=== PATIENT | female | born 1955 | race Caucasian/White ===

== ENCOUNTER 2020-01-13 21:15 | Inpatient (IN) | payer BC, SELFPAY ==
--- NOTE | ~2020-01-13 | XR_ITS ---
XR foot RT min 3V DATE: 01/14/2020 15:54 INDICATION: Concern for osteomyelitis TECHNIQUE: 4 views COMPARISON: None FINDINGS: Osteopenia. There is rocker-bottom foot deformity. There is osteoarthritis of the tibiotalar joint. Old healed fracture deformity of the distal fibular shaft. Plantar calcaneal enthesopathy. Degenerative changes of the tarsal and tarsometatarsal joints and first metatarsophalangeal No periosteal reaction or bone destruction to suggest osteomyelitis. IMPRESSION: Osteopenia Polyarticular osteoarthritis Plantar calcaneal enthesopathy Reviewed, dictated and finalized at location A.
--- NOTE | ~2020-01-13 | XR_ITS ---
XR foot LT min 3V DATE: 01/14/2020 15:53 INDICATION: Concern for osteomyelitis TECHNIQUE: 4 views COMPARISON: None FINDINGS: Diffuse prominent osteopenia. There is rocker-bottom foot. Plantar calcaneal enthesopathy. There is hallux valgus and bunion deformity. There is osteoarthritis at the first metatarsophalangeal joint. There are degenerative changes of the tarsal and tarsometatarsal joints. There is osteophyte is at the tibiotalar joint. No fracture or dislocation, periosteal reaction or bone destruction is evident. There is no radiograp hic evidence of osteomyelitis. IMPRESSION: Osteopenia Rocker-bottom foot Polyarticular osteoarthritis Plantar calcaneal enthesopathy No periosteal reaction or bone destruction suggestive of osteomyelitis is detected Reviewed, dictated and finalized at location A. IMPRESSION: Osteopenia Rocker-bottom foot Polyarticular osteoarthritis Plantar calcaneal enthesopathy No periosteal reaction or bone destruction suggestive of osteomyelitis is detec sophia
--- NOTE | ~2020-01-13 | MR_ITS ---
EXAMINATION: MR foot RT wo/w con DATE: 01/17/2020 14:55 INDICATION: Right foot osteomyelitis. TECHNIQUE: Magnetic resonance imaging (MRI) of the right foot was performed without and with 15 mL Mu ltiHance intravenous contrast. Sequences included sagittal STIR FSE and T1-weighted FSE and short-axi s and long-axis T1-weighted FSE and T2-weighted FS FSE. Postcontrast sequences included short-axis an d long-axis T1-weighted FS FSE. COMPARISON: Right foot MRI 02/19/2019, radiographs 01/14/2020 FINDINGS: There is a rocker-bottom foot. There is mild hallux valgus. There is bone marrow edema invo lving fourth proximal phalanx, fifth metatarsal, and fifth proximal, middle, and distal phalanges. No fracture. There is severe osteoarthritis of first metatarsophalangeal joint and some of the midfoot joints. There is moderate to severe fatty atrophy of the musculature. There is widespread increased T 2-weighted signal intensity in the musculature, consistent with subacute denervation and/or myositis. There is nonenhancement of the fat plantar to the second-fifth proximal phalanges, consistent with n ecrosis. There is widespread subcutaneous edema. There is mild bursitis between the first and second metatarsals. IMPRESSION: 1. Bone marrow edema involving the fourth proximal phalanx, fifth metatarsal, and fifth proximal, mid dle, and distal phalanges, consistent with osteomyelitis. 2. Nonenhancement of the fat plantar to the 2nd-5th proximal phalanges, consistent with necrosis. 3. Rocker-bottom foot deformity with polyarticular osteoarthritis. Reviewed, dictated and finalized at location A. IMPRESSION: 1. Bone marrow edema involving the fourth proximal phalanx, fifth metatarsal, a nd fifth proximal, middle, and distal phalanges, consistent with osteomyelitis. 2. Nonenhancement of the fat plantar to the 2nd-5th proximal phalanges, consist ent with necrosis. 3. Rocker-bottom foot deformity with polyarticular osteoarthritis.
--- NOTE | ~2020-01-13 | US_ITS ---
EXAMINATION: US renal BI DATE: 01/14/2020 16:09 INDICATION: Acute kidney injury. TECHNIQUE: Multiple ultrasound grayscale images of the kidneys were obtained. COMPARISON: None. FINDINGS: The right kidney measures 9.3 x 4.1 x 4.6 cm. The left kidney measures 9.4 x 4.7 x 5.5 cm. The kidney s demonstrate normal parenchymal echogenicity. There is no hydronephrosis. The bladder is normal. IMPRESSION: 1. Normal kidneys. No hydronephrosis. Reviewed, dictated and finalized at location A.
--- NOTE | ~2020-01-13 | XR_ITS ---
XR chest 1V portable 01/14/2020 00:49 Indication: Shortness of breath Procedure: AP portable chest Comparison: 09/05/2016 Findings: Borderline heart size. Elevated right diaphragm. No focal air space disease, pulmonary alice a, pleural effusion or suspected pneumothorax. Impression: 1: No acute cardiopulmonary disease. Reviewed, dictated and finalized at location B. Impression: 1: No acute cardiopulmonary disease.
[2020-01-13 21:21] VITALS: BP 119/108; PULSE 78; RESP 20; TEMP 37; O2SAT 100
[2020-01-13 21:59] LABS: Basophils Percent Auto 0.2 % (0.2-1.2); Eosinophils Absolute Auto 0.4 K/mm3 (0-0.3); Eosinophils Percent Auto 3.8 % (0-4.4); Hematocrit 21.8 % (37.0-47.0); Immature Granulocyte Absolute 0.06 K/mm3 (0.00-0.031); Immature Granulocyte Percent A 0.5 % (0-0.5); Lymphocytes Absolute Auto 1.62 K/mm3 (0.9-3.2); Lymphocytes Percent Auto 14.2 % (18.3-44.2); Mean Corpuscular HGB Conc 30.7 g/dl (32-36); Mean Corpuscular Hemoglobin 26.9 pg (26-34); Mean Corpuscular Volume 87.6 fl (80-100); Mean Platelet Volume 10.3 fl (7.4-10.4); Monocytes Absolute Auto 0.7 K/mm3 (0.1-0.6); Neutrophils Absolute Auto 8.6 K/mm3 (1.3-6.7); Neutrophils Percent Auto 75.3 % (45.5-73.1); Platelet Count Result 227 k/mm3 (150-375); Red Blood Count 2.49 M/mm3 (4.2-5.4); Red Cell Distribution Width 15.8 % (11.5-14.5); White Blood Count 11.4 K/mm3 (4.5-10.0)
[2020-01-13 22:01] LABS: Hemoglobin 6.7 g/dL (12.0-15.0)
[2020-01-13 22:09] LABS: INR 1.2
[2020-01-13 22:10] LABS: Blood Urea Nitrogen 55 mg/dL (7-17); Carbon Dioxide 27 mmol/L (22-30); Chloride 101 mmol/L (98-107); Estimated CRCL calculation 20 ml/min; Estimated Glomerular Filt Rate 20; Glucose 194 mg/dL (65-105); Partial Thromboplastin Time 29.7 SECONDS (22.3-36.8); Potassium 4.3 mmol/L (3.4-5.0); Sodium 137 mmol/L (137-145)
--- NOTE | 2020-01-13 22:44 | ED.WEAKNESS ---
HPI - Weakness General Chief complaint: Weakness Stated complaint: abn labs Time Seen by Provider: 01/13/20 21:21 History of Present Illness HPI Narrative: Patient is a 64-year-old female who presents the ER with fatigue worsening over the last week. Outpatient labs show that her hemoglobin is below 7 she was sent to the ER for further evaluation and possible transfusion. Patient denies any loose bloody bowel movements. She does have dark-colored stools. She is unsure if she takes iron. She has had no dizziness or syncope. Denies history of previous blood transfusion. Related Data Home Medications Medication Instructions Recorded Confirmed acetaminophen 650 mg PO Q4-5H PRN 01/19/20 01/19/20 aspirin 81 mg PO DAILY 01/19/20 01/19/20 atorvastatin 20 mg PO HS 01/19/20 01/19/20 baclofen 10 mg PO Q8-10H PRN 01/19/20 01/19/20 benzonatate 100 mg PO TID PRN 01/19/20 01/19/20 brimonidine 1 drp OPHTHALMIC (EYE) Q8H 01/19/20 01/19/20 calcium carbonate-vitamin D3 1 tablet PO BID 01/19/20 01/19/20 [Oysco 500/D] carvedilol 25 mg PO BID 01/19/20 01/19/20 cholecalciferol (vitamin D3) 50 mcg PO MONTHLY 01/19/20 01/19/20 [Vitamin D3] dorzolamide 1 drp OPHTHALMIC (EYE) TID 01/19/20 01/19/20 furosemide 40 mg PO DAILY 01/19/20 01/19/20 gabapentin 600 mg PO HS 01/19/20 01/19/20 guaifenesin [Siltussin SA] 200 mg PO Q4H PRN 01/19/20 01/19/20 hydrocodone-acetaminophen 1 tablet PO TID 01/19/20 01/19/20 ibuprofen 400 mg PO Q6H PRN 01/19/20 01/19/20 insulin glargine [Lantus U-100 40 unit SUBCUT QAM 01/19/20 01/19/20 Insulin] insulin lispro 1 sliding scale dose SUBCUT 01/19/20 01/19/20 USEASDIRECTD insulin lispro 5 unit SUBCUT TID 01/19/20 01/19/20 lisinopril 10 mg PO DAILY 01/19/20 01/19/20 loratadine [Claritin] 10 mg PO DAILY 01/19/20 01/19/20 metformin 500 mg PO BID 01/19/20 01/19/20 polysaccharide iron complex 150 mg PO BID 01/19/20 01/19/20 [Ferrex 150] sennosides [senna] 8.6 mg PO Q6-8H PRN 01/19/20 01/19/20 ticagrelor [Brilinta] 90 mg PO Q12H 01/19/20 01/19/20 timolol 1 drp LEFTEYE TID 01/19/20 01/19/20 Allergies Allergy/AdvReac Type Severity Reaction Status Date / Time egg Allergy Unknown Unknown Verified 05/30/19 14:20 latex Allergy Unknown Unknown Verified 05/30/19 14:20 milk Allergy Unknown Unknown Verified 05/31/19 00:05 Penicillins Allergy Unknown Skin Verified 05/30/19 14:20 Reaction shellfish derived Allergy Unknown Unknown Verified 05/30/19 22:52 Sulfa (Sulfonamide Allergy Unknown Unknown Verified 05/30/19 14:20 Antibiotics) sulfamethizole Allergy Unknown Nausea Verified 05/30/19 14:20 sulfanilamide Allergy Unknown Unknown Verified 05/30/19 14:20 Review of Systems Review of Systems: All systems reviewed & are unremarkable except as noted in HPI and below Constitutional: Constitutional: Reports fatigue and Reports weakness Gastrointestinal: Gastrointestinal: Denies nausea and Denies vomiting Comments: No blood in stool. Neurologic: Denies syncope, Denies focal weakness and Denies numbness [facility] Past Medical History Medical History (Updated 01/21/20 @ 01:57 by Manuel Maya MD) Acute renal failure Anemia Arm fracture, left Asthma Back pain Bronchitis CAD (coronary artery disease) Charcot's joint of foot Aadlbyk-Rzhxa-Inuem disease CHF (congestive heart failure) Diabetes Diabetic retinopathy HLD (hyperlipidemia) HTN (hypertension) Osteomyelitis of fifth toe of right foot Symptomatic anemia Type 2 diabetes mellitus with hyperglycemia Ulcer of left heel Surgical History Surgical History (Updated 01/18/20 @ 18:15 by Mike Pisano CRNA) History of coronary artery stent placement x2 History of open reduction and internal fixation (ORIF) procedure plates/screws in lt arm Hx of cardiac catheterization Hx of tonsillectomy Family History Family History Sibling Cerebrovascular accident Father Family history of diabetes mellitus in
[2020-01-13 23:05] VITALS: BP 132/99; PULSE 84; RESP 18; O2SAT 99
[2020-01-13 23:07] LABS: Iron 22 ug/dL (37-170)
[2020-01-13 23:16] LABS: Percent Iron Saturation 10 % (20-50)
--- NOTE | 2020-01-13 23:26 | PC.NURSE ---
Assumed care of pt at this time. Report from JACQUES Trevino
[2020-01-14] VITALS (15 sets, daily range): BP systolic 119–145; BP diastolic 61–88; PULSE 72–85; RESP 15–21; TEMP 36.7–37.7; O2SAT 96–100; BMI 31.9
[2020-01-14 00:14] LABS: Folic Acid 10.3 ng/mL (2.76->20)
--- NOTE | 2020-01-14 00:22 | PM.IMHP ---
H&P: HPI History of Present Illness Chief complaint: Abnormal Labs Narrative: This is a 64 year old Diabetic female who is known to our Hospitalist service from previous admissions and presented to the hospital secondary to low H/H that was discovered at the [facility]. The patient complains of increased generalized weakness, fatigue, and exertional shortness of breath over the past few days. She is currently at the [facility] as she states she cannot take care of herself. The patient admits that she has poorly controlled Diabetes and her blood sugars are always high. She was found to have a Hgb <7 and referred to the hospital for evaluation. She was also found to be in acute renal failure tonight in the ER. She denies any bright red rectal bleeding. No history of black stools, abdominal pain, or vomiting. She has not had any fevers, cough, dysuria, hematuria, or vaginal bleeding. The patient denies any previous GI bleeds or history of renal failure. She denies taking any blood thinners. She denies any exposure to contrast lately. She also admits that she hasn't been drinking fluids recently. No other complaints. Review of Systems Review of Systems: All systems reviewed & are unremarkable except as noted in HPI and below PMFSH Past Medical History Medical History Anemia Arm fracture, left Asthma Back pain Bronchitis CAD (coronary artery disease) Kpdgfsc-Lqfsk-Erxma disease CHF (congestive heart failure) Diabetes Diabetic retinopathy HLD (hyperlipidemia) HTN (hypertension) Type 2 diabetes mellitus with hyperglycemia Surgical History Surgical History History of coronary artery stent placement x2 History of open reduction and internal fixation (ORIF) procedure plates/screws in lt arm Hx of cardiac catheterization Family History Family History Sibling Cerebrovascular accident Father Family history of diabetes mellitus in first degree relative Diabetes mellitus Family history of hypothyroidism Mother Family history of diabetes mellitus in first degree relative Family history of heart disease in male family member before age 55 Diabetes mellitus Other Family history of cardiovascular disease Hypertension Social History Social History Social History: MDM: Mother, Shirley Rush Smoking status: Never smoker Second hand tobacco smoke exposure: No Alcohol intake: never Substance use: never Living arrangements: [facility] Occupation/Education: other Additional occupation/education comments: Disability Gender identity (if verbalized by the patient): Female Spiritual care concerns: No Agree to blood products: Yes Meds Home Medications and Allergies Home Medications Medication Instructions Recorded Confirmed Type Brilinta 90 mg PO Q12H 05/30/19 01/14/20 History aspirin [Adult Low Dose Aspirin] 81 mg PO DAILY 05/30/19 01/14/20 History atorvastatin 20 mg PO HS 05/30/19 01/14/20 History dorzolamide 1 drp OPHTHALMIC (EYE) BID 05/30/19 01/14/20 History ibuprofen 400 mg PO Q6H PRN 05/30/19 05/30/19 History insulin aspart U-100 [Novolog See Rx Instructions .ROUTE .COMPLEX 05/30/19 05/31/19 History Flexpen U-100 Insulin] lisinopril 10 mg PO DAILY 05/30/19 01/14/20 History metformin 250 mg PO BID 05/30/19 01/14/20 History sennosides [Senna Lax] 8.6 mg PO DAILY 05/30/19 01/14/20 History timolol maleate [Timoptic] 1 drp OPHTHALMIC (EYE) BID 05/30/19 01/14/20 History carvedilol [Coreg] 25 mg PO Q12HR 30 Days #60 tablet 06/03/19 01/14/20 Rx brimonidine 1 drp LEFTEYE BID 01/13/20 01/14/20 History ferrous sulfate 150 mg PO BID 01/13/20 History furosemide [Lasix] 40 mg PO DAILY 01/13/20 01/14/20 History gabapentin 300 mg PO DAILY 01/13/20 01/14/20 History insulin glargine [Lantus So
--- NOTE | 2020-01-14 00:39 | PC.NURSE ---
Pt initial Temp was 99.9 prior to transfusion. Upon Vitals recheck pt's 100.1 Per ERP Francesco hold blood transfusion
--- NOTE | 2020-01-14 04:08 | PC.NURSE ---
pt arrived to floor via stretcher. unit of blood brought with pt from ER. pt able to answer questions but does c/o pain.
[2020-01-14] MEDS: TUBING, BLOOD PLUM PUMP TUBING 1 EACH XX (04:45)
[2020-01-14 07:56] LABS: Glucose Point of Care 147 (65-105)
[2020-01-14] MEDS: SODIUM CHLORIDE 0.9% IV 1,000 ML 100 ML IV CONT ×2 (08:03→17:37)
[2020-01-14] MEDS: GABAPENTIN 300 MG CAPSULE PO (08:06)
[2020-01-14] MEDS: FUROSEMIDE 40 MG TABLET PO (08:06)
[2020-01-14] MEDS: BRIMONIDINE TARTRATE 0.2% OP SOLN 5 ML BTL 1 DROP EACH EYE ×2 (08:07→17:35)
[2020-01-14] MEDS: INSULIN GLARGINE (*BKC) 100 UNITS/ML 30 UNITS SUB-Q (08:09)
[2020-01-14 09:34] LABS: Basophils Percent Auto 0.3 % (0.2-1.2); Eosinophils Absolute Auto 0.4 K/mm3 (0-0.3); Eosinophils Percent Auto 3.7 % (0-4.4); Hematocrit 25.9 % (37.0-47.0); Hemoglobin 8.2 g/dL (12.0-15.0); Immature Granulocyte Absolute 0.05 K/mm3 (0.00-0.031); Immature Granulocyte Percent A 0.5 % (0-0.5); Lymphocytes Absolute Auto 1.86 K/mm3 (0.9-3.2); Lymphocytes Percent Auto 17.8 % (18.3-44.2); Mean Corpuscular HGB Conc 31.7 g/dl (32-36); Mean Corpuscular Hemoglobin 26.9 pg (26-34); Mean Corpuscular Volume 84.9 fl (80-100); Mean Platelet Volume 9.8 fl (7.4-10.4); Monocytes Absolute Auto 0.8 K/mm3 (0.1-0.6); Monocytes Percent Auto 7.2 % (2.6-8.5); Neutrophils Absolute Auto 7.4 K/mm3 (1.3-6.7); Neutrophils Percent Auto 70.5 % (45.5-73.1); Platelet Count Result 205 k/mm3 (150-375); Red Blood Count 3.05 M/mm3 (4.2-5.4); Red Cell Distribution Width 17.1 % (11.5-14.5); White Blood Count 10.4 K/mm3 (4.5-10.0)
[2020-01-14 09:49] LABS: Hemoglobin A1C 6.5 % (<5.7)
[2020-01-14 09:51] LABS: Blood Urea Nitrogen 42 mg/dL (7-17); Calcium 8.7 mg/dL (8.4-10.2); Carbon Dioxide 28 mmol/L (22-30); Chloride 105 mmol/L (98-107); Estimated CRCL calculation 29 ml/min; Estimated Glomerular Filt Rate 30; Glucose 147 mg/dL (65-105); Potassium 4.2 mmol/L (3.4-5.0); Sodium 139 mmol/L (137-145)
[2020-01-14 12:13] LABS: Glucose Point of Care 215 (65-105)
[2020-01-14] MEDS: INSULIN ASPART (*BKC) 100 UNITS/ML SUB-Q ×2 (12:15→17:44)
--- NOTE | 2020-01-14 15:35 | PM.IMPN ---
Progress Note: A&P Assessment and Plan (1) Symptomatic anemia: Code(s): D64.9 - Anemia, unspecified Status: Acute Assessment and Plan: Hb was 6.7 and Hct 21.8 at presentation. She received 1 unit pRBC. Repeat Hb is 8.2 and Hct 25.9 today. Normocytic. She denies melena and hematochezia. She appears to have anemia of chronic disease at baseline. Iron studies are consistent with anemia of chronic disease. Vitamin B12 and folate levels are sufficient. Obtain an occult blood stool test. Continue to monitor H&H. Transfuse PRN to maintain Hb >7. (2) Type 2 diabetes mellitus with hyperglycemia: Qualifiers: Diabetes mellitus penitentiary insulin use: with terminal clerk use Qualified Code(s): E11.65 - Type 2 diabetes mellitus with hyperglycemia; Z79.4 - exterminator (current) use of insulin Code(s): E11.65 - Type 2 diabetes mellitus with hyperglycemia Status: Chronic Assessment and Plan: Hemoglobin A1c was 6.5% 01/14/20. Blood sugars were reviewed and reasonably controlled with one value of 215 before lunch. Continue lantus at reduced dose of 30 units. Will add home mealtime insulin. Continue ACHS glucose monitoring, sliding-scale insulin, and hypoglycemia protocol. Continue to monitor. (3) Acute renal failure: Qualifiers: Acute renal failure type: unspecified Qualified Code(s): N17.9 - Acute kidney failure, unspecified Code(s): N17.9 - Acute kidney failure, unspecified Status: Acute Assessment and Plan: Cr was 2.5 and BUN 55 at presentation. Her acute renal failure is likely pre-renal due to low blood volume with hypoperfusion and dehydration. Cr has responded very well to gentle IV fluid rehydration. Continue gentle IV fluids. Avoid nephrotoxins and renally dose medications. Will order renal US. Hold linsinopril and metformin. Continue to monitor. (4) Diabetic foot ulcer: Qualifiers: Diabetes mellitus type: type 2 Diabetic foot ulcer location: heel Laterality: unspecified laterality Non-pressure ulcer stage: unspecified non-pressure ulcer stage Qualified Code(s): E11.621 - Type 2 diabetes mellitus with foot ulcer; L97.409 - Non-pressure chronic ulcer of unspecified heel and midfoot with unspecified severity Code(s): E11.621 - Type 2 diabetes mellitus with foot ulcer; L97.509 - Non-pressure chronic ulcer of other part of unspecified foot with unspecified severity Status: Chronic Assessment and Plan: Bilateral. Left heel and right lateral foot. The right lateral foot appears infected with surrounding cellulitis and fluctuance. Will order plain films. Obtain blood cultures. Begin IV zoysn after blood cultures are obtained. Wound care is on board and recommendations are appreciated. Begin dakins. Continue analgesics as needed. Await further surgical recommendations. I have ASA and brilinta on hold awaiting surgical recommendations. (5) Charcot's joint of foot: Qualifiers: Laterality: unspecified laterality Qualified Code(s): M14.679 - Charcot's joint, unspecified ankle and foot Code(s): M14.679 - Charcot's joint, unspecified ankle and foot Status: Chronic Assessment and Plan: As above. I have consulted general surgery for recommendations regarding her foot wounds. (6) HTN (hypertension): Qualifiers: Hypertension type: unspecified Qualified Code(s): I10 - Essential (primary) hypertension Code(s): I10 - Essential (primary) hypertension Status: Chronic Assessment and Plan: Blood pressures were reviewed and are reasonably controlled. Continue carvedilol. Hold lisinopril due to AC. Continue to monitor. (7) HLD (hyperlipidemia): Qualifiers: Hyperlipidemia type: unspecified Qualified Code(s): E78.5 - Hyperlipidemia, unspecified Code(s): E78.5 - Hyperlipidemia, unspecified Status: Chronic Assessment and Plan: Chronic. Con
--- NOTE | 2020-01-14 16:54 | PM.CNGS ---
Assessment and Plan Assessment and plan (1) Diabetic foot ulcer: Qualifiers: Diabetic foot ulcer location: heel Diabetes mellitus type: type 2 Laterality: unspecified laterality Non-pressure ulcer stage: unspecified non-pressure ulcer stage Qualified Code(s): E11.621 - Type 2 diabetes mellitus with foot ulcer; L97.409 - Non-pressure chronic ulcer of unspecified heel and midfoot with unspecified severity Code(s): E11.621 - Type 2 diabetes mellitus with foot ulcer; L97.509 - Non-pressure chronic ulcer of other part of unspecified foot with unspecified severity Status: Chronic Assessment and Plan: The patient has bilateral chronic diabetic foot ulcers. The ulcer on her right foot does appear to be actively infected and is concerning for osteomyelitis with tunneling noted from the 5th to the 2nd metatarsal, although the x-ray does not mention evidence of osteomyelitis on the report. Would recommend to continue IV antibiotics and local wound care for now. The ulcer on the left foot appears more stable with no active purulent drainage. X-ray of the left foot has no evidence of osteomyelitis. Will continue with Dakin's dressing changes to bilateral foot ulcers for now. Wound care nurses have already been consulted and evaluated the patient. Both feet should be elevated off the bed to reduce pressure and will order heel boots to be applied. I discussed the patient's case with Dr. Reyes who will be evaluating the patient as well separately. Thank you for allowing us to see the patient in consultation and we will continue to follow along with you. 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 Management per primary service. (4) Symptomatic anemia: Code(s): D64.9 - Anemia, unspecified Status: Acute Assessment and Plan: Hgb 6.7 on admission. Transfused 2 units and now back up to 8.2. No evidence of active bleeding noted. Continue to trend labs. 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 Continue to monitor glucose levels and will need good control for wound healing. (6) CAD (coronary artery disease): Code(s): I25.10 - Atherosclerotic heart disease of [place] coronary artery without angina pectoris Status: Chronic (7) HTN (hypertension): Qualifiers: Hypertension type: unspecified Qualified Code(s): I10 - Essential (primary) hypertension Code(s): I10 - Essential (primary) hypertension Status: Chronic (8) HLD (hyperlipidemia): Qualifiers: Hyperlipidemia type: unspecified Qualified Code(s): E78.5 - Hyperlipidemia, unspecified Code(s): E78.5 - Hyperlipidemia, unspecified Status: Chronic Additional Plan Discussed the patient's case and formulated plan of care with Dr. Reyes. History of Present Illness Consult details Consult date: 01/14/20 Reason for consult: wound care (Bilateral chronic diabetic foot ulcers) Requesting physician: Kirsten Marie PA-C Narrative: This is a 64-year-old female with a history insulin-dependent diabetes mellitus and Fsibcmo-Vfdyh-Vinot disease who presented to the emergency department yesterday for evaluation of anemia found on outpatient labs.
[2020-01-14] MEDS: SOD HYPOCHLORITE 1/4 STRENGTH 473 ML 1 APPLIC TOPICAL ×2 (17:32→22:05)
[2020-01-14] MEDS: TIMOLOL MALEATE 0.25% OP SOLN 5 ML BOTTLE 1 DROP LEFT EYE (17:35)
[2020-01-14] MEDS: BACLOFEN 10 MG TABLET 5 MG PO (17:36)
[2020-01-14] MEDS: DORZOLAMIDE HCL 2% OPHTH DROPS 1 DROP LEFT EYE (17:37)
[2020-01-14 18:00] LABS: Glucose Point of Care 182 (65-105)
[2020-01-14] MEDS: ASPIRIN 81 MG ENTERIC TABLET PO (18:15)
[2020-01-14] MEDS: ATORVASTATIN 20 MG TABLET PO (21:59)
[2020-01-14] MEDS: GABAPENTIN 300 MG CAPSULE 600 MG PO (21:59)
[2020-01-14] MEDS: carvediloL 25 MG TABLET PO (22:04)
[2020-01-14] MEDS: HEPARIN SODIUM 5,000 UNITS/ML VIAL 5000 UNITS SUB-Q (22:05)
[2020-01-14 22:19] LABS: Glucose Point of Care 116 (65-105)
[2020-01-15] MEDS: SODIUM CHLORIDE 0.9% IV 1,000 ML 100 ML IV CONT ×2 (06:15→18:38)
[2020-01-15] MEDS: HEPARIN SODIUM 5,000 UNITS/ML VIAL 5000 UNITS SUB-Q ×3 (06:17→21:07)
[2020-01-15 06:32] VITALS: BP 148/90; PULSE 72; RESP 18; TEMP 37; O2SAT 100
[2020-01-15 06:35] LABS: Basophils Percent Auto 0.3 % (0.2-1.2); Eosinophils Absolute Auto 0.4 K/mm3 (0-0.3); Hemoglobin 8.6 g/dL (12.0-15.0); Immature Granulocyte Absolute 0.03 K/mm3 (0.00-0.031); Immature Granulocyte Percent A 0.3 % (0-0.5); Lymphocytes Absolute Auto 2.06 K/mm3 (0.9-3.2); Lymphocytes Percent Auto 22.4 % (18.3-44.2); Mean Corpuscular HGB Conc 30.7 g/dl (32-36); Mean Corpuscular Volume 84.6 fl (80-100); Mean Platelet Volume 10.3 fl (7.4-10.4); Monocytes Absolute Auto 0.7 K/mm3 (0.1-0.6); Monocytes Percent Auto 7.7 % (2.6-8.5); Neutrophils Percent Auto 65.3 % (45.5-73.1); Platelet Count Result 222 k/mm3 (150-375); Red Blood Count 3.31 M/mm3 (4.2-5.4); White Blood Count 9.2 K/mm3 (4.5-10.0)
[2020-01-15 07:08] LABS: Blood Urea Nitrogen 31 mg/dL (7-17); Calcium 8.4 mg/dL (8.4-10.2); Carbon Dioxide 27 mmol/L (22-30); Chloride 105 mmol/L (98-107); Estimated CRCL calculation 38 ml/min; Estimated Glomerular Filt Rate 42; Glucose 132 mg/dL (65-105); Magnesium 2.2 mg/dL (1.6-2.3); Sodium 139 mmol/L (137-145)
[2020-01-15 08:30] LABS: Glucose Point of Care 152 (65-105)
--- NOTE | 2020-01-15 09:01 | PM.PNGS ---
Progress Note: A&P Assessment and Plan (1) Diabetic infection of right foot: Code(s): E11.628 - Type 2 diabetes mellitus with other skin complications; L08.9 - Local infection of the skin and subcutaneous tissue, unspecified Status: Acute Assessment and Plan: right foot does not look good. It has a foul odor and cellulitis with gangrenous gear changer the 5th metatarsal. I doubt that it is salvageable. I discuss this with the patient. She very much wants to try everything to avoid amputation. Continue antibiotics and Dakin's solution wound care with protective awful boots for now. (2) Ulcer of left heel: Code(s): L97.429 - Non-pressure chronic ulcer of left heel and midfoot with unspecified severity Status: Acute Assessment and Plan: Looks pretty clean and should be able to heal. Continue Dakin solution and waffle boots for now. (3) Charcot's joint of foot: Qualifiers: Laterality: unspecified laterality Qualified Code(s): M14.679 - Charcot's joint, unspecified ankle and foot Code(s): M14.679 - Charcot's joint, unspecified ankle and foot Status: Chronic (4) Type 2 diabetes mellitus with hyperglycemia: Qualifiers: Diabetes mellitus emt intermediate insulin use: with emt intermediate use Qualified Code(s): E11.65 - Type 2 diabetes mellitus with hyperglycemia; Z79.4 - skilled nursing (current) use of insulin Code(s): E11.65 - Type 2 diabetes mellitus with hyperglycemia Status: Chronic (5) Acute renal failure: Qualifiers: Acute renal failure type: unspecified Qualified Code(s): N17.9 - Acute kidney failure, unspecified Code(s): N17.9 - Acute kidney failure, unspecified Status: Acute (6) Symptomatic anemia: Code(s): D64.9 - Anemia, unspecified Status: Acute (7) Rqqtudo-Ibrhx-Mxsyj 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 Status: Acute Subjective Subjective Date/Time Seen: 01/15/20 09:01 Patient reports: no new complaints Review of Systems Review of Systems: All systems reviewed & are unremarkable except as noted in HPI and below Constitutional: Constitutional: Denies headache(s) Cardiovascular: Cardiovascular: Denies chest pain and Denies dyspnea Respiratory: Respiratory: Denies cough and Denies dyspnea Gastrointestinal: Gastrointestinal: Reports as per HPI Neurologic: Denies confusion and Denies headache(s) Exam Const: General: comfortable and no acute distress; No confusion Orientation/consciousness: patient oriented x3 and No confusion Neuro: General: patient oriented x3, no focal motor deficits and No confusion Extrem: General: no calf tenderness and no edema Right lower extremity: foot ( Cellulitis with the dry gangrene over 5th metatarsal. ) Details: other ( Toes 2 through 4 involved in the infection.) Left lower extremity: foot ( Fairly clean left heel ulcer.) Psych: Affect: normal affect Insight: Good insight present (Psych) Judgement: Good judgement present (Psych) Objective Data Vital Signs Vital Signs: Vital Signs - 24 hr 01/14/20 18:50 01/14/20 22:00 01/14/20 22:04 Temperature 36.8 C 37.1 C Pulse Rate 72 75 75 Respiratory Rate 16 18 Blood Pressure 142/68 H 138/79 Pulse Oximetry 97 98 01/15/20 06:32 Temperature 37.0 C Pulse Rate 72 Respiratory Rate 18 Blood Pressure 148/90 H Pulse Oximetry 100 Intake/Output Intake/Output: Intake & Output 01/12/20 01/13/20 01/14/20 01/15/20 23:59 23:59 23:59 23:59 Intake Total 3120 1310 Output Total 2200 200 Balance 920 1110 Meds/Results Medications: Active Medications Generic Name Dose Route Start Last Admin Trade Name Freq PRN Reason Stop Dose Admin Acetaminophen 650 mg 01/13/20 23:55 Tylenol Tablet PO Q4H PRN Mild Pain (1-3) or Fever Hydrocodone Bitart/Acetaminophen 1 tab 01/13/20 23:55 01/15/20 06:17 Matlock 5-325 Mg PO 1 tab Q4H P
[2020-01-15] MEDS: ASPIRIN 81 MG ENTERIC TABLET PO (09:31)
[2020-01-15] MEDS: BRIMONIDINE TARTRATE 0.2% OP SOLN 5 ML BTL 1 DROP EACH EYE ×2 (09:31→18:33)
[2020-01-15 09:32] VITALS: PULSE 68
[2020-01-15] MEDS: carvediloL 25 MG TABLET PO ×2 (09:32→21:08)
[2020-01-15] MEDS: GABAPENTIN 300 MG CAPSULE PO (09:33)
[2020-01-15] MEDS: DORZOLAMIDE HCL 2% OPHTH DROPS 1 DROP LEFT EYE ×2 (09:33→18:34)
[2020-01-15] MEDS: SOD HYPOCHLORITE 1/4 STRENGTH 473 ML 1 APPLIC TOPICAL ×2 (09:34→21:08)
[2020-01-15] MEDS: TIMOLOL MALEATE 0.25% OP SOLN 5 ML BOTTLE 1 DROP LEFT EYE ×2 (09:34→18:34)
[2020-01-15] MEDS: INSULIN GLARGINE (*BKC) 100 UNITS/ML 30 UNITS SUB-Q (09:53)
[2020-01-15] MEDS: INSULIN ASPART (*BKC) 100 UNITS/ML SUB-Q ×3 (09:53→18:45)
[2020-01-15 12:58] LABS: Glucose Point of Care 159 (65-105)
--- NOTE | 2020-01-15 13:25 | PM.IMPN ---
Progress Note: A&P Assessment and Plan (1) Diabetic foot ulcer: Qualifiers: Diabetes mellitus type: type 2 Diabetic foot ulcer location: heel Laterality: unspecified laterality Non-pressure ulcer stage: unspecified non-pressure ulcer stage Qualified Code(s): E11.621 - Type 2 diabetes mellitus with foot ulcer; L97.409 - Non-pressure chronic ulcer of unspecified heel and midfoot with unspecified severity Code(s): E11.621 - Type 2 diabetes mellitus with foot ulcer; L97.509 - Non-pressure chronic ulcer of other part of unspecified foot with unspecified severity Status: Deleted Assessment and Plan: Bilateral. Left heel and right lateral foot. The right lateral foot appears infected with surrounding cellulitis, fluctuance, and dry gangrene. Blood cultures were obtained due to concern for osteomyelitis. Plain films do not mention osteomyelitis but there is clinical concern. Continue IV zosyn. General surgery is on board and recommendations are appreciated. Plan for conservative treatment although there is concern that the right limb is non-salvageable. Await further surgical recommendations. Appreciate wound care recommendations, continue dakins. Continue analgesics as needed. (2) Symptomatic anemia: Code(s): D64.9 - Anemia, unspecified Status: Acute Assessment and Plan: Hb was 6.7 and Hct 21.8 at presentation. She received 2 unit pRBC. Repeat Hb is 8.6 and Hct 28.0 today. Normocytic. This is likely due to anemia of chronic disease. She denies melena and hematochezia. She appears to have anemia of chronic disease at baseline. Iron studies are consistent with anemia of chronic disease. Vitamin B12 and folate levels are sufficient. Occult blood stool test is pending. Continue to monitor H&H. Transfuse PRN to maintain Hb >7. (3) Acute renal failure: Qualifiers: Acute renal failure type: unspecified Qualified Code(s): N17.9 - Acute kidney failure, unspecified Code(s): N17.9 - Acute kidney failure, unspecified Status: Acute Assessment and Plan: Cr was 2.5 and BUN 55 at presentation. Her acute renal failure is likely pre-renal due to low blood volume with hypoperfusion and dehydration. Cr has responded very well to gentle IV fluid rehydration. Cr is 1.3 and BUN 31 today. Renal ultrasound revealed no abnormalities. Continue gentle IV fluids. Avoid nephrotoxins and renally dose medications. Hold linsinopril and metformin. Continue to monitor. 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 Blood sugars were reviewed and reasonably controlled. Continue lantus at reduced dose of 30 units. Continue mealtime insulin. Continue ACHS glucose monitoring, sliding-scale insulin, and hypoglycemia protocol. Continue to monitor. (5) Charcot's joint of foot: Qualifiers: Laterality: unspecified laterality Qualified Code(s): M14.679 - Charcot's joint, unspecified ankle and foot Code(s): M14.679 - Charcot's joint, unspecified ankle and foot Status: Chronic (6) HTN (hypertension): Qualifiers: Hypertension type: unspecified Qualified Code(s): I10 - Essential (primary) hypertension Code(s): I10 - Essential (primary) hypertension Status: Chronic Assessment and Plan: Blood pressures were reviewed and are mildly elevated with some readings 140 systolic. Lisinopril is held due to AC. Continue carvedilol. Continue to monitor. (7) HLD (hyperlipidemia): Qualifiers: Hyperlipidemia type: unspecified Qualified Code(s): E78.5 - Hyperlipidemia, unspecified
[2020-01-15 14:00] VITALS: BP 118/51; PULSE 70; RESP 20; TEMP 36.5; O2SAT 100
[2020-01-15 14:21] LABS: SARS-CoV-2 RNA PCR Negative
[2020-01-15 16:52] LABS: Glucose Point of Care 171 (65-105)
[2020-01-15] MEDS: ATORVASTATIN 20 MG TABLET PO (21:07)
[2020-01-15] MEDS: GABAPENTIN 300 MG CAPSULE 600 MG PO (21:07)
[2020-01-15 21:08] VITALS: PULSE 78
[2020-01-15 21:26] VITALS: TEMP 38.4
[2020-01-15] MEDS: ACETAMINOPHEN 325 MG TABLET 650 MG PO (21:26)
[2020-01-15 22:00] VITALS: BP 162/79; PULSE 80; RESP 20; TEMP 38.4; O2SAT 100
[2020-01-15 22:45] LABS: Glucose Point of Care 135 (65-105)
[2020-01-16 00:24] VITALS: TEMP 37.5
[2020-01-16] MEDS: SODIUM CHLORIDE 0.9% IV 1,000 ML 100 ML IV CONT ×2 (05:29→16:55)
[2020-01-16] MEDS: HEPARIN SODIUM 5,000 UNITS/ML VIAL 5000 UNITS SUB-Q ×3 (05:30→21:31)
[2020-01-16] MEDS: ACETAMINOPHEN 325 MG TABLET 650 MG PO (05:32)
[2020-01-16 06:00] VITALS: BP 144/70; PULSE 66; RESP 20; TEMP 37.4; O2SAT 99
[2020-01-16 06:28] LABS: Hematocrit 25.8 % (37.0-47.0); Mean Corpuscular Hemoglobin 26.2 pg (26-34); Mean Corpuscular Volume 84.6 fl (80-100); Mean Platelet Volume 10.1 fl (7.4-10.4); Platelet Count Result 233 k/mm3 (150-375); Red Blood Count 3.05 M/mm3 (4.2-5.4); Red Cell Distribution Width 16.3 % (11.5-14.5); White Blood Count 9.3 K/mm3 (4.5-10.0)
[2020-01-16 06:51] LABS: Blood Urea Nitrogen 19 mg/dL (7-17); Calcium 8.5 mg/dL (8.4-10.2); Carbon Dioxide 24 mmol/L (22-30); Chloride 107 mmol/L (98-107); Estimated CRCL calculation 44 ml/min; Estimated Glomerular Filt Rate 50; Glucose 128 mg/dL (65-105); Potassium 3.8 mmol/L (3.4-5.0); Sodium 139 mmol/L (137-145)
[2020-01-16 08:43] VITALS: PULSE 68
[2020-01-16] MEDS: BRIMONIDINE TARTRATE 0.2% OP SOLN 5 ML BTL 1 DROP EACH EYE ×2 (08:43→16:57)
[2020-01-16] MEDS: ASPIRIN 81 MG ENTERIC TABLET PO (08:43)
[2020-01-16] MEDS: SENNOSIDES 8.6 MG TABLET PO (08:43)
[2020-01-16] MEDS: TIMOLOL MALEATE 0.25% OP SOLN 5 ML BOTTLE 1 DROP LEFT EYE ×2 (08:43→16:57)
[2020-01-16] MEDS: carvediloL 25 MG TABLET PO ×2 (08:43→21:31)
[2020-01-16] MEDS: GABAPENTIN 300 MG CAPSULE PO (08:44)
[2020-01-16] MEDS: DORZOLAMIDE HCL 2% OPHTH DROPS 1 DROP LEFT EYE ×2 (08:44→16:57)
[2020-01-16] MEDS: INSULIN GLARGINE (*BKC) 100 UNITS/ML 30 UNITS SUB-Q (08:45)
[2020-01-16] MEDS: INSULIN ASPART (*BKC) 100 UNITS/ML SUB-Q ×4 (08:45→17:07)
[2020-01-16] MEDS: SOD HYPOCHLORITE 1/4 STRENGTH 473 ML 1 APPLIC TOPICAL ×2 (08:48→21:38)
[2020-01-16 08:58] LABS: Glucose Point of Care 113 (65-105)
--- NOTE | 2020-01-16 12:54 | PM.IMPN ---
Progress Note: A&P Assessment and Plan (1) Diabetic foot ulcer: Qualifiers: Diabetic foot ulcer location: heel Diabetes mellitus type: type 2 Laterality: unspecified laterality Non-pressure ulcer stage: unspecified non-pressure ulcer stage Qualified Code(s): E11.621 - Type 2 diabetes mellitus with foot ulcer; L97.409 - Non-pressure chronic ulcer of unspecified heel and midfoot with unspecified severity Code(s): E11.621 - Type 2 diabetes mellitus with foot ulcer; L97.509 - Non-pressure chronic ulcer of other part of unspecified foot with unspecified severity Status: Deleted Assessment and Plan: Bilateral. Left heel and right lateral foot. Left heel ulcer is full-thickness, stable without s/s of acute infection. The right lateral foot appeared infected with surrounding cellulitis, fluctuance, and dry gangrene, erythema has improved with IV antibiotics. Blood cultures were obtained due to concern for osteomyelitis and reveal NGTD. Plain films do not mention osteomyelitis but there is clinical concern. Continue IV zosyn. General surgery is on board and recommendations are appreciated. Appreciate wound care recommendations. Plan for conservative treatment including local wound care/dakins and offloading. Continue analgesics PRN. There is concern that the right limb is non-salvageable and I discussed this with the patient today. Await further surgical recommendations. (2) Symptomatic anemia: Code(s): D64.9 - Anemia, unspecified Status: Acute Assessment and Plan: Hb was 6.7 and Hct 21.8 at presentation. She received 2 unit pRBC. H&H are relatively stable with Hb of 8.0 and Hct 25.8 today. Normocytic. This is likely due to anemia of chronic disease. She denies melena and hematochezia. She appears to have anemia of chronic disease at baseline. Iron studies are consistent with anemia of chronic disease. Vitamin B12 and folate levels are sufficient. Occult blood stool test is pending. Continue to monitor H&H. Transfuse PRN to maintain Hb >7. (3) Acute renal failure: Qualifiers: Acute renal failure type: unspecified Qualified Code(s): N17.9 - Acute kidney failure, unspecified Code(s): N17.9 - Acute kidney failure, unspecified Status: Acute Assessment and Plan: Cr was 2.5 and BUN 55 at presentation. Her acute renal failure is likely pre-renal due to low blood volume with hypoperfusion and dehydration. Cr has responded very well to gentle IV fluid rehydration. Cr is 1.1 and BUN 19 today. Renal ultrasound revealed no abnormalities. Discontinue IV fluids as renal function is at baseline. Avoid nephrotoxins and renally dose medications. Hold metformin. Resume lisinopril. Continue to monitor. 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 Blood sugars were reviewed and reasonably controlled. Continue lantus at reduced dose of 30 units. Continue mealtime insulin. Continue ACHS glucose monitoring, sliding-scale insulin, and hypoglycemia protocol. Continue to monitor. (5) Charcot's joint of foot: Qualifiers: Laterality: unspecified laterality Qualified Code(s): M14.679 - Charcot's joint, unspecified ankle and foot Code(s): M14.679 - Charcot's joint, unspecified ankle and foot Status: Chronic (6) HTN (hypertension): Qualifiers: Hypertension type: unspecified Qualified Code(s): I10 - Essential (primary) hypertension Code(s): I10 - Essential (primary) hypertension Status: Chronic Assessment and Plan: Blood pressures were reviewed and are elevated. Resume lisinopri
[2020-01-16 12:59] LABS: Glucose Point of Care 190 (65-105)
[2020-01-16 14:00] VITALS: BP 152/74; PULSE 71; RESP 20; TEMP 36.7; O2SAT 100
[2020-01-16 17:15] LABS: Glucose Point of Care 224 (65-105)
[2020-01-16] MEDS: GABAPENTIN 300 MG CAPSULE 600 MG PO (21:30)
[2020-01-16 21:31] VITALS: PULSE 70
[2020-01-16] MEDS: ATORVASTATIN 20 MG TABLET PO (21:31)
[2020-01-16 22:00] VITALS: BP 155/76; PULSE 79; RESP 20; TEMP 37.4; O2SAT 99
[2020-01-16 22:09] LABS: Glucose Point of Care 207 (65-105)
[2020-01-17] MEDS: SODIUM CHLORIDE 0.9% IV 1,000 ML 100 ML IV CONT (00:33)
[2020-01-17] MEDS: HEPARIN SODIUM 5,000 UNITS/ML VIAL 5000 UNITS SUB-Q ×3 (05:21→21:39)
[2020-01-17 06:00] VITALS: BP 152/75; PULSE 69; RESP 20; TEMP 36.7; O2SAT 100
[2020-01-17 06:23] LABS: Hematocrit 26.6 % (37.0-47.0); Hemoglobin 8.2 g/dL (12.0-15.0); Mean Corpuscular HGB Conc 30.8 g/dl (32-36); Mean Corpuscular Hemoglobin 26.1 pg (26-34); Mean Corpuscular Volume 84.7 fl (80-100); Platelet Count Result 254 k/mm3 (150-375); Red Blood Count 3.14 M/mm3 (4.2-5.4); White Blood Count 9.1 K/mm3 (4.5-10.0)
[2020-01-17 06:39] LABS: Blood Urea Nitrogen 17 mg/dL (7-17); Calcium 8.4 mg/dL (8.4-10.2); Carbon Dioxide 22 mmol/L (22-30); Chloride 108 mmol/L (98-107); Estimated CRCL calculation 44 ml/min; Estimated Glomerular Filt Rate 50; Glucose 178 mg/dL (65-105); Potassium 3.8 mmol/L (3.4-5.0); Sodium 136 mmol/L (137-145)
[2020-01-17] MEDS: ASPIRIN 81 MG ENTERIC TABLET PO (08:25)
[2020-01-17 08:26] VITALS: PULSE 70
[2020-01-17] MEDS: carvediloL 25 MG TABLET PO ×2 (08:26→21:39)
[2020-01-17] MEDS: lisinopriL 10 MG TABLET PO (08:26)
[2020-01-17] MEDS: BRIMONIDINE TARTRATE 0.2% OP SOLN 5 ML BTL 1 DROP EACH EYE ×2 (08:26→18:01)
[2020-01-17] MEDS: TIMOLOL MALEATE 0.25% OP SOLN 5 ML BOTTLE 1 DROP LEFT EYE ×2 (08:26→18:01)
[2020-01-17] MEDS: GABAPENTIN 300 MG CAPSULE PO (08:26)
[2020-01-17] MEDS: SENNOSIDES 8.6 MG TABLET PO (08:26)
[2020-01-17] MEDS: DORZOLAMIDE HCL 2% OPHTH DROPS 1 DROP LEFT EYE ×2 (08:26→18:01)
[2020-01-17] MEDS: INSULIN ASPART (*BKC) 100 UNITS/ML SUB-Q ×3 (08:27→17:56)
[2020-01-17] MEDS: SOD HYPOCHLORITE 1/4 STRENGTH 473 ML 1 APPLIC TOPICAL ×2 (08:27→21:39)
[2020-01-17] MEDS: INSULIN GLARGINE (*BKC) 100 UNITS/ML 40 UNITS SUB-Q (08:27)
[2020-01-17 08:57] LABS: Glucose Point of Care 152 (65-105)
--- NOTE | 2020-01-17 11:11 | PM.PNGS ---
Progress Note: A&P Assessment and Plan (1) Diabetic infection of right foot: Code(s): E11.628 - Type 2 diabetes mellitus with other skin complications; L08.9 - Local infection of the skin and subcutaneous tissue, unspecified Status: Acute Assessment and Plan: Will at least need debridement of right foot. I do not really see how the lower extremity is salvageable. Patient adamantly does not want amputation. Will consult regarding potential for limb salvage (2) Ulcer of left heel: Code(s): L97.429 - Non-pressure chronic ulcer of left heel and midfoot with unspecified severity Status: Acute Assessment and Plan: Clean and does need a little debridement. Continue Dakin's dressing changes. (3) Charcot's joint of foot: Qualifiers: Laterality: unspecified laterality Qualified Code(s): M14.679 - Charcot's joint, unspecified ankle and foot Code(s): M14.679 - Charcot's joint, unspecified ankle and foot Status: Chronic (4) Type 2 diabetes mellitus with hyperglycemia: Qualifiers: Diabetes mellitus jail insulin use: with jail use Qualified Code(s): E11.65 - Type 2 diabetes mellitus with hyperglycemia; Z79.4 - long term acute care registered nurse (current) use of insulin Code(s): E11.65 - Type 2 diabetes mellitus with hyperglycemia Status: Chronic (5) Anemia: Code(s): D64.9 - Anemia, unspecified Status: Acute Subjective Subjective Date/Time Seen: 01/17/20 11:11 Patient reports: still having pain (Having pain both feet right more then left) and other (Taking Napoleon for pain) Review of Systems Review of Systems: All systems reviewed & are unremarkable except as noted in HPI and below Constitutional: Constitutional: Denies headache(s) Neurologic: Denies confusion and Denies headache(s) Exam Const: General: comfortable and no acute distress; No confusion Orientation/consciousness: patient oriented x3 and No confusion Neuro: General: patient oriented x3, no focal motor deficits and No confusion Extrem: General: no calf tenderness and no edema Right lower extremity: foot (5th metatarsal gangrene with deep ulcer) Details: warmth, edema and other (3rd metatarsal plantar swelling); no crepitus Left lower extremity: foot (Left heel ulcer still overall clean but with exudate) Objective Data Vital Signs Vital Signs: Vital Signs - 24 hr 01/16/20 14:00 01/16/20 21:31 01/16/20 22:00 Temperature 36.7 C 37.4 C Pulse Rate 71 70 79 Respiratory Rate 20 20 Blood Pressure 152/74 H 155/76 H Pulse Oximetry 100 99 01/17/20 06:00 01/17/20 08:26 Temperature 36.7 C Pulse Rate 69 70 Respiratory Rate 20 Blood Pressure 152/75 H Pulse Oximetry 100 Intake/Output Intake/Output: Intake & Output 01/14/20 01/15/20 01/16/20 01/17/20 23:59 23:59 23:59 23:59 Intake Total 3120 3440 3450 1600 Output Total 2200 5002 993 9039 Balance 920 2240 2950 -450 Meds/Results Medications: Active Medications Generic Name Dose Route Start Last Admin Trade Name Freq PRN Reason Stop Dose Admin Acetaminophen 650 mg 01/13/20 23:55 01/16/20 05:32 Tylenol Tablet PO 650 mg Q4H PRN Administration Mild Pain (1-3) or Fever Hydrocodone Bitart/Acetaminophen 1 tab 01/13/20 23:55 01/17/20 08:58 Napoleon 5-325 Mg PO 1 tab Q4H PRN Administration Pain Rated 4-6 Aspirin 81 mg 01/14/20 16:50 01/17/20 08:25 Aspirin Ec PO 81 mg QAM TIA Administration Atorvastatin Calcium 20 mg 01/14/20 21:00 01/16/20 21:31 Lipitor PO 20 mg HS TIA Administration Baclofen 5 mg 01/14/20 17:00 01/17/20 08:26 Lioresal Po PO Not Given TID TIA Brimonidine Tartrate 1 drop 01/14/20 09:00 01/17/20 08:26 Alphagan 0.2% Op Soln EACH EYE 1 drop BID TIA Administration Carvedilol 25 mg 01/14/20 21:00 01/17/20 08:26 Coreg PO 25 mg Q12HR TIA Administration Dextrose 12.5 gm 01/14/20 00:39 Dextrose 5
--- NOTE | 2020-01-17 11:41 | PM.IMPN ---
Progress Note: A&P Assessment and Plan (1) Diabetic foot ulcer: Qualifiers: Diabetic foot ulcer location: heel Diabetes mellitus type: type 2 Laterality: unspecified laterality Non-pressure ulcer stage: unspecified non-pressure ulcer stage Qualified Code(s): E11.621 - Type 2 diabetes mellitus with foot ulcer; L97.409 - Non-pressure chronic ulcer of unspecified heel and midfoot with unspecified severity Code(s): E11.621 - Type 2 diabetes mellitus with foot ulcer; L97.509 - Non-pressure chronic ulcer of other part of unspecified foot with unspecified severity Status: Deleted Assessment and Plan: Bilateral. Left heel and right lateral foot. Left heel ulcer is full-thickness, stable without s/s of acute infection. The right lateral foot appeared infected with surrounding cellulitis, fluctuance, and dry gangrene. Blood cultures were obtained due to concern for osteomyelitis and reveal NGTD. Plain films do not mention osteomyelitis but there is clinical concern due to probable bone. She had a fever documented (101.2F) 01/14. She has been afebrile since. Plan to order MRI of the right foot. Continue IV zosyn. General surgery is on board and recommendations are appreciated. Appreciate wound care recommendations. She is currently receiving conservative treatment with local wound care/dakins and offloading. Continue analgesics PRN. There is concern that the right limb is non-salvageable and I reiterated this with the patient again today. She is very reluctant to consider amputation. General surgery has consulted orthopedic surgery for further recommendations. Await MRI results. (2) Symptomatic anemia: Code(s): D64.9 - Anemia, unspecified Status: Acute Assessment and Plan: Hb was 6.7 and Hct 21.8 at presentation. She received 2 unit pRBC. H&H remain stable with Hb of 8.2 and Hct 26.6 20. Normocytic. This is likely due to anemia of chronic disease. She denies melena and hematochezia. She appears to have anemia of chronic disease at baseline. Iron studies are consistent with anemia of chronic disease. Vitamin B12 and folate levels are sufficient. Occult blood stool test is pending. Continue to monitor H&H. Transfuse PRN to maintain Hb >7. (3) Acute renal failure: Qualifiers: Acute renal failure type: unspecified Qualified Code(s): N17.9 - Acute kidney failure, unspecified Code(s): N17.9 - Acute kidney failure, unspecified Status: Acute Assessment and Plan: Cr was 2.5 and BUN 55 at presentation. Her acute renal failure is likely pre-renal due to low blood volume with hypoperfusion and dehydration. Cr has responded very well to gentle IV fluid rehydration. Cr is 1.1 and BUN 17 today. Renal ultrasound revealed no abnormalities. IV fluids were discontinued as she is tolerating PO intake well. Avoid nephrotoxins and renally dose medications. Hold metformin. Continue to monitor. 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 Blood sugars were reviewed and reasonably controlled. Resume home lantus at 40 units due to elevated readings >200. Continue mealtime insulin. Continue ACHS glucose monitoring, sliding-scale insulin, and hypoglycemia protocol. Continue to monitor. (5) Charcot's joint of foot: Qualifiers: Laterality: unspecified laterality Qualified Code(s): M14.679 - Charcot's joint, unspecified ankle and foot Code(s): M14.679 - Charcot's joint, unspecified ankle and foot Status: Chronic (6) HTN (hypertension): Qualifiers: Hypertension type: unspecified Qualified Code(s):
[2020-01-17 12:46] LABS: Glucose Point of Care 184 (65-105)
--- NOTE | 2020-01-17 13:32 | PM.CNOR ---
Assessment and Plan Assessment and plan (1) Diabetic infection of right foot: Code(s): E11.628 - Type 2 diabetes mellitus with other skin complications; L08.9 - Local infection of the skin and subcutaneous tissue, unspecified Status: Acute Assessment and Plan: 64-year-old female with a history of bilateral feet diabetic ulcers. Ulcer on the plantar aspect of the right foot with gangrenous changes and extension from the plantar 5th ray to the plantar 2nd ray. Probing to bone and probing to the dorsal aspect of the foot. Copious amounts of purulence drainage expressed from the wound, wound culture obtained. Radiographs of the right foot reveal a rocker bottom foot deformity, degenerative changes and no evidence of osteomyelitis. MRI of the right foot is currently pending. Discussed condition, nature, etiology and course of natural history. Conservative and operative treatment options reviewed as well as the risks and benefits of each. The patient showed very little improvement with IV antibiotics in Dakin soaked gauze dressings daily. Discussed probable poor outcome with conservative treatment only. Pending MRI results, recommended patient undergo operative debridement of the right DFU at this time. patient understands poor likelihood of 1 definitive surgical intervention but would like to avoid amputation at this time. Patient may require a transmetatarsal amputation in the future, she verbalized understanding. Recommended initiating treatment under the direction of General surgery with a debridement of the right forefoot diabetic foot ulcer down to good viable tissue. If patient requires a fifth ray amputation or transmetatarsal amputation in the future, the orthopedic service would be happy to be involved. Thank you for allowing us to assist in the care of this patient. (2) Ulcer of left heel: Qualifiers: Non-pressure ulcer stage: with fat layer exposed Qualified Code(s): L97.422 - Non-pressure chronic ulcer of left heel and midfoot with fat layer exposed Code(s): L97.429 - Non-pressure chronic ulcer of left heel and midfoot with unspecified severity Status: Acute Assessment and Plan: Continue daily dressing changes with Dakin soaked gauze and Cover dry. Continue waffle boot for pressure offloading while in bed. History of Present Illness HPI Consult date: 01/17/20 Requesting physician: Mynor Reyes MD Consult reason: other (B/L DFU ) Chief complaint: Abnormal Labs Narrative: 64 year old female with a history of bilateral diabetic foot ulcers. The patient was initially admitted after discovery of anemia on outpatient labs from her half-way. She was experiencing fatigue and generalized weakness over the past several days and was found have a hemoglobin of less than 7 resulting in her transfer to the emergency room from her half-way. While inpatient, she was found have bilateral foot ulcers; which, per the patient have been present for several months. The patient is a poor historian in regards to the length of presence and treatment of her bilateral foot ulcers. She does endorse treatment with gauze and some sort of ointment for the past ?4months. She was evaluated by the wound care nurses on Friday of last week and a general surgery consult was obtained. She has been treated with Dakins soaked gauze to bilateral feet since that time. An orthopedic evaluation was requested by Dr. Reyes with General surgery. The patient reports that she has been in the half-way since May due to weakness. She does have Charcot of bilateral feet and is a diabetic with a controlled hemoglobin A1c. She has notable severe changes to bilateral feet which have been present for quite some time per patient. Review of Systems Constitutional: Constitutional: Denies chills, Reports fatigue, Denies night sweats and Reports weakness Eyes: Eyes: Reports no additional eye complaints ENT: Reports sys
[2020-01-17 14:00] VITALS: BP 125/73; PULSE 81; RESP 16; TEMP 36.7; O2SAT 97
[2020-01-17 18:12] LABS: Glucose Point of Care 107 (65-105)
[2020-01-17 20:38] LABS: CRP 16.2 mg/dL (<1.0)
[2020-01-17] MEDS: GABAPENTIN 300 MG CAPSULE 600 MG PO (21:38)
[2020-01-17 21:39] VITALS: PULSE 81
[2020-01-17] MEDS: ATORVASTATIN 20 MG TABLET PO (21:39)
[2020-01-17 21:51] LABS: Glucose Point of Care 123 (65-105)
[2020-01-17 21:58] VITALS: BP 165/69; PULSE 71; RESP 18; TEMP 37; O2SAT 100
[2020-01-18 03:18] LABS: IFOB Positive Control Positive; Immunochemical Fecal Occult Bl Negative (N)
[2020-01-18 05:52] LABS: Hematocrit 26.2 % (37.0-47.0); Mean Corpuscular HGB Conc 30.5 g/dl (32-36); Mean Corpuscular Hemoglobin 26.2 pg (26-34); Mean Corpuscular Volume 85.9 fl (80-100); Mean Platelet Volume 9.9 fl (7.4-10.4); Platelet Count Result 258 k/mm3 (150-375); Red Blood Count 3.05 M/mm3 (4.2-5.4); Red Cell Distribution Width 15.9 % (11.5-14.5); White Blood Count 8.4 K/mm3 (4.5-10.0)
[2020-01-18] MEDS: HEPARIN SODIUM 5,000 UNITS/ML VIAL 5000 UNITS SUB-Q ×3 (05:57→22:00)
[2020-01-18 06:00] VITALS: BP 164/75; PULSE 73; RESP 18; TEMP 36.7; O2SAT 100
[2020-01-18 06:15] LABS: Blood Urea Nitrogen 10 mg/dL (7-17); Calcium 8.8 mg/dL (8.4-10.2); Carbon Dioxide 23 mmol/L (22-30); Chloride 110 mmol/L (98-107); Estimated CRCL calculation 53 ml/min; Estimated Glomerular Filt Rate > 60; Glucose 74 mg/dL (65-105); Potassium 3.7 mmol/L (3.4-5.0); Sodium 139 mmol/L (137-145)
[2020-01-18] MEDS: SOD HYPOCHLORITE 1/4 STRENGTH 473 ML 1 APPLIC TOPICAL ×2 (07:16→21:00)
[2020-01-18 08:50] VITALS: PULSE 76
[2020-01-18] MEDS: SENNOSIDES 8.6 MG TABLET PO (08:50)
[2020-01-18] MEDS: TIMOLOL MALEATE 0.25% OP SOLN 5 ML BOTTLE 1 DROP LEFT EYE ×2 (08:50→17:12)
[2020-01-18] MEDS: DORZOLAMIDE HCL 2% OPHTH DROPS 1 DROP LEFT EYE ×2 (08:50→17:12)
[2020-01-18] MEDS: ASPIRIN 81 MG ENTERIC TABLET PO (08:50)
[2020-01-18] MEDS: BRIMONIDINE TARTRATE 0.2% OP SOLN 5 ML BTL 1 DROP EACH EYE ×2 (08:50→17:12)
[2020-01-18] MEDS: GABAPENTIN 300 MG CAPSULE PO (08:50)
[2020-01-18] MEDS: lisinopriL 10 MG TABLET PO (08:50)
[2020-01-18] MEDS: carvediloL 25 MG TABLET PO ×2 (08:50→20:29)
[2020-01-18 08:52] LABS: Glucose Point of Care 71 (65-105)
--- NOTE | 2020-01-18 09:29 | PM.PNGS ---
Progress Note: A&P Assessment and Plan (1) Osteomyelitis of fifth toe of right foot: Code(s): M86.9 - Osteomyelitis, unspecified Status: Acute Assessment and Plan: MRI shows what the clinical exam suggests in. There is obvious osteomyelitis of the right 5th metatarsal and toe. The osteomyelitis may extend to the 4th toe as well. While there is no osteomyelitis of the 2nd and 3rd toe on MRI, I suspect the 2nd toe may also be involved. The patient was not wanting any type of amputation but after discussing with her the chronic pain and lack of improvement in her right foot she has agreed to go ahead to the operating room for 5th metatarsal debridement and possible amputation as well as 2nd metatarsal debridement and possible amputation. I discussed this with her. She is adamant that she does not want any amputations that do not absolutely need to be done. I explained there may be a need for further surgery but she is not improving with the current regimen and will not improve until at least some surgical removal of this chronic infection has been performed. I did consult Dr. Guadarrama yesterday but he is out of the office this week. Will go ahead with surgery tomorrow as discussed above. (2) Diabetic infection of right foot: Code(s): E11.628 - Type 2 diabetes mellitus with other skin complications; L08.9 - Local infection of the skin and subcutaneous tissue, unspecified Status: Acute Assessment and Plan: See above. 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 It has some necrotic tissue but does not have infection. (4) Charcot's joint of foot: Qualifiers: Laterality: unspecified laterality Qualified Code(s): M14.679 - Charcot's joint, unspecified ankle and foot Code(s): M14.679 - Charcot's joint, unspecified ankle and foot Status: Chronic Assessment and Plan: Patient still wants to ambulate. I explained that this is unlikely but we will try to preserve her right foot if at all possible. (5) Acute renal failure: Qualifiers: Acute renal failure type: unspecified Qualified Code(s): N17.9 - Acute kidney failure, unspecified Code(s): N17.9 - Acute kidney failure, unspecified Status: Acute Assessment and Plan: Much improved, creatinine is 0.9 today. 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 Subjective Subjective Date/Time Seen: 01/18/20 09:29 Patient reports: no new complaints ( No significant changes) and still having pain Interval history: still having pain mostly in the right foot but some in the left heel as well. Taking [place] for this. Still is not interested in an amputation of any kind. Review of Systems Review of Systems: All systems reviewed & are unremarkable except as noted in HPI and below Constitutional: Constitutional: Denies headache(s) Cardiovascular: Cardiovascular: Denies chest pain and Denies dyspnea Respiratory: Respiratory: Denies cough and Denies dyspnea Neurologic: Denies confusion and Denies headache(s) Exam Const: General: comfortable and no acute distress; No confusion Orientation/consciousness: patient oriented x3 and No confusion Extrem: General: no calf tenderne
[2020-01-18] MEDS: INSULIN GLARGINE (*BKC) 100 UNITS/ML 20 UNITS SUB-Q (09:52)
[2020-01-18 11:49] LABS: Glucose Point of Care 159 (65-105)
[2020-01-18] MEDS: INSULIN ASPART (*BKC) 100 UNITS/ML SUB-Q ×2 (13:22→17:56)
--- NOTE | 2020-01-18 13:39 | CONS_ITS ---
DATE OF CONSULTATION: 01/18/2020 REASON FOR CONSULTATION: Osteomyelitis, right foot. HISTORY OF PRESENT ILLNESS: The patient is a 64-year-old female, who is a fair historian. She reports chronic Charcot deformities in both feet and as a result, she is unable to walk well without assistance. She reports in the last 4 months, she has been bedridden at [facility], as a result receiving therapy. She developed ulcer over the left heel approximately 4 months ago and over the right lateral foot about 3 months ago, the left 1 is healing and the right 1 has become worse with erythema and edema, although compared to a month ago, the patient reports the appearance is about the same. However, she is unable to examine the lateral or plantar foot herself because of diabetic retinopathy and immobility. She was sent to the emergency room on January 12 with anemia, weakness, dyspnea on exertion. Here, she was indeed anemic, but also had renal insufficiency. She also had hyperglycemia and noted to have foot ulcers. Here, she has been given piperacillin tazobactam starting on January 13, consultation then requested. The patient has been followed by Surgery as well. No fever, chills, or sweats at [facility]. No trauma. ALLERGIES: THE PATIENT REPORTS PENICILLIN CAUSED ANAPHYLAXIS, ALTHOUGH HER CHART INDICATES SKIN REACTION ONLY. ALSO, SULFA, OTHERS NOT PERTINENT. HABITS: No tobacco. No alcohol. PRESENT MEDICATIONS: List reviewed. No immunosuppressants. PAST MEDICAL HISTORY: 1. ORIF. 2. Coronary stents. 3. Type 2 diabetes mellitus. 4. Hypertension. 5. Hyperlipidemia. 6. Heart failure. 7. CMT. 8. CAD. 9. Bronchitis with asthma. 10. Left arm fracture. FAMILY HISTORY: Not pertinent to her present illness. SOCIAL HISTORY: She hopes to return to her home in [place]. She is single and does not work outside the home. REVIEW OF SYSTEMS: Hyperglycemia, otherwise endocrine, musculoskeletal, skin, constitutional, respiratory, GI negative. PHYSICAL EXAMINATION: GENERAL: This is a female, who appears older than her actual age. No respiratory distress. VITAL SIGNS: She is 37.7 shortly after arrival and following day up to 38.4, since afebrile, 73, 18, 164/75. SKIN: No generalized rashes. Warm and dry. EENT: The conjunctivae are normal. Pupils equal, round. The oral mucosa is well hydrated. NECK: No meningismus. LUNGS: Clear to auscultation. CARDIAC: Regular rate and rhythm. Popliteal pulses are 2+. No murmurs. ABDOMEN: Obese, nontender. No mass. No organomegaly. EXTREMITIES: She has a posterior and plantar left heel ulcer with some slough. No surrounding erythema, sinus tract. On the right, she has gangrene over the area of the lateral 5th metatarsal head, also surrounding erythema and edema involving much of the foot with warmth and mild tenderness. LABORATORY DATA: Blood cultures no growth so far. Wound culture in process, not obtained until the . White count 8.4, hemoglobin 8.0, platelets are 258. Initial white count 11.4, earlier differential was normal. Electrolytes normal except for chloride of 110, glucose 159, A1c 6.5%. CRP is 16.2. Guaiac is negative. RADIOLOGY: MRI of the right foot shows evidence for osteomyelitis, 4th proximal of toe, 5th metatarsal and 5th toe. Other findings noted. ASSESSMENT: 1. Acute osteomyelitis of the right foot and 4th and 5th toes, perhaps other toes as well. Previously treated as an outpatient with oral clindamycin. Superficial swab is in process. 2. Diabetes mellitus, under good control overall. 3. Multiple antibiotic allergies, tolerating the piperacillin despite her history provided to me. RECOMMENDATIONS: 1. Change piperacillin to ceftriaxone.
--- NOTE | 2020-01-18 13:45 | PM.IMPN ---
Progress Note: A&P Assessment and Plan (1) Osteomyelitis of fifth toe of right foot: Code(s): M86.9 - Osteomyelitis, unspecified Status: Acute Assessment and Plan: Left foot MRI revealed bone marrow edema involving the fourth proximal phalanx, fifth metatarsal, and fifth proximal, middle, and distal phalanges, consistent with osteomyelitis as well as nonenhancement of the fat plantar to the 2nd-5th proximal phalanges, consistent with necrosis. Blood cultures reveal NGTD. General surgery is on board and I consulted infectious disease as well. Infectious disease recommends changing piperacillin to ceftriaxone with follow-up on wound culture. Preliminary wound culture results reveal many gram positive cocci and many siomara positive bacilli. Prolonged IV antibiotics are anticipated and I will ensure that care coordination is aware. General surgery recommends debridement with possible amputation with the tentative plan for surgery tomorrow. Appreciate input from general surgery and infectious disease. Await wound cultures and additional antibiotic recommendations. She is on heparin gtt which will need to be held per general surgery recommendations. Brilinta is on hold awaiting surgical intervention. (2) Diabetic foot infection: Code(s): E11.628 - Type 2 diabetes mellitus with other skin complications; L08.9 - Local infection of the skin and subcutaneous tissue, unspecified Status: Acute Assessment and Plan: Bilateral. Left heel and right lateral foot. Left heel ulcer is full-thickness, stable without s/s of acute infection. She has osteomyelitis affecting the right foot with the details and plan as above. General surgery is on board and recommendations are appreciated. Appreciate wound care recommendations. She is currently receiving conservative treatment with local wound care/dakins and offloading. Continue analgesics PRN. (3) CAD (coronary artery disease): Code(s): I25.10 - Atherosclerotic heart disease of [place] coronary artery without angina pectoris Status: Chronic Assessment and Plan: Chronic with no acute issues. She underwent PCI 09/10/16. Continue ASA and atorvastatin. Brilinta is on hold in anticipation of surgical intervention and will need to be resumed post-op when okay from a general surgery standpoint to resume. (4) Symptomatic anemia: Code(s): D64.9 - Anemia, unspecified Status: Acute Assessment and Plan: Hb was 6.7 and Hct 21.8 at presentation. She received 2 unit pRBC. H&H remain stable with Hb of 8.0 and Hct 26.2 01/16. Normocytic. This is likely due to anemia of chronic disease. She denies melena and hematochezia. Stool occult blood testing was negative. She appears to have anemia of chronic disease at baseline. Iron studies are consistent with anemia of chronic disease. Vitamin B12 and folate levels are sufficient. Continue to monitor H&H. Transfuse PRN to maintain Hb >7. (5) Acute renal failure: Qualifiers: Acute renal failure type: unspecified Qualified Code(s): N17.9 - Acute kidney failure, unspecified Code(s): N17.9 - Acute kidney failure, unspecified Status: Resolved Assessment and Plan: Cr was 2.5 and BUN 55 at presentation. Her acute renal failure is likely pre-renal due to low blood volume with hypoperfusion and dehydration. Cr has responded very well to gentle IV fluid rehydration and IV fluids were discontinued 01/16 as she was tolerating PO intake well. Cr is 1.1 and BUN 17 today. Renal ultrasound revealed no abnormalities. Hold metformin. Continue to monitor. 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
[2020-01-18 14:53] VITALS: BP 164/73; PULSE 75; RESP 18; TEMP 36.7; O2SAT 100
[2020-01-18 17:18] LABS: Glucose Point of Care 156 (65-105)
[2020-01-18] MEDS: FUROSEMIDE 20 MG TABLET PO (17:18)
--- NOTE | 2020-01-18 18:11 | WPDANESEPP ---
Anes - Eval Pre Procedure Procedure: Operation Date: 01/19/20 10:00 Proposed Procedures p Debridement Right Metatarsals, Debridement Left Heel - Mynor Reyes MD s Possible Transmetatarsal Amputation Second and Fifth Toes Right Foot - Mynor Reyes MD Date/Time: 01/18/20 18:11 Pre Op Diagnosis: Anemia, Renal failure Patient Data Age: 64 Gender: F Height: 5 ft 1 in Weight: 76.66 kg Last Vital Signs Temp 98.0 F 01/18/20 14:53 Pulse 75 01/18/20 14:53 Resp 18 01/18/20 14:53 BP 164/73 H 01/18/20 14:53 Pulse Ox 100 01/18/20 14:53 Allergies Allergy/AdvReac Type Severity Reaction Status Date / Time egg Allergy Unknown Unknown Verified 05/30/19 14:20 latex Allergy Unknown Unknown Verified 05/30/19 14:20 milk Allergy Unknown Unknown Verified 05/31/19 00:05 Penicillins Allergy Unknown Skin Verified 05/30/19 14:20 Reaction shellfish derived Allergy Unknown Unknown Verified 05/30/19 22:52 Sulfa (Sulfonamide Allergy Unknown Unknown Verified 05/30/19 14:20 Antibiotics) sulfamethizole Allergy Unknown Nausea Verified 05/30/19 14:20 sulfanilamide Allergy Unknown Unknown Verified 05/30/19 14:20 Home Medications Medication Instructions Recorded Confirmed Type Brilinta 90 mg PO Q12H 05/30/19 01/14/20 History aspirin [Adult Low Dose Aspirin] 81 mg PO DAILY 05/30/19 01/14/20 History atorvastatin 20 mg PO HS 05/30/19 01/14/20 History dorzolamide 1 drp OPHTHALMIC (EYE) BID 05/30/19 01/14/20 History ibuprofen 400 mg PO Q6H PRN 05/30/19 05/30/19 History insulin aspart U-100 [Novolog See Rx Instructions .ROUTE .COMPLEX 05/30/19 05/31/19 History Flexpen U-100 Insulin] lisinopril 10 mg PO DAILY 05/30/19 01/14/20 History metformin 250 mg PO BID 05/30/19 01/14/20 History sennosides [Senna Lax] 8.6 mg PO DAILY 05/30/19 01/14/20 History timolol maleate [Timoptic] 1 drp OPHTHALMIC (EYE) BID 05/30/19 01/14/20 History carvedilol [Coreg] 25 mg PO Q12HR 30 Days #60 tablet 06/03/19 01/14/20 Rx brimonidine 1 drp LEFTEYE BID 01/13/20 01/14/20 History ferrous sulfate 150 mg PO BID 01/13/20 History furosemide [Lasix] 40 mg PO DAILY 01/13/20 01/14/20 History gabapentin 300 mg PO DAILY 01/13/20 01/14/20 History insulin glargine [Lantus Solostar 40 unit SUBCUT DAILY 01/13/20 01/14/20 History U-100 Insulin] metformin 01/13/20 History baclofen 10 mg PO TID 01/14/20 01/14/20 History benzonatate 100 mg PO TID PRN 01/14/20 01/14/20 History calcium carbonate-vitamin D3 1 tablet PO BID 01/14/20 01/14/20 History [Oysco 500/D] gabapentin 600 mg PO HS 01/14/20 01/14/20 History hydrocodone-acetaminophen [[place]] 1 tablet PO Q8H PRN 01/14/20 01/14/20 History insulin lispro 5 unit SUBCUT TIDWMEAL 01/14/20 01/14/20 History insulin lispro 100 unit SUBCUT AC 01/14/20 01/14/20 History polysaccharide iron complex 150 mg PO BID 01/14/20 01/14/20 History [Ferrex 150] Laboratory Tests 01/17/20 01/17/20 01/17/20 18:00 19:18 21:46 WBC RBC Hgb Hct MCV MCH MCHC RDW Plt Count MPV Sodium Potassium Chloride Carbon Dioxide BUN Creatinine Estim Creat Clear Calc Estimated GFR Glucose POC Capillary Glucose 107 mg/dl mg/dl 123 mg/dl H mg/dl (65-105) (65-105) Calcium Magnesium C-Reactive Protein 16.2 mg/dL H mg/dL (<1.0) Stl Occult Blood (IFOB) Blood Type Antibody Screen 01/18/20 01/18/20 01/18/20 00:43 05:36 05:36 WBC 8.4 K/mm3 K/mm3 (4.5-10.0) RBC 3.05 M/mm3 L M/mm3 (4.2-5.4) Hgb 8.0 g/dL L g/dL (12.0-15.0) Hct 26.2 % L % (37.0-47.0) MCV 85.9 fl fl (80-100) MCH 26.2 pg pg (26-34) MCHC 30.5 g/dl L g/dl (32-36) RDW 15.9 %
[2020-01-18] MEDS: GABAPENTIN 300 MG CAPSULE 600 MG PO (20:28)
[2020-01-18 20:29] VITALS: PULSE 72
[2020-01-18] MEDS: ATORVASTATIN 20 MG TABLET PO (20:29)
[2020-01-18 20:37] LABS: Glucose Point of Care 173 (65-105)
[2020-01-18 22:00] VITALS: BP 159/72; PULSE 80; RESP 18; TEMP 36.4; O2SAT 100
[2020-01-19] VITALS (10 sets, daily range): BP systolic 109–176; BP diastolic 66–84; PULSE 65–77; RESP 14–20; TEMP 36.3–37.2; O2SAT 96–100
--- NOTE | 2020-01-19 | ECG_ITS ---
Measurements Intervals [place] Rate: 73 P: 48 VA: 164 QRS: -47 QRSD: 146 T: 59 QT: 432 QTc: 479 Interpretive Statements SINUS RHYTHM POSSIBLE LEFT ATRIAL ENLARGEMENT LEFT AXIS DEVIATION LEFT BUNDLE BRANCH BLOCK ABNORMAL ECG Electronically Signed On 01-19-2020 12:38:35 CDT by Virgil Guzmán D.O.
[2020-01-19] MEDS: HEPARIN SODIUM 5,000 UNITS/ML VIAL 5000 UNITS SUB-Q ×3 (05:41→21:29)
[2020-01-19 06:06] LABS: Basophils Percent Auto 0.6 % (0.2-1.2); Eosinophils Absolute Auto 0.4 K/mm3 (0-0.3); Eosinophils Percent Auto 5.4 % (0-4.4); Hematocrit 28.7 % (37.0-47.0); Hemoglobin 8.4 g/dL (12.0-15.0); Immature Granulocyte Absolute 0.03 K/mm3 (0.00-0.031); Immature Granulocyte Percent A 0.4 % (0-0.5); Lymphocytes Absolute Auto 1.83 K/mm3 (0.9-3.2); Lymphocytes Percent Auto 25.9 % (18.3-44.2); Mean Corpuscular HGB Conc 29.3 g/dl (32-36); Mean Corpuscular Hemoglobin 26.6 pg (26-34); Mean Corpuscular Volume 90.8 fl (80-100); Mean Platelet Volume 10.2 fl (7.4-10.4); Monocytes Absolute Auto 0.6 K/mm3 (0.1-0.6); Monocytes Percent Auto 8.6 % (2.6-8.5); Neutrophils Absolute Auto 4.2 K/mm3 (1.3-6.7); Neutrophils Percent Auto 59.1 % (45.5-73.1); Platelet Count Result 254 k/mm3 (150-375); Red Blood Count 3.16 M/mm3 (4.2-5.4); White Blood Count 7.1 K/mm3 (4.5-10.0)
[2020-01-19 06:24] LABS: Alanine Aminotransferase 25 U/L (4-35); Alkaline Phosphatase 222 U/L (38-126); Aspartate Amino Transferase 27 U/L (14-36); Bilirubin,Total 0.3 mg/dL (0.2-1.3); Blood Urea Nitrogen 12 mg/dL (7-17); Calcium 8.6 mg/dL (8.4-10.2); Carbon Dioxide 22 mmol/L (22-30); Chloride 108 mmol/L (98-107); Estimated CRCL calculation 53 ml/min; Estimated Glomerular Filt Rate > 60; Glucose 148 mg/dL (65-105); Magnesium 1.9 mg/dL (1.6-2.3); Potassium 3.8 mmol/L (3.4-5.0); Sodium 136 mmol/L (137-145)
[2020-01-19] MEDS: BRIMONIDINE TARTRATE 0.2% OP SOLN 5 ML BTL 1 DROP EACH EYE ×2 (08:53→17:27)
[2020-01-19] MEDS: TIMOLOL MALEATE 0.25% OP SOLN 5 ML BOTTLE 1 DROP LEFT EYE ×2 (08:53→17:27)
[2020-01-19] MEDS: DORZOLAMIDE HCL 2% OPHTH DROPS 1 DROP LEFT EYE ×2 (08:54→17:27)
[2020-01-19 10:05] LABS: Glucose Point of Care 152 (65-105)
[2020-01-19] MEDS: LACTATED RINGERS 1,000 ML 30 ML IV CONT ×2 (11:50→14:13)
--- NOTE | 2020-01-19 11:53 | WPDINFPN2 ---
Progress Note: A&P Assessment and Plan (1) Osteomyelitis of fifth toe of right foot: Code(s): M86.9 - Osteomyelitis, unspecified Status: Acute Assessment and Plan: 1. Acute OM of R 5th toe and MT, possibly 4th also. Micro in process, no updates so far today. 2. DM 3. Multiple allergies, she told me anaphylaxis to PCN, but she tolerated PipTazo. She is also tolerating Ctx REC Ctx #2 (antibiotic # 7), continue, modify prn after culture available. Possibly to OR today. Length of IV therapy depending on her clinical course and operative findings. Subjective Date/time seen: 01/19/20 11:53 Interval history: anxious Exam Narrative: Exam Narrative: afebrile Eyes: General: appearance normal, both eyes and all related structures Resp: Effort & Inspection: normal respiratory effort Auscultation: clear to auscultation bilaterally Cardio: Rate: regular rate Rhythm: regular rhythm Heart sounds: no gallops and no murmurs GI: Inspection: non-distended GI Palp: Yes Soft to palpation and No Tenderness to palpation present (GI) Skin: General skin exam: normal color and no rashes or lesions noted Extrem: Right lower extremity: edema Objective Data Vital Signs Vital Signs: Vital Signs - 24 hr 01/18/20 14:53 01/18/20 20:29 01/18/20 22:00 Temperature 36.7 C 36.4 C Pulse Rate 75 72 80 Respiratory Rate 18 18 Blood Pressure 164/73 H 159/72 H Pulse Oximetry 100 100 01/19/20 06:00 Temperature 36.3 C L Pulse Rate 65 Respiratory Rate 18 Blood Pressure 157/74 H Pulse Oximetry 99 Intake/Output Intake/Output: Intake & Output 01/16/20 01/17/20 01/18/20 01/19/20 23:59 23:59 23:59 23:59 Intake Total 3450 2410 1610 100 Output Total 500 3150 1425 800 Balance 2950 -740 185 -700 Meds/Results Medications: Active Medications Generic Name Dose Route Start Last Admin Trade Name Freq PRN Reason Stop Dose Admin Acetaminophen 650 mg 01/13/20 23:55 01/16/20 05:32 Tylenol Tablet PO 650 mg Q4H PRN Administration Mild Pain (1-3) or Fever Hydrocodone Bitart/Acetaminophen 1 tab 01/13/20 23:55 07/22/20 00:07 [place] 5-325 Mg PO 1 tab Q4H PRN Administration Pain Rated 4-6 Aspirin 81 mg 01/14/20 16:50 01/18/20 08:50 Aspirin Ec PO 81 mg QAM TIA Administration Atorvastatin Calcium 20 mg 01/14/20 21:00 01/18/20 20:29 Lipitor PO 20 mg HS TIA Administration Baclofen 5 mg 01/14/20 17:00 01/18/20 17:12 Lioresal Po PO Not Given TID TIA Brimonidine Tartrate 1 drop 01/14/20 09:00 01/19/20 08:53 Alphagan 0.2% Op Soln EACH EYE 1 drop BID TIA Administration Carvedilol 25 mg 01/14/20 21:00 01/18/20 20:29 Coreg PO 25 mg Q12HR TIA Administration Dextrose 12.5 gm 01/14/20 00:39 Dextrose 50% Syringe IV PUSH PRN PRN Hypoglycemia Protocol Dorzolamide HCl 1 drop 01/14/20 17:00 01/19/20 08:54 Trusopt LEFT EYE 1 drop BID TIA Administration Furosemide 40 mg 01/14/20 09:00 01/14/20 08:06 Lasix Tablet PO 40 mg DAILY TIA Administration Gabapentin 300 mg 01/14/20 09:00 01/18/20 08:50 Neurontin PO 300 mg DAILY TIA Administration Gabapentin 600 mg 01/14/20 21:00 01/18/20 20:28 Neurontin PO 600 mg HS TIA Administration Glucose 15 gm 01/14/20 00:39 Glutose 15 PO PRN PRN Hypoglycemia Protocol Heparin Sodium (Porcine) 5,000 units 01/14/20 22:00 01/19/20 05:41 Heparin Sodium SUB-Q 5,000 units Q8HR TIA Administration Dextrose 1,000 mls @ 100 mls/hr 01/14/20 00:39 Dextrose 5% 1,000 Ml IVPB PRN PRN Hypoglycemia Protocol Ceftriaxone Sodium 2 gm in 100 mls @ 200 mls/hr 01/18/20 13:00 01/18/20 13:40 Rocephin 2 Gm/D5w 100 Ml IVPB Infused Q24H TIA Infusion Lactated Ringer's 1,000 mls @ 30 mls/hr 01/18/20 13:40 Lr - Lactated Ringers Iv IV CONT .Q24H [facility] Insulin Aspart 5 units 01/14/20 17:00 01/19/20 08:0
--- NOTE | 2020-01-19 12:15 | PC.NURSE ---
Pt to OR per bed.
--- NOTE | 2020-01-19 12:40 | WPDANESEPPF ---
Anes - Initial Pre Proc Eval Procedure: Operation Date: 01/19/20 12:00 Proposed Procedures p Debridement Right Metatarsals, Debridement Left Heel - Mynor Reyes MD s Possible Transmetatarsal Amputation Second and Fifth Toes Right Foot - Mynor Reyes MD Date/Time: 01/19/20 12:40 Surgeon: Shayla Weir PA-C Pre Op Diagnosis: Anemia, Renal failure Patient Data Age: 64 Gender: F Height: 1.55 m Weight: 88.4 kg Last Vital Signs Temp 36.3 C L 01/19/20 06:00 Pulse 65 01/19/20 06:00 Resp 18 01/19/20 06:00 BP 157/74 H 01/19/20 06:00 Pulse Ox 99 01/19/20 06:00 Allergies Allergy/AdvReac Type Severity Reaction Status Date / Time egg Allergy Unknown Unknown Verified 05/30/19 14:20 latex Allergy Unknown Unknown Verified 05/30/19 14:20 milk Allergy Unknown Unknown Verified 05/31/19 00:05 Penicillins Allergy Unknown Skin Verified 05/30/19 14:20 Reaction shellfish derived Allergy Unknown Unknown Verified 05/30/19 22:52 Sulfa (Sulfonamide Allergy Unknown Unknown Verified 05/30/19 14:20 Antibiotics) sulfamethizole Allergy Unknown Nausea Verified 05/30/19 14:20 sulfanilamide Allergy Unknown Unknown Verified 05/30/19 14:20 Home Medications Medication Instructions Recorded Confirmed Type Brilinta 90 mg PO Q12H 05/30/19 01/14/20 History aspirin [Adult Low Dose Aspirin] 81 mg PO DAILY 05/30/19 01/14/20 History atorvastatin 20 mg PO HS 05/30/19 01/14/20 History dorzolamide 1 drp OPHTHALMIC (EYE) BID 05/30/19 01/14/20 History ibuprofen 400 mg PO Q6H PRN 05/30/19 05/30/19 History insulin aspart U-100 [Novolog See Rx Instructions .ROUTE .COMPLEX 05/30/19 05/31/19 History Flexpen U-100 Insulin] lisinopril 10 mg PO DAILY 05/30/19 01/14/20 History metformin 250 mg PO BID 05/30/19 01/14/20 History sennosides [Senna Lax] 8.6 mg PO DAILY 05/30/19 01/14/20 History timolol maleate [Timoptic] 1 drp OPHTHALMIC (EYE) BID 05/30/19 01/14/20 History carvedilol [Coreg] 25 mg PO Q12HR 30 Days #60 tablet 06/03/19 01/14/20 Rx brimonidine 1 drp LEFTEYE BID 01/13/20 01/14/20 History ferrous sulfate 150 mg PO BID 01/13/20 History furosemide [Lasix] 40 mg PO DAILY 01/13/20 01/14/20 History gabapentin 300 mg PO DAILY 01/13/20 01/14/20 History insulin glargine [Lantus Solostar 40 unit SUBCUT DAILY 01/13/20 01/14/20 History U-100 Insulin] metformin 01/13/20 History baclofen 10 mg PO TID 01/14/20 01/14/20 History benzonatate 100 mg PO TID PRN 01/14/20 01/14/20 History calcium carbonate-vitamin D3 1 tablet PO BID 01/14/20 01/14/20 History [Oysco 500/D] gabapentin 600 mg PO HS 01/14/20 01/14/20 History hydrocodone-acetaminophen [Willard] 1 tablet PO Q8H PRN 01/14/20 01/14/20 History insulin lispro 5 unit SUBCUT TIDWMEAL 01/14/20 01/14/20 History insulin lispro 100 unit SUBCUT AC 01/14/20 01/14/20 History polysaccharide iron complex 150 mg PO BID 01/14/20 01/14/20 History [Ferrex 150] Laboratory Tests 01/18/20 01/18/20 01/19/20 17:14 20:24 05:53 WBC 7.1 K/mm3 K/mm3 (4.5-10.0) RBC 3.16 M/mm3 L M/mm3 (4.2-5.4) Hgb 8.4 g/dL L g/dL (12.0-15.0) Hct 28.7 % L % (37.0-47.0) MCV 90.8 fl D fl (80-100) MCH 26.6 pg pg (26-34) MCHC 29.3 g/dl L g/dl (32-36) RDW 16.0 % H % (11.5-14.5) Plt Count 254 k/mm3 k/mm3 (150-375) MPV 10.2 fl fl (7.4-10.4) Immature Gran % (Auto) 0.4 % % (0-0.5) Neut % (Auto) 59.1 % % (45.5-73.1) Lymph % (Auto) 25.9 % % (18.3-44.2) [place] % (Auto) 8.6 % H % (2.6-8.5) Eos % (Auto) 5.4 % H % (0-4.4) Baso % (Auto) 0.6 % % (0.2-1.2) Lymph # (Auto) 1.83 K/mm3 K/mm3 (0.9-3.2) [place] # (Auto) 0.6 K/mm3 K/mm3 (0.1-0.6) Eos # (Auto) 0.4 K/mm3 H K/mm3 (0-0.3) Baso # (Auto) 0.0 K/mm3 K/mm3 (0.0-0.1) Abs Immat Gran (auto) 0.03 K/mm3 K/mm3 (0.00-0.031) Absolute Neut
[2020-01-19 14:59] LABS: Glucose Point of Care 141 (65-105)
--- NOTE | 2020-01-19 15:41 | PM.PROC ---
Procedure Note - Detailed Date of procedure: 01/19/20 Pre-op diagnosis: osteomyelitis right 5th metatarsal, L heel ulcer osteomyelitis right 5th toe and metatarsal with diabetic foot infection right foot; left heel ulcer Post-op diagnosis: same Procedure performed: open right transmetatarsal 5th toe amputation, excisional debridement skin, subcutaneous, and muscle 6 sq cm plantar space right foot, excisional debridement skin, subcutaneous, muscle, and bone 4 cm2 left heel ulcer. Description of procedure: the patient was taken to surgery and induced into general anesthesia. Both feet were prepped and draped. We started with the left heel which was the machinery cleaner of the 2 wounds. The large heel ulcer was exposed. Some necrotic skin and subcutaneous as well as tendon and muscle were debrided in the center of the ulcer. This was about a 2 by 2 centimeter sq area. The calcaneal bone was present in the deeper parts of the wound and this was trimmed away. Bone cutters were used. Pressure was held and hemostasis was achieved. We then turned our attention to the right foot. This had obvious infection with a foul odor gangrenous skin of the 5th metatarsal and drainage of the 5th metatarsal wound as well as drainage of an open abscess under the 2nd metatarsal. I started by doing an open amputation of the right 5th toe. I cut out all the necrotic skin on the plantar aspect of the 5th metatarsal and then connected this with the healthier skin on the anterior aspect of the 5th toe. I then divided the metatarsal bone just at the edge of the wound. The specimen was sent as right 5th toe. Cautery was used for hemostasis. I then used the periosteal elevator and freed up a bit more of the metatarsal shaft. I divided this with a bone cutter. I then trimmed away some of the rougher edge of the metatarsal with a rongeur. Cautery was again used for hemostasis. I turned my attention to the abscess over the 2nd metatarsal. This was opened and purulent fluid was noted. I excised the skin subcutaneous and muscle in this area. There was some liquefaction necrosis at the base of this wound that went all the way to the tendinous structures of the 2nd toe. I debrided and excised necrotic tissue down to healthy tissue. This looked pretty good but seem to communicate with the 5th metatarsal infection. I used a clamp and was easily able to identify a tract between the 2. There seemed to be necrotic tissue in the tract so I went ahead and excised the overlying skin and expose the wound tract. Actually the skin and superficial subcutaneous were necrotic and I had to excise skin back to the base of the 2nd 3rd and 4th toes. I continued to excise necrotic tissue in this plantar abscess. Eventually we were down to healthy tissue. There was excellent blood supply throughout. I again used the cautery to achieve hemostasis. The right foot was packed with 1 in iodoform Nu Gauze followed by bulky fluffs. This was wrapped with Kerlix roll and then 4 in Gray wrap. The left heel was dressed with Adaptic followed by fluffs and Kerlix roll. 4 in Gray wrap was then placed as well. The patient was awakened and taken to recovery in good condition. Sponge and needle counts were correct x2. Anesthesia: GREGG Surgeon: Mynor Reyes MD Furniture Repairer: Annie WHITFIELD Estimated blood loss (mL): 50 Drains: No Packing: Yes ( 1 in iodoform Nu Gauze to the right foot) Pathology: yes ( right 5th toe and metatarsal) Complications: None Condition: stable Disposition: PACU Findings: osteomyelitis with gangrene and diabetic foot infection particularly the right foot. The osteomyelitis included the 5 right 5th metatarsal and phalanges. The infection extended to the 2nd metatarsal. There was liquefaction necrosis associated with the infection. This required excisional debridement of the distal plantar surface overlying the 2nd 3rd and 4th toes. No other toes were amputated other than the 5th toe and
[2020-01-19 15:46] LABS: Glucose Point of Care 144 (65-105)
[2020-01-19] MEDS: ASPIRIN 81 MG ENTERIC TABLET PO (15:55)
--- NOTE | 2020-01-19 15:55 | PM.IMPN ---
Progress Note: A&P Assessment and Plan (1) Osteomyelitis of fifth toe of right foot: Code(s): M86.9 - Osteomyelitis, unspecified Status: Acute Assessment and Plan: -----Right foot MRI showed osteomyelitis and pt is POD #0 of debridement of both feet with no immediate complications. Pt usually transfers to the bathroom by wheelchair. Will continue PT/OT. Wound cultures growing heavy growth of entercoccus. Will adjust abx and contact Dr. Harris. Pt states she had a hx of Anaphylaxis to PCN but tolerated zosyn. Brilinta currently on hold but aspirin continued as well as heparin ggt. (2) Diabetic foot infection: Code(s): E11.628 - Type 2 diabetes mellitus with other skin complications; L08.9 - Local infection of the skin and subcutaneous tissue, unspecified Status: Acute Assessment and Plan: ----See above. Bilateral. Left heel and right lateral foot. Left heel ulcer is full-thickness, stable without s/s of acute infection. She has osteomyelitis affecting the right foot with the details and plan as above (3) CAD (coronary artery disease): Code(s): I25.10 - Atherosclerotic heart disease of [place] coronary artery without angina pectoris Status: Chronic Assessment and Plan: ----Chronic with no acute issues. She underwent PCI 09/10/16. Continue ASA and atorvastatin. Brilinta is on hold in anticipation of d/t sx. No perioperative CP. (4) Symptomatic anemia: Code(s): D64.9 - Anemia, unspecified Status: Acute Assessment and Plan: ------Hb was 6.7 and Hct 21.8 on admission but has been stable now 8.4. She received 2 unit pRBC since admission. Normocytic. This is likely due to anemia of chronic disease. She denies melena and hematochezia. Stool occult blood testing was negative. Iron studies are consistent with anemia of chronic disease. Vitamin B12 and folate levels are sufficient. Continue to monitor H&H. Transfuse PRN to maintain Hb >7. (5) Acute renal failure: Qualifiers: Acute renal failure type: unspecified Qualified Code(s): N17.9 - Acute kidney failure, unspecified Code(s): N17.9 - Acute kidney failure, unspecified Status: Resolved Assessment and Plan: -----Cr was 2.5 and BUN 55 at presentation but WNL today. Her acute renal failure was likely pre-renal due to low blood volume with hypoperfusion and dehydration. Cr has responded very well to gentle IV fluid rehydration and IV fluids were discontinued 01/16 as she was tolerating PO intake well. Renal ultrasound revealed no abnormalities. Hold metformin. Continue to monitor. (6) Type 2 diabetes mellitus with hyperglycemia: Qualifiers: Diabetes mellitus penit[facility]iary insulin use: with director long term care use Qualified Code(s): E11.65 - Type 2 diabetes mellitus with hyperglycemia; Z79.4 - parts counterman (current) use of insulin Code(s): E11.65 - Type 2 diabetes mellitus with hyperglycemia Status: Chronic Assessment and Plan: ----Hemoglobin A1c was 6.5% 01/14/20. we are unsure of her insulin dosing at this time since it is not clear under home meds. We are going to get this verified and then I will adjust her insulin. Continue ACHS glucose monitoring, sliding-scale insulin, and hypoglycemia protocol. (7) Charcot's joint of foot: Qualifiers: Laterality: unspecified laterality Qualified Code(s): M14.679 - Charcot's joint, unspecified ankle and foot Code(s): M14.679 - Charcot's joint, unspecified ankle and foot Status: Chronic Assessment and Plan: -----Continue pain medications. Chronic (8) HTN (hypertension): Qualifiers: Hypertension type: unspecified Qualified Code(s): I10 - Essential (primary) hypertension Code(s): I10 - Essential (primary) hypertension Status: Chronic Assessment and Plan: -----Last bp 161/80. Continue lasix, carvedilol and lisinopril. Pt is in pain post op
[2020-01-19] MEDS: BACLOFEN 10 MG TABLET 5 MG PO (15:56)
[2020-01-19] MEDS: carvediloL 25 MG TABLET PO ×2 (15:57→21:29)
[2020-01-19] MEDS: FUROSEMIDE 40 MG TABLET PO (15:57)
[2020-01-19] MEDS: SENNOSIDES 8.6 MG TABLET PO (15:58)
[2020-01-19] MEDS: lisinopriL 10 MG TABLET PO (15:58)
[2020-01-19] MEDS: GABAPENTIN 300 MG CAPSULE PO (15:58)
[2020-01-19 17:27] LABS: Glucose Point of Care 151 (65-105)
[2020-01-19] MEDS: GABAPENTIN 300 MG CAPSULE 600 MG PO (21:28)
[2020-01-19] MEDS: ATORVASTATIN 20 MG TABLET PO (21:29)
[2020-01-19 21:55] LABS: Glucose Point of Care 176 (65-105)
[2020-01-20] VITALS (12 sets, daily range): BP systolic 122–176; BP diastolic 59–73; PULSE 64–80; RESP 16–20; TEMP 36.1–37.8; O2SAT 97–100
[2020-01-20] MEDS: polyethylene glycoL 3350 17 GM POWD.PACK PO (01:54)
[2020-01-20] MEDS: HEPARIN SODIUM 5,000 UNITS/ML VIAL 5000 UNITS SUB-Q ×3 (05:29→21:20)
[2020-01-20 06:32] LABS: Hematocrit 25.4 % (37.0-47.0); Hemoglobin 7.7 g/dL (12.0-15.0); Mean Corpuscular HGB Conc 30.3 g/dl (32-36); Mean Corpuscular Hemoglobin 25.8 pg (26-34); Mean Corpuscular Volume 85.2 fl (80-100); Platelet Count Result 252 k/mm3 (150-375); Red Blood Count 2.98 M/mm3 (4.2-5.4); Red Cell Distribution Width 15.9 % (11.5-14.5); White Blood Count 7.1 K/mm3 (4.5-10.0)
[2020-01-20 06:59] LABS: Anion Gap 9.7 mmol/L (7-16); Blood Urea Nitrogen 10 mg/dL (7-17); Calcium 8.3 mg/dL (8.4-10.2); Carbon Dioxide 26 mmol/L (22-30); Chloride 104 mmol/L (98-107); Estimated CRCL calculation 57 ml/min; Estimated Glomerular Filt Rate > 60; Glucose 136 mg/dL (65-105); Potassium 3.7 mmol/L (3.4-5.0); Sodium 136 mmol/L (137-145)
[2020-01-20 09:12] LABS: Glucose Point of Care 138 (65-105)
--- NOTE | 2020-01-20 09:37 | WPDANESPN ---
Anes - Prog Note Post-Op Date/Time: 01/20/20 09:37 Cardiovascular status: normal Respiratory status: normal Airway patency: baseline Mental status: baseline Post-Op hydration status: normal Vital Signs: Last Vital Signs Temp 36.9 C 01/20/20 06:00 Pulse 76 01/20/20 06:00 Resp 18 01/20/20 06:00 BP 155/70 H 01/20/20 06:00 Pulse Ox 100 01/20/20 06:00 I/O: Intake & Output 01/19/20 01/20/20 01/20/20 23:59 07:59 15:59 Intake Total 200 50 Output Total 400 675 Balance -200 -625 Laboratory Tests 01/20/20 06:08 01/20/20 06:08 01/19/20 01/19/20 01/19/20 08:51 14:57 15:39 WBC RBC Hgb Hct MCV MCH MCHC RDW Plt Count MPV Sodium Potassium Chloride Carbon Dioxide Anion Gap BUN Creatinine Estim Creat Clear Calc Estimated GFR Glucose POC Capillary Glucose 152 H 141 H 144 H Calcium 01/19/20 01/19/20 01/20/20 17:25 21:39 06:08 WBC 7.1 RBC 2.98 L Hgb 7.7 L Hct 25.4 L MCV 85.2 D MCH 25.8 L MCHC 30.3 L RDW 15.9 H Plt Count 252 MPV 10.0 Sodium Potassium Chloride Carbon Dioxide Anion Gap BUN Creatinine Estim Creat Clear Calc Estimated GFR Glucose POC Capillary Glucose 151 H 176 H Calcium 01/20/20 01/20/20 06:08 09:07 WBC RBC Hgb Hct MCV MCH MCHC RDW Plt Count MPV Sodium 136 L Potassium 3.7 Chloride 104 Carbon Dioxide 26 Anion Gap 9.7 BUN 10 Creatinine 0.90 Estim Creat Clear Calc 57 Estimated GFR > 60 Glucose 136 H POC Capillary Glucose 138 H Calcium 8.3 L Microbiology 01/14/20 17:22 Blood Blood Culture - Final 01/14/20 17:00 Blood Blood Culture - Final 01/17/20 16:19 Foot Right Wound Culture - Final Enterococcus species Post-procedural complaints: none Patient Feedback: Patient satisfied with anesthetic care.
[2020-01-20] MEDS: ACETAMINOPHEN 500 MG TABLET PO (10:32)
[2020-01-20] MEDS: GABAPENTIN 300 MG CAPSULE PO (10:33)
[2020-01-20] MEDS: lisinopriL 10 MG TABLET PO (10:33)
[2020-01-20] MEDS: BACLOFEN 10 MG TABLET 5 MG PO (10:33)
[2020-01-20] MEDS: carvediloL 25 MG TABLET PO ×2 (10:33→20:25)
[2020-01-20] MEDS: ASPIRIN 81 MG ENTERIC TABLET PO (10:33)
[2020-01-20] MEDS: BRIMONIDINE TARTRATE 0.2% OP SOLN 5 ML BTL 1 DROP EACH EYE ×2 (10:34→17:23)
[2020-01-20] MEDS: DORZOLAMIDE HCL 2% OPHTH DROPS 1 DROP LEFT EYE ×2 (10:34→17:23)
[2020-01-20] MEDS: SENNOSIDES 8.6 MG TABLET PO (10:35)
[2020-01-20] MEDS: TIMOLOL MALEATE 0.25% OP SOLN 5 ML BOTTLE 1 DROP LEFT EYE ×2 (10:35→17:23)
[2020-01-20] MEDS: INSULIN GLARGINE (*BKC) 100 UNITS/ML 10 UNITS SUB-Q (10:44)
[2020-01-20] MEDS: SILVERGEL (ELTA) 45 ML 1 APPLIC TOPICAL (10:48)
--- NOTE | 2020-01-20 11:31 | PM.IMPN ---
Progress Note: A&P Assessment and Plan (1) Osteomyelitis of fifth toe of right foot: Code(s): M86.9 - Osteomyelitis, unspecified Status: Acute Assessment and Plan: -----Right foot MRI showed osteomyelitis and pt is POD #1 of debridement of left heal with amputation of right 5th toe. Pt usually transfers to the bathroom by wheelchair. Will continue PT/OT. Right foot Wound cultures growing heavy growth of entercoccus and I spoke with Dr. Harris who does not recommend changing abx as this part of the wound has been amputated. Brilinta currently on hold but aspirin continued as well as heparin 5000u daily (2) Diabetic foot infection: Code(s): E11.628 - Type 2 diabetes mellitus with other skin complications; L08.9 - Local infection of the skin and subcutaneous tissue, unspecified Status: Acute Assessment and Plan: ----See above. Bilateral. Left heel and right lateral foot. Left heel ulcer is full-thickness, stable after sx and healing well. She has osteomyelitis affecting the right foot with the details and plan as above (3) CAD (coronary artery disease): Code(s): I25.10 - Atherosclerotic heart disease of [place] coronary artery without angina pectoris Status: Chronic Assessment and Plan: ----Chronic with no acute issues. She underwent PCI 09/10/16. Continue ASA and atorvastatin. Brilinta is on hold in anticipation of d/t sx. No perioperative CP. (4) Symptomatic anemia: Code(s): D64.9 - Anemia, unspecified Status: Acute Assessment and Plan: ------Hb was 6.7 and Hct 21.8 on admission but has been stable now 7.7. Will check an HH at noon. She received 2 unit pRBC 01/13. Normocytic. This is likely due to anemia of chronic disease. She denies melena and hematochezia. Stool occult blood testing was negative. Iron studies are consistent with anemia of chronic disease. Vitamin B12 and folate levels are sufficient. Continue to monitor H&H. Transfuse PRN to maintain Hb >7. (5) Acute renal failure: Qualifiers: Acute renal failure type: unspecified Qualified Code(s): N17.9 - Acute kidney failure, unspecified Code(s): N17.9 - Acute kidney failure, unspecified Status: Resolved Assessment and Plan: -----Cr was 2.5 and BUN 55 at presentation but WNL today. Her acute renal failure was likely pre-renal due to low blood volume with hypoperfusion and dehydration. Cr has responded very well to gentle IV fluid rehydration and IV fluids were discontinued 01/16 as she was tolerating PO intake well. Renal ultrasound revealed no abnormalities. Hold metformin. Continue to monitor. (6) Type 2 diabetes mellitus with hyperglycemia: Qualifiers: Diabetes mellitus [facility] insulin use: with termite inspector use Qualified Code(s): E11.65 - Type 2 diabetes mellitus with hyperglycemia; Z79.4 - MCFP (current) use of insulin Code(s): E11.65 - Type 2 diabetes mellitus with hyperglycemia Status: Chronic Assessment and Plan: ----Last glucose 138. Hemoglobin A1c was 6.5% 01/14/20. Insulin dosing confirmed by the nurse. I am not going to change her insulin at this time since she has been well controlled and I don't want her to go too low. If she starts creeping up, will increase it at that time. (7) Charcot's joint of foot: Qualifiers: Laterality: unspecified laterality Qualified Code(s): M14.679 - Charcot's joint, unspecified ankle and foot Code(s): M14.679 - Charcot's joint, unspecified ankle and foot Status: Chronic Assessment and Plan: -----Continue pain medications. Chronic (8) HTN (hypertension): Qualifiers: Hypertension type: unspecified Qualified Code(s): I10 - Essential (primary) hypertension Code(s): I10 - Essential (primary) hypertension Status: Chronic Assessment and Plan: -----Last bp 155/70. Continue lasix, carvedilol and lisinopr
[2020-01-20 12:15] LABS: Hematocrit 22.7 % (37.0-47.0)
[2020-01-20] MEDS: SOD HYPOCHLORITE 1/4 STRENGTH 473 ML 1 APPLIC TOPICAL (12:31)
--- NOTE | 2020-01-20 12:40 | PC.NURSE ---
called and left as message with Shayla Weir of a Critical Hgb of 7.0. Will call back.
--- NOTE | 2020-01-20 13:21 | PM.PNGS ---
Progress Note: A&P Assessment and Plan (1) Osteomyelitis of fifth toe of right foot: Code(s): M86.9 - Osteomyelitis, unspecified Status: Acute Assessment and Plan: much improved status post open transmetatarsal amputation of 5th toe and debridement of necrotic tissue. Plantar abscess of the distal foot also opened and debrided. Looks much better as well. Will start silver gel dressing changes tomorrow. Dressed with Dakin's solution today. Continue antibiotics. (2) Diabetic infection of right foot: Code(s): E11.628 - Type 2 diabetes mellitus with other skin complications; L08.9 - Local infection of the skin and subcutaneous tissue, unspecified Status: Acute Assessment and Plan: Continue present antibiotics. (3) Ulcer of left heel: Qualifiers: Non-pressure ulcer stage: with fat layer exposed Qualified Code(s): L97.422 - Non-pressure chronic ulcer of left heel and midfoot with fat layer exposed Code(s): L97.429 - Non-pressure chronic ulcer of left heel and midfoot with unspecified severity Status: Acute Assessment and Plan: Looks very good. No further tissue to debride at this time. Will start silver gel dressings. (4) Charcot's joint of foot: Qualifiers: Laterality: unspecified laterality Qualified Code(s): M14.679 - Charcot's joint, unspecified ankle and foot Code(s): M14.679 - Charcot's joint, unspecified ankle and foot Status: Chronic (5) Type 2 diabetes mellitus with hyperglycemia: Qualifiers: Diabetes mellitus ferry terminal supervisor insulin use: with ferry terminal supervisor use Qualified Code(s): E11.65 - Type 2 diabetes mellitus with hyperglycemia; Z79.4 - USP (current) use of insulin Code(s): E11.65 - Type 2 diabetes mellitus with hyperglycemia Status: Chronic Subjective Subjective Date/Time Seen: 01/20/20 13:21 Post Op day: 1 Patient reports: no new complaints and still having pain Exam Extrem: Right lower extremity: foot ( Amputation and abscess wounds are clean with no purulence. ) Details: other ( small amount necrotic debris in plantar wound base of toes. much better. No foul odor. no gangrene. Toes are viable.) Left lower extremity: foot ( Heel ulcer looks much better, healthy granulation tissue throughout.) Objective Data Vital Signs Vital Signs: Vital Signs - 24 hr 01/19/20 14:13 01/19/20 14:25 01/19/20 14:40 Temperature 37.1 C Pulse Rate 69 69 69 Respiratory Rate 14 18 18 Blood Pressure 109/67 144/77 H 166/81 H Pulse Oximetry 99 100 100 01/19/20 14:55 01/19/20 15:49 01/19/20 15:57 Temperature 36.3 C L Pulse Rate 70 77 77 Respiratory Rate 16 16 Blood Pressure 160/84 H 161/80 H Pulse Oximetry 98 98 01/19/20 21:29 01/19/20 22:00 01/20/20 06:00 Temperature 37.2 C 36.9 C Pulse Rate 77 74 76 Respiratory Rate 18 18 Blood Pressure 158/66 H 155/70 H Pulse Oximetry 100 100 01/20/20 10:33 Temperature Pulse Rate 80 Respiratory Rate Blood Pressure Pulse Oximetry Intake/Output Intake/Output: Intake & Output 01/17/20 01/18/20 01/19/20 01/20/20 23:59 23:59 23:59 23:59 Intake Total 2410 1610 400 50 Output Total 3150 1425 1600 675 Balance -740 185 1200 -625 Meds/Results Medications: Active Medications Generic Name Dose Route Start Last Admin Trade Name Lisandra PRN Reason Stop Dose Admin Acetaminophen 500 mg 01/19/20 15:04 01/20/20 10:32 Tylenol Tablet PO 500 mg Q6H PRN Administration Mild Pain (1-3) or Fever Hydrocodone Bitart/Acetaminophen 1 tab 01/19/20 15:04 01/19/20 15:54 [place] 5-325 Mg PO 1 tab Q4H PRN Administration Pain Rated 4-6 Hydrocodone Bitart/Acetaminophen 1 tab 01/19/20 15:04 01/20/20 05:25 [place] 10-325 Mg PO 1 tab Q6H PRN Administration Pain Rated 7-10 Aspirin 81 mg 01/14/20 16:50 01/20/20 10:33 Aspirin Ec PO 81 mg QAM TIA Administration Atorvastatin Calcium 20 mg
[2020-01-20] MEDS: FUROSEMIDE 40 MG TABLET PO (13:23)
[2020-01-20 13:38] LABS: Glucose Point of Care 223 (65-105)
--- NOTE | 2020-01-20 14:01 | WPDINFPN2 ---
Progress Note: A&P Assessment and Plan (1) Osteomyelitis of fifth toe of right foot: Code(s): M86.9 - Osteomyelitis, unspecified Status: Acute Assessment and Plan: 1. Acute OM of R 5th toe and MT. POD #1. Contiguous abscess seen and drained more medially, and explains the abn MRI at 4th toe - acute osteomyelitis of the 4th toe is unlikely. 2. DM 3. Multiple allergies, she told me anaphylaxis to PCN, but she tolerated PipTazo. She is also tolerating Ctx 4. Left Heel ulcer, not infected REC Ctx #3 (antibiotic # 8), stop and place on cefdinir through 02/14 (4 weeks postop). Ok discharge anytime. Subjective Date/time seen: 01/20/20 14:01 Interval history: feeling better, good appetite, better spirits. Operative findings reviewed in full Exam Narrative: Exam Narrative: afebrile Const: General: no acute distress Eyes: General: appearance normal, both eyes and all related structures Resp: Effort & Inspection: normal respiratory effort Auscultation: clear to auscultation bilaterally Cardio: Rate: regular rate Rhythm: regular rhythm Heart sounds: no murmurs GI: GI Palp: Yes Soft to palpation and No Tenderness to palpation present (GI) Skin: General skin exam: normal color Extrem: Other: both feet dressed Objective Data Vital Signs Vital Signs: Vital Signs - 24 hr 01/19/20 14:13 01/19/20 14:25 01/19/20 14:40 Temperature 37.1 C Pulse Rate 69 69 69 Respiratory Rate 14 18 18 Blood Pressure 109/67 144/77 H 166/81 H Pulse Oximetry 99 100 100 01/19/20 14:55 01/19/20 15:49 01/19/20 15:57 Temperature 36.3 C L Pulse Rate 70 77 77 Respiratory Rate 16 16 Blood Pressure 160/84 H 161/80 H Pulse Oximetry 98 98 01/19/20 21:29 01/19/20 22:00 01/20/20 06:00 Temperature 37.2 C 36.9 C Pulse Rate 77 74 76 Respiratory Rate 18 18 Blood Pressure 158/66 H 155/70 H Pulse Oximetry 100 100 01/20/20 10:33 Temperature Pulse Rate 80 Respiratory Rate Blood Pressure Pulse Oximetry Intake/Output Intake/Output: Intake & Output 07/01/18/20 01/19/20 01/20/20 23:59 23:59 23:59 23:59 Intake Total 2410 1610 400 290 Output Total 3230 0732 2074 675 Balance -740 160 -3653 -588 Meds/Results Medications: Active Medications Generic Name Dose Route Start Last Admin Trade Name Freq PRN Reason Stop Dose Admin Acetaminophen 500 mg 01/19/20 15:04 01/20/20 10:32 Tylenol Tablet PO 500 mg Q6H PRN Administration Mild Pain (1-3) or Fever Hydrocodone Bitart/Acetaminophen 1 tab 01/19/20 15:04 01/19/20 15:54 [place] 5-325 Mg PO 1 tab Q4H PRN Administration Pain Rated 4-6 Hydrocodone Bitart/Acetaminophen 1 tab 01/19/20 15:04 01/20/20 05:25 [place] 10-325 Mg PO 1 tab Q6H PRN Administration Pain Rated 7-10 Aspirin 81 mg 01/14/20 16:50 01/20/20 10:33 Aspirin Ec PO 81 mg QAM TIA Administration Atorvastatin Calcium 20 mg 01/14/20 21:00 01/19/20 21:29 Lipitor PO 20 mg HS TIA Administration Baclofen 5 mg 01/14/20 17:00 01/20/20 10:33 Lioresal Po PO 5 mg TID TIA Administration Brimonidine Tartrate 1 drop 01/14/20 09:00 01/20/20 10:34 [place] 0.2% Op Soln EACH EYE 1 drop BID TIA Administration Carvedilol 25 mg 01/14/20 21:00 01/20/20 10:33 Coreg PO 25 mg Q12HR TIA Administration Cefdinir 300 mg 01/20/20 21:00 Omnicef PO 02/15/20 23:59 Q12HR TIA Dextrose 12.5 gm 01/19/20 16:22 Dextrose 50% Syringe IV PUSH PRN PRN Hypoglycemia Protocol Diphenhydramine HCl 25 mg 01/19/20 15:04 Benadryl Inj IV PUSH Q6H PRN Itching Dorzolamide HCl 1 drop 01/14/20 17:00 01/20/20 10:34 Trusopt LEFT EYE 1 drop BID TIA Administration Furosemide 40 mg 01/14/20 09:00 01/20/20 13:23 Lasix Tablet PO 40 mg DAILY TIA Administration Gabapentin 300 mg 01/14/20 09:00 01/20/20 10:33 Neurontin PO 300 mg DAILY TIA Administration Gabapent
[2020-01-20] MEDS: INSULIN ASPART (*BKC) 100 UNITS/ML SUB-Q ×2 (14:32→18:10)
--- NOTE | 2020-01-20 14:39 | PCOTNOTE ---
Hold this date per RN due to low hemoglobin. Will complete OT re-assess when medically appropriate.
--- NOTE | 2020-01-20 14:41 | PCPTNOTE ---
PT spoke with RN who requested that PT wait until tomorrow due to pt's low Hgb.
[2020-01-20] MEDS: SODIUM CHLORIDE 0.9% IV 250 ML 30 ML IV CONT (17:20)
[2020-01-20 17:47] LABS: Glucose Point of Care 208 (65-105)
[2020-01-20] MEDS: ATORVASTATIN 20 MG TABLET PO (20:25)
[2020-01-20] MEDS: CEFDINIR 300 MG CAPSULE PO (20:26)
[2020-01-20] MEDS: GABAPENTIN 300 MG CAPSULE 600 MG PO (20:26)
[2020-01-20 21:27] LABS: Glucose Point of Care 259 (65-105)
[2020-01-20 23:45] LABS: Hematocrit 27.5 % (37.0-47.0); Hemoglobin 8.8 g/dL (12.0-15.0)
[2020-01-21 06:00] VITALS: BP 154/72; PULSE 69; RESP 18; TEMP 36.4; O2SAT 100
[2020-01-21 06:30] LABS: Hemoglobin 8.5 g/dL (12.0-15.0); Mean Corpuscular HGB Conc 31.5 g/dl (32-36); Mean Corpuscular Hemoglobin 26.8 pg (26-34); Mean Corpuscular Volume 85.2 fl (80-100); Mean Platelet Volume 9.8 fl (7.4-10.4); Platelet Count Result 229 k/mm3 (150-375); Red Blood Count 3.17 M/mm3 (4.2-5.4); Red Cell Distribution Width 15.7 % (11.5-14.5); White Blood Count 6.1 K/mm3 (4.5-10.0)
[2020-01-21] MEDS: HEPARIN SODIUM 5,000 UNITS/ML VIAL 5000 UNITS SUB-Q ×3 (06:36→21:58)
[2020-01-21 06:48] LABS: Alanine Aminotransferase 30 U/L (4-35); Albumin Level 2.8 g/dL (3.5-5.1); Alkaline Phosphatase 241 U/L (38-126); Anion Gap 9.9 mmol/L (7-16); Aspartate Amino Transferase 36 U/L (14-36); Bilirubin,Total 0.2 mg/dL (0.2-1.3); Blood Urea Nitrogen 15 mg/dL (7-17); Calcium 8.1 mg/dL (8.4-10.2); Carbon Dioxide 27 mmol/L (22-30); Chloride 104 mmol/L (98-107); Estimated CRCL calculation 52 ml/min; Estimated Glomerular Filt Rate 56; Glucose 197 mg/dL (65-105); Potassium 3.9 mmol/L (3.4-5.0); Sodium 137 mmol/L (137-145)
[2020-01-21 08:17] LABS: Glucose Point of Care 208 (65-105)
[2020-01-21] MEDS: BACLOFEN 10 MG TABLET 5 MG PO ×3 (08:44→17:53)
[2020-01-21] MEDS: GABAPENTIN 300 MG CAPSULE PO (08:44)
[2020-01-21 08:45] VITALS: PULSE 80
[2020-01-21] MEDS: TIMOLOL MALEATE 0.25% OP SOLN 5 ML BOTTLE 1 DROP LEFT EYE ×2 (08:45→17:52)
[2020-01-21] MEDS: ASPIRIN 81 MG ENTERIC TABLET PO (08:45)
[2020-01-21] MEDS: FUROSEMIDE 40 MG TABLET PO (08:45)
[2020-01-21] MEDS: DORZOLAMIDE HCL 2% OPHTH DROPS 1 DROP LEFT EYE ×2 (08:45→17:52)
[2020-01-21] MEDS: carvediloL 25 MG TABLET PO ×2 (08:45→21:58)
[2020-01-21] MEDS: CEFDINIR 300 MG CAPSULE PO ×2 (08:45→21:57)
[2020-01-21] MEDS: lisinopriL 10 MG TABLET PO (08:45)
[2020-01-21] MEDS: BRIMONIDINE TARTRATE 0.2% OP SOLN 5 ML BTL 1 DROP EACH EYE ×2 (08:45→17:52)
[2020-01-21] MEDS: INSULIN ASPART (*BKC) 100 UNITS/ML SUB-Q ×2 (10:26→17:53)
[2020-01-21] MEDS: INSULIN GLARGINE (*BKC) 100 UNITS/ML 10 UNITS SUB-Q (10:27)
[2020-01-21] MEDS: SILVERGEL (ELTA) 45 ML 1 APPLIC TOPICAL (10:30)
[2020-01-21 12:53] LABS: Glucose Point of Care 250 (65-105)
[2020-01-21 14:00] VITALS: BP 174/64; PULSE 68; RESP 16; TEMP 36.5; O2SAT 99
--- NOTE | 2020-01-21 14:25 | PM.IMPN ---
Progress Note: A&P Assessment and Plan (1) Osteomyelitis of fifth toe of right foot: Code(s): M86.9 - Osteomyelitis, unspecified Status: Acute Assessment and Plan: -----Right foot MRI showed osteomyelitis and pt is POD #2 of debridement of left heal with amputation of right 5th toe. Pt usually transfers to the bathroom by wheelchair. Will continue PT/OT. Right foot Wound cultures growing heavy growth of entercoccus and I spoke with Dr. Harris who does not recommend changing abx as this part of the wound has been amputated. Brilinta currently on hold but aspirin continued as well as heparin 5000u daily (2) Diabetic foot infection: Code(s): E11.628 - Type 2 diabetes mellitus with other skin complications; L08.9 - Local infection of the skin and subcutaneous tissue, unspecified Status: Deleted Assessment and Plan: ----See above. Bilateral. Left heel and right lateral foot. Left heel ulcer is full-thickness, stable after sx and healing well. She has osteomyelitis affecting the right foot with the details and plan as above (3) CAD (coronary artery disease): Code(s): I25.10 - Atherosclerotic heart disease of [place] coronary artery without angina pectoris Status: Chronic Assessment and Plan: ----Chronic with no acute issues. She underwent PCI 09/10/16. Continue ASA and atorvastatin. Brilinta is on hold in anticipation of d/t sx. No perioperative CP. (4) Symptomatic anemia: Code(s): D64.9 - Anemia, unspecified Status: Acute Assessment and Plan: ------Hgb 8.5 today after getting 1PRBC 01/19. On admission, her Hb was 6.7 and Hct 21.8. She received 2 unit pRBC 01/13. Normocytic. This is likely due to anemia of chronic disease. She denies melena and hematochezia. Stool occult blood testing was negative. Iron studies are consistent with anemia of chronic disease. Vitamin B12 and folate levels are sufficient. Continue to monitor H&H. Transfuse PRN to maintain Hb >7. (5) Acute renal failure: Qualifiers: Acute renal failure type: unspecified Qualified Code(s): N17.9 - Acute kidney failure, unspecified Code(s): N17.9 - Acute kidney failure, unspecified Status: Resolved Assessment and Plan: -----Cr was 2.5 and BUN 55 at presentation but WNL today. Her acute renal failure was likely pre-renal due to low blood volume with hypoperfusion and dehydration. Cr has responded very well to gentle IV fluid rehydration and IV fluids were discontinued 01/16 as she was tolerating PO intake well. Renal ultrasound revealed no abnormalities. Hold metformin. Continue to monitor. (6) Type 2 diabetes mellitus with hyperglycemia: Qualifiers: Diabetes mellitus skilled nursing insulin use: with skilled nursing use Qualified Code(s): E11.65 - Type 2 diabetes mellitus with hyperglycemia; Z79.4 - ad terminal makeup operator (current) use of insulin Code(s): E11.65 - Type 2 diabetes mellitus with hyperglycemia Status: Chronic Assessment and Plan: ----Last glucose 250. She was lower after sx because she was not eating. Now that she is eating better, will increase her lantus. She usually takes 40u at home. Hemoglobin A1c was 6.5% 01/14/20. Insulin dosing confirmed by the nurse. (7) Charcot's joint of foot: Qualifiers: Laterality: unspecified laterality Qualified Code(s): M14.679 - Charcot's joint, unspecified ankle and foot Code(s): M14.679 - Charcot's joint, unspecified ankle and foot Status: Chronic Assessment and Plan: -----Continue pain medications. Chronic (8) HTN (hypertension): Qualifiers: Hypertension type: unspecified Qualified Code(s): I10 - Essential (primary) hypertension Code(s): I10 - Essential (primary) hypertension Status: Chronic Assessment and Plan: -----Last bp 154/72. Continue lasix, carvedilol and lisinopril. (9) HLD (hyperlipidemia): Qualif
--- NOTE | 2020-01-21 16:17 | PM.PNGS ---
Progress Note: A&P Assessment and Plan (1) Osteomyelitis of fifth toe of right foot: Code(s): M86.9 - Osteomyelitis, unspecified Status: Acute Assessment and Plan: no further purulence noted. Start silver gel dressings daily to right foot wound. (2) Diabetic infection of right foot: Code(s): E11.628 - Type 2 diabetes mellitus with other skin complications; L08.9 - Local infection of the skin and subcutaneous tissue, unspecified Status: Acute Assessment and Plan: Continue antibiotics (3) Ulcer of left heel: Qualifiers: Non-pressure ulcer stage: with fat layer exposed Qualified Code(s): L97.422 - Non-pressure chronic ulcer of left heel and midfoot with fat layer exposed Code(s): L97.429 - Non-pressure chronic ulcer of left heel and midfoot with unspecified severity Status: Acute Assessment and Plan: granulating and healing. Continue silver gel dressings daily (4) Type 2 diabetes mellitus with hyperglycemia: Qualifiers: Diabetes mellitus ocean transportation intermediary insulin use: with ocean transportation intermediary use Qualified Code(s): E11.65 - Type 2 diabetes mellitus with hyperglycemia; Z79.4 - superintendent terminal (current) use of insulin Code(s): E11.65 - Type 2 diabetes mellitus with hyperglycemia Status: Chronic (5) Charcot's joint of foot: Qualifiers: Laterality: unspecified laterality Qualified Code(s): M14.679 - Charcot's joint, unspecified ankle and foot Code(s): M14.679 - Charcot's joint, unspecified ankle and foot Status: Chronic Subjective Subjective Date/Time Seen: 01/21/20 16:17 Post Op day: 2 Patient reports: no new complaints and still having pain ( says both legs hurt due to her Charcot's) Exam Extrem: Right lower extremity: foot ( no purulence or tissue, slowly healing) Left lower extremity: foot ( heel wound remains pink and granulating) Objective Data Vital Signs Vital Signs: Vital Signs - 24 hr 01/20/20 17:07 01/20/20 17:22 01/20/20 18:22 Temperature 36.1 C L 36.1 C L 36.3 C L Pulse Rate 65 69 67 Respiratory Rate 16 16 16 Blood Pressure 128/59 L 139/67 144/73 H Pulse Oximetry 99 99 100 01/20/20 19:22 01/20/20 20:22 01/20/20 20:25 Temperature 36.4 C 36.3 C L Pulse Rate 69 64 70 Respiratory Rate 18 18 Blood Pressure 148/70 H 154/64 H Pulse Oximetry 100 98 01/20/20 22:00 01/20/20 23:40 01/21/20 06:00 Temperature 36.6 C 36.4 C L Pulse Rate 68 69 Respiratory Rate 20 18 Blood Pressure 176/70 H 154/72 H Pulse Oximetry 100 99 100 01/21/20 08:45 01/21/20 14:00 Temperature 36.5 C Pulse Rate 80 68 Respiratory Rate 16 Blood Pressure 174/64 H Pulse Oximetry 99 Intake/Output Intake/Output: Intake & Output 01/18/20 01/19/20 01/20/20 01/21/20 23:59 23:59 23:59 23:59 Intake Total 1610 499 214 3630 Output Total 1425 1600 675 900 Balance 185 -1200 205 250 Meds/Results Medications: Active Medications Generic Name Dose Route Start Last Admin Trade Name Freq PRN Reason Stop Dose Admin Acetaminophen 500 mg 01/19/20 15:04 01/20/20 10:32 Tylenol Tablet PO 500 mg Q6H PRN Administration Mild Pain (1-3) or Fever Hydrocodone Bitart/Acetaminophen 1 tab 01/19/20 15:04 01/21/20 15:19 [place] 5-325 Mg PO 1 tab Q4H PRN Administration Pain Rated 4-6 Hydrocodone Bitart/Acetaminophen 1 tab 01/19/20 15:04 01/21/20 09:17 [place] 10-325 Mg PO 1 tab Q6H PRN Administration Pain Rated 7-10 Aspirin 81 mg 01/14/20 16:50 01/21/20 08:45 Aspirin Ec PO 81 mg QAM TIA Administration Atorvastatin Calcium 20 mg 01/14/20 21:00 01/20/20 20:25 Lipitor PO 20 mg HS TIA Administration Baclofen 5 mg 01/14/20 17:00 01/21/20 15:20 Lioresal Po PO 5 mg TID TIA Administration Brimonidine Tartrate 1 drop 01/14/20 09:00 01/21/20 08:45 Alphagan 0.2% Op Soln EACH EYE 1 drop BID TIA Administration Carvedilol 25 mg 01/14/20 21:
[2020-01-21 20:00] VITALS: PULSE 68; RESP 18; O2SAT 98
[2020-01-21 20:56] LABS: Glucose Point of Care 230 (65-105)
[2020-01-21 21:50] VITALS: BP 150/68; PULSE 68; RESP 18; TEMP 36.8; O2SAT 98
[2020-01-21] MEDS: ATORVASTATIN 20 MG TABLET PO (21:58)
[2020-01-21] MEDS: GABAPENTIN 300 MG CAPSULE 600 MG PO (21:58)
[2020-01-22] VITALS (7 sets, daily range): BP systolic 150–178; BP diastolic 68–75; PULSE 66–70; RESP 16–18; TEMP 36.7; O2SAT 98–100
[2020-01-22] MEDS: HEPARIN SODIUM 5,000 UNITS/ML VIAL 5000 UNITS SUB-Q ×3 (05:17→20:43)
[2020-01-22 06:48] LABS: Anion Gap 10.1 mmol/L (7-16); Blood Urea Nitrogen 14 mg/dL (7-17); Calcium 8.6 mg/dL (8.4-10.2); Carbon Dioxide 27 mmol/L (22-30); Chloride 103 mmol/L (98-107); Estimated CRCL calculation 58 ml/min; Estimated Glomerular Filt Rate > 60; Glucose 176 mg/dL (65-105); Potassium 4.1 mmol/L (3.4-5.0); Sodium 136 mmol/L (137-145)
[2020-01-22 07:18] LABS: Hematocrit 27.8 % (37.0-47.0); Hemoglobin 8.7 g/dL (12.0-15.0)
[2020-01-22] MEDS: carvediloL 25 MG TABLET PO ×2 (08:38→20:44)
[2020-01-22] MEDS: CEFDINIR 300 MG CAPSULE PO ×2 (08:38→20:44)
[2020-01-22] MEDS: DORZOLAMIDE HCL 2% OPHTH DROPS 1 DROP LEFT EYE ×2 (08:38→17:55)
[2020-01-22] MEDS: lisinopriL 20 MG TABLET PO (08:38)
[2020-01-22] MEDS: ASPIRIN 81 MG ENTERIC TABLET PO (08:38)
[2020-01-22] MEDS: GABAPENTIN 300 MG CAPSULE PO (08:39)
[2020-01-22] MEDS: FUROSEMIDE 40 MG TABLET PO (08:40)
[2020-01-22] MEDS: TIMOLOL MALEATE 0.25% OP SOLN 5 ML BOTTLE 1 DROP LEFT EYE ×2 (08:40→17:54)
[2020-01-22] MEDS: BRIMONIDINE TARTRATE 0.2% OP SOLN 5 ML BTL 1 DROP EACH EYE ×2 (08:40→17:55)
[2020-01-22] MEDS: INSULIN GLARGINE (*BKC) 100 UNITS/ML 20 UNITS SUB-Q (08:42)
[2020-01-22 09:28] LABS: Glucose Point of Care 153 (65-105)
[2020-01-22 13:10] LABS: Glucose Point of Care 192 (65-105)
--- NOTE | 2020-01-22 15:06 | PM.IMPN ---
Progress Note: A&P Assessment and Plan (1) Osteomyelitis of fifth toe of right foot: Code(s): M86.9 - Osteomyelitis, unspecified Status: Acute Assessment and Plan: -----Right foot MRI showed osteomyelitis and pt is POD #3 of debridement of left heal with amputation of right 5th toe. Pt pain has improved and she is feeling better. She is now working on getting stronger and transferring herself. Will continue PT/OT. Right foot Wound cultures growing heavy growth of entercoccus and I spoke with Dr. Harris who does not recommend changing abx as this part of the wound has been amputated. Brilinta currently on hold but aspirin continued as well as heparin 5000u daily (2) Diabetic foot infection: Code(s): E11.628 - Type 2 diabetes mellitus with other skin complications; L08.9 - Local infection of the skin and subcutaneous tissue, unspecified Status: Deleted Assessment and Plan: ----See above. Bilateral. Left heel and right lateral foot. Left heel ulcer is full-thickness, stable after sx and healing well. She has osteomyelitis affecting the right foot with the details and plan as above (3) CAD (coronary artery disease): Code(s): I25.10 - Atherosclerotic heart disease of [place] coronary artery without angina pectoris Status: Chronic Assessment and Plan: ----Chronic with no acute issues. She underwent PCI 09/10/16. Continue ASA and atorvastatin. Brilinta is on hold in anticipation of d/t sx. No perioperative CP. (4) Symptomatic anemia: Code(s): D64.9 - Anemia, unspecified Status: Acute Assessment and Plan: ------Hgb 8.7 today after getting 1PRBC 01/19. On admission, her Hb was 6.7 and Hct 21.8. She received 2 unit pRBC 01/13. Normocytic. This is likely due to anemia of chronic disease. She denies melena and hematochezia. Stool occult blood testing was negative. Iron studies are consistent with anemia of chronic disease. Vitamin B12 and folate levels are sufficient. Continue to monitor H&H. Transfuse PRN to maintain Hb >7. (5) Acute renal failure: Qualifiers: Acute renal failure type: unspecified Qualified Code(s): N17.9 - Acute kidney failure, unspecified Code(s): N17.9 - Acute kidney failure, unspecified Status: Resolved Assessment and Plan: -----Resolved. Cr was 2.5 and BUN 55 at presentation and improved with IVF. Her acute renal failure was likely pre-renal due to low blood volume with hypoperfusion and dehydration. Cr has responded very well to gentle IV fluid rehydration and IV fluids were discontinued 01/16 as she was tolerating PO intake well. Renal ultrasound revealed no abnormalities. Hold metformin. Continue to monitor. (6) Type 2 diabetes mellitus with hyperglycemia: Qualifiers: Diabetes mellitus snf insulin use: with ferry terminal agent use Qualified Code(s): E11.65 - Type 2 diabetes mellitus with hyperglycemia; Z79.4 - care home (current) use of insulin Code(s): E11.65 - Type 2 diabetes mellitus with hyperglycemia Status: Chronic Assessment and Plan: ----Last glucose 192. She was lower after sx because she was not eating. Now that she is eating better, her lantus has been increased. She usually takes 40u at home. Hemoglobin A1c was 6.5% 01/14/20. Insulin dosing confirmed by the nurse. (7) Charcot's joint of foot: Qualifiers: Laterality: unspecified laterality Qualified Code(s): M14.679 - Charcot's joint, unspecified ankle and foot Code(s): M14.679 - Charcot's joint, unspecified ankle and foot Status: Chronic Assessment and Plan: -----Continue pain medications. Chronic (8) HTN (hypertension): Qualifiers: Hypertension type: unspecified Qualified Code(s): I10 - Essential (primary) hypertension Code(s): I10 - Essential (primary) hypertension Status: Chronic Assessment and Plan: -----Last bp 150/72.
[2020-01-22] MEDS: SILVERGEL (ELTA) 45 ML 1 APPLIC TOPICAL (15:27)
[2020-01-22 17:30] LABS: Glucose Point of Care 243 (65-105)
[2020-01-22] MEDS: INSULIN ASPART (*BKC) 100 UNITS/ML SUB-Q (17:55)
[2020-01-22] MEDS: ATORVASTATIN 20 MG TABLET PO (20:44)
[2020-01-22] MEDS: GABAPENTIN 300 MG CAPSULE 600 MG PO (20:44)
[2020-01-22 21:36] LABS: Glucose Point of Care 256 (65-105)
[2020-01-23 06:00] VITALS: BP 164/66; PULSE 65; RESP 18; TEMP 36.3; O2SAT 98
[2020-01-23] MEDS: HEPARIN SODIUM 5,000 UNITS/ML VIAL 5000 UNITS SUB-Q ×3 (06:04→21:01)
[2020-01-23 08:15] LABS: Glucose Point of Care 156 (65-105)
[2020-01-23] MEDS: BACLOFEN 10 MG TABLET 5 MG PO (09:00)
[2020-01-23] MEDS: TIMOLOL MALEATE 0.25% OP SOLN 5 ML BOTTLE 1 DROP LEFT EYE ×2 (09:00→17:32)
[2020-01-23] MEDS: ASPIRIN 81 MG ENTERIC TABLET PO (09:00)
[2020-01-23] MEDS: BRIMONIDINE TARTRATE 0.2% OP SOLN 5 ML BTL 1 DROP EACH EYE ×2 (09:00→17:32)
[2020-01-23] MEDS: FUROSEMIDE 40 MG TABLET PO (09:01)
[2020-01-23] MEDS: carvediloL 25 MG TABLET PO ×2 (09:01→21:01)
[2020-01-23] MEDS: DORZOLAMIDE HCL 2% OPHTH DROPS 1 DROP LEFT EYE ×2 (09:01→17:32)
[2020-01-23] MEDS: GABAPENTIN 300 MG CAPSULE PO (09:01)
[2020-01-23] MEDS: CEFDINIR 300 MG CAPSULE PO ×2 (09:01→21:00)
[2020-01-23] MEDS: lisinopriL 20 MG TABLET PO (09:02)
[2020-01-23] MEDS: SENNOSIDES 8.6 MG TABLET PO (09:02)
[2020-01-23] MEDS: INSULIN GLARGINE (*BKC) 100 UNITS/ML 20 UNITS SUB-Q (09:17)
[2020-01-23 11:52] LABS: Glucose Point of Care 232 (65-105)
[2020-01-23] MEDS: INSULIN ASPART (*BKC) 100 UNITS/ML SUB-Q (12:28)
[2020-01-23 14:00] VITALS: BP 139/70; PULSE 64; RESP 20; TEMP 37.2; O2SAT 100
[2020-01-23] MEDS: SILVERGEL (ELTA) 45 ML 1 APPLIC TOPICAL (16:00)
--- NOTE | 2020-01-23 16:24 | PM.IMPN ---
Progress Note: A&P Assessment and Plan (1) Osteomyelitis of fifth toe of right foot: Code(s): M86.9 - Osteomyelitis, unspecified Status: Acute Assessment and Plan: -----Right foot MRI showed osteomyelitis and pt is POD #4 of debridement of left heal with amputation of right 5th toe. Pt pain has improved and she is feeling better. She is now working on getting stronger and transferring herself. Plan to go to rehab after d/c. Will continue PT/OT. Right foot Wound cultures growing heavy growth of entercoccus and I spoke with Dr. Harris who does not recommend changing abx as this part of the wound has been amputated. Brilinta currently on hold but aspirin continued as well as heparin 5000u daily (2) Diabetic foot infection: Code(s): E11.628 - Type 2 diabetes mellitus with other skin complications; L08.9 - Local infection of the skin and subcutaneous tissue, unspecified Status: Deleted Assessment and Plan: ----See above. Bilateral. Left heel and right lateral foot. Left heel ulcer is full-thickness, stable after sx and healing well. She has osteomyelitis affecting the right foot with the details and plan as above (3) CAD (coronary artery disease): Code(s): I25.10 - Atherosclerotic heart disease of [place] coronary artery without angina pectoris Status: Chronic Assessment and Plan: ----Chronic with no acute issues. She underwent PCI 09/10/16. Continue ASA and atorvastatin. Brilinta is on hold in anticipation of d/t sx. No perioperative CP. (4) Symptomatic anemia: Code(s): D64.9 - Anemia, unspecified Status: Acute Assessment and Plan: ------Hgb 8.7 yesterday after getting 1PRBC 01/19. On admission, her Hb was 6.7 and Hct 21.8. She received 2 unit pRBC 01/13. Normocytic. This is likely due to anemia of chronic disease. She denies melena and hematochezia. Stool occult blood testing was negative. Iron studies are consistent with anemia of chronic disease. Vitamin B12 and folate levels are sufficient. Continue to monitor H&H. Transfuse PRN to maintain Hb >7. (5) Acute renal failure: Qualifiers: Acute renal failure type: unspecified Qualified Code(s): N17.9 - Acute kidney failure, unspecified Code(s): N17.9 - Acute kidney failure, unspecified Status: Resolved Assessment and Plan: -----Resolved. Cr was 2.5 and BUN 55 at presentation and improved with IVF. Her acute renal failure was likely pre-renal due to low blood volume with hypoperfusion and dehydration. Cr has responded very well to gentle IV fluid rehydration and IV fluids were discontinued 01/16 as she was tolerating PO intake well. Renal ultrasound revealed no abnormalities. Hold metformin. Continue to monitor. (6) Type 2 diabetes mellitus with hyperglycemia: Qualifiers: Diabetes mellitus intermediate designer insulin use: with intermediate designer use Qualified Code(s): E11.65 - Type 2 diabetes mellitus with hyperglycemia; Z79.4 - intermediate (current) use of insulin Code(s): E11.65 - Type 2 diabetes mellitus with hyperglycemia Status: Chronic Assessment and Plan: ----Last glucose 232. She was lower after sx because she was not eating. Now that she is eating better, her lantus has been increased. She usually takes 40u at home. Hemoglobin A1c was 6.5% 01/14/20. Insulin dosing confirmed by the nurse. (7) Charcot's joint of foot: Qualifiers: Laterality: unspecified laterality Qualified Code(s): M14.679 - Charcot's joint, unspecified ankle and foot Code(s): M14.679 - Charcot's joint, unspecified ankle and foot Status: Chronic Assessment and Plan: -----Continue pain medications. Chronic (8) HTN (hypertension): Qualifiers: Hypertension type: unspecified Qualified Code(s): I10 - Essential (primary) hypertension Code(s): I10 - Essential (primary) hypertension Status: Chronic Assessmen
[2020-01-23 17:43] LABS: Glucose Point of Care 162 (65-105)
[2020-01-23] MEDS: GABAPENTIN 300 MG CAPSULE 600 MG PO (21:00)
[2020-01-23] MEDS: ATORVASTATIN 20 MG TABLET PO (21:00)
[2020-01-23 21:01] VITALS: PULSE 66
[2020-01-23 22:00] VITALS: BP 161/74; PULSE 72; RESP 20; TEMP 36.7; O2SAT 97
[2020-01-23 22:41] LABS: Glucose Point of Care 179 (65-105)
[2020-01-24 06:00] VITALS: BP 160/81; PULSE 68; RESP 20; TEMP 37.2; O2SAT 98
[2020-01-24 06:35] LABS: Hematocrit 29.5 % (37.0-47.0); Hemoglobin 9.1 g/dL (12.0-15.0)
[2020-01-24] MEDS: HEPARIN SODIUM 5,000 UNITS/ML VIAL 5000 UNITS SUB-Q ×2 (06:45→20:13)
[2020-01-24 06:48] LABS: Anion Gap 9.1 mmol/L (7-16); Blood Urea Nitrogen 18 mg/dL (7-17); Carbon Dioxide 28 mmol/L (22-30); Chloride 103 mmol/L (98-107); Estimated CRCL calculation 56 ml/min; Estimated Glomerular Filt Rate > 60; Glucose 153 mg/dL (65-105); Potassium 4.1 mmol/L (3.4-5.0); Sodium 136 mmol/L (137-145)
--- NOTE | 2020-01-24 08:14 | PM.PNGS ---
Progress Note: A&P Assessment and Plan (1) Osteomyelitis of fifth toe of right foot: Code(s): M86.9 - Osteomyelitis, unspecified Status: Acute Assessment and Plan: open wounds right foot are healing slowly as expected. Patient is concerned about follow-up as she is in a nursing facility in [place]. Both legs are very painful even to move. I explained again to her that my initial recommendation was for amputation as it is unlikely she will be walking or even transferring as painful as her legs are. She would not agree to this and barely agreed to toe amputation. I explained that she will need to continue these dressing changes for many weeks. I will be happy to see her in the wound clinic. I can see her in 3 weeks. From my perspective, she can be discharged on the current dressing changes- silver gel gauze and Gray wrap. This to be changed daily. (2) Diabetic infection of right foot: Code(s): E11.628 - Type 2 diabetes mellitus with other skin complications; L08.9 - Local infection of the skin and subcutaneous tissue, unspecified Status: Acute Assessment and Plan: Infection seems to be pretty much resolved. (3) Ulcer of left heel: Qualifiers: Non-pressure ulcer stage: with fat layer exposed Qualified Code(s): L97.422 - Non-pressure chronic ulcer of left heel and midfoot with fat layer exposed Code(s): L97.429 - Non-pressure chronic ulcer of left heel and midfoot with unspecified severity Status: Acute Assessment and Plan: [place] and granulating. After discharge patient will need dressing changes as noted above as well as waffle boots continuously to avoid more ulceration. (4) Type 2 diabetes mellitus with hyperglycemia: Qualifiers: Diabetes mellitus residential insulin use: with intermediate project manager use Qualified Code(s): E11.65 - Type 2 diabetes mellitus with hyperglycemia; Z79.4 - senior living (current) use of insulin Code(s): E11.65 - Type 2 diabetes mellitus with hyperglycemia Status: Chronic Subjective Subjective Date/Time Seen: 01/24/20 08:14 Post Op day: 5 Patient reports: no new complaints and still having pain (Both legs, attributes it to Charcot's joint.) Exam Extrem: Right lower extremity: foot ( Fifth amputation site clean, plantar wound clean as well. ) Details: other ( minimal necrosis or debris) Left lower extremity: foot ( heel ulcer pink and granulating. 95% granulation tissue) Objective Data Vital Signs Vital Signs: Vital Signs - 24 hr 01/23/20 14:00 01/23/20 21:01 01/23/20 22:00 Temperature 37.2 C 36.7 C Pulse Rate 64 66 72 Respiratory Rate 20 20 Blood Pressure 139/70 161/74 H Pulse Oximetry 100 97 01/24/20 06:00 Temperature 37.2 C Pulse Rate 68 Respiratory Rate 20 Blood Pressure 160/81 H Pulse Oximetry 98 Intake/Output Intake/Output: Intake & Output 01/21/20 01/22/20 01/23/20 01/24/20 23:59 23:59 23:59 23:59 Intake Total 2060 1460 2250 170 Output Total 2500 3600 450 Balance -440 -2140 1800 170 Meds/Results Medications: Active Medications Generic Name Dose Route Start Last Admin Trade Name Freq PRN Reason Stop Dose Admin Acetaminophen 500 mg 01/19/20 15:04 01/20/20 10:32 Tylenol Tablet PO 500 mg Q6H PRN Administration Mild Pain (1-3) or Fever Hydrocodone Bitart/Acetaminophen 1 tab 01/19/20 15:04 01/23/20 15:58 [place] 5-325 Mg PO 1 tab Q4H PRN Administration Pain Rated 4-6 Hydrocodone Bitart/Acetaminophen 1 tab 01/19/20 15:04 01/23/20 21:01 [place] 10-325 Mg PO 1 tab Q6H PRN Administration Pain Rated 7-10 Aspirin 81 mg 01/14/20 16:50 01/23/20 09:00 Aspirin Ec PO 81 mg QAM TIA Administration Atorvastatin Calcium 20 mg 01/14/20 21:00 01/23/20 21:00 Lipitor PO 20 mg HS TIA Administration Baclofen 5 mg 01/14/20 17:00 01/23/20 17:31 Lioresal Po PO Not Given TID TIA Brimonidine Tartrate 1 drop 01/14/20 0
[2020-01-24 08:28] LABS: Glucose Point of Care 158 (65-105)
[2020-01-24 08:29] VITALS: PULSE 80
[2020-01-24] MEDS: FUROSEMIDE 40 MG TABLET PO (08:29)
[2020-01-24] MEDS: BACLOFEN 10 MG TABLET 5 MG PO ×2 (08:29→18:30)
[2020-01-24] MEDS: GABAPENTIN 300 MG CAPSULE PO (08:29)
[2020-01-24] MEDS: SILVERGEL (ELTA) 45 ML 1 APPLIC TOPICAL (08:29)
[2020-01-24] MEDS: carvediloL 25 MG TABLET PO ×2 (08:29→20:13)
[2020-01-24] MEDS: CEFDINIR 300 MG CAPSULE PO ×2 (08:29→20:12)
[2020-01-24] MEDS: lisinopriL 20 MG TABLET PO (08:29)
[2020-01-24] MEDS: TIMOLOL MALEATE 0.25% OP SOLN 5 ML BOTTLE 1 DROP LEFT EYE ×2 (08:30→18:31)
[2020-01-24] MEDS: ASPIRIN 81 MG ENTERIC TABLET PO (08:30)
[2020-01-24] MEDS: DORZOLAMIDE HCL 2% OPHTH DROPS 1 DROP LEFT EYE ×2 (08:30→18:31)
[2020-01-24] MEDS: BRIMONIDINE TARTRATE 0.2% OP SOLN 5 ML BTL 1 DROP EACH EYE ×2 (08:30→18:31)
[2020-01-24] MEDS: INSULIN GLARGINE (*BKC) 100 UNITS/ML 20 UNITS SUB-Q (08:54)
--- NOTE | 2020-01-24 10:57 | PM.DS ---
DS: Admitting Diagnosis Admitting Diagnosis Admitting Diagnosis: Type 2 diabetes mellitus with other skin complications DS: Discharge Diagnosis Discharge Diagnosis (1) Osteomyelitis of fifth toe of right foot: Code(s): M86.9 - Osteomyelitis, unspecified Status: Acute Assessment and Plan: -----Right foot MRI showed osteomyelitis and pt is POD #5 of debridement of left heal with amputation of right 5th toe. Pt pain has improved and she is feeling better. She is now working on getting stronger and transferring herself which she plans to work on at the nursing facility. Right foot Wound cultures growing heavy growth of entercoccus and I spoke with Dr. Harris who does not recommend changing abx as this part of the wound has been amputated. Brilinta restarted at d/c (2) Diabetic foot infection: Code(s): E11.628 - Type 2 diabetes mellitus with other skin complications; L08.9 - Local infection of the skin and subcutaneous tissue, unspecified Status: Deleted Assessment and Plan: ----See above. Bilateral. Left heel and right lateral foot. Left heel ulcer is full-thickness, stable after sx and healing well. She has osteomyelitis affecting the right foot with the details and plan as above. Continue wound care at nursing facility. (3) CAD (coronary artery disease): Code(s): I25.10 - Atherosclerotic heart disease of [place]kat coronary artery without angina pectoris Status: Chronic Assessment and Plan: ----Chronic with no acute issues. She underwent PCI 09/10/16. Continue ASA and atorvastatin. (4) Symptomatic anemia: Code(s): D64.9 - Anemia, unspecified Status: Acute Assessment and Plan: ------9.1 day of discharge. 1PRBC 01/19 and 2 unit pRBC 01/13. Normocytic. This is likely due to anemia of chronic disease. She denies melena and hematochezia. Stool occult blood testing was negative. Iron studies are consistent with anemia of chronic disease. Vitamin B12 and folate levels are sufficient. Continue to monitor H&H. Transfuse PRN to maintain Hb >7. (5) Acute renal failure: Qualifiers: Acute renal failure type: unspecified Qualified Code(s): N17.9 - Acute kidney failure, unspecified Code(s): N17.9 - Acute kidney failure, unspecified Status: Resolved Assessment and Plan: -----Resolved. Cr was 2.5 and BUN 55 at presentation and improved with IVF. Her acute renal failure was likely pre-renal due to low blood volume with hypoperfusion and dehydration. Cr has responded very well to gentle IV fluid rehydration and IV fluids were discontinued 01/16 as she was tolerating PO intake well. Renal ultrasound revealed no abnormalities. (6) Type 2 diabetes mellitus with hyperglycemia: Qualifiers: Diabetes mellitus fpc insulin use: with terminal operations manager use Qualified Code(s): E11.65 - Type 2 diabetes mellitus with hyperglycemia; Z79.4 - buttermaker continuous churn (current) use of insulin Code(s): E11.65 - Type 2 diabetes mellitus with hyperglycemia Status: Chronic Assessment and Plan: ----Last glucose 272. Home insulin therapy was adjusted. Hemoglobin A1c was 6.5% 01/14/20. (7) Charcot's joint of foot: Qualifiers: Laterality: unspecified laterality Qualified Code(s): M14.679 - Charcot's joint, unspecified ankle and foot Code(s): M14.679 - Charcot's joint, unspecified ankle and foot Status: Chronic Assessment and Plan: -----Continue pain medications. Chronic (8) HTN (hypertension): Qualifiers: Hypertension type: unspecified Qualified Code(s): I10 - Essential (primary) hypertension Code(s): I10 - Essential (primary) hypertension Status: Chronic Assessment and Plan: -----Last bp 163/71. Continue lasix, carvedilol and lisinopril. (9) HLD (hyperlipidemia): Qualifiers: Hyperlipidemia type: unspecified Qualified Code(s): E78.5 -
--- NOTE | 2020-01-24 12:19 | PCNWS ---
Weekly nutritional screen. Patient is tolerating current diet with adequate intake. Patient is consuming 93% of meals on average over 7 day period. Last bowel movement reported on 01/24/20. No weight loss reported. No nutritional needs at this time.
[2020-01-24 12:50] LABS: Glucose Point of Care 233 (65-105)
--- NOTE | 2020-01-24 13:04 | PCNSR ---
On 01/24/20, the student, Anatoliy Kate, provided care and completed [facility] documentation on this patient. I have reviewed the student's documentation and agree with the findings.
[2020-01-24 14:00] VITALS: BP 154/83; PULSE 73; RESP 20; TEMP 36.4; O2SAT 97
--- NOTE | 2020-01-24 15:15 | PCPTNOTE ---
P.T. attempted to see patient this afternoon for P.T.. Patient c/o feeling cold and requested a warm blanket. Patient then c/o of having pain and when asked where the pain was located she stated All over! My head, my neck, my arms, my back, and my legs! Patient did not participate in therapy.
[2020-01-24 18:41] LABS: Glucose Point of Care 282 (65-105)
[2020-01-24] MEDS: INSULIN ASPART (*BKC) 100 UNITS/ML SUB-Q (18:42)
[2020-01-24 20:00] VITALS: PULSE 65; RESP 20; O2SAT 99
[2020-01-24] MEDS: ATORVASTATIN 20 MG TABLET PO (20:12)
[2020-01-24] MEDS: GABAPENTIN 300 MG CAPSULE 600 MG PO (20:12)
[2020-01-24 22:00] VITALS: BP 163/71; PULSE 65; RESP 20; TEMP 36.4; O2SAT 99
[2020-01-24 22:31] LABS: Glucose Point of Care 272 (65-105)
== END 2020-01-24 23:40 | DRG 314 ==
LOC: ANHED 23:58 → ANH3MEDSUR 01-14 00:22
PROVIDERS: Nurse Practitioner Family; Physician Assistant; Surgery; Admitting Provider Family Medicine; Emergency Provider Emergency Medicine; PCP Family Medicine; Visit Provider Physician Assistant
PROC: 0Y6X0Z0 Detachment at Right 5th Toe, Complete, Open Approach (ICD-10-PCS; principal; 2020-01-19 12:00)
PROC: 0Y6X0Z0 Detachment at Right 5th Toe, Complete, Open Approach (ICD-10-PCS; 2020-01-19 12:00)
DX: E11.628 Type 2 diabetes mellitus with other skin complications (principal); E11.621 Type 2 diabetes mellitus with foot ulcer; E11.69 Type 2 diabetes mellitus with other specified complication; L03.115 Cellulitis of right lower limb; Z20.828 Contact with and (suspected) exposure to other viral communicable diseases; L97.514 Non-pressure chronic ulcer of other part of right foot with necrosis of bone; N17.9 Acute kidney failure, unspecified; L97.423 Non-pressure chronic ulcer of left heel and midfoot with necrosis of muscle; I25.10 Atherosclerotic heart disease of native coronary artery without angina pectoris; E11.65 Type 2 diabetes mellitus with hyperglycemia; I11.0 Hypertensive heart disease with heart failure; E11.319 Type 2 diabetes mellitus with unspecified diabetic retinopathy without macular edema; G60.0 Hereditary motor and sensory neuropathy; Z79.4 Long term (current) use of insulin; M14.679 Charcot's joint, unspecified ankle and foot; E78.5 Hyperlipidemia, unspecified; D64.9 Anemia, unspecified; E11.52 Type 2 diabetes mellitus with diabetic peripheral angiopathy with gangrene; Z95.5 Presence of coronary angioplasty implant and graft; M86.171 Other acute osteomyelitis, right ankle and foot
CPT/HCPCS: 36415; 36430; 71045; 73630; 73720; 76775; 80048; 80053; 80076; 82274; 82607; 82728; 82746; 83036; 83540; 83550; 83735; 85014; 85018; 85025; 85027; 85610; 85730; 86140; 86850; 86900; 86901; 86923; 87040; 87070; 87077; 87186; 87205; 87635; 88305; 88311; 93005; 96360; 96361; 96372; 97110; 97161; 97165; 97530; 97535; 99285; A9270; A9577; C9803; G0378; G0379; J0696; J1644; J1815; J2250; J2405; J2543; J2704; J3010; J7030; J7050; J7120; P9016; U0003

== ENCOUNTER 2021-12-14 11:06 | Observation (INO) | payer OTHER, SELFPAY ==
--- NOTE | ~2021-12-14 | US_ITS ---
EXAMINATION: US carotid duplex BI DATE: 12/15/2021 10:18 INDICATION: Confusion TECHNIQUE: Grayscale, color Doppler, and pulsed Doppler images of the cervical carotid arteries were obtained. The degree of vessel stenosis is placed in one of the following categories: normal, <50%, 5 0-69%, >=70% but less than near-occlusion, near-occlusion, or total occlusion. Note that percent sten osis relative to normal distal artery lumen diameter is indirectly measured from velocity measurement s as described by Delfino, et al. Radiology 2003; 229:340-346. COMPARISON: None. FINDINGS: RIGHT: The right common carotid artery (CCA) peak systolic velocity (PSV) is 72 cm/s. The right internal car otid artery (ICA) PSV is 58 cm/s. The right ICA end-diastolic velocity (EDV) is 19 cm/s. The right IC A/CCA PSV ratio is 0.8. Grayscale and color Doppler images yield an estimate of 0% diameter reduction from plaque in the ICA. There is minimal plaque in the right carotid bifurcation. The external carot id artery (ECA) PSV is 80 cm/s. There is antegrade flow in the right vertebral artery. LEFT: The left CCA PSV is 65 cm/s. The left ICA PSV is 74 cm/s. The left ICA EDV is 27 cm/s. The left ICA/C CA PSV ratio is 1.1. Grayscale and color Doppler images yield an estimate of 0% diameter reduction fr om plaque in the ICA. The ECA PSV is cm/s. There is antegrade flow in the left vertebral artery. IMPRESSION: 1. No stenosis in the right internal carotid artery; minimal plaque at the right carotid bulb. 2. No stenosis in the left internal carotid artery. Reviewed, dictated and finalized at [facility]. Reviewed, dictated and finalized at location [facility]. IMPRESSION: 1. No stenosis in the right internal carotid artery; minimal plaque at the righ t carotid bulb. 2. No stenosis in the left internal carotid artery.
--- NOTE | ~2021-12-14 | CT_ITS ---
EXAMINATION: CT abdomen pelvis wo con DATE: 12/14/2021 13:00 INDICATION: Abdominal pain. TECHNIQUE: Computed tomography (CT) of the abdomen and pelvis was performed without intravenous contr ast. Automated exposure control and iterative reconstruction technique were employed. The dose-length product was 1467.24 mGy-cm. COMPARISON: CT lumbar spine 04/08/2019 FINDINGS: The visualized portions of the lung bases demonstrate motion artifact and mild atelectasis. No pleural effusion. The heart size is normal. There are coronary artery calcifications. No pericard ial effusion. The liver and gallbladder are normal. There is a chronic 10 mm low-attenuation mass in the spleen, likely a benign mass such as granulomatous disease or a hemangioma. The pancreas, adrenal glands, and kidneys are normal. There is no urolithiasis. The bladder is decompressed by a Adames cat heter. Stool distends the rectum. The appendix is normal. There are no pathologically enlarged lymph nodes. There is no free intraperitoneal fluid. There is severe thoracic and lumbar spondylosis. IMPRESSION: 1. Stool distends the rectum. Reviewed, dictated and finalized at location [facility].
--- NOTE | ~2021-12-14 | CT_ITS ---
EXAMINATION: CT brain wo con DATE: 12/14/2021 11:41 INDICATION: Altered mental status. TECHNIQUE: Computed tomography (CT) of the head was performed without intravenous contrast. The mA wa s adjusted according to patient size. Iterative reconstruction technique was employed. The dose-lengt h product was 605.33 mGy-cm. COMPARISON: Head CT 05/11/2012 FINDINGS: There is an old infarct in the left lentiform nucleus. There are scattered areas of low att enuation in the cerebral white matter. There is no intracranial hemorrhage, acute infarction, or abno rmal intracranial mass lesion. The ventricles are normal in size. There are likely changes of ocular lens replacement surgeries. The paranasal sinuses are clear. The mastoid air cells are normal. IMPRESSION: 1. Old infarct in the left lentiform nucleus. 2. Mild nonspecific cerebral white matter disease, which likely represents chronic small vessel ische enrike disease. Reviewed, dictated and finalized at location [facility]. IMPRESSION: 1. Old infarct in the left lentiform nucleus. 2. Mild nonspecific cerebral white matter disease, which likely represents front office help elliot small vessel ischemic disease.
--- NOTE | ~2021-12-14 | CT_ITS ---
EXAMINATION: CT brain wo con DATE: 12/15/2021 00:50 INDICATION: Episodes of unresponsiveness TECHNIQUE: Computed tomography (CT) of the head was performed without intravenous contrast. The mA wa s adjusted according to patient size. Iterative reconstruction technique was employed. Exam dose: 60 5.33 mGy-cm total exam DLP. COMPARISON: 12/14/2021 CT brain FINDINGS: Prominent calcification of the dominant left vertebral artery, basilar artery and prominent bilateral carotid siphon internal carotid artery calcifications. There is nonspecific diminished attenuation cerebral white matter, likely due to chronic small vessel ischemic change. Chronic left basal ganglia lacunar infarct No intracranial mass lesion or hemorrhage or recent cerebrovascular accident is evident. No midline s hift or mass effect. No subdural or epidural hematoma. No fracture or bone destruction of the cranial vault. The paranasal sinuses and mastoid air cells are unremarkable. IMPRESSION: Cerebral atherosclerosis and chronic small vessel ischemic changes of the cerebral white matter Left basal ganglia chronic lacunar infarct No significant change since 12/14/2021 Reviewed, dictated and finalized at [facility]. Reviewed, dictated and finalized at location [facility].
--- NOTE | ~2021-12-14 | XR_ITS ---
EXAMINATION: XR chest 1V DATE: 12/14/2021 11:44 INDICATION: Altered mental status. TECHNIQUE: A single frontal view of the chest was obtained. COMPARISON: Chest single view 01/14/2020 FINDINGS: There is no pneumonia, pleural effusion, or pneumothorax. Cardiomegaly is noted. IMPRESSION: 1. Cardiomegaly. Reviewed, dictated and finalized at location B. IMPRESSION: 1. Cardiomegaly.
[2021-12-14 11:07] VITALS: BP 148/72; PULSE 67; RESP 93; TEMP 36.2; O2SAT 94
[2021-12-14 11:15] LABS: Glucose Point of Care 185 mg/dl (65-105)
--- NOTE | 2021-12-14 11:17 | ECG_ITS ---
Measurements Intervals [place] Rate: 67 P: 41 [place]: 201 QRS: -58 QRSD: 153 T: 161 QT: 507 QTc: 536 Interpretive Statements SINUS RHYTHM LEFT AXIS DEVIATION [QRS AXIS < -30] LEFT BUNDLE BRANCH BLOCK [120+ ms QRS DURATION, 80+ ms Q/S IN V1/V2, 85+ ms R IN I/aVL/V5/V6] COMPARED TO ECG 01/19/2020 11:58:22 NO SIGNIFICANT CHANGES Electronically Signed On 12-14-2021 14:41:48 CDT by Tyler White M.D.
--- NOTE | 2021-12-14 11:27 | ED.AMS ---
HPI - Altered Mental Status General Chief Complaint: Altered Mental Status Stated Complaint: initially unresponsive, narcan helped Time Seen by Provider: 12/14/21 11:17 Source: RN notes reviewed History of Present Illness HPI narrative: Patient presents to emergency department from [facility] via EMS for altered mental status. This a.m. the patient was found altered and unresponsive by staff and EMS was called when EMS arrived the patient was only responsive to painful stimuli at that time patient was given Narcan and became more awake patient does have prescription for baclofen and then does have a prescription for [place] but staff denies giving 0 the past 24 hours. Patient is currently awake alert x1 able to tell me her name she denies any other symptoms at this time no recent illness per staff Related Data Home Medications Medication Instructions Recorded Confirmed acetaminophen 325 mg tablet 650 mg PO Q4-5H PRN Pain 01/19/20 01/19/20 aspirin 81 mg chewable tablet 81 mg PO DAILY 01/19/20 01/19/20 atorvastatin 20 mg tablet 20 mg PO HS 01/19/20 01/19/20 baclofen 10 mg tablet 10 mg PO Q8-10H PRN Back Pain 01/19/20 01/19/20 benzonatate 100 mg capsule 100 mg PO TID PRN Cough 01/19/20 01/19/20 brimonidine 0.2 % eye drops 1 drp ophthalmic (eye) Q8H 01/19/20 01/19/20 calcium carbonate 500 mg-vitamin 1 tablet PO BID 01/19/20 01/19/20 D3 5 mcg (200 unit) tablet (Oysco 500/D) carvedilol 25 mg tablet 25 mg PO BID 01/19/20 01/19/20 cholecalciferol (vitamin D3) 50 50 mcg PO MONTHLY 01/19/20 01/19/20 mcg (2,000 unit) capsule (Vitamin D3) dorzolamide 2 % eye drops 1 drp ophthalmic (eye) TID 01/19/20 01/19/20 furosemide 40 mg tablet 40 mg PO DAILY 01/19/20 01/19/20 gabapentin 600 mg tablet 600 mg PO HS 01/19/20 01/19/20 guaifenesin 100 mg/5 mL oral 200 mg PO Q4H PRN Cough 01/19/20 01/19/20 liquid (Siltussin SA) insulin lispro 100 unit/mL 1 sliding scale dose subcut 01/19/20 01/19/20 subcutaneous solution USEASDIRECTD loratadine 10 mg tablet (Claritin) 10 mg PO DAILY 01/19/20 01/19/20 metformin 500 mg tablet 500 mg PO BID 01/19/20 01/19/20 polysaccharide iron complex 150 mg 150 mg PO BID 01/19/20 01/19/20 iron capsule (Ferrex) sennosides 8.6 mg tablet (senna) 8.6 mg PO Q6-8H PRN Constipation 01/19/20 01/19/20 ticagrelor 90 mg tablet (Brilinta) 90 mg PO Q12H 01/19/20 01/19/20 timolol 0.25 % eye drops 1 drp LEFT EYE TID 01/19/20 01/19/20 Allergies Allergy/AdvReac Type Severity Reaction Status Date / Time egg Allergy Unknown Unknown Verified 05/30/19 14:20 latex Allergy Unknown Unknown Verified 05/30/19 14:20 milk Allergy Unknown Unknown Verified 05/31/19 00:05 Penicillins Allergy Unknown Skin Verified 05/30/19 14:20 Reaction shellfish derived Allergy Unknown Unknown Verified 05/30/19 22:52 Sulfa (Sulfonamide Allergy Unknown Unknown Verified 05/30/19 14:20 Antibiotics) sulfamethizole Allergy Unknown Nausea Verified 05/30/19 14:20 sulfanilamide Allergy Unknown Unknown Verified 05/30/19 14:20 Review of Systems Review of Systems: Gen.: Denies fevers or chills ENT: Denies congestion Respiratory: Denies shortness of breath or cough CV: Denies chest pain GI: Denies abdominal pain nausea, emesis Musculoskeletal: Denies back pain or muscle pain Neuro: See HPI Skin: Denies rash Except as documented, all other systems reviewed and negative [facility] Past Medical History Medical History Acute renal failure Anemia Arm fracture, left Asthma Back pain Bronchitis CAD (coronary artery disease) Charcot's joint of foot Kwzrlar-Qpwhz-Jmmjp disease CHF (congestive heart failure) Diabetes Diabetic retinopathy HLD (hyperlipidemia) HTN (hypertension) Osteomyelitis of fifth toe of right foot Symptomatic anemia Type 2 diabetes mellitus with hyperglycemia Ulcer of left heel Surgical History Surgical History (Updated 01/18/20 @ 18:15 by Mike Pisano CRNA) History of coronary a
[2021-12-14 11:35] LABS: Hematocrit 33.6 % (37.0-47.0); Mean Corpuscular HGB Conc 29.8 g/dl (32-36); Mean Corpuscular Hemoglobin 27.9 pg (26-34); Mean Corpuscular Volume 93.9 fl (80-100); Platelet Count Result 181 k/mm3 (150-375); Red Blood Count 3.58 M/mm3 (4.2-5.4); Red Cell Distribution Width 15.7 % (11.5-14.5); White Blood Count 5.8 K/mm3 (4.5-10.0)
[2021-12-14 11:38] LABS: Add Urine Microscopic? YES; Appearance Urine Slightly Cloudy (Clear); Bilirubin Urine Negative (Negative); Blood Urine Trace-lysed (Negative); Color Urine Yellow (Yellow); Glucose Urine UA Trace mg/dL (Negative); Ketones Urine Negative (Negative); Leukocyte Esterase Ur 2+ LEU/UL (Negative); Nitrate Urine Negative (Negative); Protein Urine Trace mg/dL (Negative); Specific Grav Ur 1.015 (1.001-1.035); Urobilinogen Urine 0.2 mg/dL (<2.0)
[2021-12-14 11:45] LABS: Prothrombin Time 12.9 Seconds (11.1-14.7)
[2021-12-14 11:46] LABS: Partial Thromboplastin Time 26.8 SECONDS (22.3-36.8)
[2021-12-14 11:47] LABS: Alanine Aminotransferase 23 U/L (6-35); Albumin Level 3.1 g/dL (3.5-5.1); Alkaline Phosphatase 138 U/L (38-126); Anion Gap 6 mmol/L (8-16); Aspartate Amino Transferase 32 U/L (14-36); Bilirubin,Total 0.4 mg/dL (0.2-1.3); Blood Urea Nitrogen 12 mg/dL (7-17); Calcium 8.7 mg/dL (8.4-10.2); Carbon Dioxide 26 mmol/L (22-30); Chloride 110 mmol/L (98-107); Estimated CRCL calculation 58 ml/min; Estimated Glomerular Filt Rate 56; Glucose 193 mg/dL (65-110); Hyaline Casts Urine 20-29 /lpf; Mucus Urine Rare /lpf; Potassium 3.9 mmol/L (3.4-5.0); Sodium 142 mmol/L (137-145); Squamous Epithelial Cell Urine Moderate /hpf (Few); WBC Urine 31-50 /hpf
[2021-12-14 12:18] LABS: Band Neutrophils Percent 1 % (0-6); Basophils Absolute Manual 0.05 K/mm3 (0.0-0.1); Basophils Percent Manual 1 % (0-1); Eosinophils Absolute Manual 0.11 K/mm3 (0.02-0.5); Eosinophils Percent Manual 2 % (0-4); Hypochromasia 1+ (NORMAL); Lymphocytes Absolute Manual 1.33 K/mm3 (1.1-4.5); Metamyelocytes Percent 4 %; Monocytes Absolute Manual 0.23 K/mm3 (0.1-0.90); Monocytes Percent Manual 4 % (3-9); Neutrophils Absolute Manual 3.82 K/mm3 (1.7-7.2); Neutrophils Percent Manual 65 % (46-73); Platelet Estimate Adequate (Adequate); Total Cells Counted 100
[2021-12-14 12:39] LABS: Lactic Acid Reflex 1.7 mmol/L (0.7-2.0)
[2021-12-14 12:42] VITALS: BP 130/74; PULSE 63; RESP 18; O2SAT 99
[2021-12-14 12:57] LABS: Alveolar/Arterial O2 Gradient 19.2 mmHg; Carboxyhemoglobin 0.5 % THb (0-2.0); Fractional Inspired Oxygen 21 %; HCO3 ABG 26.7 mEq/l (22.0-26.0); Methemoglobin ABG 0.3 %THb (0-1.5); Oxygen Content ABG 13.6 %vol (16.0-22.0); Oxyhemoglobin 92.2 % THb (90.0-100.0); PCO2 ABG 48.1 mmHg (35.0-45.0); PO2 ABG 72.9 mmHg (80.0-100.0); PO2 FiO2 Ratio Arterial Blood 3.47 %; Total Hemoglobin 10.4 g/dL (12.0-18.0); pH ABG 7.363 (7.350-7.450)
[2021-12-14 12:58] LABS: Site Drawn LEFT RADIAL
[2021-12-14 14:19] VITALS: BP 138/72; PULSE 63; RESP 18; O2SAT 99
--- NOTE | 2021-12-14 14:30 | PM.IMHP ---
H&P: HPI History of Present Illness Date/Time: 12/14/21 14:30 Chief Complaint: Unresponsive. Narrative: This is a chronically debilitated 66-year-old female with history of stroke, hypertension, dyslipidemia, type 2 diabetes mellitus, and other comorbidities who presented to the ER via EMS from [facility] for evaluation after she was found unresponsive. She does not recall what happened today and as such a majority of the following is obtained via a review of her electronic medical records. According to EMS documentation, she was found unresponsive by staff and on their arrival she was only arousable to painful stimuli with pinpoint pupils. IV was established and Narcan was given with an almost immediate response though she was only oriented x1 on arrival. She is prescribed baclofen and hydrocodone for chronic pain however [facility] staff deny that she received any opiates in the last 24 hours. She remained somnolent on arrival to the emergency department, however at the time of my evaluation she is alert and oriented x3 though she is very repetitive and continuously asks me what happened and what she is doing here at the hospital. She does not seem to remember much over the past 24 hours but does know that she was moved from her facility to [facility] just yesterday so she could be closer to her mother, who is also at that facility. She does not remember the last time she took [place] but she believes that she was given her usual dose of baclofen yesterday. She has no specific complaints aside from mild abdominal discomfort which she believes is due to constipation. She denies fever, chills, sweats, headache, sinus congestion, sore throat, chest pain, shortness of breath, nausea, vomiting, and dysuria. She also denies vertigo, focal weakness, paresthesias, facial droop, dysphagia, and dysarthria. Review of Systems Review of Systems: Twelve systems were reviewed. She is bed and wheelchair-bound and reportedly transfers with a Sho. She has pressure sores on her coccyx and heels which are cared for by a market risk specialist. She has had several debridements of these wounds over the years. She believes her diabetes is pretty well controlled. No blurry vision, polydipsia, or polyuria. Except as documented, all other systems were reviewed and are negative. [facility] Past Medical History Medical History (Updated 12/14/21 @ 17:54 by Bessy Diaz PA-C) Anemia Asthma Cerebrovascular accident Charcot's joint of foot Mdwyijz-Hggrj-Tgohm disease Combined systolic and diastolic congestive heart failure Echocardiogram in August 2016 showed severe global left ventricular systolic dysfunction with an EF visually estimated 20 to 25% and diastolic dysfunction. Coronary artery disease Diabetic retinopathy Dyslipidemia Hypertension MSSA bacteremia Osteomyelitis of fifth toe of right foot Type 2 diabetes mellitus Surgical History Surgical History (Updated 12/14/21 @ 14:37 by Bessy Diaz PA-C) Amputation of fifth toe of right foot Secondary to osteomyelitis. History of cardiac catheterization History of coronary artery stent placement x2 History of incision and drainage Back abscess. History of open reduction and internal fixation (ORIF) procedure Repair of left arm fracture. History of tonsillectomy and adenoidectomy Status post excisional debridement Bilateral heels for infected diabetic ulcers. Family History Family History Sibling Cerebrovascular accident Father Family history of diabetes mellitus in first degree relative Diabetes mellitus Family history of hypothyroidism Mother Family history of diabetes mellitus in first degree relative Family history of heart disease in male family member before age 55 Diabetes mellitus Other Family history of cardiovascular disease Hypertension Social History Social History (Updated 12/14/21 @ 17:49 by Bessy Chatterjee
--- NOTE | 2021-12-14 16:03 | PC.NURSE ---
This patient, Giovana Rush, was admitted to [facility] Surg Room 324-01. Patient/family oriented to hospital policies and general routines including ID bracelet, bed and alarms, visiting hours, pain management, procedures, bathroom and other care routines, personal items, smoking policy, room service/diet, and visiting hours. Information on how to activate the Rapid Response Team has been discussed. Patient/Family are encouraged to report perceived risks to care and to ask questions if they do not understand what they are told or what they should do.
[2021-12-14] MEDS: SODIUM CHLORIDE 0.9% IV 1,000 ML 80 ML IV CONT (16:28)
[2021-12-14 16:33] VITALS: BMI 35.7
[2021-12-14 18:35] LABS: Magnesium 1.7 mg/dL (1.6-2.3)
[2021-12-14 18:55] VITALS: PULSE 60
[2021-12-14] MEDS: carvediloL 25 MG TABLET PO (18:55)
[2021-12-14] MEDS: TIMOLOL MALEATE 0.25% OP SOLN 5 ML BOTTLE 1 DROP LEFT EYE (18:55)
[2021-12-14] MEDS: DORZOLAMIDE HCL 2% OPHTH DROPS 1 DROP LEFT EYE (18:55)
[2021-12-14 19:00] LABS: Amphetamine Screen Urine Negative (Negative); Barbiturate Screen Urine Negative (Negative); Benzodiazepines Screen Urine Negative (Negative); Cannabinoid Screen Urine Negative (Negative); Cocaine Screen Urine Negative (Negative); Methadone Screen Urine Negative (Negative); Opiate Screen Urine Negative (Negative); Phencyclidine Screen Urine Negative (Negative)
[2021-12-14 19:42] LABS: Folic Acid 6.4 ng/mL (2.76->20)
[2021-12-14 20:00] VITALS: PULSE 71
[2021-12-14] MEDS: ATORVASTATIN 20 MG TABLET PO (20:48)
[2021-12-14] MEDS: GABAPENTIN 300 MG CAPSULE 600 MG PO (20:48)
[2021-12-14] MEDS: BRIMONIDINE TARTRATE 0.2% OP SOLN 5 ML BTL 1 DROP LEFT EYE (20:49)
[2021-12-14] MEDS: TICAGRELOR 90 MG TABLET PO (20:49)
[2021-12-14 22:10] VITALS: BP 139/71; PULSE 71; RESP 12; TEMP 36.3; O2SAT 97
[2021-12-14 22:36] LABS: Glucose Point of Care 201 mg/dl (65-105)
[2021-12-14 22:38] LABS: Glucose Point of Care 179 mg/dl (65-105)
[2021-12-14 22:40] LABS: Alveolar/Arterial O2 Gradient 27.6 mmHg; Base Excess ABG 3.8 mEq/l (+/-2.0); Carboxyhemoglobin 0.3 % THb (0-2.0); Fractional Inspired Oxygen 21 %; HCO3 ABG 29.3 mEq/l (22.0-26.0); Methemoglobin ABG 0.2 %THb (0-1.5); Oxygen Content ABG 13.4 %vol (16.0-22.0); Oxygen Saturation ABG 92.3 % (95.0-100.0); Oxyhemoglobin 89.9 % THb (90.0-100.0); PCO2 ABG 48.4 mmHg (35.0-45.0); PO2 ABG 64.2 mmHg (80.0-100.0); PO2 FiO2 Ratio Arterial Blood 3.06 %; Reduced Hemoglobin 9.6 %THb (0-5.0); Total Hemoglobin 10.6 g/dL (12.0-18.0)
[2021-12-14 22:41] LABS: Device ROOM AIR; Site Drawn LEFT BRACHIAL
[2021-12-15] VITALS (9 sets, daily range): BP systolic 95–120; BP diastolic 63–66; PULSE 66–86; RESP 16–20; TEMP 36.1–36.5; O2SAT 94–99
--- NOTE | 2021-12-15 01:42 | PC.NURSE ---
Pt refusing procedures at this time after education from multiple nursing staff
[2021-12-15 06:03] LABS: Basophils Percent Auto 0.5 % (0.2-1.2); Eosinophils Absolute Auto 0.7 K/mm3 (0-0.3); Eosinophils Percent Auto 11.5 % (0-4.4); Hematocrit 33.5 % (37.0-47.0); Hemoglobin 9.9 g/dL (12.0-15.0); Immature Granulocyte Absolute 0.03 K/mm3 (0.00-0.031); Immature Granulocyte Percent A 0.5 % (0-0.5); Lymphocytes Absolute Auto 1.29 K/mm3 (0.9-3.2); Lymphocytes Percent Auto 20.5 % (18.3-44.2); Mean Corpuscular HGB Conc 29.6 g/dl (32-36); Mean Corpuscular Volume 94.9 fl (80-100); Mean Platelet Volume 10.5 fl (7.4-10.4); Monocytes Absolute Auto 0.4 K/mm3 (0.1-0.6); Monocytes Percent Auto 6.7 % (2.6-8.5); Neutrophils Absolute Auto 3.8 K/mm3 (1.3-6.7); Neutrophils Percent Auto 60.3 % (45.5-73.1); Platelet Count Result 199 k/mm3 (150-375); Red Blood Count 3.53 M/mm3 (4.2-5.4); Red Cell Distribution Width 15.7 % (11.5-14.5); White Blood Count 6.3 K/mm3 (4.5-10.0)
[2021-12-15 06:12] LABS: Alanine Aminotransferase 21 U/L (6-35); Albumin Level 3.3 g/dL (3.5-5.1); Alkaline Phosphatase 144 U/L (38-126); Anion Gap 5 mmol/L (8-16); Aspartate Amino Transferase 24 U/L (14-36); Bilirubin,Total 0.4 mg/dL (0.2-1.3); Blood Urea Nitrogen 13 mg/dL (7-17); Calcium 8.6 mg/dL (8.4-10.2); Carbon Dioxide 28 mmol/L (22-30); Chloride 107 mmol/L (98-107); Estimated CRCL calculation 58 ml/min; Estimated Glomerular Filt Rate 56; Glucose 246 mg/dL (65-110); Potassium 3.7 mmol/L (3.4-5.0); Sodium 140 mmol/L (137-145)
[2021-12-15] MEDS: BRIMONIDINE TARTRATE 0.2% OP SOLN 5 ML BTL 1 DROP LEFT EYE ×3 (06:21→21:03)
[2021-12-15 07:38] LABS: Glucose Point of Care 192 mg/dl (65-105)
[2021-12-15] MEDS: TICAGRELOR 90 MG TABLET PO ×2 (09:57→21:03)
[2021-12-15] MEDS: POLYSACCHARIDE IRON COMPLEX 150 MG CAPSULE PO ×2 (09:57→17:06)
[2021-12-15] MEDS: SILVERGEL (ELTA) 45 ML 1 APPLIC TOPICAL (09:57)
[2021-12-15] MEDS: TIMOLOL MALEATE 0.25% OP SOLN 5 ML BOTTLE 1 DROP LEFT EYE ×3 (09:58→17:07)
[2021-12-15] MEDS: ASPIRIN 81 MG CHEWABLE TABLET PO (09:58)
[2021-12-15] MEDS: DORZOLAMIDE HCL 2% OPHTH DROPS 1 DROP LEFT EYE ×3 (09:58→17:07)
[2021-12-15] MEDS: FUROSEMIDE 40 MG TABLET PO (09:58)
[2021-12-15] MEDS: carvediloL 25 MG TABLET PO ×2 (09:59→17:06)
[2021-12-15] MEDS: INSULIN GLARGINE (*BKC) 100 UNITS/ML 30 UNITS SUB-Q (10:00)
[2021-12-15] MEDS: LORATADINE 10 MG TABLET PO (10:00)
[2021-12-15] MEDS: lisinopriL 20 MG TABLET PO (10:00)
[2021-12-15 12:08] LABS: Glucose Point of Care 209 mg/dl (65-105)
[2021-12-15] MEDS: INSULIN ASPART (*BKC) 100 UNITS/ML SUB-Q (12:40)
--- NOTE | 2021-12-15 15:46 | PM.IMPN ---
Progress Note: A&P Assessment and Plan (1) Unresponsive episode: Code(s): R41.89 - Other symptoms and signs involving cognitive functions and awareness Status: Acute Assessment and Plan: Patient was found unresponsive at the care home by staff. She withdrew from pain. Per EMS notes, patient has snoring respirations and pinpoint pupils. Patient does have [place] for pain however staff states patient did not receive any [place] the night prior or on the day of admission. Glucose was 227. IV established and 2 mg IV Narcan administered and patient ?immediately became responsive to verbal stimuli?. Urine drug screen negative here. Brain CT showing old CVA but no acute findings. UA noted. BCx and UCx pending. Patient may have received medications inappropriately. She appears to have recovered well without issue. Continue to monitor. (2) Confusion: Code(s): R41.0 - Disorientation, unspecified Status: Acute Assessment and Plan: Patient was confused after the event but is now alert and oriented. Consider seizure but seems less likely since she became awake and alert immediately after Narcan. Follow. (3) Abnormal urinalysis: Code(s): R82.90 - Unspecified abnormal findings in urine Status: Acute Assessment and Plan: UA noted. UCx pending. She was given levofloxacin the emergency department though she has no symptoms to suggest UTI and her urine looks contaminated thus will hold on further antibiotics. SHe had a Adames but this was removed this morning. She did not void and bladder scan showing 500mL so Adames replaced. Voiding trial at [place]. She does have fecal impaction and RN states patient having liquid stools so probably leaking around impaction. This is probably causing the urine retention. Miralax started. Enemas (4) Combined systolic and diastolic congestive heart failure: Code(s): I50.40 - Unspecified combined systolic (congestive) and diastolic (congestive) heart failure Status: Acute Assessment and Plan: Clinically compensated. Echo in the past showing EF 20% but Echo this admission with EF of 35-40% and grade 1 diastolic dysfunction. She has a left bundle branch block but this is chronic. (5) Type 2 diabetes mellitus: Code(s): E11.9 - Type 2 diabetes mellitus without complications Status: Acute Assessment and Plan: A1c 6.0. The patient's blood glucose was reviewed on 12/15 Glucose remains poorly controlled. Continue AccuCheks covering with sliding scale. Hypoglycemia protocol available as needed. Continue current medications since A1c low so suspect glucose will trend down. She is insistent on regular diet which was changed (6) Hypertension: Code(s): I10 - Essential (primary) hypertension Status: Acute Assessment and Plan: Blood pressures were reviewed and they are stable. Continue antihypertensives and monitor daily. Watch for lows. Subjective Date/time seen: 12/15/21 15:46 Interval history: 66yo female with hx of CVA, CHF, DM and HTN brought in from the [place] after being found unresponsive. Assuming care. Chart reviewed. No history of seizures. She is bedrest the past 4 months. She has not really been getting up to the wheelchair. Adames was removed this morning but she has not voided. Bladder scan shows urine retention so Adames replaced. She refused her MRI. She states he has been having bowel movement since admission. No diarrhea. Exam Narrative: AF 97.0 95/63 78 16 99% ra Gen - NARD lying semi recumbent in bed Chest - CTA bilaterally, nml RR CV - RRR S1/S2 with 2/6 systolic murmur heard loudest in the upper sternal border Abd -soft. Obese. Nontender. Ext - No pedal edema. Bilateral Charcot foot deformities noted. Neuro - Alert and oriented. Speech is clear. Psych - Nml mood and affect Skin - Warm and dry. Chronic venous stasis skin changes in bilateral lower extremities with scale.
[2021-12-15 16:33] LABS: Glucose Point of Care 156 mg/dl (65-105)
[2021-12-15] MEDS: polyethylene glycoL 3350 17 GM POWD.PACK PO (17:06)
[2021-12-15] MEDS: EUCERIN CREAM 120 GM JAR 1 APPLIC TOPICAL (17:08)
--- NOTE | 2021-12-15 18:04 | ECHO_ITS ---
Patient Info Name: Giovana Rush Age: 66 years : 1955 Gender: Female Ht: 65 in Wt: 214 lbs BSA: 2.15 m2 HR: 74 bpm BP: 120 / 66 mmHg Heart Rhythm: Sinus Rhythm Technical Quality: Fair Exam Date: 12/15/2021 7:59 AM [facility] Patient Status: Inpatient Admit Date: 12/14/2021 Staff Ordering Physician: Bessy Diaz PA-C Rehabilitation Consultant: Adilene Vasquez RDCS Attending Provider: Luciano Hinojosa MD Referring Physician: Emily DIAMOND; Exam Type: CA echo doppler color flow Study Info Indications - AMS HTN CARDIOMEGALY CHF Complete two-dimensional, color flow and Doppler transthoracic echocardiogram is performed. Summary 1. Complete two-dimensional, color flow and Doppler transthoracic echocardiogram is performed. 2. Left ventricular chamber dimension is normal. 3. Left ventricular systolic function is moderately reduced, estimated at 35-40%. 4. There is mildly increased left ventricular wall thickness. 5. Left ventricular septal wall motion is abnormal with septal motion related to bundle branch block. 6. The left ventricular diastolic function is grade I diastolic dysfunction. 7. Left atrial chamber dimension is mildly enlarged. Left Ventricle Left ventricular chamber dimension is normal. Left ventricular systolic function is moderately reduced, estimated at 35-40%. There is mildly increased left ventricular wall thickness. Left ventricular septal wall motion is abnormal with septal motion related to bundle branch block. The left ventricular diastolic function is grade I diastolic dysfunction. Right Ventricle Right ventricular chamber dimension is normal. Right ventricular systolic function is normal. Left Atria Left atrial chamber dimension is mildly enlarged. Right Atria Right atrial chamber dimension is normal. Aortic Valve The aortic valve is not well visualized. There is no aortic valve stenosis. There is no aortic valve regurgitation. Pulmonic Valve The pulmonic valve is not well visualized. Mitral Valve The mitral valve has normal leaflets. There is trace mitral valve regurgitation. The mitral valve annulus is mildly calcified. Tricuspid Valve The tricuspid valve leaflets are normal. There is trace tricuspid valve regurgitation. No pulmonary hypertension, estimated pulmonary arterial systolic pressure is 21 mmHg. Pericardium/Pleural The pericardium appears normal. There is trivial pericardial effusion. Inferior Vena Cava Normal inferior vena cava with >50% collapse upon inspiration consistent with normal right atrial pressure, 5 mmHg. Aorta The aortic root size at the sinus of Valsalva is normal. Left Ventricular Outflow Tract Name Value Normal LVOT 2D LVOT Diameter 2.0 cm LVOT Doppler LVOT Peak Gradient 5 mmHg LVOT Mean Gradient 3 mmHg LVOT VTI 22 cm LVOT VTI/AV VTI Ratio 0.9 LVOT Stroke Volume 69 ml LVOT CO 15.4 l
[2021-12-15] MEDS: ATORVASTATIN 20 MG TABLET PO (21:03)
[2021-12-15] MEDS: GABAPENTIN 300 MG CAPSULE 600 MG PO (21:03)
[2021-12-15 22:00] LABS: Glucose Point of Care 243 mg/dl (65-105)
[2021-12-16] VITALS (7 sets, daily range): BP systolic 141–142; BP diastolic 76–77; PULSE 70–80; RESP 16–20; TEMP 36.3–36.6; O2SAT 96–99
[2021-12-16] MEDS: BRIMONIDINE TARTRATE 0.2% OP SOLN 5 ML BTL 1 DROP LEFT EYE ×2 (06:03→13:15)
[2021-12-16 07:45] LABS: Glucose Point of Care 134 mg/dl (65-105)
[2021-12-16] MEDS: TIMOLOL MALEATE 0.25% OP SOLN 5 ML BOTTLE 1 DROP LEFT EYE ×3 (09:38→17:14)
[2021-12-16] MEDS: lisinopriL 20 MG TABLET PO (09:38)
[2021-12-16] MEDS: POLYSACCHARIDE IRON COMPLEX 150 MG CAPSULE PO ×2 (09:38→17:15)
[2021-12-16] MEDS: SILVERGEL (ELTA) 45 ML 1 APPLIC TOPICAL (09:40)
[2021-12-16] MEDS: SACCHAROMYCES BOULARDII 250 MG CAPSULE PO (09:40)
[2021-12-16] MEDS: ASPIRIN 81 MG CHEWABLE TABLET PO (09:41)
[2021-12-16] MEDS: LORATADINE 10 MG TABLET PO (09:41)
[2021-12-16] MEDS: carvediloL 25 MG TABLET PO ×2 (09:41→17:14)
[2021-12-16] MEDS: DORZOLAMIDE HCL 2% OPHTH DROPS 1 DROP LEFT EYE ×3 (09:42→17:14)
[2021-12-16] MEDS: FUROSEMIDE 40 MG TABLET PO (09:43)
[2021-12-16] MEDS: INSULIN GLARGINE (*BKC) 100 UNITS/ML 30 UNITS SUB-Q (09:43)
[2021-12-16] MEDS: EUCERIN CREAM 120 GM JAR 1 APPLIC TOPICAL ×2 (09:44→17:15)
[2021-12-16] MEDS: TICAGRELOR 90 MG TABLET PO (09:49)
[2021-12-16] MEDS: polyethylene glycoL 3350 17 GM POWD.PACK PO (09:49)
[2021-12-16 11:51] LABS: Glucose Point of Care 153 mg/dl (65-105)
--- NOTE | 2021-12-16 15:17 | PM.DS ---
DS: Admitting Diagnosis Discharge Date 12/16/21 Admitting Diagnosis Unresponsive DS: Discharge Diagnosis Discharge Diagnosis (1) Unresponsive episode: Code(s): R41.89 - Other symptoms and signs involving cognitive functions and awareness Status: Acute (2) Confusion: Code(s): R41.0 - Disorientation, unspecified Status: Acute (3) Abnormal urinalysis: Code(s): R82.90 - Unspecified abnormal findings in urine Status: Acute (4) Combined systolic and diastolic congestive heart failure: Code(s): I50.40 - Unspecified combined systolic (congestive) and diastolic (congestive) heart failure Status: Acute (5) Type 2 diabetes mellitus: Code(s): E11.9 - Type 2 diabetes mellitus without complications Status: Acute (6) Hypertension: Code(s): I10 - Essential (primary) hypertension Status: Acute DS: Summary Hospital Course Hospital Course: Patient was found unresponsive at the assisted by staff. She withdrew from pain. Per EMS notes, patient had snoring respirations and pinpoint pupils. Patient does have [place] for pain however staff states patient did not receive any [place] the night prior or on the day of admission. Glucose was 227. IV established and 2 mg IV Narcan administered and patient ?immediately became responsive to verbal stimuli?. Urine drug screen negative here. Brain CT showing old CVA but no acute findings. Carotid US showing no stenosis of the bilateral ICAs. CT abd/Pelvis showing stool distending the rectum. UA noted but UCx negative. BCx no growth to date. Patient may have received medications inappropriately. She appears to have recovered well without issue. Would consider seizure but seems less likely since she became awake and alert immediately after Narcan. She had a Adames but this was removed but she did not void and bladder scan showing 500mL so Adames replaced. Voiding trial at [place]. She does have fecal impaction and RN states patient having liquid stools so probably leaking around impaction. This is probably causing the urine retention. Miralax started and Enemas given with good results. She has a hx of CHF and was clinically compensated. Echo in the past showing EF 20% but Echo this admission with EF of 35-40% and grade 1 diastolic dysfunction. She has a left bundle branch block but this is chronic. She remained on Lisinopril and Coreg. A1c 6.0. The patient's blood glucose was monitored with AccuCheks covering with sliding scale. Hypoglycemia protocol was available as needed. She had clinical improvement ans was able to be discharged back to the assisted. Status at Discharge Cognitive/behavioral status at discharge: Stable Time Spent with Patient Time attestation: Total time spent providing and/or coordinating discharge services: 32 minutes Time spent: Greater than 30 minutes Exam Narrative: AF 97.8 141/77 74 16 99% ra Gen - NARD Chest - CTA bilaterally, nml RR CV - RRR S1/S2, Tele showing no significant dysrhythmias Abd -soft. Obese. Nontender. Ext - No pedal edema. Bilateral Charcot foot deformities noted. Neuro - Alert and oriented. Speech is clear. Psych - Nml mood and affect Skin - Warm and dry. There is 1 tense bulla noted right samuel. Evidence of bulla that have opened and drained. DS: Data Data Completed and Pending Labs on day of discharge: Labs from last 24 hours 12/16/21 12/16/21 12/15/21 11:47 07:41 21:54 POC Capillary Glucose 153 H 134 H 243 H 12/15/21 16:28 POC Capillary Glucose 156 H Preliminary micro results at discharge 12/14/21 12:17 Blood Culture - Preliminary Blood 12/14/21 12:17 Blood Culture - Preliminary Blood Discharge Plan Discharge Attending physician on discharge: Chay Barahona Discharging Clinician: Chay Barahona Anticipated Discharge Date/Time: 12/16/21 15:29 Patient Disposition: NH Senior Living/Asst Living Activity:
[2021-12-16 16:10] LABS: EDCOVIDSCREEN Negative (Negative)
[2021-12-16 16:53] LABS: Glucose Point of Care 185 mg/dl (65-105)
--- NOTE | 2021-12-20 11:17 | PC.NURSE ---
Blood cx are negative.
== END 2021-12-16 18:15 ==
LOC: ANHED 13:17 → ANH3MEDSUR 18:36
PROVIDERS: Physician Assistant; Admitting Provider Internal Medicine; Emergency Provider Emergency Medicine; PCP Family Medicine; Visit Provider Internal Medicine
DX: R41.89 Other symptoms and signs involving cognitive functions and awareness (principal); R41.0 Disorientation, unspecified; R82.90 Unspecified abnormal findings in urine; I11.0 Hypertensive heart disease with heart failure; I50.40 Unspecified combined systolic (congestive) and diastolic (congestive) heart failure; R33.9 Retention of urine, unspecified; I25.10 Atherosclerotic heart disease of native coronary artery without angina pectoris; E11.319 Type 2 diabetes mellitus with unspecified diabetic retinopathy without macular edema; E78.5 Hyperlipidemia, unspecified; J45.909 Unspecified asthma, uncomplicated; D64.9 Anemia, unspecified; E11.610 Type 2 diabetes mellitus with diabetic neuropathic arthropathy; G60.0 Hereditary motor and sensory neuropathy; Z95.5 Presence of coronary angioplasty implant and graft; Z79.82 Long term (current) use of aspirin; Z79.4 Long term (current) use of insulin; Z79.84 Long term (current) use of oral hypoglycemic drugs; Z79.01 Long term (current) use of anticoagulants; Z86.73 Personal history of transient ischemic attack (TIA), and cerebral infarction without residual deficits; Z20.822 Contact with and (suspected) exposure to COVID-19; Z79.899 Other long term (current) drug therapy
CPT/HCPCS: 36415; 36600; 70450; 71045; 74176; 80053; 80307; 81001; 82375; 82607; 82746; 82805; 82948; 83036; 83050; 83605; 83735; 84443; 85025; 85610; 85730; 87040; 87086; 87088; 87426; 93005; 93306; 93880; 96365; 99285; A9270; C9803; G0378; G0379; J1815; J1956; J7030

== ENCOUNTER 2023-11-16 09:34 | Inpatient (IN) | payer MEDICARE, MEDICAID, SELFPAY ==
[2023-11-16] VITALS (14 sets, daily range): BP systolic 110–155; BP diastolic 55–80; PULSE 79–105; RESP 17–20; TEMP 36.7–37; O2SAT 93–97; BMI 39.4
--- NOTE | ~2023-11-16 | XR_ITS ---
XR foot RT min 3V DATE: 11/17/2023 10:20 INDICATION: Right lateral foot ulcer TECHNIQUE: Portable 3 view examination COMPARISON: None FINDINGS: Diffuse osteopenia. Apparent old healed fracture deformity of the distal fibular shaft. Pes planus. Plantar calcaneal enthesopathy. Polyarticular osteoarthritis. Status post amputation of the proximal to mid shaft of the fifth metatarsal bone. No periosteal reaction or bone destruction is detected. IMPRESSION: Status post amputation at fifth metatarsal shaft Osteopenia Polyarticular osteoarthritis Pes planus Plantar calcaneal enthesopathy Reviewed, dictated and finalized at location B.
--- NOTE | ~2023-11-16 | XR_ITS ---
EXAMINATION: XR chest 1V portable DATE: 11/16/2023 10:10 INDICATION: Central line placement. TECHNIQUE: A single frontal view of the chest was obtained. COMPARISON: Chest single view 12/14/2021, CT abdomen and pelvis 12/14/2021 FINDINGS: The patient is rotated to her left. There are airspace opacities in the perihilar regions. No pleural effusion or pneumothorax. Cardiomegaly is noted. There is a prominent left pericardial fat pad. There is a right-sided central venous catheter with tip in right atrium. IMPRESSION: 1. Catheter tip in right atrium. 2. Airspace opacities in the perihilar regions, consistent with mild pulmonary edema. 3. Cardiomegaly. Reviewed, dictated and finalized at location A.
--- NOTE | ~2023-11-16 | US_ITS ---
EXAMINATION: US renal BI DATE: 11/17/2023 17:03 INDICATION: Renal failure. TECHNIQUE: Multiple ultrasound grayscale images of the kidneys were obtained. COMPARISON: None. FINDINGS: The right kidney measures 10.1 x 4.4 x 4.8 cm. The left kidney measures 9.4 x 5.0 x 5.9 cm. The kidne ys demonstrate normal parenchymal echogenicity. There is no hydronephrosis. The bladder is normal. IMPRESSION: 1. Normal kidneys. No hydronephrosis. Reviewed, dictated and finalized at location A.
--- NOTE | 2023-11-16 09:44 | ECG_ITS ---
SEE SCANNED COPY FOR CONFIRMED REPORT MTDD
--- NOTE | 2023-11-16 10:36 | PC.NURSE ---
EDP gave VORB okay to use PICC line in pt R upper arm
[2023-11-16 10:59] LABS: Hematocrit 31.9 % (37.0-47.0); Hemoglobin 10.1 g/dL (12.0-15.0); Mean Corpuscular HGB Conc 31.7 g/dl (32-36); Mean Corpuscular Volume 91.7 fl (80-100); Mean Platelet Volume 10.5 fl (7.4-10.4); Platelet Count Result 138 k/mm3 (150-375); Red Blood Count 3.48 M/mm3 (4.2-5.4); Red Cell Distribution Width 13.5 % (11.5-14.5); White Blood Count 19.2 K/mm3 (4.5-10.0)
[2023-11-16 11:08] LABS: Alanine Aminotransferase 18 U/L (6-35); Albumin Level 3.7 g/dL (3.5-5.1); Alkaline Phosphatase 91 U/L (38-126); Anion Gap 9 mmol/L (4-12); Aspartate Amino Transferase 20 U/L (14-36); Bilirubin,Total 0.5 mg/dL (0.2-1.3); Blood Urea Nitrogen 25 mg/dL (7-17); Calcium 8.8 mg/dL (8.4-10.2); Carbon Dioxide 23 mmol/L (22-30); Chloride 106 mmol/L (98-107); Estimated CRCL calculation 34 ml/min; Estimated Glomerular Filt Rate 35; Glucose 315 mg/dL (65-110); Potassium 4.1 mmol/L (3.4-5.0); Sodium 138 mmol/L (137-145)
[2023-11-16 11:19] LABS: NT Pro B Type Natriuretic Pept 6660 pg/mL (19.9-100)
[2023-11-16 11:30] LABS: Band Neutrophils Percent 9 % (0-6); Lymphocytes Absolute Manual 0.76 K/mm3 (1.1-4.5); Lymphocytes Percent Manual 4 % (18-44); Monocytes Absolute Manual 0.57 K/mm3 (0.1-0.90); Monocytes Percent Manual 3 % (3-9); Neutrophils Absolute Manual 17.85 K/mm3 (1.7-7.2); Neutrophils Percent Manual 84 % (46-73); Platelet Estimate Adequate (Adequate); Total Cells Counted 100
[2023-11-16 11:31] LABS: Schistocytes None Seen
[2023-11-16 11:44] LABS: Appearance Urine Clear (Clear); Bacteria Urine None Seen /hpf; Bilirubin Urine Negative (Negative); Blood Urine Negative (Negative); Color Urine Yellow (Yellow); Glucose Urine UA 2+ mg/dL (Negative); Hyaline Casts Urine Present /lpf; Ketones Urine Negative (Negative); Leukocyte Esterase Ur Negative LEU/UL (Negative); Nitrate Urine Negative (Negative); Protein Urine 1+ mg/dL (Negative); Specific Grav Ur 1.018 (1.001-1.035); Squamous Epithelial Cell Urine None Seen /hpf (Few); Urobilinogen Urine 0.2 mg/dL (<2.0); WBC Urine 0-5 /hpf (0-3); pH Urine 5.5 (5.0-9.0)
[2023-11-16 11:45] LABS: Add Urine Microscopic? YES
--- NOTE | 2023-11-16 13:21 | ED.GENADULT ---
HPI - General Adult General Chief complaint: Weakness Stated complaint: weak nausea Time Seen by Provider: 11/16/23 10:07 History of Present Illness HPI narrative: patient is a 68-year-old female who presents to the ER from the [facility] for evaluation of weakness some nausea. Weakness began today. She has been treated for last 2 weeks with tobramycin for cellulitis of the lower extremities. She thinks they are getting better. Denies fevers or chills. No diarrhea or abdominal pain. No productive cough. Related Data Home Medications Medication Instructions Recorded Confirmed aspirin 81 mg chewable tablet 81 mg PO DAILY 01/19/20 12/14/21 atorvastatin 20 mg tablet 20 mg PO HS 01/19/20 12/14/21 benzonatate 100 mg capsule 100 mg PO TID PRN Cough 01/19/20 12/14/21 brimonidine 0.2 % eye drops 1 drp ophthalmic (eye) Q8H 01/19/20 12/14/21 calcium carbonate 500 mg-vitamin 1 tablet PO BID 01/19/20 12/14/21 D3 5 mcg (200 unit) tablet (Oysco 500/D) carvedilol 25 mg tablet 25 mg PO BID 01/19/20 12/14/21 cholecalciferol (vitamin D3) 50 50 mcg PO MONTHLY 01/19/20 12/14/21 mcg (2,000 unit) capsule (Vitamin D3) dorzolamide 2 % eye drops 1 drp ophthalmic (eye) TID 01/19/20 12/14/21 furosemide 40 mg tablet 40 mg PO DAILY 01/19/20 12/14/21 gabapentin 600 mg tablet 600 mg PO HS 01/19/20 12/14/21 guaifenesin 100 mg/5 mL oral 200 mg PO Q4H PRN Cough 01/19/20 12/14/21 liquid (Siltussin SA) insulin lispro 100 unit/mL 1 sliding scale dose subcut 01/19/20 12/14/21 subcutaneous solution USEASDIRECTD loratadine 10 mg tablet (Claritin) 10 mg PO DAILY 01/19/20 12/14/21 metformin 500 mg tablet 500 mg PO BID 01/19/20 12/14/21 polysaccharide iron complex 150 mg 150 mg PO BID 01/19/20 12/14/21 iron capsule (Ferrex) sennosides 8.6 mg tablet (senna) 8.6 mg PO Q6-8H PRN Constipation 01/19/20 12/14/21 ticagrelor 90 mg tablet (Brilinta) 90 mg PO Q12H 01/19/20 12/14/21 timolol 0.25 % eye drops 1 drp LEFT EYE TID 01/19/20 12/14/21 Allergies Allergy/AdvReac Type Severity Reaction Status Date / Time egg Allergy Unknown Unknown Verified 11/16/23 09:45 latex Allergy Unknown Unknown Verified 11/16/23 09:45 milk Allergy Unknown Unknown Verified 11/16/23 09:45 Penicillins Allergy Unknown Skin Verified 11/16/23 09:45 Reaction shellfish derived Allergy Unknown Unknown Verified 11/16/23 09:45 Sulfa (Sulfonamide Allergy Unknown Unknown Verified 11/16/23 09:45 Antibiotics) sulfamethizole Allergy Unknown Nausea Verified 11/16/23 09:45 sulfanilamide Allergy Unknown Unknown Verified 11/16/23 09:45 Review of Systems Review of Systems: All systems reviewed & are unremarkable except as noted in HPI and below Constitutional: Constitutional: Denies chills, Denies fever(s) and Reports weakness ENT: Reports system reviewed and no additional complaints, except as documented Respiratory: Respiratory: Reports no additional respiratory complaints Gastrointestinal: Gastrointestinal: Denies abdominal pain, Denies diarrhea, Reports nausea and Denies vomiting Genitourinary: Genitourinary: Reports no additional female genitourinary complaints Musculoskeletal: Musculoskeletal: Reports no additional musculoskeletal complaints ON LICENSE OF [facility] Past Medical History Medical History (Updated 11/16/23 @ 14:26 by Manuel Maya MD) Anemia Asthma Cerebrovascular accident Charcot's joint of foot Fjjqddz-Tqwno-Dbcht disease Combined systolic and diastolic congestive heart failure Echocardiogram in August 2016 showed severe global left ventricular systolic dysfunction with an EF visually estimated 20 to 25% and diastolic dysfunction. Coronary artery disease Diabetic retinopathy Dyslipidemia Hypertension MSSA bacteremia Osteomyelitis of fifth toe of right foot Type 2 diabetes mellitus Surgical History Surgical History (Updated 12/14/21 @ 14:37 by Bessy Diaz PA-C) Amputation of fifth toe of right foot Secondary to osteomyelitis. History of card
--- NOTE | 2023-11-16 13:36 | PC.NURSE ---
Dressing from NH removed by EDP dr. pedroza at bedside
[2023-11-16] MEDS: CEFEPIME 2 GM/NS 50 ML 2 GM/50 ML BAG IVPB ×2 (14:51→20:17)
--- NOTE | 2023-11-16 15:17 | ADMGEN ---
This patient, Giovana Rush, was admitted to Medical Room 349-01. Patient/family oriented to hospital policies and general routines including ID bracelet, bed and alarms, visiting hours, pain management, procedures, bathroom and other care routines, personal items, smoking policy, room service/diet, and visiting hours. Information on how to activate the Rapid Response Team has been discussed. Patient/Family are encouraged to report perceived risks to care and to ask questions if they do not understand what they are told or what they should do.
[2023-11-16] MEDS: metroNIDAZOLE 500 MG/ISO 100ML 500 MG/100 ML BAG 100 MG IVPB (15:20)
--- NOTE | 2023-11-16 15:37 | PM.IMHP ---
H&P: HPI History of Present Illness Date/Time: 11/16/23 14:30 Chief Complaint: Weakness and nausea. Narrative: This is a 68-year-old female with history of stroke, hypertension, dyslipidemia, combined systolic and diastolic congestive heart failure, type 2 diabetes mellitus, and other comorbidities who presented to the emergency department via EMS from [facility] for evaluation of weakness and nausea. She arrived with a PICC line in place for which she has reportedly been receiving tobramycin for the last 10 days to treat infections in her lower legs. Regarding the legs, the patient feels as though they are improving and she reports that her last dose of IV antibiotics was a couple of days ago. Today she was sent in for evaluation of nausea and weakness. She does not have any specific complaints at the time my evaluation. She denies fever, cold and flu symptoms, chest pain, shortness of breath, vomiting, diarrhea, and dysuria. In the ED: She was afebrile on arrival with stable vital signs. Labs were significant for a WBC count of 19.2 (9% bands), hemoglobin 10.1, hematocrit 31.9%, platelet 138, BUN 25, creatinine 1.50, glucose 315, proBNP 6660. Chest x-ray showed a catheter tip in the right atrium, airspace opacities in the perihilar regions consistent with mild pulmonary edema, and cardiomegaly. She was started on cefepime, metronidazole, and vancomycin for lower extremity cellulitis and she is being admitted in this setting for further treatment and evaluation. Review of Systems Review of Systems: 12 systems were reviewed and are negative except for as per HPI. [facility] Past Medical History Medical History Anemia Asthma Cerebrovascular accident Charcot's joint of foot Acvnpqq-Hmdov-Pimft disease Combined systolic and diastolic congestive heart failure Echocardiogram in August 2016 showed severe global left ventricular systolic dysfunction with an EF visually estimated 20 to 25% and diastolic dysfunction. Coronary artery disease Diabetic retinopathy Dyslipidemia Hypertension MSSA bacteremia Osteomyelitis of fifth toe of right foot Type 2 diabetes mellitus Surgical History Surgical History Amputation of fifth toe of right foot Secondary to osteomyelitis. History of cardiac catheterization History of coronary artery stent placement x2 History of incision and drainage Back abscess. History of open reduction and internal fixation (ORIF) procedure Repair of left arm fracture. History of tonsillectomy and adenoidectomy Status post excisional debridement Bilateral heels for infected diabetic ulcers. Family History Family History Sibling Cerebrovascular accident Father Family history of diabetes mellitus in first degree relative Diabetes mellitus Family history of hypothyroidism Mother Family history of diabetes mellitus in first degree relative Family history of heart disease in male family member before age 55 Diabetes mellitus Other Family history of cardiovascular disease Hypertension Social History Social History Social History: Surrogate decision maker: Shirley Rush, mother. Code status: Full code. Smoking status: Never smoker Second hand tobacco smoke exposure: No Alcohol intake: never Substance use: never Do You Feel Safe in your Home?: Yes Lack of Transportation: No Lack of Food: Never True Current Housing: I Do Not Have Housing Concerned About Future Housing: No Difficulty Paying Gas/Electric Bills: No Difficulty Paying for Meds: No Currently Unemployed: No Education: High School Diploma/GED Difficulty w/ Childcare or Family Care: No Living arrangements: senior living Occupation/Education: other Additional occupation/education comments: Fo
[2023-11-16 16:45] LABS: Hemoglobin A1C 7.9 % (<5.7)
[2023-11-16] MEDS: VANCOMYCIN 1,250 MG/NS 250 ML 1,250 MG/250 ML BAG 166.67 MG IVPB (17:02)
[2023-11-16 17:08] LABS: Glucose Point of Care 315 mg/dl (65-105)
--- NOTE | 2023-11-16 17:38 | PC.NURSE ---
Pt states no BP taken on left arm due to Hx of surgeries with hardware to arm. Pt request BP taken in right lower arm only
[2023-11-16] MEDS: VANCOMYCIN 1,000 MG/NS 250 ML 1,000 MG/250 ML BAG 250 MG IVPB (18:12)
[2023-11-16] MEDS: INSULIN ASPART (*BKC) 100 UNITS/ML SUB-Q (20:19)
[2023-11-16 22:00] LABS: Glucose Point of Care 308 mg/dl (65-105)
[2023-11-17] MEDS: metroNIDAZOLE 500 MG/ISO 100ML 500 MG/100 ML BAG 100 MG IVPB ×4 (00:07→22:59)
[2023-11-17 04:18] VITALS: BP 138/71; PULSE 86; RESP 18; TEMP 36.6; O2SAT 98
[2023-11-17 05:51] LABS: Hematocrit 30.2 % (37.0-47.0); Hemoglobin 9.3 g/dL (12.0-15.0); Mean Corpuscular HGB Conc 30.8 g/dl (32-36); Mean Corpuscular Hemoglobin 29.2 pg (26-34); Mean Platelet Volume 10.7 fl (7.4-10.4); Platelet Count Result 109 k/mm3 (150-375); Red Blood Count 3.18 M/mm3 (4.2-5.4); Red Cell Distribution Width 13.7 % (11.5-14.5)
[2023-11-17 06:02] LABS: Anion Gap 6 mmol/L (4-12); Blood Urea Nitrogen 31 mg/dL (7-17); Calcium 8.1 mg/dL (8.4-10.2); Carbon Dioxide 21 mmol/L (22-30); Chloride 107 mmol/L (98-107); Estimated CRCL calculation 29 ml/min; Estimated Glomerular Filt Rate 30; Glucose 239 mg/dL (65-110); Magnesium 1.9 mg/dL (1.6-2.3); Potassium 4.2 mmol/L (3.4-5.0); Sodium 134 mmol/L (137-145)
[2023-11-17 08:33] LABS: Glucose Point of Care 247 mg/dl (65-105)
[2023-11-17] MEDS: INSULIN ASPART (*BKC) 100 UNITS/ML SUB-Q ×2 (08:59→12:27)
[2023-11-17] MEDS: INSULIN ASPART (*BKC) 100 UNITS/ML 10 UNITS SUB-Q ×3 (09:00→17:03)
[2023-11-17] MEDS: ENOXAPARIN 40 MG/0.4 ML SYRINGE SUB-Q (09:03)
[2023-11-17] MEDS: CEFEPIME 2 GM/NS 50 ML 2 GM/50 ML BAG IVPB ×2 (09:06→21:05)
[2023-11-17] MEDS: DORZOLAMIDE HCL 2% OPHTH DROPS 1 DROP EACH EYE ×3 (09:07→19:13)
[2023-11-17] MEDS: BRIMONIDINE TARTRATE 0.2% OP SOLN 5 ML BTL 1 DROP EACH EYE ×3 (09:07→19:13)
[2023-11-17] MEDS: TIMOLOL MALEATE 0.25% OP SOLN 5 ML BOTTLE 1 DROP LEFT EYE ×3 (09:08→19:13)
[2023-11-17 09:09] VITALS: PULSE 80
[2023-11-17] MEDS: carvediloL 25 MG TABLET PO ×2 (09:09→21:06)
[2023-11-17] MEDS: ASPIRIN 81 MG CHEWABLE TABLET PO (09:10)
[2023-11-17] MEDS: LORATADINE 10 MG TABLET PO (09:10)
[2023-11-17] MEDS: GABAPENTIN 300 MG CAPSULE PO ×2 (09:10→17:02)
[2023-11-17] MEDS: ASCORBIC ACID 500 MG TABLET PO (09:10)
[2023-11-17] MEDS: FERROUS SULFATE 325 MG TABLET DR BY MOUTH ×2 (09:10→17:02)
[2023-11-17] MEDS: CYANOCOBALAMIN 1,000 MCG TABLET 1000 MCG PO (09:10)
[2023-11-17] MEDS: CALCIUM/VITAMIN D 500 MG/5 MCG (200 I.U.) TABLET PO ×2 (09:10→17:02)
[2023-11-17 11:59] LABS: Glucose Point of Care 204 mg/dl (65-105)
[2023-11-17] MEDS: BETAMETHASONE/CLOTRIMAZOLE CREAM 45 GM TUBE 1 APPLIC TOPICAL ×2 (12:28→21:06)
[2023-11-17 13:51] VITALS: BP 112/51; PULSE 70; RESP 14; TEMP 36.6; O2SAT 99
[2023-11-17] MEDS: CENTRAL LINE FLUSH 10 ML IV PUSH ×2 (15:24→21:33)
--- NOTE | 2023-11-17 16:07 | PM.IMPN ---
Progress Note: A&P Assessment and Plan (1) Cellulitis of right lower extremity: Code(s): L03.115 - Cellulitis of right lower limb Status: Acute (2) Acute kidney injury: Code(s): N17.9 - Acute kidney failure, unspecified Status: Acute (3) Diabetic foot ulcer: Code(s): E11.621 - Type 2 diabetes mellitus with foot ulcer; L97.509 - Non-pressure chronic ulcer of other part of unspecified foot with unspecified severity Status: Acute (4) Combined systolic and diastolic congestive heart failure: Code(s): I50.40 - Unspecified combined systolic (congestive) and diastolic (congestive) heart failure Status: Acute (5) Anemia: Code(s): D64.9 - Anemia, unspecified Status: Acute (6) Type 2 diabetes mellitus with hyperglycemia: Qualifiers: Diabetes mellitus long-term insulin use: with braille coder use Qualified Code(s): E11.65 - Type 2 diabetes mellitus with hyperglycemia; Z79.4 - jail (current) use of insulin Code(s): E11.65 - Type 2 diabetes mellitus with hyperglycemia Status: Chronic (7) Hypertension: Code(s): I10 - Essential (primary) hypertension Status: Acute Plan This is a 68-year-old female who presents to the ED with nausea and generalized weakness. She has been receiving tobramycin with a past 10 days to treat infection of her lower extremities. Patient reports that her legs feel as though they are improving and her last dose of tobramycin was a couple days ago. Denied any fever chest pain shortness of breath vomiting diarrhea dysuria. On ED evaluation she was afebrile with stable vital signs. WBC count was 19.2 with 9% bands hemoglobin 10.1 hematocrit 31.9 platelet count 138 BUN 25 creatinine was 1.5 glucose 215 proBNP 6660. Chest x-ray showed a catheter tip in the right atrium airspace opacities in the perihilar regions consistent with mild pulmonary edema and cardiomegaly. Bilateral lower extremity cellulitis with leukocytosis which is persistent empirically placed on cefepime metronidazole and vancomycin. Blood cultures been obtained. Wound nurse has been consulted for bilateral lower extremity stasis dermatitis and chronic ulceration. x-ray with no findings of osteomyelitis AC on CKD stage 2/3 baseline creatinine around 1 back in 2021; creatinine had bumped up could be from recent tobramycin treatment. Underlying infection. Continue to monitor. Renal ultrasound ordered. Tobramycin level pending, check CK. Lisinopril and Lasix on hold. Type 2 diabetes SSI Hypertension Hyperlipidemia History of stroke Combined systolic and diastolic congestive heart failure chest x-ray with mild pulmonary edema noted. Continue home medication not clinically nor were heart failure. Chronic anemia Thrombocytopenia mild could be due to underlying infection/ and medications continue to monitor Charcot Zeinab tooth disease Diabetic retinopathy History of osteomyelitis and MSSA bacteremia Coronary artery disease status post stent placement DVT prophylaxis Lovenox Code status full code Subjective Date/time seen: 11/17/23 16:07 Interval history: Feeling better. Legs are getting much better. Was on IV tobramycin in the nursing facility. Review of Systems Review of Systems: All systems reviewed & are unremarkable except as noted in HPI and below Exam Narrative: General:?Moderately ill-appearing female in the semi-Easley position in bed. HEENT:??PERRL, EOMI.? Sclerae anicteric.?Tacky mucous membranes. Neck:??Supple. Respiratory:?Respirations are nonlabored and she is speaking in full sentences.? Lungs are clear to auscultation. Cardiovascular:??Regular rate and rhythm with S1-S2. Gastrointestinal:??Abdomen is soft, obese, nontender, and nondistended with positive bowel sounds. Skin:??Warm and dry. Tinea underneath both breasts. Mild erythema over the coccyx with evidence of healed pressure sores. Bilateral lower extremities
[2023-11-17 17:04] LABS: Glucose Point of Care 134 mg/dl (65-105)
[2023-11-17 19:46] LABS: Creatine Kinase 128 U/L (30-135)
[2023-11-17 21:06] VITALS: PULSE 82
[2023-11-17] MEDS: ATORVASTATIN 20 MG TABLET PO (21:06)
[2023-11-17] MEDS: INSULIN GLARGINE (*BKC) 100 UNITS/ML 7 UNITS SUB-Q (21:19)
[2023-11-17 22:00] VITALS: BP 139/69; PULSE 80; RESP 16; TEMP 36.4; O2SAT 95
[2023-11-18 04:46] LABS: Glucose Point of Care 114 mg/dl (65-105)
[2023-11-18] MEDS: VANCOMYCIN 1,500 MG/NS 500 ML 1,500 MG/500 ML BAG 250 MG IVPB (05:47)
[2023-11-18] MEDS: CENTRAL LINE FLUSH 20 ML IV PUSH (05:48)
[2023-11-18 06:00] VITALS: BP 141/63; PULSE 72; RESP 20; TEMP 36.2; O2SAT 98
[2023-11-18 06:24] LABS: Basophils Percent Auto 0.4 % (0.2-1.2); Eosinophils Absolute Auto 0.3 K/mm3 (0-0.3); Eosinophils Percent Auto 4.3 % (0-4.4); Hematocrit 29.6 % (37.0-47.0); Hemoglobin 9.1 g/dL (12.0-15.0); Immature Granulocyte Absolute 0.04 K/mm3 (0.00-0.031); Immature Granulocyte Percent A 0.5 % (0-0.5); Lymphocytes Absolute Auto 0.79 K/mm3 (0.9-3.2); Lymphocytes Percent Auto 10.2 % (18.3-44.2); Mean Corpuscular HGB Conc 30.7 g/dl (32-36); Mean Corpuscular Volume 94.3 fl (80-100); Mean Platelet Volume 10.6 fl (7.4-10.4); Monocytes Absolute Auto 0.5 K/mm3 (0.1-0.6); Monocytes Percent Auto 5.8 % (2.6-8.5); Neutrophils Absolute Auto 6.1 K/mm3 (1.3-6.7); Neutrophils Percent Auto 78.8 % (45.5-73.1); Platelet Count Result 131 k/mm3 (150-375); Red Blood Count 3.14 M/mm3 (4.2-5.4); Red Cell Distribution Width 13.7 % (11.5-14.5); White Blood Count 7.7 K/mm3 (4.5-10.0)
[2023-11-18 06:38] LABS: Alanine Aminotransferase 12 U/L (6-35); Albumin Level 3.2 g/dL (3.5-5.1); Alkaline Phosphatase 93 U/L (38-126); Anion Gap 6 mmol/L (4-12); Aspartate Amino Transferase 22 U/L (14-36); Bilirubin,Total 0.5 mg/dL (0.2-1.3); Blood Urea Nitrogen 32 mg/dL (7-17); Calcium 8.2 mg/dL (8.4-10.2); Carbon Dioxide 24 mmol/L (22-30); Chloride 108 mmol/L (98-107); Estimated CRCL calculation 28 ml/min; Estimated Glomerular Filt Rate 28; Glucose 176 mg/dL (65-110); Potassium 4.2 mmol/L (3.4-5.0); Sodium 138 mmol/L (137-145)
[2023-11-18 08:25] LABS: Glucose Point of Care 191 mg/dl (65-105)
[2023-11-18] MEDS: INSULIN ASPART (*BKC) 100 UNITS/ML 10 UNITS SUB-Q ×3 (09:24→17:45)
[2023-11-18] MEDS: ENOXAPARIN 40 MG/0.4 ML SYRINGE SUB-Q (09:28)
[2023-11-18] MEDS: DORZOLAMIDE HCL 2% OPHTH DROPS 1 DROP EACH EYE ×3 (09:28→16:06)
[2023-11-18] MEDS: BRIMONIDINE TARTRATE 0.2% OP SOLN 5 ML BTL 1 DROP EACH EYE ×3 (09:28→16:06)
[2023-11-18] MEDS: CALCIUM/VITAMIN D 500 MG/5 MCG (200 I.U.) TABLET PO ×2 (09:29→16:06)
[2023-11-18] MEDS: LORATADINE 10 MG TABLET PO (09:29)
[2023-11-18] MEDS: GABAPENTIN 300 MG CAPSULE PO ×2 (09:29→16:06)
[2023-11-18] MEDS: FERROUS SULFATE 325 MG TABLET DR BY MOUTH ×2 (09:29→16:06)
[2023-11-18] MEDS: metroNIDAZOLE 500 MG/ISO 100ML 500 MG/100 ML BAG 100 MG IVPB ×3 (09:29→23:24)
[2023-11-18] MEDS: CYANOCOBALAMIN 1,000 MCG TABLET 1000 MCG PO (09:29)
[2023-11-18] MEDS: ASPIRIN 81 MG CHEWABLE TABLET PO (09:29)
[2023-11-18 09:30] VITALS: PULSE 80
[2023-11-18] MEDS: CEFEPIME 2 GM/NS 50 ML 2 GM/50 ML BAG IVPB ×2 (09:30→20:29)
[2023-11-18] MEDS: carvediloL 25 MG TABLET PO ×2 (09:30→20:29)
[2023-11-18] MEDS: TIMOLOL MALEATE 0.25% OP SOLN 5 ML BOTTLE 1 DROP LEFT EYE ×3 (09:31→16:06)
[2023-11-18] MEDS: BETAMETHASONE/CLOTRIMAZOLE CREAM 45 GM TUBE 1 APPLIC TOPICAL ×2 (09:31→20:31)
[2023-11-18 09:50] VITALS: O2SAT 96
[2023-11-18 12:07] LABS: Glucose Point of Care 181 mg/dl (65-105)
[2023-11-18 14:00] VITALS: BP 128/57; PULSE 74; RESP 18; TEMP 36.9; O2SAT 98
--- NOTE | 2023-11-18 14:29 | PM.IMPN ---
Progress Note: A&P Assessment and Plan (1) Cellulitis of right lower extremity: Code(s): L03.115 - Cellulitis of right lower limb Status: Acute (2) Acute kidney injury: Code(s): N17.9 - Acute kidney failure, unspecified Status: Acute (3) Diabetic foot ulcer: Code(s): E11.621 - Type 2 diabetes mellitus with foot ulcer; L97.509 - Non-pressure chronic ulcer of other part of unspecified foot with unspecified severity Status: Acute (4) Combined systolic and diastolic congestive heart failure: Code(s): I50.40 - Unspecified combined systolic (congestive) and diastolic (congestive) heart failure Status: Acute (5) Anemia: Code(s): D64.9 - Anemia, unspecified Status: Acute (6) Type 2 diabetes mellitus with hyperglycemia: Qualifiers: Diabetes mellitus [facility] insulin use: with keno terminal operator use Qualified Code(s): E11.65 - Type 2 diabetes mellitus with hyperglycemia; Z79.4 - nursing home (current) use of insulin Code(s): E11.65 - Type 2 diabetes mellitus with hyperglycemia Status: Chronic (7) Hypertension: Code(s): I10 - Essential (primary) hypertension Status: Acute Plan This is a 68-year-old female who presents to the ED with nausea and generalized weakness. She has been receiving tobramycin with a past 10 days to treat infection of her lower extremities. Patient reports that her legs feel as though they are improving and her last dose of tobramycin was a couple days ago. Denied any fever chest pain shortness of breath vomiting diarrhea dysuria. On ED evaluation she was afebrile with stable vital signs. WBC count was 19.2 with 9% bands hemoglobin 10.1 hematocrit 31.9 platelet count 138 BUN 25 creatinine was 1.5 glucose 215 proBNP 6660. Chest x-ray showed a catheter tip in the right atrium airspace opacities in the perihilar regions consistent with mild pulmonary edema and cardiomegaly. Bilateral lower extremity cellulitis with leukocytosis which is persistent empirically placed on cefepime metronidazole and vancomycin. Blood cultures been obtained which remains negative. Wound nurse has been consulted for bilateral lower extremity stasis dermatitis and chronic ulceration. x-ray with no findings of osteomyelitis. Leukocytosis did improve current antibiotics. Will switch to oral antibiotics today AC on CKD stage 2/3 baseline creatinine around 1 back in 2021; creatinine had bumped up could be from recent tobramycin treatment. Underlying infection. Continue to monitor. Renal ultrasound ordered. Tobramycin level pending, CK normal. Lisinopril and Lasix on hold. An ultrasound with normal kidneys and no hydronephrosis. Creatinine continues to be elevated. May be new baseline. Continue to monitor Type 2 diabetes SSI Hypertension Hyperlipidemia History of stroke Combined systolic and diastolic congestive heart failure chest x-ray with mild pulmonary edema noted. Continue home medication not clinically nor were heart failure. Chronic anemia Thrombocytopenia mild could be due to underlying infection/ and medications continue to monitor Charcot Ezinab tooth disease Diabetic retinopathy History of osteomyelitis and MSSA bacteremia Coronary artery disease status post stent placement DVT prophylaxis Lovenox Code status full code Subjective Date/time seen: 11/18/23 14:29 Interval history: Multiple complaints but no specific complaints. Legs are looking better no chest pain or shortness of breath Review of Systems Review of Systems: All systems reviewed & are unremarkable except as noted in HPI and below Exam Narrative: General:?Moderately ill-appearing female in the semi-Easley position in bed. HEENT:??PERRL, EOMI.? Sclerae anicteric.?Tacky mucous membranes. Neck:??Supple. Respiratory:?Respirations are nonlabored and she is speaking in full sentences.? Lungs are clear to auscultation. Cardiovascular:??Regular rate and rhyt
[2023-11-18] MEDS: CENTRAL LINE FLUSH 10 ML IV PUSH ×2 (14:51→23:25)
[2023-11-18 17:06] LABS: Glucose Point of Care 208 mg/dl (65-105)
[2023-11-18 20:29] VITALS: PULSE 78
[2023-11-18] MEDS: ATORVASTATIN 20 MG TABLET PO (20:29)
[2023-11-18] MEDS: INSULIN ASPART (*BKC) 100 UNITS/ML SUB-Q (20:32)
[2023-11-18] MEDS: INSULIN GLARGINE (*BKC) 100 UNITS/ML 7 UNITS SUB-Q (20:32)
[2023-11-18 21:35] VITALS: BP 144/63; PULSE 75; RESP 20; TEMP 36.6; O2SAT 99
[2023-11-19 05:33] LABS: Glucose Point of Care 245 mg/dl (65-105)
[2023-11-19 06:00] VITALS: BP 141/62; PULSE 73; RESP 20; TEMP 36.3; O2SAT 98
[2023-11-19 08:12] LABS: Glucose Point of Care 202 mg/dl (65-105)
[2023-11-19] MEDS: INSULIN ASPART (*BKC) 100 UNITS/ML SUB-Q ×3 (08:51→21:18)
[2023-11-19] MEDS: INSULIN ASPART (*BKC) 100 UNITS/ML 10 UNITS SUB-Q ×2 (08:52→12:21)
[2023-11-19] MEDS: BETAMETHASONE/CLOTRIMAZOLE CREAM 45 GM TUBE 1 APPLIC TOPICAL ×2 (08:58→21:17)
[2023-11-19] MEDS: DORZOLAMIDE HCL 2% OPHTH DROPS 1 DROP EACH EYE ×3 (08:58→17:14)
[2023-11-19] MEDS: BRIMONIDINE TARTRATE 0.2% OP SOLN 5 ML BTL 1 DROP EACH EYE ×3 (08:58→17:14)
[2023-11-19] MEDS: TIMOLOL MALEATE 0.25% OP SOLN 5 ML BOTTLE 1 DROP LEFT EYE ×3 (08:59→18:01)
[2023-11-19 09:05] VITALS: PULSE 80
[2023-11-19] MEDS: ASPIRIN 81 MG CHEWABLE TABLET PO (09:05)
[2023-11-19] MEDS: carvediloL 25 MG TABLET PO ×2 (09:05→21:18)
[2023-11-19] MEDS: CALCIUM/VITAMIN D 500 MG/5 MCG (200 I.U.) TABLET PO ×2 (09:05→17:14)
[2023-11-19] MEDS: LORATADINE 10 MG TABLET PO (09:05)
[2023-11-19] MEDS: GABAPENTIN 300 MG CAPSULE PO ×2 (09:06→17:14)
[2023-11-19] MEDS: CYANOCOBALAMIN 1,000 MCG TABLET 1000 MCG PO (09:06)
[2023-11-19] MEDS: ENOXAPARIN 40 MG/0.4 ML SYRINGE SUB-Q (09:06)
[2023-11-19] MEDS: FERROUS SULFATE 325 MG TABLET DR BY MOUTH ×2 (09:06→17:14)
[2023-11-19] MEDS: CEFEPIME 2 GM/NS 50 ML 2 GM/50 ML BAG IVPB (09:07)
[2023-11-19] MEDS: metroNIDAZOLE 500 MG/ISO 100ML 500 MG/100 ML BAG 100 MG IVPB (10:55)
[2023-11-19 12:08] LABS: Glucose Point of Care 234 mg/dl (65-105)
[2023-11-19 14:00] VITALS: BP 141/75; PULSE 63; RESP 16; TEMP 36.4; O2SAT 98
[2023-11-19] MEDS: CENTRAL LINE FLUSH 10 ML IV PUSH (14:30)
[2023-11-19 17:12] LABS: Glucose Point of Care 105 mg/dl (65-105)
[2023-11-19] MEDS: DOXYCYCLINE HYCLATE 100 MG TABLET PO (17:14)
--- NOTE | 2023-11-19 17:32 | PM.IMPN ---
Progress Note: A&P Assessment and Plan (1) Cellulitis of right lower extremity: Code(s): L03.115 - Cellulitis of right lower limb Status: Acute (2) Acute kidney injury: Code(s): N17.9 - Acute kidney failure, unspecified Status: Acute (3) Diabetic foot ulcer: Code(s): E11.621 - Type 2 diabetes mellitus with foot ulcer; L97.509 - Non-pressure chronic ulcer of other part of unspecified foot with unspecified severity Status: Acute (4) Combined systolic and diastolic congestive heart failure: Code(s): I50.40 - Unspecified combined systolic (congestive) and diastolic (congestive) heart failure Status: Acute (5) Anemia: Code(s): D64.9 - Anemia, unspecified Status: Acute (6) Type 2 diabetes mellitus with hyperglycemia: Qualifiers: Diabetes mellitus correction insulin use: with computer terminal operator use Qualified Code(s): E11.65 - Type 2 diabetes mellitus with hyperglycemia; Z79.4 - [facility] (current) use of insulin Code(s): E11.65 - Type 2 diabetes mellitus with hyperglycemia Status: Chronic (7) Hypertension: Code(s): I10 - Essential (primary) hypertension Status: Acute Plan This is a 68-year-old female who presents to the ED with nausea and generalized weakness. She has been receiving tobramycin with a past 10 days to treat infection of her lower extremities. Patient reports that her legs feel as though they are improving and her last dose of tobramycin was a couple days ago. Denied any fever chest pain shortness of breath vomiting diarrhea dysuria. On ED evaluation she was afebrile with stable vital signs. WBC count was 19.2 with 9% bands hemoglobin 10.1 hematocrit 31.9 platelet count 138 BUN 25 creatinine was 1.5 glucose 215 proBNP 6660. Chest x-ray showed a catheter tip in the right atrium airspace opacities in the perihilar regions consistent with mild pulmonary edema and cardiomegaly. Bilateral lower extremity cellulitis with leukocytosis which is persistent empirically placed on cefepime metronidazole and vancomycin. Blood cultures been obtained which remains negative. Wound nurse has been consulted for bilateral lower extremity stasis dermatitis and chronic ulceration. x-ray with no findings of osteomyelitis. Leukocytosis did improve current antibiotics. Will switch to oral antibiotics today AC on CKD stage 2/3 baseline creatinine around 1 back in 2021; creatinine had bumped up could be from recent tobramycin treatment. Underlying infection. Continue to monitor. Renal ultrasound ordered. Tobramycin level pending, CK normal. Lisinopril and Lasix on hold. An ultrasound with normal kidneys and no hydronephrosis. Creatinine continues to be elevated. May be new baseline. Continue to monitor 11/19/23: Plans for DC to SNF tomorrow; Abx switched to PO: Cefuroxine and Doxycycline Type 2 diabetes SSI Hypertension Hyperlipidemia History of stroke Combined systolic and diastolic congestive heart failure chest x-ray with mild pulmonary edema noted. Continue home medication not clinically nor were heart failure. Chronic anemia Thrombocytopenia mild could be due to underlying infection/ and medications continue to monitor Charcot Zeinab tooth disease Diabetic retinopathy History of osteomyelitis and MSSA bacteremia Coronary artery disease status post stent placement DVT prophylaxis Lovenox Code status full code Time Spent With Patient Time with patient: 25 - 35 minutes Subjective Date/time seen: 11/19/23 17:32 Interval history: Multiple complaints but no specific complaints. Legs are looking better no chest pain or shortness of breath 11/19/23: Seen and examined; feels better compared to presentation profile. Being maanged for fluid overload and bilateral lower extremity celluliti Review of Systems Review of Systems: 12 systems were reviewed and are negative except for as per HPI. All systems reviewed & are unrema
[2023-11-19] MEDS: cefuroxime axetiL 250 MG TABLET 500 MG PO (21:17)
[2023-11-19 21:18] VITALS: PULSE 72
[2023-11-19] MEDS: ATORVASTATIN 20 MG TABLET PO (21:18)
[2023-11-19] MEDS: INSULIN GLARGINE (*BKC) 100 UNITS/ML 7 UNITS SUB-Q (21:19)
[2023-11-19 22:00] VITALS: BP 149/75; PULSE 74; RESP 20; TEMP 36.4; O2SAT 98
[2023-11-19 22:08] VITALS: O2SAT 98
[2023-11-20] MEDS: CENTRAL LINE FLUSH 10 ML IV PUSH ×3 (05:04→12:16)
[2023-11-20] MEDS: DOXYCYCLINE HYCLATE 100 MG TABLET PO (05:04)
[2023-11-20 05:28] VITALS: BP 151/72; PULSE 65; RESP 20; TEMP 36.6; O2SAT 99
[2023-11-20 05:36] LABS: Basophils Percent Auto 0.5 % (0.2-1.2); Eosinophils Absolute Auto 0.6 K/mm3 (0-0.3); Eosinophils Percent Auto 9.2 % (0-4.4); Hematocrit 32.8 % (37.0-47.0); Immature Granulocyte Absolute 0.03 K/mm3 (0.00-0.031); Immature Granulocyte Percent A 0.5 % (0-0.5); Mean Corpuscular HGB Conc 30.5 g/dl (32-36); Mean Corpuscular Hemoglobin 28.5 pg (26-34); Mean Corpuscular Volume 93.4 fl (80-100); Mean Platelet Volume 10.8 fl (7.4-10.4); Monocytes Absolute Auto 0.5 K/mm3 (0.1-0.6); Monocytes Percent Auto 7.7 % (2.6-8.5); Neutrophils Percent Auto 63.1 % (45.5-73.1); Platelet Count Result 172 k/mm3 (150-375); Red Blood Count 3.51 M/mm3 (4.2-5.4); Red Cell Distribution Width 13.5 % (11.5-14.5); White Blood Count 6.3 K/mm3 (4.5-10.0)
[2023-11-20 05:44] LABS: Alanine Aminotransferase 14 U/L (6-35); Albumin Level 3.5 g/dL (3.5-5.1); Alkaline Phosphatase 89 U/L (38-126); Anion Gap 5 mmol/L (4-12); Aspartate Amino Transferase 22 U/L (14-36); Bilirubin,Total 0.4 mg/dL (0.2-1.3); Blood Urea Nitrogen 22 mg/dL (7-17); Calcium 8.8 mg/dL (8.4-10.2); Carbon Dioxide 25 mmol/L (22-30); Chloride 108 mmol/L (98-107); Estimated CRCL calculation 34 ml/min; Estimated Glomerular Filt Rate 35; Glucose 217 mg/dL (65-110); Potassium 4.4 mmol/L (3.4-5.0); Sodium 138 mmol/L (137-145)
[2023-11-20 06:48] LABS: Glucose Point of Care 214 mg/dl (65-105)
[2023-11-20 08:24] LABS: Glucose Point of Care 228 mg/dl (65-105)
[2023-11-20] MEDS: CALCIUM/VITAMIN D 500 MG/5 MCG (200 I.U.) TABLET PO (09:24)
[2023-11-20] MEDS: ASPIRIN 81 MG CHEWABLE TABLET PO (09:24)
[2023-11-20] MEDS: SACCHAROMYCES BOULARDII 250 MG CAPSULE PO (09:25)
[2023-11-20] MEDS: GABAPENTIN 300 MG CAPSULE PO (09:25)
[2023-11-20] MEDS: cefuroxime axetiL 250 MG TABLET 500 MG PO (09:25)
[2023-11-20] MEDS: CYANOCOBALAMIN 1,000 MCG TABLET 1000 MCG PO (09:25)
[2023-11-20] MEDS: LORATADINE 10 MG TABLET PO (09:25)
[2023-11-20] MEDS: FERROUS SULFATE 325 MG TABLET DR BY MOUTH (09:25)
[2023-11-20] MEDS: ENOXAPARIN 40 MG/0.4 ML SYRINGE SUB-Q (09:26)
[2023-11-20] MEDS: BRIMONIDINE TARTRATE 0.2% OP SOLN 5 ML BTL 1 DROP EACH EYE ×2 (09:26→12:07)
[2023-11-20] MEDS: DORZOLAMIDE HCL 2% OPHTH DROPS 1 DROP EACH EYE ×2 (09:27→12:07)
[2023-11-20] MEDS: INSULIN ASPART (*BKC) 100 UNITS/ML 10 UNITS SUB-Q ×2 (09:28→12:13)
[2023-11-20] MEDS: INSULIN ASPART (*BKC) 100 UNITS/ML SUB-Q ×2 (09:28→12:13)
[2023-11-20 09:30] VITALS: PULSE 72
[2023-11-20] MEDS: carvediloL 25 MG TABLET PO (09:30)
[2023-11-20] MEDS: TIMOLOL MALEATE 0.25% OP SOLN 5 ML BOTTLE 1 DROP LEFT EYE ×2 (09:32→12:08)
[2023-11-20] MEDS: BETAMETHASONE/CLOTRIMAZOLE CREAM 45 GM TUBE 1 APPLIC TOPICAL (09:32)
[2023-11-20 12:07] LABS: Glucose Point of Care 325 mg/dl (65-105)
--- NOTE | 2023-11-20 12:49 | PM.DS ---
DS: Admitting Diagnosis Discharge Date 11/20/23 Admitting Diagnosis (1) Cellulitis of right lower extremity: ?Code(s): L03.115 - Cellulitis of right lower limb ?Status:?Acute (2) Acute kidney injury: ?Code(s): N17.9 - Acute kidney failure, unspecified ?Status:?Acute (3) Diabetic foot ulcer: ?Code(s): E11.621 - Type 2 diabetes mellitus with foot ulcer; L97.509 - Non-pressure chronic ulcer of other part of unspecified foot with unspecified severity ?Status:?Acute (4) Combined systolic and diastolic congestive heart failure: ?Code(s): I50.40 - Unspecified combined systolic (congestive) and diastolic (congestive) heart failure ?Status:?Acute (5) Anemia: ?Code(s): D64.9 - Anemia, unspecified ?Status:?Acute (6) Type 2 diabetes mellitus with hyperglycemia: ?Qualifiers: ?Diabetes mellitus retirement insulin use:?with extermination supervisor use? Qualified Code(s):?E11.65 - Type 2 diabetes mellitus with hyperglycemia; Z79.4 - superintendent terminal (current) use of insulin ?Code(s): E11.65 - Type 2 diabetes mellitus with hyperglycemia ?Status:?Chronic (7) Hypertension: ?Code(s): I10 - Essential (primary) hypertension ?Status:?Acute DS: Discharge Diagnosis Discharge Diagnosis (1) Cellulitis of right lower extremity: Code(s): L03.115 - Cellulitis of right lower limb Status: Acute (2) Acute kidney injury: Code(s): N17.9 - Acute kidney failure, unspecified Status: Acute (3) Diabetic foot ulcer: Code(s): E11.621 - Type 2 diabetes mellitus with foot ulcer; L97.509 - Non-pressure chronic ulcer of other part of unspecified foot with unspecified severity Status: Acute (4) Combined systolic and diastolic congestive heart failure: Code(s): I50.40 - Unspecified combined systolic (congestive) and diastolic (congestive) heart failure Status: Acute (5) Anemia: Code(s): D64.9 - Anemia, unspecified Status: Acute (6) Type 2 diabetes mellitus with hyperglycemia: Qualifiers: Diabetes mellitus retirement insulin use: with retirement use Qualified Code(s): E11.65 - Type 2 diabetes mellitus with hyperglycemia; Z79.4 - [facility] (current) use of insulin Code(s): E11.65 - Type 2 diabetes mellitus with hyperglycemia Status: Chronic (7) Hypertension: Code(s): I10 - Essential (primary) hypertension Status: Acute Plan This is a 68-year-old female who presents to the ED with nausea and generalized weakness. She has been receiving tobramycin with a past 10 days to treat infection of her lower extremities. Patient reports that her legs feel as though they are improving and her last dose of tobramycin was a couple days ago. Denied any fever chest pain shortness of breath vomiting diarrhea dysuria. On ED evaluation she was afebrile with stable vital signs. WBC count was 19.2 with 9% bands hemoglobin 10.1 hematocrit 31.9 platelet count 138 BUN 25 creatinine was 1.5 glucose 215 proBNP 6660. Chest x-ray showed a catheter tip in the right atrium airspace opacities in the perihilar regions consistent with mild pulmonary edema and cardiomegaly. Bilateral lower extremity cellulitis with leukocytosis which is persistent empirically placed on cefepime metronidazole and vancomycin. Blood cultures been obtained which remains negative. Wound nurse has been consulted for bilateral lower extremity stasis dermatitis and chronic ulceration. x-ray with no findings of osteomyelitis. Leukocytosis did improve current antibiotics. Will switch to oral antibiotics today AC on CKD stage 2/3 baseline creatinine around 1 back in 2021; creatinine had bumped up could be from recent tobramycin treatment. Underlying infection. Continue to monitor. Renal ultrasound ordered. Tobramycin level pending, CK normal. Lisinopril and Lasix on hold. An ultrasound with normal kidneys and no hydronephrosis. Creatinine continues to be elevated. M
[2023-11-20 12:54] LABS: SARS-CoV-2 RNA PCR Negative (Negative)
== END 2023-11-20 14:32 | DRG 603 ==
LOC: ANHED 14:26 → ANH3MED 14:43
PROVIDERS: Internal Medicine; Physician Assistant; Admitting Provider Internal Medicine; Emergency Provider Emergency Medicine; PCP Family Medicine; Visit Provider Internal Medicine
DX: L03.115 Cellulitis of right lower limb (principal); I13.0 Hypertensive heart and chronic kidney disease with heart failure and stage 1 through stage 4 chronic kidney disease, or unspecified chronic kidney disease; I50.40 Unspecified combined systolic (congestive) and diastolic (congestive) heart failure; N17.9 Acute kidney failure, unspecified; E11.628 Type 2 diabetes mellitus with other skin complications; L03.116 Cellulitis of left lower limb; D63.1 Anemia in chronic kidney disease; D69.6 Thrombocytopenia, unspecified; E11.65 Type 2 diabetes mellitus with hyperglycemia; E11.22 Type 2 diabetes mellitus with diabetic chronic kidney disease; E11.319 Type 2 diabetes mellitus with unspecified diabetic retinopathy without macular edema; E78.5 Hyperlipidemia, unspecified; G60.0 Hereditary motor and sensory neuropathy; I25.10 Atherosclerotic heart disease of native coronary artery without angina pectoris; I87.2 Venous insufficiency (chronic) (peripheral); N18.30 Chronic kidney disease, stage 3 unspecified; Z11.52 Encounter for screening for COVID-19; Z79.82 Long term (current) use of aspirin; Z79.4 Long term (current) use of insulin; Z95.5 Presence of coronary angioplasty implant and graft; Z88.0 Allergy status to penicillin; Z86.73 Personal history of transient ischemic attack (TIA), and cerebral infarction without residual deficits; Z86.14 Personal history of Methicillin resistant Staphylococcus aureus infection; Z89.421 Acquired absence of other right toe(s)
CPT/HCPCS: 36415; 71045; 73630; 76775; 80048; 80053; 80200; 81001; 82550; 82948; 83036; 83735; 83880; 85025; 85027; 87040; 87635; 93005; 96365; 96367; 96372; 96375; 96376; 97161; 97165; 99285; A9270; G0378; J0692; J1650; J1815; J1836; J3370

== ENCOUNTER 2025-03-28 00:12 | Emergency (ER) | payer MEDICARE, MEDICAID, SELFPAY ==
--- OUTSIDE RECORDS SUMMARY | 2002-02-03 06:00 | XMS_ITS | Continuity of Care Document ---
Author Organization [facility] Address [address] [place] [address] [address] [place] [address] Phone Care Team Providers Care Senior Field Service Engineer Name Role Phone Louis Larkin Unavailable Unavailable Advance Directives Directive Yes / No Effective Date File Name No Information Encounters Encounter Description Practice Location Reason(s) For Visit Diagnoses Date Provider Providers Copied on Encounter [facility], [id number] [place] [address] [address], [place], [place], [id number], [place] tel:[phone] [facility] No Information [address] , [address], [place], [address], [place]. tel:[phone] Family History Family Member Type Diagnosis Age [...]
--- NOTE | ~2025-03-28 | CT_ITS ---
CT HEAD NON-CONTRAST CT C-SPINE Clinical History: fall, [place] Comparison: CT brain 12/15/2021 Technique: Unenhanced axial images skull base to vertex. Coronal, sagittal reformats. Axial images thoracic inlet to skull base. Sagittal and coronal reformats. CT images acquired with automatic exposure control for dose reduction DLP: 605 mGy-cm Findings: Head: White matter changes, typically chronic microvascular ischemic disease. CSF space versus lacune left basal ganglia. Sulci, ventricles: Unremarkable. No intracerebral hemorrhage. No evidence acute territorial infarct. No mass effect, midline shift, intra-/extra-axial fluid collection. Bony calvarium intact. Visualized paranasal sinuses: Clear. Mastoid air cells: Clear. Left forehead contusion. C-spine: No acute fracture or listhesis. Vertebral bodies normal height and alignment. Moderate to severe degenerative changes, greatest C5-7. Prevertebral soft tissues within normal limits. Visualized lung apices: Clear. Visualized thyroid: Unremarkable. No enlarged cervical nodes. IMPRESSION: HEAD: 1. No acute intracranial findings. C-SPINE: 1. No acute fracture. Reviewed, dictated and finalized at location R. IMPRESSION: HEAD: 1. No acute intracranial findings. C-SPINE: 1. No acute fracture.
[2025-03-28 00:07] VITALS: BP 136/57; PULSE 66; RESP 18; TEMP 36.8; O2SAT 100
--- NOTE | 2025-03-28 00:15 | ED.FALL ---
HPI - Fall General Chief Complaint: Fall Stated Complaint: GLF when fell asleep in chair; hematoma to head Time Seen by Provider: 03/28/25 00:13 Source: patient and old records reviewed Mode of arrival: EMS Limitations: no limitations History of Present Illness HPI Narrative: Patient is a 70 y/o female who presents to the ED via EMS with report of a fall. Patient is a resident of [facility]. Reportedly had a fall tonight out of her wheelchair. States she fell forward as she was trying to release her breaks. Did hit her head. Denied LOC. Sustained hematoma to L sided forehead. Denies any other injuries or areas of pain. Denies dizziness, lightheadedness, vision changes. She is not on any anticoagulation. Related Data Home Medications ?Medication ?Instructions ?Recorded ?Confirmed ?Last Taken ?Type aspirin 81 mg chewable tablet 81 mg PO DAILY 01/19/20 11/16/23 Unknown History atorvastatin 20 mg tablet 20 mg PO HS 01/19/20 11/16/23 Unknown History brimonidine 0.2 % eye drops 1 drp ophthalmic (eye) Q8H 01/19/20 11/16/23 Unknown History calcium 500 mg (as 1 tablet PO BID 01/19/20 11/16/23 Unknown History carbonate)-vitamin D3 5 mcg (200 unit) tablet (Oysco 500/D) carvedilol 25 mg tablet 25 mg PO BID 01/19/20 11/16/23 Unknown History dorzolamide 2 % eye drops 1 drp ophthalmic (eye) TID 01/19/20 11/16/23 Unknown History furosemide 40 mg tablet 40 mg PO DAILY 01/19/20 11/16/23 Unknown History gabapentin 600 mg tablet 300 mg PO BID 01/19/20 11/16/23 Unknown History loratadine 10 mg tablet (Claritin) 10 mg PO DAILY 01/19/20 11/16/23 Unknown History sennosides 8.6 mg tablet (senna) 8.6 mg PO Q6-8H PRN Constipation 01/19/20 11/16/23 Unknown History timolol 0.25 % eye drops 1 drp LEFT EYE TID 01/19/20 11/16/23 Unknown History ascorbic acid (vitamin C) 500 mg 500 mg PO DAILY 11/16/23 11/16/23 Unknown History tablet baclofen 10 mg tablet 10 mg PO Q12H PRN muscle spasms 11/16/23 11/16/23 Unknown History bisacodyl 10 mg rectal suppository 10 mg RECTAL DAILY PRN Constipation 11/16/23 11/16/23 Unknown History cyanocobalamin (vitamin B-12) 1,000 mcg PO DAILY 11/16/23 11/16/23 Unknown History 1,000 mcg tablet ferrous sulfate 325 mg (65 mg 325 mg PO BID 11/16/23 11/16/23 Unknown History iron) tablet insulin aspart 10 unit subcut TIDWM 11/16/23 11/16/23 Unknown History (niacinamide)(U-100) 100 unit/mL(3 mL) subcutaneous pen (Fiasp FlexTouch U-100 Insulin) insulin glargine 100 unit/mL (3 7 unit subcut HS 11/16/23 11/16/23 Unknown History mL) subcutaneous pen (Basaglar KwikPen U-100 Insulin) lisinopril 20 mg tablet 40 mg PO DAILY 11/16/23 11/16/23 Unknown History menthol 4 % topical gel (Biofreeze 1 applic topical Q12H PRN knee pain 11/16/23 11/16/23 Unknown History (menthol)) Allergies Allergy/AdvReac Type Severity Reaction Status Date / Time egg Allergy Unknown Unknown Verified 11/16/23 09:45 latex Allergy Unknown Unknown Verified 11/16/23 09:45 milk Allergy Unknown Unknown Verified 11/16/23 09:45 Penicillins Allergy Unknown Skin Verified 11/19/23 09:44 Reaction shellfish derived Allergy Unknown Unknown Verified 11/16/23 09:45 Sulfa (Sulfonamide Allergy Unknown Unknown Verified 11/16/23 09:45 Antibiotics) sulfanilamide Allergy Unknown Unknown Verified 11/16/23 09:45 sulfamethizole AdvReac Unknown Nausea Verified 11/19/23 11:54 Review of Systems Review of Systems: All systems reviewed & are unremarkable except as noted in HPI. All systems reviewed & are unremarkable except as noted in HPI and below PMFSH Past Medical History Medical History Combined systolic and diastolic congestive heart failure Echocardiogram in August 2016 showed severe global left ventricular systolic dysfunction with an EF visually estimated 20 to 25% and diastolic dysfunction. MSSA bacteremia Cerebrovascular accident Dyslipidemia Hypertension Type 2 diabetes mellitus Coronary artery disease Osteomyelitis of fifth toe of right foot Charcot's joint of foot Anemia Wjrraqs-Ptjgo-Drxyw disease Asthma Diabetic retinopathy Surgical History Surgical History Status post excisional debridement Bilateral heels for infected diabetic ulcers. Amputation of fifth toe of right foot Secondary to osteomyelitis. History of incision and drainage Back abscess. History of cardiac catheterization History of tonsillectomy and adenoidectomy History of open reduction and internal fixation (ORIF) procedure Repair of left arm fracture. History of coronary artery stent placement x2 Family History Family History Sibling Cerebrovascular accident Father Family history of diabetes mellitus in first degree relative Diabetes mellitus Family history of hypothyroidism Mother Family history of diabetes mellitus in first degree relative Family history of heart disease in male family member before age 55 Diabetes mellitus Other Family history of cardiovascular disease Hypertension Social History Social History Social History: Surrogate decision maker: Shirley Rush, mother. Code status: Full code. 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 Spiritual care concerns: No Agree to blood products: Yes Exam Narrative: GENERAL: Appears older than stated age, morbidly obese with BMI of 41.0, non-toxic, in no acute distress. HEAD: Normocephalic. Hematoma to L frontal region w/o wounds/lacerations. Focal TTP EYES: PERRL/EOMI, conjunctiva clear NECK: Normal ROM, no tenderness. RESPIRATORY: Airway patent, respirations nonlabored. Clear to auscultation bilaterally, no rales, rhonchi, wheezing. CARDIOVASCULAR: Regular rate and rhythm without murmurs, rubs, or gallops. Radial pulses intact MUSCULOSKELETAL: Moves all extremities. No gross deformities. SKIN: Warm, dry, normal color. NEURO: A&O X3. Speech clear. Cranial nerves II-XII grossly intact. No ataxic movements. No focal deficits. PSYCHIATRIC: Appropriate mood and affect. Normal interaction. Course Vital Signs Vital signs: Vital Signs Temperature 98.3 F 03/28/25 00:07 Pulse Rate 66 03/28/25 00:07 Respiratory Rate 18 03/28/25 00:07 Blood Pressure 136/57 L 03/28/25 00:07 Pulse Oximetry 100 03/28/25 00:07 Oxygen Delivery Room Air 03/28/25 00:07 Temperature 98.3 F 03/28/25 00:07 Pulse Rate 66 03/28/25 00:07 Respiratory Rate 18 03/28/25 00:07 Blood Pressure 136/57 L 03/28/25 00:07 Pulse Oximetry 100 03/28/25 00:07 Oxygen Delivery Room Air 03/28/25 00:07 MDM - Fall MDM Narrative Medical decision making narrative: Patient presented to ED status post fall from her wheelchair, head injury, no LOC. vital signs are stable upon arrival. Patient in no acute distress. Neurovascularly intact. Does have hematoma to left forehead, but denies any other areas of pain or injury. CT brain and cervical spine were obtained and without acute traumatic findings. Patient continues to deny any further concerns. Will be discharged back to [facility]. Given return precautions. Discharged in stable condition Medical Records Attestation: I reviewed the patient's medical records. Imaging Data Attestation: I personally reviewed and interpreted this imaging study as follows: Radiologist's impression: STAT CT brain: No acute intracranial hemorrhage. No midline shift or mass effect. The territorial tomlin-white matter differentiation is maintained throughout. Age-related cerebral volume loss. Periventricular and subcortical white matter hypoattenuation, consistent with chronic microangiopathy. Left forehead soft tissue swelling. STAT RAD CT cervical spine: Impression: No acute fracture or subluxation of the cervical spine. Discharge Plan Discharge Clinical Impression: Accidental fall from wheelchair Qualifiers: Encounter type: initial encounter Qualified Code(s): W05.0XXA - Fall from non-moving wheelchair, initial encounter Closed head injury Qualifiers: Encounter type: initial encounter Qualified Code(s): S09.90XA - Unspecified injury of head, initial encounter Hematoma of frontal scalp Qualifiers: Encounter type: initial encounter Qualified Code(s): S00.03XA - Contusion of scalp, initial encounter Patient Disposition: [facility] Living Condition: Stable Instructions: Antibiotic Form, Head Injury (ED), Hematoma (ED) Additional Instructions: Patient's imaging did not show any traumatic findings. Recommend ice to forehead, Tylenol as needed for pain. Follow up with primary care doctor for further evaluation. Return to the ED if patient experiences recurrent fall or injury, severe dizziness, passing out, unable to keep down food or drink, vision changes, confusion, slurred speech, or any other symptoms of concern. Patient Language: Yemeni Prescriptions: No Action lisinopril 20 mg tablet 40 mg PO DAILY baclofen 10 mg tablet 10 mg PO Q12H PRN (Reason: muscle spasms) ascorbic acid (vitamin C) 500 mg Tablet 500 mg PO DAILY Biofreeze (menthol) 4 % Gel 1 applic TOPICAL Q12H PRN (Reason: knee pain) bisacodyl 10 mg Suppository 10 mg RECTAL DAILY PRN (Reason: Constipation) insulin glargine [Basaglar KwikPen U-100 Insulin] 100 unit/mL (3 mL) insulin pen 7 unit SUBCUT HS Rx Instructions: 7 units at bedtime Fiasp FlexTouch U-100 Insulin 100 unit/mL (3 mL) insulin pen 10 unit SUBCUT TIDWM Rx Instructions: 10 units before meals cyanocobalamin (vitamin B-12) 1,000 mcg Tablet 1,000 mcg PO DAILY ferrous sulfate 325 mg (65 mg iron) Tablet 325 mg PO BID cefuroxime axetil 250 mg Tablet 500 mg PO Q12HR Qty: 10 0RF doxycycline hyclate 100 mg Tablet 100 mg PO Q12H Qty: 10 0RF furosemide 40 mg Tablet 40 mg PO DAILY carvedilol 25 mg Tablet 25 mg PO BID sennosides [senna] 8.6 mg Tablet 8.6 mg PO Q6-8H PRN (Reason: Constipation) gabapentin 600 mg Tablet 300 mg PO BID atorvastatin 20 mg Tablet 20 mg PO HS brimonidine 0.2 % Drops 1 drp OPHTHALMIC (EYE) Q8H Rx Instructions: Left eye timolol 0.25 % Drops 1 drp LEFTEYE TID aspirin 81 mg Tablet,Chewable 81 mg PO DAILY loratadine [Claritin] 10 mg Tablet 10 mg PO DAILY dorzolamide 2 % Drops 1 drp OPHTHALMIC (EYE) TID Rx Instructions: L eye calcium carbonate-vitamin D3 [Oysco 500/D] 500 mg(1,250mg) -200 unit Tablet 1 tablet PO BID Saccharomyces boulardii [Florastor] 250 mg capsule 250 mg PO BID Qty: 60 0RF Rx Instructions: swallow whole polyethylene glycol 3350 [Miralax] 17 gram Powder In Packet 17 g PO QAM Qty: 14 0RF acetaminophen 325 mg Tablet 650 mg PO Q6H PRN (Reason: Pain) Qty: 10 0RF Follow-up/Referrals: UNKNOWN,DOCTOR [Non-Staff] Time of Disposition: 01:11
--- OUTSIDE RECORDS SUMMARY | 2025-03-28 00:52 | XMS_ITS | Clinical Summary ---
Author Organization [facility] Address [address] [place] [address] Care Team Providers Care Talent Acquisition Associate Name Role Phone None, Provider MD Primary Care Provider Unavaila ble Allergies Active Allergy Reactions Criticality Noted Date Comments Egg-Derived Products Anaphylaxis High 10/10/2021 Latex Anaphylaxis High 10/10/2021 Milk-Related Compounds Anaphylaxis High 10/10/2021 Penicillins Anaphylaxis,Hives,Rash High 10/10/2021 Tolerated cefepime without problem October 2021 Shellfish-Derived Products Anaphylaxis High 10/10/2021 Sulfa Antibiotics Anaphylaxis,Hives,Rash High 2021 Medications gabapentin 300 MG capsule Take 300 mg by mouth 2 (two) times a day. Active multi vitamin/mineral s tablet Take 1 tablet by mouth daily. Active glipiZIDE 5 MG tablet Take 7.5 mg by mouth every morning before breakfast. Active oyster shell calcium 500 mg, elemental, 500 MG tablet Take 1 tablet by mouth daily. Active carvedilol 25 MG tablet Take 25 mg by mouth 2 (two) times daily. Active ferrous sulfate, 65 mg elemental, 325 (65 FE) MG tablet Take 325 mg by mouth daily with breakfast. Active vitamin D2, ergocalciferol, 25786 UNITS capsule Take 50,000 Units by mouth Bimonthly. On the and 25 of each month Active fluticasone propionate 50 MCG/ACT nasal spray 2 sprays by Each Nostril route daily. Active aspirin EC (ASPIRIN EC) 81 MG tablet Take 81 mg by mouth daily. Active fexofenadine 60 MG tablet Take 60 mg by mouth daily. Active timolol 0.25 % ophthalmic solution Place 1 drop into the left eye every 8 (eight) hours. Active atorvastatin 20 MG tablet Take 20 mg by mouth nightly at bedtime. Active Senna 8.6 MG tablet Take 1 tablet by mouth daily as needed for Constipation. Active lidocaine 5 % Place 1 patch onto the skin daily as needed (knee pain). Remove & Discard patch within 12 hours or as directed by MD Active polyethylene glycol packet Take 17 g by mouth daily as needed. Dissolve powder in 240 mL water Active baclofen 10 MG tablet Take 10 mg by mouth 3 (three) times daily as needed. Active acetaminophen 325 MG tablet Take 325 mg by mouth every 6 (six) hours as needed for Pain. Active brimonidine 0.2 % ophthalmic solution Place 1 drop into the left eye every 8 (eight) hours. Active dorzolamide 2 % ophthalmic solution Place 1 drop into the left eye 3 (three) times daily. Active Skin Protectants, Misc. (CALAZIME SKIN PROTECTANT EX) Apply 1 each topically 2 (two) times a day. And prn Left posterior upper thigh Active menthol (BIOFREEZE) 4 % topical gel Apply 1 each topically 2 (two) times daily as needed (pain). Bilateral knees Active nystatin powder Apply 1 each topically 2 (two) times daily as needed (irritation, yeast). Under bilateral breasts Active diclofenac sodium 1 % gel Apply 2 g topically 4 (four) times daily as needed (pain). Bilateral knees Active furosemide 40 MG tablet Take 40 mg by mouth daily. Active lisinopril 20 MG tablet Take 20 mg by mouth daily. Active insulin lispro 100 UNIT/ML injection (VIAL) Inject 10 Units into the skin 3 (three) times daily before meals. Active Active Problems Problem Noted Date Diagnosed Date NSTEMI (non-ST elevated myoc ardial infarction) ([facility]) 10/25/2021 Sepsis ([facility]) 10/24/2021 AC (acute kidney injury) 10/18/2021 Cellulitis 10/13/2021 Type 2 diabetes mellitus ([facility]) 10/13 HFrEF (heart failure with re duced ejection fraction) ([facility]) 10/13/2021 HLD (hyperlipidemia) 10/13/2021 Charcot-Hannah disease 10/13/2021 HTN (hypertension) 10/13/2021 Anemia 10/13/2021 CVA (cerebral vascular accident) ([facility]) 10/13/2021 Venous stasis ulcers of both lower extremities ([facility]) 10/11/2021 Hyperkalemia 10/11/2021 Family History Medical History Relation Comments Diabetes Mother Heart Disease Mother Hypertension Mother Diabetes Sister 1 Hypertension Sister 1 Relation Status Comments Father Mother Alive Sister 1 Alive Sister 2 Alive Social History Tobacco Use Types Packs/Day Years Used Date Smoking Tobacco: Never Smokeless Tobacco: Never Alcohol Use Standard Drinks/Week Comments Not Currently 0 (1 standard drink = 0.6 oz pur e alcohol) Comments No Sex and Gender Information Value Date Recorded Sex Assigned at Female 10/24/2021 11:21 PM CDT Legal Sex Female 7:52 PM CDT Gender Identity Female 10/24/2021 11:21 PM CDT Sexual Orientation Not on file Last Filed Vital Signs Vital Sign Reading Time Taken Comments Blood Pressure 94/66 11/08/2021 1:31 PM CDT Pulse 79 11/08/2021 1:31 PM CDT Temperature 36.6 C (97.9 F) 11/08/2021 1:31 PM CDT Respiratory Rate 18 11/08/2021 1:31 PM CDT Oxygen Saturation 97% 11/08/2021 1:31 PM CDT Inhaled Oxygen Concentration - - Weight 107.3 kg (236 lb 8.9 oz) 11/08/2021 6:09 AM CDT Height 152.4 cm (5') 11/04/2021 7:40 PM CDT Body Mass Index 46.2 11/04/2021 7:40 PM CDT Plan of Treatment Health Maintenance Due Date Last Done Comments ASCVD LDL 1957 ASCVD Statin 1957 Colorectal Cancer Screening Colonoscopy (10 Years) 1957 Kidney Health Evaluation 1957 Diabetes: Retinopathy Eye Exam 1975 Hepatitis C 1975 DTaP, Tdap and Td Vaccines ( 1 - Tdap) 02/12/1976 Pneumococcal Vaccine: 50+ Years (1 of 2 - PCV) 02/12/1976 Mammogram Screening 1997 Zoster Vaccines (1 of 2) 2007 RSV Immunization or 60+ Years (1 - Risk 60-74 years 1-dose series) 2017 Lipid Panel 11/06/2019 11/05/2018 Dexa Scan (General) 2022 Hemoglobin A1C 04/13/2022 10/12/2021, 05/01/2021 COVID-19 Vaccine (2024-2 6 season) 2025 05/03/2021, 08/05/2020, 07/15/2020 Meningococcal B Vaccine Aged Out No l onger eligible based on patient's age to complete this topic Meningococcal Vaccine Aged Out No leah dwight eligible based on patient's age to complete this topic RSV Immunizations Under 20 Months Aged Out No longer eligible b ased on patient's age to complete this topic Goals Goal Patient Goal Type Associated Problems Recent Progress Patient-Stated? Author Health - patient able to perform ADLs independently General No Maria A Banks, corporate technical recruiter - family caregiver with be involved in care transitions and discharge planning General No Mitzi Cooley, CABIN MAN Procedures Procedure Name Priority Date/Time Associated Diagnosis Comments HEMOGLOBIN, GLYCOSYLATED Routine 10/12/2021 3:25 AM CDT from Last 3 Months or Most Recently Relevant to Health Maintenance Results * (ABNORMAL) HEMOGLOBIN, GLYCOSYLATED (10/12/2021 3:25 AM CDT) HGB A1C 6.9(H) <5.7 % 10/13/2021 12:49 AM CDT [facility] Comment: ADA GUIDELINES 2010 5.7 TO 6.4% INCREASED RISK OF DIABETES > OR = 6.5% CONSISTENT WITH DIABETES ESTIMATED AVG GLUCOSE 151 mg/dL 10/13/2021 12:49 AM CDT [facility] 10/12/2021 3:25 AM CDT us Maida Craft MD LABORATORY Final Result [facility] [address] [place] [address], [place] [phone] from Last 3 Months or Most Recently Relevant to Health Maintenance Additional Health Concerns Infection Onset Date Last Indicated MRSA Comment:10/25/21 +MRSA Nasal 10/26/21 +MRSA Left foot 10/26/2021 10/26/2021 Insurance [employer] Advance Directives Documents on File Type Date Recorded Patient Residential Living Assistant Expl anation Advance Directives and Living Will 11/16/2021 9:18 AM 06/09/2019 POLST * Full Code (Latest Code Status on File) Date Activated Date Inactivated Comments 10/24/2021 9:22 PM 11/08/2021 4:53 PM * Full Code Date Activated Date Inactivated Comments 10/18/2021 5:18 PM 10/19/2021 10:46 PM * Full Code Date Activated Date Inactivated Comments 10/11/2021 12:37 AM 10/13/2021 4:06 PM Care Teams Talent Acquisition Associate Relationship Specialty Start Date End Date None, Provider, PCP - General 06/30/21
--- OUTSIDE RECORDS SUMMARY | 2025-03-28 00:52 | XMS_ITS | Encounter Summary ---
Author Organization [facility] Address [facility] [place] [address] Care Team Providers Care Senior Security Architect Name Role Phone None, Provider MD Primary Care Provider Unavaila ble Encounter Details Date Type Department Care Team (Late st Contact Info) Description 10/29/2021 Prep for Procedure [facility], [facility] [address] [place], [place] [id number] Heriberto Dixon MD [facility]. [facility] [address] [place], [place] [id number] Social History Tobacco Use Types Packs/Day Years [...] PM CDT Sexual Orientation Not on file COVID-19 Exposure Response Date Recorded In the last 10 days, have yo u been in contact with someone who was confirmed or suspected to have Coronavirus/COVID-19? No / Unsure 10/27/2021 8:03 AM CDT documented as of this encounter Functional Status * RETIRED Are you deaf or do you have serious difficulty hearing Answer Date of Assessment Author Status No 10/24/2021 11:23 PM CDT Acti ve * RETIRED Are you blind or do you have serious difficulty seeing, even when wearing glasses? Answer Date of Assessment Author Status No 10/24/2021 11:23 PM CDT Acti ve * Do you have serious difficulty walking or climbing stairs? Answer Date of Assessment Author Status Yes 10/24/2021 11:23 PM CDT Annie Ross RN Active * Do you have difficulty dressing or bathing? Answer Date of Assessment Author Status Yes 10/24/2021 11:23 PM CDT Annie Ross RN Active * Because of a physical, mental, or emotional condition, do you have difficulty doing errands alone such as visiting a doctor's office or shopping? Answer Date of Assessment Author Status Yes 10/24/2021 11:23 PM CDT Annie Ross RN Active documented as of this encounter Mental Status * Because of a physical, mental, or emotional condition, do you have serious difficulty concentrating, remembering, or making decisions? Answer Entry Date Author Status Yes 10/27/2021 8:00 AM CDT Graciela Forte RN Active documented in this encounter Plan of Treatment Not on file documented as of this encounter Goals Goal Patient Goal Type Associated Problems Recent Progress Patient-Stated? Author Health - patient able to perform ADLs independently General No Maria A Banks RN Family - family caregiver with be involved in care transitions and discharge planning General No Mitzi Cooley, PAROLE OR PROBATION OFFICER documented as of this encounter Visit Diagnoses Not on filedocumented in this encounter Additional Health Concerns Infection Onset Date Last Indicated Resolved Time MRSA Comment:10/25/21 +MRSA Nasal 10/26/21 +MRSA Left foot 10/26/2021 10/26/2021 COVID-19 Rule Out 11/07/2021 11/08/2021 11/08/2021 7:44 AM CDT documented as of this encounter Care Teams Senior Security Architect Relationship Specialty Start Date End Date None, Provider, PCP - General 06/30/21 documented as of this encounter
--- OUTSIDE RECORDS SUMMARY | 2025-03-28 00:52 | XMS_ITS | Encounter Summary ---
Author Organization [facility] Address [address] [facility] [address] [place] [address] Care Team Providers Care Sensitizer Name Role Phone Hasmukh Cooper MD Primary Care Provider [phone] Trevor John MD Primary Care Provider [phone] Encounter Details Date Type Department Care Team (Late st Contact Info) Description 09/06/2016 Orders Only [facility] ProviderAaron MD [address] [place] [id number] Social History Tobacco Use Types Packs/Day Years Used Date Smoking Tobacco: Never Assessed Comments Unknown Sex and Gender Information Value Date Recorded Sex Assigned at Not on file Legal Sex Female 3:20 AM PSYCHOLOGICAL TESTS SALES AGENT Gender Identity Not on file Sexual Orientation Not on file documented as of this encounter Plan of Treatment Not on file documented as of this encounter Procedures Procedure Name Priority Date/Time Associated Diagnosis Comments CARDIOLOGY REPORT 09/06/2016 documented in this encounter Results * CARDIOLOGY REPORT (09/06/2016) Anatomical Region Laterality Modality Other Narrative 09/06/2016 Ordered by an unspecified provider. Historical Provider [facility] FIDELIA THRASHER Final Result documented in this encounter Visit Diagnoses Not on filedocumented in this encounter Additional Health Concerns Infection Onset Date Last Indicated Resolved Time MRSA 02/09/2019 02/09/2019 02/14/2021 5:00 AM CDT documented as of this encounter Care Teams Sensitizer Relationship Specialty Start Date End Date Hasmukh Cooper MD [address] [place] [id number] PCP - General 09/27/16 06/26/21 Trevor John MD [address] [place] [id number] PCP - General Internal Medicine 06/27/21 documented as of this encounter
--- OUTSIDE RECORDS SUMMARY | 2025-03-28 00:52 | XMS_ITS | Clinical Summary ---
Author Organization [facility] [address] Address [address] [place] [address] Care Team Providers Care Construction Plant Operator Name Role Phone Trevor John MD Primary Care Provider [phone] Allergies Active Allergy Reactions Criticality Noted Date Comments Egg Yolk Other (See comments) High Reaction: unknown, Penicillin Other (See comments) High Reaction: unknown, Shellfish Derived Other (See comments) High Reaction: unknown, Sulfa (Sulfonamide Antibiotics) Other (See comments) High Reaction: unknown, Medications aspirin 81 mg tablet take 1 tablet by oral route every day 0 0 7 Active insulin glargine (LANTUS) 100 unit/mL injection inject by subcutaneous route as per insulin protocol 0 vial 0 7 Active insulin aspart (NovoLOG PenFill) 100 unit/mL cartridge inject by subcutaneous route per prescriber's instructions. Insulin dosing requires individualizatio n. 0 Cartridge 0 7 Active lutein 20 mg tablet Take 20 mg by mouth 2 (two) times a day. Active ferrous sulfate 134 mg (27 mg of elemental iron) tabletIndicati ons:Iron Deficiency Anemia 2 (two) times a day with meals. Active metFORMIN (GLUCOPHAGE) 500 mg tablet Take 500 mg by mouth 2 (two) times a day with meals. Active brimonidine-ti molol (COMBIGAN) 0.2-0.5 % ophthalmic solution Administer 1 drop into the left eye 2 (two) times a day. Active brinzolamide (AZOPT) 1 % ophthalmic suspension Administer 1 drop into the left eye 2 (two) times a day. Active ticagrelor (BRILINTA) 60 mg tabletIndicati ons:Coronary artery disease involving [place] coronary artery of [place] heart without angina pectoris Take 1 tablet (60 mg total) by mouth 2 (two) times a day 180 tablet 3 9 Active Additional Information Patient not taking.Reported on 06/27/2021 atorvastatin (LIPITOR) 20 mg tablet Take 1 tablet (20 mg total) by mouth daily 90 tablet 3 9 Active lisinopril (PRINIVIL,ZEST RIL) 10 mg tablet Take 1 tablet (10 mg total) by mouth daily 90 tablet 3 9 Active Additional Information Patient taking differently: 20 mgoral Daily, Reported on 06/27/2021 carvedilol (COREG) 12.5 mg tablet Take 1 tablet (12.5 mg total) by mouth 2 (two) times a day with meals 180 tablet 3 9 Active Additional Information Patient taking differently: 25 mgoral 2 times daily with meals (bkfst, dinner), Reported on 06/27/2021 furosemide (LASIX) 40 mg tablet Take 1 tablet (40 mg total) by mouth daily 90 tablet 3 9 Active ibuprofen (ADVIL,MOTRIN) 400 mg tablet Take by mouth every 6 (six) hours as needed for pain Active sennosides 8.6 mg capsule Take 8.6 mg by mouth daily Active cholecalcifero l (VITAMIN D-3) 50,000 unit capsule Take 50,000 Units by mouth once a week Active fluticasone propionate (FLONASE) 50 mcg/actuation nasal spray Administer 1 spray into each nostril daily Active HYDROcodone-ac etaminophen (NORCO) 5-325 mg per tabletIndicati ons:Pain Take 1 tablet by mouth every 6 (six) hours as needed Active gabapentin (NEURONTIN) 300 mg capsule Take 300 mg by mouth daily Active fexofenadine (ZACHARY) 60 mg tablet Take 60 mg by mouth daily Active brimonidine (ALPHAGAN) 0.2 % ophthalmic solution 1 drop 3 (three) times a day Active clopidogreL (PLAVIX) 75 mg tablet Take 75 mg by mouth daily Active Active Problems Problem Noted Date Diagnosed Date Charcot foot due to diabetes mellitus 06/27/2021 Assessment & Plan (06/27/2021 10:37 AM EXECUTIVE RECEPTIONIST): Assessment/plan: Charcot foot deformities to bilateral lower extremities with skin excoriation to the right foot. Triphasic DP PT signals, I suspect this is microvascular disease. I had a long discussion with the patient regarding the importance of wound care. Continue antibiotics, elevation and compression. Continue ASA, statin strict glucose control. She will follow-up as needed. 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, with long-term current use of insulin 01/29/2018 History of CVA (cerebrovascular accident) 2017 Exercise counseling 06/13/2017 Coronary artery disease invo [place]ving [place] coronary artery of [place] heart without angina pectoris 02/17/2017 Assessment & Plan (06/27/2021 10:35 AM EXECUTIVE RECEPTIONIST): Assessment/plan: Continue ASA, Lipitor Ischemic cardiomyopathy 02/17/2017 Presence of stent in coronary artery 02/17/2017 Surgical History Surgery Date Site/Laterality Comments TONSILLECTOMY TOE AMPUTATION Left ARM SURGERY Left RHINOPLASTY CARDIAC CATHETERIZATION Medical History Medical History Date Comments Exercise counseling 06/13/2017 Family History Medical History Relation Name Comments Colon cancer Father 2 Cancer, colon; Cause of : Cancer, colon Other Mother 2 Alive and well; Relation Name Status Comments Father 1 (Age 83) Father 2 Mother 1 Alive Mother 2 Social History Tobacco Use Types Packs/Day Years Used Date Smoking Tobacco: Never Smokeless Tobacco: Never Tobacco Cessation:Counseling Given: Yes Alcohol Use Standard Drinks/Week Comments No 0 (1 standard drink = 0.6 oz pur e alcohol) Personal Safety Answer Date Recorded Getting School Help Needed Not on file 08/23 Comments Unknown Sex and Gender Information Value Date Recorded Sex Assigned at Not on file Legal Sex Female 3:20 AM EXECUTIVE RECEPTIONIST Gender Identity Not on file Sexual Orientation Not on file Obstetrics History Last Filed Vital Signs Vital Sign Reading Time Taken Comments Blood Pressure 112/67 06/27/2021 10:10 AM EXECUTIVE RECEPTIONIST Pulse 75 06/27/2021 10:10 AM EXECUTIVE RECEPTIONIST Temperature - - Respiratory Rate - - Oxygen Saturation 98% 05/19/2019 10:49 AM EXECUTIVE RECEPTIONIST Inhaled Oxygen Concentration - - Weight 96.2 kg (212 lb) 06/27/2021 10:10 AM EXECUTIVE RECEPTIONIST Height 152.4 cm (5') 06/27/2021 10:10 AM EXECUTIVE RECEPTIONIST Body Mass Index 41.4 06/27/2021 10:10 AM EXECUTIVE RECEPTIONIST Plan of Treatment Health Maintenance Due Date Last Done Comments Albumin Creatinine Ratio, Urine 1955 Breast Cancer Screening-Mammogram 1957 Colon Cancer Screening-Colonoscopy 1957 Depression Screening 1957 Fall Risk Assessment 1957 Hemoglobin A1C 1957 Hepatitis C Screening 1957 Osteoporosis Screening-Bone Density Scan 1957 eGFR 1957 Dilated Eye Exam 1957 Foot Exam 1957 DTaP/Tdap/Td Vaccine (1 - Tdap) 02/12/1968 Hepatitis B Screening 1975 Pneumococcal vaccine 65+ (1 of 2 - PCV) 02/12/1976 Zoster Vaccine (1 of 2) 2007 Lipid Panel 11/06/2019 11/05/2018, 11/29, 12/20/2016 Well Visit 65+ 2022 Covid-19 Vaccine ( season) 2025 05/03/2021, 08/05/2020, 07/15/2020 Influenza Vaccine (#1) 2025 Procedures Procedure Name Priority Date/Time Associated Diagnosis Comments POCT LIPID PANEL Routine 11/05/2018 10:4 2 AM CDT Mixed hyperlipidemia from Last 3 Months or Most Recently Relevant to Health Maintenance Results * POCT lipid panel (11/05/2018 10:42 AM CDT) Cholesterol, POC 109 mg/dL HDL, POC 35 mg/dL Triglycerides, POC 250 mg/dL LDL Cholesterol POC 25 mg/dL Blood spot 11/05/2018 10:4 2 AM CDT Carmela Corley NP POINT OF CARE TEST ORDERA BLES Edited Result - Final from Last 3 Months or Most Recently Relevant to Health Maintenance Insurance [employer] [place] [facility] Care Teams Construction Plant Operator Relationship Specialty Start Date End Date Trevor John MD PCP - General Internal Medicine 06/27/21
== END 2025-03-28 01:46 ==
PROVIDERS: Emergency Provider Physician Assistant
DX: S00.03XA Contusion of scalp, initial encounter (principal); W05.0XXA Fall from non-moving wheelchair, initial encounter
CPT/HCPCS: 70450; 72125; 99284

== ENCOUNTER 2025-03-29 15:13 | Inpatient (IN) | payer MEDICARE, MEDICAID, SELFPAY ==
--- OUTSIDE RECORDS SUMMARY | 2002-02-03 06:00 | XMS_ITS | Continuity of Care Document ---
Author Organization [facility] Address [address] [place] [address] [address] [place] [address] Phone Care Team Providers Care Tooth Cutter Spur Name Role Phone Louis Larkin Unavailable Unavailable Advance Directives Directive Yes / No Effective Date File Name No Information Encounters Encounter Description Practice Location Reason(s) For Visit Diagnoses Date Provider Providers Copied on Encounter [facility], [id number] [place] [address] [address], [place], [place], [id number], [place] tel:[phone] [facility] No Information [address] , [address], [place], [address], [place]. tel:[phone] Family History Family Member Type Diagnosis Age At Onset No Information Payers Payer name Insurance type Covered constitution party ID Authoriza tion(s) No Information Social [...]
--- NOTE | ~2025-03-29 | US_ITS ---
EXAMINATION:US venous doppler LE RT INDICATION:Swelling TECHNIQUE: Multiple grayscale, color flow and Doppler images of the right lower extremity deep venous systems were obtained and reviewed. COMPARISON:None available FINDINGS: The right common femoral, superficial femoral and popliteal veins demonstrate normal respiratory variation, augmentation and compressibility. The visualized right gastrocnemius and greater saphenous veins are unremarkable. The right posterior tibial vein and peroneal vein were not evaluated due to the patient's condition. IMPRESSION: 1: No right lower extremity deep venous thrombosis. 2. Limited study as above. 3. There is a 3.6 x 1.0 x 2.5 cm heterogeneous masslike structure in the right groin possibly a lymph node. In addition, there is a 5.9 x 1.4 cm heterogeneous masslike structure in the right groin. A CT of the abdomen and pelvis with contrast is recommended for further assessment. If symptoms persist or worsen, consider a short-term follow-up study or additional imaging for further assessment. Reviewed, dictated and finalized at location Q. IMPRESSION: 1: No right lower extremity deep venous thrombosis. 2. Limited study as above. 3. There is a 3.6 x 1.0 x 2.5 cm heterogeneous masslike structure in the right groin possibly a lymph node. In addition, there is a 5.9 x 1.4 cm heterogeneous masslike structure in the right groin. A CT of the abdomen and pelvis with con trast is recommended for further assessment. If symptoms persist or worsen, consider a short-term follow-up study or additio nal imaging for further assessment.
--- NOTE | ~2025-03-29 | US_ITS ---
EXAMINATION: US arterial ankle brachial ind DATE: 03/30/2025 11:07 INDICATION: Chronic open wounds with erythema and swelling at the bilateral lower extremities TECHNIQUE: Segmental pressures and plethysmographic and Doppler waveforms of the brachial and lower extremity arteries were obtained. COMPARISON: None. FINDINGS: Right and brachial artery pressures of 135 mm Hg. The right ankle-brachial index (MARYANN) was not obtained (normal >= 0.9-1.0). The right great toe-brachial index (TBI) is 0.54 (normal >= 0.65). Arterial Doppler demonstrate normal brisk systolic upstrokes at both right posterior tibial and dorsalis pedis arteries. The left MARYANN is 1.01. The left TBI is 0.56. Arterial Doppler waveforms demonstrate normal brisk systolic upstrokes at the left dorsalis pedis artery. Parvus and tardus waveforms with broadened systolic peak with mildly delayed upstrokes at the left posterior tibial artery. IMPRESSION: 1. Mild arterial occlusive disease to bilateral lower limbs with mildly decreased bilateral ABIs. Reviewed, dictated and finalized at location A. IMPRESSION: 1. Mild arterial occlusive disease to bilateral lower limbs with mildly decreas ed bilateral ABIs.
--- NOTE | ~2025-03-29 | CT_ITS ---
CT abdomen pelvis w con Clinical History: radiology rec . Comparison: Lower extremity venous Doppler earlier same day CT abdomen pelvis 12/14/2021 Technique: Axial images lung bases to symphysis pubis IV contrast information not listed in PACS Coronal, sagittal reformats CT images acquired with automatic exposure control for dose reduction DLP: 1167 mGy-cm Findings: Lung bases: Clear. Visualized heart and pericardium: Unremarkable. Liver: Enlarged. Gallbladder: Unremarkable. Spleen: Enlarged. Pancreas: Atrophy. Adrenal glands: Unremarkable. Kidneys: Right kidney- No hydronephrosis. No renal stones. Left kidney- No hydronephrosis. No renal stones. Distal esophagus/stomach: Apparent gastric antral wall thickening probably merely underdistention. Minimal distal esophagitis. Small bowel loops: Normal caliber and wall thickness. Colon: Diverticula. Normal caliber and wall thickness. Normal RLQ appendix. Nodes: No enlarged nodes. Inguinal and hypogastric chain nodes bilaterally, unchanged from 2021. Small retroperitoneal nodes. Peritoneum: No ascites. No free air. Urinary bladder: Unremarkable. Uterus: Unremarkable. Adnexa: No masses. Bones: No acute bony abnormality. Soft tissues: Small umbilical hernia with fat. Aorta: No aneurysm or dissection. Atherosclerotic disease. IVC: Unremarkable. Main portal vein/SMV/splenic vein: Patent. IMPRESSION: 1. Inguinal lymph nodes, unchanged from 2021 scan. These account for the findings on ultrasound today. 2. Mild gastritis not excluded. 3. No other acute abnormality within abdomen or pelvis. Reviewed, dictated and finalized at location R. IMPRESSION: 1. Inguinal lymph nodes, unchanged from 2021 scan. These account for the findi ngs on ultrasound today. 2. Mild gastritis not excluded. 3. No other acute abnormality within abdomen or pelvis.
[2025-03-29 15:22] VITALS: BP 151/76; PULSE 67; RESP 16; TEMP 36.8; O2SAT 100
--- OUTSIDE RECORDS SUMMARY | 2025-03-29 16:09 | XMS_ITS | Clinical Summary ---
Author Organization [facility] Address [address] [place] [address] Care Team Providers Care Correctional Manager Name Role Phone None, Provider MD Primary [...] daily with breakfast. Active vitamin D2, ergocalciferol, 96867 UNITS capsule Take 50,000 Units by mouth [...] Date NSTEMI (non-ST elevated myoc ardial infarction) ([facility]) 10/25/2021 Sepsis ([facility]) 10/24/2021 AC (acute kidney injury) 10/18/2021 Cellulitis 10/13/2021 Type 2 diabetes mellitus ([facility]) 10/13 HFrEF (heart failure with re duced ejection fraction) ([facility]) 10/13/2021 HLD (hyperlipidemia) 10/13/2021 Charcot-Hannah disease 10/13/2021 HTN (hypertension) 10/13/2021 Anemia 10/13/2021 CVA (cerebral vascular accident) ([facility]) 10/13/2021 Venous stasis ulcers of both lower extremities ([facility]) 10/11/2021 Hyperkalemia 10/11/2021 Family History Medical History [...] ADLs independently General No Maria A Banks, temper mill roller - family caregiver with be involved in care transitions and discharge planning General No Mitzi Cooley, FRONT WORKER Procedures Procedure Name Priority Date/Time Associated Diagnosis Comments HEMOGLOBIN, GLYCOSYLATED Routine 10/12/2021 3:25 AM CDT from Last 3 Months or Most Recently Relevant to Health Maintenance Results * (ABNORMAL) HEMOGLOBIN, GLYCOSYLATED (10/12/2021 3:25 AM CDT) HGB A1C 6.9(H) <5.7 % 10/13/2021 12:[address] [facility] Comment: ADA GUIDELINES 2010 5.7 TO 6.4% INCREASED RISK OF DIABETES > OR = 6.5% CONSISTENT WITH DIABETES ESTIMATED AVG GLUCOSE 151 mg/dL 10/13/2021 12:[address] [facility] 10/12/2021 3:25 AM CDT us Maida Craft MD LABORATORY Final Result [facility] [address] [place] [address], [place] [phone] from Last 3 Months or Most Recently Relevant to Health Maintenance Additional Health Concerns Infection Onset Date Last Indicated MRSA Comment:10/25/21 +MRSA Nasal 10/26/21 +MRSA Left foot 10/26/2021 10/26/2021 Insurance [employer] Advance Directives Documents on File Type Date Recorded Patient Talcer Expl anation Advance Directives and Living Will 11/16/2021 9:18 AM 06/09/2019 POLST * Full Code (Latest Code Status on File) Date Activated Date Inactivated Comments 10/24/2021 9:22 PM 11/08/2021 4:53 PM * Full Code Date Activated Date Inactivated Comments 10/18/2021 5:18 PM 10/19/2021 10:46 PM * Full Code Date Activated Date Inactivated Comments 10/11/2021 12:37 AM 10/13/2021 4:06 PM Care Teams Correctional Manager Relationship Specialty Start Date End Date None, Provider, PCP - General 06/30/21
--- OUTSIDE RECORDS SUMMARY | 2025-03-29 16:09 | XMS_ITS | Encounter Summary ---
Author Organization [facility] Address [address] [facility] [address] [place] [id number] Care Team Providers Care Heat Treater Helper Name Role Phone Hasmukh Cooper MD Primary Care Provider [phone] Trevor John MD Primary Care Provider [phone] Encounter Details Date Type Department Care Team (Late st Contact Info) Description 09/06/2016 Orders Only [facility] ProviderAaron MD [address] [place] [id number] Social History Tobacco Use Types Packs/Day Years Used Date Smoking Tobacco: Never Assessed Comments Unknown Sex and Gender Information Value Date Recorded Sex Assigned at Not on file Legal Sex Female 3:20 AM 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
--- OUTSIDE RECORDS SUMMARY | 2025-03-29 16:09 | XMS_ITS | Encounter Summary ---
Author Organization [facility] Address [facility] [place] [address] Care Team Providers Care Sales Architect Name Role Phone None, Provider MD Primary Care Provider Unavaila ble Encounter Details Date Type Department Care Team (Late st Contact Info) Description 10/29/2021 Prep for Procedure [facility], [facility] [address] [place], [place] [id number] Heriberto Dixon MD [facility]. [facility] [address] [place], [place] [id number] Social History Tobacco Use Types Packs/Day Years [...] and discharge planning General No Mitzi Cooley, CONCIERGE RECEPTIONIST documented as of this encounter Visit Diagnoses Not on filedocumented in this encounter Additional Health Concerns Infection Onset Date Last Indicated Resolved Time MRSA Comment:10/25/21 +MRSA Nasal 10/26/21 +MRSA Left foot 10/26/2021 10/26/2021 COVID-19 Rule Out 11/07/2021 11/08/2021 11/08/2021 7:44 AM CDT documented as of this encounter Care Teams Sales Architect Relationship Specialty Start Date End Date None, Provider, PCP - General 06/30/21 documented as of this encounter
--- OUTSIDE RECORDS SUMMARY | 2025-03-29 16:09 | XMS_ITS | Clinical Summary ---
Author Organization [facility] [address] Address [address] [place] [address] Care Team Providers Care Coldfusion Name Role Phone Trevor John MD Primary Care Provider [phone] Allergies Active Allergy Reactions Criticality Noted Date [...] 60 mg tabletIndicati ons:Coronary artery disease involving cherokee coronary artery of cherokee heart without angina pectoris Take 1 tablet [...] 06/27/2021 Assessment & Plan (06/27/2021 10:37 AM SKATESMAN): Assessment/plan: Charcot foot deformities to bilateral lower [...] 05/05/2018 Assessment & Plan (06/27/2021 10:35 AM SKATESMAN): Assessment/plan: Coreg Mixed hyperlipidemia 05/05/2018 Asthma in adult, unspecified asthma severity, un complicated 01/29/2018 Gastroesophageal reflux disease without esophagi tis 01/29/2018 Type 2 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, with long-term current use of insulin 01/29/2018 History of CVA (cerebrovascular accident) 2017 Exercise counseling 06/13/2017 Coronary artery disease invo lving cherokee coronary artery of cherokee heart without angina pectoris 02/17/2017 Assessment & Plan (06/27/2021 10:35 AM SKATESMAN): Assessment/plan: Continue ASA, Lipitor Ischemic cardiomyopathy 02/17/2017 [...] on file Legal Sex Female 3:20 AM SKATESMAN Gender Identity Not on file Sexual Orientation Not on file Obstetrics History Last Filed Vital Signs Vital Sign Reading Time Taken Comments Blood Pressure 112/67 06/27/2021 10:10 AM SKATESMAN Pulse 75 06/27/2021 10:10 AM SKATESMAN Temperature - - Respiratory Rate - - Oxygen Saturation 98% 05/19/2019 10:49 AM SKATESMAN Inhaled Oxygen Concentration - - Weight 96.2 kg (212 lb) 06/27/2021 10:10 AM SKATESMAN Height 152.4 cm (5') 06/27/2021 10:10 AM SKATESMAN Body Mass Index 41.4 06/27/2021 10:10 AM SKATESMAN Plan of Treatment Health Maintenance Due Date [...] Most Recently Relevant to Health Maintenance Insurance [employer] [place] [facility] Care Teams Coldfusion Relationship Specialty Start Date End Date Trevor John MD PCP - General Internal Medicine 06/27/21
--- NOTE | 2025-03-29 16:14 | ED.GENADULT ---
HPI - General Adult General Chief complaint: Wound/Laceration Stated complaint: open qound Time Seen by Provider: 03/29/25 15:24 History of Present Illness HPI narrative: 70-year-old female presents to the emergency department for evaluation for worsening lower extremity wound. Patient reports she has had a longstanding wound on her right lower extremity that has slowly been worsening. Patient reports that it worsened acutely over the last few days. Patient was also told that she has MRSA. Patient was sent to the emergency department for evaluation for this worsening. Patient is currently not on any antibiotics. Charcot Hannah tooth disease, Charcot joint, diabetic retinopathy, CVA, hypertension, high cholesterol, CHF Related Data Home Medications ?Medication ?Instructions ?Recorded ?Confirmed ?Last Taken ?Type aspirin 81 mg chewable tablet 81 mg PO DAILY 01/19/20 11/16/23 Unknown History atorvastatin 20 mg tablet 20 mg PO HS 01/19/20 11/16/23 Unknown History brimonidine 0.2 % eye drops 1 drp ophthalmic (eye) Q8H 01/19/20 11/16/23 Unknown History calcium 500 mg (as 1 tablet PO BID 01/19/20 11/16/23 Unknown History carbonate)-vitamin D3 5 mcg (200 unit) tablet (Oysco 500/D) carvedilol 25 mg tablet 25 mg PO BID 01/19/20 11/16/23 Unknown History dorzolamide 2 % eye drops 1 drp ophthalmic (eye) TID 01/19/20 11/16/23 Unknown History furosemide 40 mg tablet 40 mg PO DAILY 01/19/20 11/16/23 Unknown History gabapentin 600 mg tablet 300 mg PO BID 01/19/20 11/16/23 Unknown History loratadine 10 mg tablet (Claritin) 10 mg PO DAILY 01/19/20 11/16/23 Unknown History sennosides 8.6 mg tablet (senna) 8.6 mg PO Q6-8H PRN Constipation 01/19/20 11/16/23 Unknown History timolol 0.25 % eye drops 1 drp LEFT EYE TID 01/19/20 11/16/23 Unknown History ascorbic acid (vitamin C) 500 mg 500 mg PO DAILY 11/16/23 11/16/23 Unknown History tablet baclofen 10 mg tablet 10 mg PO Q12H PRN muscle spasms 11/16/23 11/16/23 Unknown History bisacodyl 10 mg rectal suppository 10 mg RECTAL DAILY PRN Constipation 11/16/23 11/16/23 Unknown History cyanocobalamin (vitamin B-12) 1,000 mcg PO DAILY 11/16/23 11/16/23 Unknown History 1,000 mcg tablet ferrous sulfate 325 mg (65 mg 325 mg PO BID 11/16/23 11/16/23 Unknown History iron) tablet insulin aspart 10 unit subcut TIDWM 11/16/23 11/16/23 Unknown History (niacinamide)(U-100) 100 unit/mL(3 mL) subcutaneous pen (Fiasp FlexTouch U-100 Insulin) insulin glargine 100 unit/mL (3 7 unit subcut HS 11/16/23 11/16/23 Unknown History mL) subcutaneous pen (Basaglar KwikPen U-100 Insulin) lisinopril 20 mg tablet 40 mg PO DAILY 11/16/23 11/16/23 Unknown History menthol 4 % topical gel (Biofreeze 1 applic topical Q12H PRN knee pain 11/16/23 11/16/23 Unknown History (menthol)) Allergies Allergy/AdvReac Type Severity Reaction Status Date / Time egg Allergy Unknown Unknown Verified 11/16/23 09:45 latex Allergy Unknown Unknown Verified 11/16/23 09:45 milk Allergy Unknown Unknown Verified 11/16/23 09:45 Penicillins Allergy Unknown Skin Verified 11/19/23 09:44 Reaction shellfish derived Allergy Unknown Unknown Verified 11/16/23 09:45 Sulfa (Sulfonamide Allergy Unknown Unknown Verified 11/16/23 09:45 Antibiotics) sulfanilamide Allergy Unknown Unknown Verified 11/16/23 09:45 sulfamethizole AdvReac Unknown Nausea Verified 11/19/23 11:54 Review of Systems Review of Systems: All systems reviewed & are unremarkable except as noted in HPI and below PMFSH Past Medical History Medical History Combined systolic and diastolic congestive heart failure Echocardiogram in August 2016 showed severe global left ventricular systolic dysfunction with an EF visually estimated 20 to 25% and diastolic dysfunction. MSSA bacteremia Cerebrovascular accident Dyslipidemia Hypertension Type 2 diabetes mellitus Coronary artery disease Osteomyelitis of fifth toe of right foot Charcot's joint of foot Anemia Lxtjuzw-Cltzx-Arzrh disease Asthma Diabetic retinopathy Surgical History Surgical History Status post excisional debridement Bilateral heels for infected diabetic ulcers. Amputation of fifth toe of right foot Secondary to osteomyelitis. History of incision and drainage Back abscess. History of cardiac catheterization History of tonsillectomy and adenoidectomy History of open reduction and internal fixation (ORIF) procedure Repair of left arm fracture. History of coronary artery stent placement x2 Family History Family History Sibling Cerebrovascular accident Father Family history of diabetes mellitus in first degree relative Diabetes mellitus Family history of hypothyroidism Mother Family history of diabetes mellitus in first degree relative Family history of heart disease in male family member before age 55 Diabetes mellitus Other Family history of cardiovascular disease Hypertension Social History Social History Social History: Surrogate decision maker: Shirley Rush, mother. Code status: Full code. 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 Spiritual care concerns: No Agree to blood products: Yes Exam Narrative: APPEARANCE: Well appearing, no pain, no distress, well-nourished. HEAD: normocephalic, atraumatic. EYES: PERRLA/EOMI, conjunctivae clear. NOSE: Normal no drainage EARS:TMS clear with good light reflex. THROAT: Pharynx clear, no exudate. NECK: Supple. No adenopathy, no masses. RESPIRATORY: Airway patent, respirations nonlabored. Clear to auscultation bilaterally, no rales, rhonchi, wheezing. CARDIOVASCULAR: Regular rate and rhythm without murmurs rubs or gallops. ABDOMINAL: Soft, nontender, nondistended, normal bowel sounds MUSCULOSKELETAL: Moves all extremities. Strength/ROM intact, No edema, No calf tenderness. NEURO: Alert. Cranial nerves II through XII intact. Good gait. Good coordination SKIN: Right lower extremity cellulitis and acutely worsened chronic wound Course Vital Signs Vital signs: Vital Signs Temperature 98.2 F 03/29/25 15:22 Pulse Rate 67 03/29/25 15:22 Respiratory Rate 16 03/29/25 15:22 Blood Pressure 151/76 H 03/29/25 15:22 Pulse Oximetry 100 03/29/25 15:22 Oxygen Delivery Room Air 03/29/25 15:22 Temperature 98.2 F 03/29/25 15:22 Pulse Rate 72 03/29/25 17:39 Respiratory Rate 20 03/29/25 17:39 Blood Pressure 163/77 H 03/29/25 17:39 Pulse Oximetry 99 03/29/25 17:39 Oxygen Delivery Room Air 03/29/25 15:22 Medical Decision Making MDM Narrative Medical decision making narrative: 62-year-old female to the emergency department for evaluation for worsening lower extremity infection. Patient reports having longstanding chronic low but that acutely worsened over the last few days. Patient was also told she was MRSA positive. Patient is currently afebrile no leukocytosis hemoglobin of 8.7 which is similar to her baseline. INR of 1.1. No significant acute abnormalities on her CMP lactic acid is not elevated. MRSA is pending. Ultrasound was negative for DVT. Case was discussed with the hospitalist patient was accepted for admission for IV antibiotics for worsening infection. Patient was started on vancomycin emergency department with blood cultures pending. Patient was updated the results of the workup and plan for admission. All questions concerns were addressed. CT was recommended after the ultrasound. CT is pending at time of admission to the hospitalist. Differential Diagnosis Differential Diagnosis: DVT, cellulitis, diabetic ulcer Vital Signs Vital Signs: Vital Signs Temperature 98.2 F 03/29/25 15:22 Pulse Rate 67 03/29/25 15:22 Respiratory Rate 16 03/29/25 15:22 Blood Pressure 151/76 H 03/29/25 15:22 Pulse Oximetry 100 03/29/25 15:22 Oxygen Delivery Room Air 03/29/25 15:22 Temperature 98.2 F 03/29/25 15:22 Pulse Rate 72 03/29/25 17:39 Respiratory Rate 20 03/29/25 17:39 Blood Pressure 163/77 H 03/29/25 17:39 Pulse Oximetry 99 03/29/25 17:39 Oxygen Delivery Room Air 03/29/25 15:22 Lab Data Lab results reviewed: Yes I reviewed the patient's lab results. 03/29/25 17:40 03/29/25 17:40 Labs: Lab Results 03/29/25 03/29/25 Range/Units 17:40 17:42 WBC 6.2 (4.5-10.0) K/mm3 RBC 3.11 L (4.2-5.4) M/mm3 Hgb 8.7 L (12.0-15.0) g/dL Hct 28.5 L (37.0-47.0) % MCV 91.6 (80-100) fl MCH 28.0 (26-34) pg MCHC 30.5 L (32-36) g/dl RDW 14.0 (11.5-14.5) % Plt Count 195 (150-375) k/mm3 MPV 9.5 (7.4-10.4) fl Immature Gran % (Auto) 0.3 (0-0.5) % Neut % (Auto) 60.3 (45.5-73.1) % Lymph % (Auto) 26.5 (18.3-44.2) % [place] % (Auto) 7.4 (2.6-8.5) % Eos % (Auto) 5.0 H (0-4.4) % Baso % (Auto) 0.5 (0.2-1.2) % Lymph # (Auto) 1.65 (0.9-3.2) K/mm3 [place] # (Auto) 0.5 (0.1-0.6) K/mm3 Eos # (Auto) 0.3 (0-0.3) K/mm3 Baso # (Auto) 0.0 (0.0-0.1) K/mm3 Abs Immat Gran (auto) 0.02 (0.00-0.031) K/mm3 Absolute Neuts (auto) 3.8 (1.3-6.7) K/mm3 Absolute Nucleated RBC 0.000 (0.0-0.012) K/mm3 Nucleated RBC % 0.0 (0.0-0.2) % PT 13.9 (11.1-14.7) Seconds INR 1.1 APTT 31.4 (22.3-36.8) Seconds Sodium 140 (137-145) mmol/L Potassium 4.8 (3.4-5.0) mmol/L Chloride 107 (98-107) mmol/L Carbon Dioxide 26 (22-30) mmol/L Anion Gap 7 (4-12) mmol/L BUN 24 H (7-17) mg/dL Creatinine 1.23 H (0.7-1.0) mg/dL Estim Creat Clear Calc 44 ml/min Estimated GFR 43 L (59 - ) Glucose 119 H (65-110) mg/dL Lactic Acid 0.8 (0.7-2.0) mmol/L Calcium 8.8 (8.4-10.2) mg/dL Total Bilirubin 0.2 (0.2-1.3) mg/dL AST 17 (14-36) U/L ALT 12 (6-35) U/L Alkaline Phosphatase 101 (38-126) U/L Total Protein 8.0 (6.3-8.2) g/dL Albumin 3.5 (3.5-5.1) g/dL Nasal MRSA (PCR) Pending Imaging Data Radiologist's impression: Impressions Venous Doppler Study 03/29/25 16:47 IMPRESSION: 1: No right lower extremity deep venous thrombosis. 2. Limited study as above. 3. There is a 3.6 x 1.0 x 2.5 cm heterogeneous masslike structure in the right groin possibly a lymph node. In addition, there is a 5.9 x 1.4 cm heterogeneous masslike structure in the right groin. A CT of the abdomen and pelvis with contrast is recommended for further assessment. If symptoms persist or worsen, consider a short-term follow-up study or additional imaging for further assessment. Discharge Plan Discharge Clinical Impression: Leg wound, right, Cellulitis Patient Disposition: Still a Patient Condition: Stable Patient Language: Mohawk Prescriptions: No Action lisinopril 20 mg tablet 40 mg PO DAILY baclofen 10 mg tablet 10 mg PO Q12H PRN (Reason: muscle spasms) ascorbic acid (vitamin C) 500 mg Tablet 500 mg PO DAILY Biofreeze (menthol) 4 % Gel 1 applic TOPICAL Q12H PRN (Reason: knee pain) bisacodyl 10 mg Suppository 10 mg RECTAL DAILY PRN (Reason: Constipation) insulin glargine [Basaglar KwikPen U-100 Insulin] 100 unit/mL (3 mL) insulin pen 7 unit SUBCUT HS Rx Instructions: 7 units at bedtime Fiasp FlexTouch U-100 Insulin 100 unit/mL (3 mL) insulin pen 10 unit SUBCUT TIDWM Rx Instructions: 10 units before meals cyanocobalamin (vitamin B-12) 1,000 mcg Tablet 1,000 mcg PO DAILY ferrous sulfate 325 mg (65 mg iron) Tablet 325 mg PO BID cefuroxime axetil 250 mg Tablet 500 mg PO Q12HR Qty: 10 0RF doxycycline hyclate 100 mg Tablet 100 mg PO Q12H Qty: 10 0RF furosemide 40 mg Tablet 40 mg PO DAILY carvedilol 25 mg Tablet 25 mg PO BID sennosides [senna] 8.6 mg Tablet 8.6 mg PO Q6-8H PRN (Reason: Constipation) gabapentin 600 mg Tablet 300 mg PO BID atorvastatin 20 mg Tablet 20 mg PO HS brimonidine 0.2 % Drops 1 drp OPHTHALMIC (EYE) Q8H Rx Instructions: Left eye timolol 0.25 % Drops 1 drp LEFTEYE TID aspirin 81 mg Tablet,Chewable 81 mg PO DAILY loratadine [Claritin] 10 mg Tablet 10 mg PO DAILY dorzolamide 2 % Drops 1 drp OPHTHALMIC (EYE) TID Rx Instructions: L eye calcium carbonate-vitamin D3 [Oysco 500/D] 500 mg(1,250mg) -200 unit Tablet 1 tablet PO BID Saccharomyces boulardii [Florastor] 250 mg capsule 250 mg PO BID Qty: 60 0RF Rx Instructions: swallow whole polyethylene glycol 3350 [Miralax] 17 gram Powder In Packet 17 g PO QAM Qty: 14 0RF acetaminophen 325 mg Tablet 650 mg PO Q6H PRN (Reason: Pain) Qty: 10 0RF Follow-up/Referrals: PHYSICIAN,CASINO RUNNER [Primary Care Provider, Internal Medicine]
[2025-03-29 17:39] VITALS: BP 163/77; PULSE 72; RESP 20; O2SAT 99
[2025-03-29 17:47] LABS: Hematocrit 28.5 % (37.0-47.0); Hemoglobin 8.7 g/dL (12.0-15.0); Immature Granulocyte Percent A 0.3 % (0-0.5); Lymphocytes Absolute Auto 1.65 K/mm3 (0.9-3.2); Mean Corpuscular HGB Conc 30.5 g/dl (32-36); Mean Corpuscular Hemoglobin 28.0 pg (26-34); Mean Corpuscular Volume 91.6 fl (80-100); Nucleated Red Blood Cells Absolute Auto 0.000 K/mm3 (0.0-0.012); Nucleated Red Blood Cells Perc 0.0 % (0.0-0.2); Platelet Count Result 195 k/mm3 (150-375); Red Blood Count 3.11 M/mm3 (4.2-5.4); White Blood Count 6.2 K/mm3 (4.5-10.0)
[2025-03-29 17:58] LABS: INR 1.1; Prothrombin Time 13.9 Seconds (11.1-14.7)
[2025-03-29 17:59] LABS: Alanine Aminotransferase 12 U/L (6-35); Albumin Level 3.5 g/dL (3.5-5.1); Alkaline Phosphatase 101 U/L (38-126); Anion Gap 7 mmol/L (4-12); Aspartate Amino Transferase 17 U/L (14-36); Bilirubin,Total 0.2 mg/dL (0.2-1.3); Blood Urea Nitrogen 24 mg/dL (7-17); Calcium 8.8 mg/dL (8.4-10.2); Carbon Dioxide 26 mmol/L (22-30); Chloride 107 mmol/L (98-107); Estimated CRCL calculation 44 ml/min; Estimated Glomerular Filt Rate 43; Glucose 119 mg/dL (65-110); Partial Thromboplastin Time 31.4 Seconds (22.3-36.8); Potassium 4.8 mmol/L (3.4-5.0); Sodium 140 mmol/L (137-145); Total Protein 8.0 g/dL (6.3-8.2)
--- NOTE | 2025-03-29 18:18 | PC.NURSE ---
Pt was informed about order for UA. Pt declined straight cath and unable to get up to go to bathroom. made aware, pt placed on external female catheter.
[2025-03-29 18:55] LABS: MRSA (PCR) NOT DETECTED (NOT DETECTE)
[2025-03-29] MEDS: MORPHINE SULFATE (*CRX) 4 MG/ML INJ 2 MG IV PUSH (19:22)
[2025-03-29] MEDS: metroNIDAZOLE 500 MG/ISO 100ML 500 MG/100 ML BAG 100 MG IVPB (19:23)
[2025-03-29] MEDS: CEFEPIME 2 GM in SODIUM CHLORIDE 0.9% IV 50 ML 100 ML IVPB (19:23)
[2025-03-29 19:31] VITALS: BP 143/71; PULSE 89; RESP 18; TEMP 37.1; O2SAT 94
--- NOTE | 2025-03-29 19:47 | PM.IMHP ---
H&P: HPI History of Present Illness Date/Time: 03/29/25 19:47 Chief Complaint: Wound Narrative: This is a 70-year-old female patient who has a history of chronic wounds with Charcot's joint of the foot and Bkmmagi-Cyjjm-Etwge disease. The patient resides at a in surgical supply assistant living in stated that a new person did her wound care and she stated that her dressings were sticking to her legs. She stated that they are worse than normal and she reports that she has MRSA. Her white count is normal. Her H&H is 8.7 and 28.5. Her BUN is 24 creatinine 1.23 which appears to be better than her baseline. Her glucose is 119. GFR is 43 which appears to be better than her last value at 35. Venous Doppler was read as a followin.No right lower extremity deep venous thrombosis. 2. Limited study as above. 3. There is a 3.6 x 1.0 x 2.5 cm heterogeneous masslike structure in the right groin possibly a lymph node. In addition, there is a 5.9 x 1.4 cm heterogeneous masslike structure in the right groin. A CT of the abdomen and pelvis with contrast is recommended for further assessment. If symptoms persist or worsen, consider a short-term follow-up study or additional imaging for further assessment. CT of the abdomen and pelvis was read as the following 1. Inguinal lymph nodes, unchanged from 2021 scan. These account for the findings on ultrasound today. 2. Mild gastritis not excluded. 3. No other acute abnormality within abdomen or pelvis. The patient was started on Flagyl, cefepime, morphine and vancomycin in the emergency room. She is afebrile and her vital signs are stable. Patient is being admitted to inpatient status on the date of service of 03/29/2025 Review of Systems Constitutional: Constitutional: Reports as per HPI and Reports no additional constitutional complaints Eyes: Eyes: Reports as per HPI and Reports no additional eye complaints ENT: Reports no additional ear, nose, mouth, and throat complaints and Reports Normal hearing present Cardiovascular: Cardiovascular: Reports no additional cardiovascular complaints Respiratory: Respiratory: Reports as per HPI and Reports no additional respiratory complaints Gastrointestinal: Gastrointestinal: Reports as per HPI and Reports no additional gastrointestinal complaints Genitourinary: Genitourinary: Reports no additional female genitourinary complaints Musculoskeletal: Musculoskeletal: Reports no additional musculoskeletal complaints Integumentary/Breasts: Skin/Breast: Reports system reviewed and no additional complaints, except as docu Neurologic: Reports no additional neurologic complaints and Reports Normal hearing present Psychiatric: Psychiatric: Reports no additional psychiatric complaints and Reports as per HPI Hematologic/Lymphatic: Hematologic/Lymphatic: Reports no additional hematologic/lymphatic complaints Allergic/Immunologic: Allergic/Immunologic: Reports no additional allergic/immunologic complaints [facility] Past Medical History Medical History Combined systolic and diastolic congestive heart failure Echocardiogram in August 2016 showed severe global left ventricular systolic dysfunction with an EF visually estimated 20 to 25% and diastolic dysfunction. MSSA bacteremia Cerebrovascular accident Dyslipidemia Hypertension Type 2 diabetes mellitus Coronary artery disease Osteomyelitis of fifth toe of right foot Charcot's joint of foot Anemia Qigzmuc-Kwsyx-Fflhz disease Asthma Diabetic retinopathy Surgical History Surgical History Status post excisional debridement Bilateral heels for infected diabetic ulcers. Amputation of fifth toe of right foot Secondary to osteomyelitis. History of incision and drainage Back abscess. History of cardiac catheterization History of tonsillectomy and adenoidectomy History of open reduction and internal fixation (ORIF) procedure Repair of left arm fracture. History of coronary artery stent placement x2 Family History Family History Sibling Cerebrovascular accident Father Family history of diabetes mellitus in first degree relative Diabetes mellitus Family history of hypothyroidism Mother Family history of diabetes mellitus in first degree relative Family history of heart disease in male family member before age 55 Diabetes mellitus Other Family history of cardiovascular disease Hypertension Social History Social History (Updated 03/30/25 @ 00:31 by Keri Dumont APRN) Social History: [facility]. She has No children Surrogate decision maker: Shirley Siennaalok, mother. Code status: Full code. 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 Spiritual care concerns: Yes Agree to blood products: Yes Meds Home Medications and Allergies Home Medications ?Medication ?Instructions ?Recorded ?Confirmed ?Type aspirin 81 mg chewable tablet 81 mg PO DAILY 01/19/20 03/29/25 History atorvastatin 20 mg tablet 20 mg PO HS 01/19/20 03/29/25 History brimonidine 0.2 % eye drops 1 drp ophthalmic (eye) Q8H 01/19/20 03/29/25 History calcium 500 mg (as 1 tablet PO BID 01/19/20 03/29/25 History carbonate)-vitamin D3 5 mcg (200 unit) tablet (Oysco 500/D) carvedilol 25 mg tablet 25 mg PO BID 01/19/20 03/29/25 History furosemide 40 mg tablet 20 mg PO DAILY 01/19/20 03/29/25 History gabapentin 600 mg tablet 300 mg PO BID 01/19/20 03/29/25 History loratadine 10 mg tablet (Claritin) 10 mg PO DAILY 01/19/20 03/29/25 History sennosides 8.6 mg tablet (senna) 8.6 mg PO DAILY PRN Constipation 01/19/20 03/29/25 History timolol 0.25 % eye drops 1 drp LEFT EYE TID 01/19/20 03/29/25 History acetaminophen 325 mg tablet 650 mg (2 x 325 mg) PO Q6H PRN 12/16/21 03/29/25 Rx Pain #10 tabs baclofen 10 mg tablet 10 mg PO Q12H PRN muscle spasms 11/16/23 03/29/25 History bisacodyl 10 mg rectal suppository 10 mg RECTAL DAILY PRN Constipation 11/16/23 03/29/25 History cyanocobalamin (vitamin B-12) 1,000 mcg PO DAILY 11/16/23 03/29/25 History 1,000 mcg tablet ferrous sulfate 325 mg (65 mg 325 mg PO BID 11/16/23 03/29/25 History iron) tablet insulin aspart 8 unit subcut TIDWM 11/16/23 03/29/25 History (niacinamide)(U-100) 100 unit/mL(3 mL) subcutaneous pen (Fiasp FlexTouch U-100 Insulin) insulin glargine 100 unit/mL (3 20 unit subcut HS 11/16/23 03/29/25 History mL) subcutaneous pen (Basaglar KwikPen U-100 Insulin) amino acids-protein hydrolysate 11 1 ea PO QAM 03/29/25 03/29/25 History gram-80 kcal/30 mL oral liquid calcium carbonate (Oyster Shell 500 mg PO BID 03/29/25 03/29/25 History Calcium) cholecalciferol (vitamin D3) 25 75 mcg PO DAILY 03/29/25 03/29/25 History mcg (1,000 unit) chewable tablet diclofenac sodium 1 % topical gel 2 g topical .q12 PRN pain 03/29/25 03/29/25 History (Voltaren Arthritis Pain) gentamicin 0.1 % topical cream 1 applic topical DAILY 03/29/25 03/29/25 History latanoprost 0.005 % eye drops 1 drp LEFT EYE QPM 03/29/25 03/29/25 History loperamide 2 mg capsule 2 mg PO .q24 PRN loose stool 03/29/25 03/29/25 History (Anti-Diarrheal (loperamide)) magnesium citrate (Citroma oral 296 ml PO .q24 PRN constipation 03/29/25 03/29/25 History solution) magnesium hydroxide 400 mg/5 mL 30 ml PO DAILY PRN constipation 03/29/25 03/29/25 History oral suspension (Milk of Magnesia) ondansetron 4 mg disintegrating 4 mg PO Q8H PRN nausea and vomiting 03/29/25 03/29/25 History tablet polyethylene glycol 3350 17 gram 17 g PO QAM PRN constipation 03/29/25 03/29/25 History oral powder packet (Miralax) sacubitril 24 mg-valsartan 26 mg 1 tablet PO BID 03/29/25 03/29/25 History tablet (Entresto) sodium chloride 0.65 % nasal spray 1 spray intranasal Q6H PRN dry 03/29/25 03/29/25 History aerosol (Nasal [place] (sodium nasal passages chloride)) spironolactone 25 mg tablet 25 mg PO QAM 03/29/25 03/29/25 History (Aldactone) Allergies Allergy/AdvReac Type Severity Reaction Status Date / Time egg Allergy Unknown Unknown Verified 03/29/25 21:01 latex Allergy Unknown Unknown Verified 03/29/25 21:01 milk Allergy Unknown Unknown Verified 03/29/25 21:01 Penicillins Allergy Unknown Skin Verified 03/29/25 21:01 Reaction shellfish derived Allergy Unknown Unknown Verified 03/29/25 21:01 Sulfa (Sulfonamide Allergy Unknown Unknown Verified 03/29/25 21:01 Antibiotics) sulfanilamide Allergy Unknown Unknown Verified 03/29/25 21:01 sulfamethizole AdvReac Unknown Nausea Verified 03/29/25 21:01 Vital Signs Vital Signs - 24 hr 03/29/25 15:22 03/29/25 17:39 03/29/25 19:31 Temperature 98.2 F 98.8 F Pulse Rate 67 72 89 Respiratory Rate 16 20 18 Blood Pressure 151/76 H 163/77 H 143/71 H Pulse Oximetry 100 99 94 Oxygen Delivery Room Air Exam Const: General: cooperative, comfortable, no acute distress, awake and Physically active Orientation/consciousness: oriented to person, oriented to place, oriented to time and patient oriented x3 Other: She is very talkative and is very knowledgeable on multiple subjects. 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 HENMT: Head: normal to inspection, No palpable skull fracture present, normocephalic, atraumatic and abrasion Ears: hearing grossly normal bilaterally and external ears normal Eyes: General: appearance normal, both eyes and all related structures Alignment and Position: alignment normal Periorbital: periorbital findings normal Eyelids: eyelids normal Neck: Neck: normal visual inspection, full ROM, no lymphadenopathy and trachea midline Chest: Chest palpation & inspection: normal inspection of the chest Resp: Effort & Inspection: normal respiratory effort Auscultation: clear to auscultation bilaterally Cardio: Palpation: normal PMI Rate: regular rate Rhythm: regular rhythm Heart sounds: S1 normal heart sound present and S2 normal heart sound present Peripheral pulses: Peripheral pulses 2+ throughout GI: Inspection: normal to inspection Auscultation: normal bowel sounds Rectal Exam: deferred Back/Spine/Pelvis: Back: no CVA tenderness Neuro: General: oriented to person, oriented to place, oriented to time and patient oriented x3 Cranial nerves: Yes Normal hearing present Cognition (Neuro): normal cognition Speech: normal speech Extrem: General: normal to inspection Right upper extremity: normal to inspection and shoulder/upper arm Left upper extremity: normal to inspection and shoulder/upper arm Right lower extremity: normal to inspection Left lower extremity: normal to inspection Other: Weak pedal pulses bilaterally. She has flatfoot. She has an excoriated area to her right lower extremity anteriorly. She has a dressing intact to the left lower extremity and would not allow me to remove that dressing at this time. She stated that she did not want her wounds left open area this time. Please see pictures in the chart. 2+ pitting edema. Weak pedal pulses. Psych: Appearance: grossly normal Mental Status: mental status grossly normal Speech and movement: Normal speech and movement present Affect: normal affect Attitude: cooperative Thought process: Normal thought process present Thought content: Yes Normal thought content present Insight: Good insight present (Psych) Judgement: Good judgement present (Psych) H&P: Results Labs Labs: Short CBC 03/29/25 Range/Units 17:40 WBC 6.2 (4.5-10.0) K/mm3 Hgb 8.7 L (12.0-15.0) g/dL Hct 28.5 L (37.0-47.0) % Plt Count 195 (150-375) k/mm3 BMP 03/29/25 17:40 Sodium 140 Potassium 4.8 Chloride 107 Carbon Dioxide 26 BUN 24 H Creatinine 1.23 H Glucose 119 H Calcium 8.8 Liver Function 03/29/25 Range/Units 17:40 Total Bilirubin 0.2 (0.2-1.3) mg/dL AST 17 (14-36) U/L ALT 12 (6-35) U/L Alkaline Phosphatase 101 (38-126) U/L Albumin 3.5 (3.5-5.1) g/dL Imaging CT scan - abdomen: Radiologist's impression: Impressions Venous Doppler Study 03/29/25 16:47 IMPRESSION: 1: No right lower extremity deep venous thrombosis. 2. Limited study as above. 3. There is a 3.6 x 1.0 x 2.5 cm heterogeneous masslike structure in the right groin possibly a lymph node. In addition, there is a 5.9 x 1.4 cm heterogeneous masslike structure in the right groin. A CT of the abdomen and pelvis with contrast is recommended for further assessment. If symptoms persist or worsen, consider a short-term follow-up study or additional imaging for further assessment. Abdomen/Pelvis CT 03/29/25 19:13 IMPRESSION: 1. Inguinal lymph nodes, unchanged from 2021 scan. These account for the findings on ultrasound today. 2. Mild gastritis not excluded. 3. No other acute abnormality within abdomen or pelvis. Assessment and Plan Assessment and plan (1) Cellulitis: Code(s): L03.90 - Cellulitis, unspecified Status: Acute Assessment and Plan: -to bilateral lower extremities. -the patient was getting wound care treatments at her facility. Wound care consult was placed. -patient reported that she had a history of MRSA to lower extremities in the past. -arterial Dopplers with ABIs have been ordered -wound and blood cultures are pending. -note white count was noted at this time and she is afebrile -she has Charcot'p-Nfmpi-Phosw disease. -she has had chronic wounds to her lower extremities. -continue with gentamicin ointment to lower extremities. -the patient was started on cefepime, vancomycin, and Flagyl. (2) Anemia: Code(s): D64.9 - Anemia, unspecified Status: Acute Assessment and Plan: -patient's H&H is 8.7 and 28.5 previously was 10.0 in 32.8. -H&H every 6 hours -check stool for occult blood. -anemia panel -check stool for occult blood -she is not on any anticoagulation only aspirin. (3) Type 2 diabetes mellitus: Code(s): E11.9 - Type 2 diabetes mellitus without complications Status: Acute (4) HLD (hyperlipidemia): Qualifiers: Hyperlipidemia type: unspecified Qualified Code(s): E78.5 - Hyperlipidemia, unspecified Code(s): E78.5 - Hyperlipidemia, unspecified Status: Chronic (5) Combined systolic and diastolic congestive heart failure: Code(s): I50.40 - Unspecified combined systolic (congestive) and diastolic (congestive) heart failure Status: Acute
[2025-03-29] MEDS: VANCOMYCIN 1,250 MG/NS 250 ML 1,250 MG/250 ML BAG 166.67 MG IVPB (20:17)
[2025-03-29 20:37] VITALS: BP 135/89; PULSE 91; RESP 18; O2SAT 95
[2025-03-29 20:59] VITALS: BMI 39.5
--- NOTE | 2025-03-29 20:59 | PC.NURSE ---
PATIENT ARRIVED ON 3 MEDSURG AT 2044
--- NOTE | 2025-03-29 21:10 | ADMGEN ---
This patient, Giovana Rush, was admitted to [facility] Surg Room 329-01. Patient/family oriented to hospital policies and general routines including ID bracelet, bed and alarms, visiting hours, pain management, procedures, bathroom and other care routines, personal items, smoking policy, room service/diet, and visiting hours. Information on how to activate the Rapid Response Team has been discussed. Patient/Family are encouraged to report perceived risks to care and to ask questions if they do not understand what they are told or what they should do.
[2025-03-29 21:11] VITALS: BP 146/68; PULSE 96; RESP 18; TEMP 36.5; O2SAT 96
[2025-03-29] MEDS: VANCOMYCIN HCL 1,000 MG in SODIUM CHLORIDE 0.9% IV 250 ML 250 MG IVPB (21:54)
--- NOTE | 2025-03-30 | ECHO_ITS ---
Patient Info Name: Giovana Rush Age: 70 years : 1955 Gender: Female Ht: 60 in Wt: 202 lbs BSA: 2.02 m2 HR: 85 bpm Technical Quality: Good Exam Date: 03/30/2025 2:28 PM Patient Status: I Admit Date: 03/30/2025 Exam Type: CA echo doppler color flow Complete two-dimensional, color flow and Doppler transthoracic echocardiogram is performed. Staff Referring Physician: Keri Dumont [employer]ITION ASSEMBLER Type Mapper: Arthur Vicente III Attending Provider: Sidney Lopez Summary 1. Complete two-dimensional, color flow and Doppler transthoracic echocardiogram is performed. 2. Left ventricular chamber dimension is mildly enlarged. 3. Left ventricular systolic function is moderately reduced, estimated at 40-45. 4. Left ventricular septal wall motion is abnormal with septal motion related to bundle branch block. 5. The left ventricular diastolic function is grade I diastolic dysfunction. 6. E/e' 20 is elevated. 7. Left atrial chamber dimension is mildly enlarged. 8. The mitral valve has a mildly calcified annulus. 9. There is mild mitral valve regurgitation. 10. There is trace tricuspid valve regurgitation. Left Ventricle E/e' 20 is elevated. Left ventricular chamber dimension is mildly enlarged. Left ventricular systolic function is moderately reduced, estimated at 40-45. Left ventricular septal wall motion is abnormal with septal motion related to bundle branch block. The left ventricular diastolic function is grade I diastolic dysfunction. Right Ventricle Right ventricular chamber dimension is normal. Right ventricular systolic function is normal and with normal TAPSE 2.0 cm. Left Atria Left atrial chamber dimension is mildly enlarged. Right Atria Right atrial chamber dimension is normal. Aortic Valve The aortic valve is trileaflet. There is no aortic valve stenosis. There is no aortic valve regurgitation. Pulmonic Valve There is no pulmonic regurgitation. Mitral Valve The mitral valve has a mildly calcified annulus. There is no mitral valve stenosis. There is mild mitral valve regurgitation. Tricuspid Valve There is trace tricuspid valve regurgitation. RVSP is not measured due to an inadequate TR jet. Pericardium/Pleural There is no pericardial effusion. Inferior Vena Cava Normal inferior vena cava with >50% collapse upon inspiration consistent with normal right atrial pressure, 5 mmHg. Aorta The aortic root size at the sinus of Valsalva is normal. Left Ventricular Outflow Tract Name Value Normal LVOT 2D LVOT Diameter 2.1 cm LVOT Doppler LVOT Peak Velocity 108 cm/s LVOT Peak Gradient 5 mmHg LVOT Mean Gradient 3 mmHg LVOT VTI 25 cm LVOT VTI/AV VTI Ratio 0.8 LVOT Stroke Volume 84 ml LVOT CO 5.7 l/min LVOT CI 2.8 l/min/m2 Pulmonic Valve Name Value Normal PV Doppler PV Peak Velocity 106 cm/s PV Peak Gradient 4 mmHg PV Mean Gradient 2 mmHg Mitral Valve Name Value Normal MV Doppler MV Peak Gradient 7 mmHg MV Mean Gradient 3 mmHg MV Area (Cont Eq VTI) 2.3 cm2 MV Diastolic Function MV E Peak Velocity 106 cm/s MV A Peak Velocity 140 cm/s MV E/A 0.8 MV Decel Time (PW) 182 ms MV Annular TDI MV E/e' (Septal) 23.1 MV E/e' (Lateral) 18.7 MV E/e' (Average) 20.9 Tricuspid Valve Name Value Normal Estimated PAP/RSVP RA Pressure 5 mmHg <=5 TV Annular TDI TV Lateral Ingrid s' Velocity 14.2 cm/s >=9.5 Aortic Valve Name Value Normal AV Doppler AV Peak Velocity 154 cm/s AV Peak Gradient 9 mmHg AV Mean Gradient 5 mmHg AV VTI 30 cm AV Area (Cont Eq VTI) 2.8 cm2 >=3.0 AV Area (Cont Eq Andrew) 2.3 cm2 AV DI (Andrew) 0.70 AV Regurgitation 2D LVOT Area 3.3 cm2 Ventricles Name Value Normal LV Dimensions 2D/MM IVS Diastolic Thickness (2D) 1.3 cm 0.6-1.0 LVID Diastole (2D) 4.7 cm 3.8-5.2 LVIW Diastolic Thickness (2D) 1.1 cm 0.6-0.9 LVID Systole (2D) 4.0 cm 2.2-3.5 LVOT Diameter 2.1 cm LV Mass (2D Cubed) 222.07 g 67.00-162.00 LV Mass Index (2D Cubed) 110 g/m2 43-95 Relative Wall Thickness (2D) 0.48 <=0.42 LV Fractional Shortening/Ejection Fraction 2D/MM LV Fractional Shortening (2D) 15 % 27-45 LV EF (2D Teichholz) 32 % LV Diastolic Volume (4C MOD) 127 ml LV EF (4C MOD) 37 % LV Diastolic Volume (2C MOD) 117 ml LV EF (2C MOD) 42 % LV Diastolic Volume (BP MOD) 122 ml 46-106 LV Diastolic Volume Index (BP MOD) 60 ml/m2 29-61 LV Systolic Volume (BP MOD) 74 ml 14-42 LV Systolic Volume Index (BP MOD) 37 ml/m2 8-24 LV EF (BP MOD) 39 % 54-74 LV Diastolic Length (4C) 8.0 cm LV Systolic Length (4C) 7.5 cm LV Stroke Volume (4C MOD) 48 ml Atria Name Value Normal LA Dimensions LA Volume (4C A-L) 57 ml LA Volume (BP A-L) 68 ml RA Dimensions RA Systolic Major Cornelius Length (4C) 4.9 cm 2.2-2.8 RA Area (4C) 15.0 cm2 <=18.0 Report Signatures
[2025-03-30 00:36] LABS: Hematocrit 28.1 % (37.0-47.0); Hemoglobin 8.5 g/dL (12.0-15.0)
[2025-03-30 02:21] LABS: Add Urine Microscopic? NO; Appearance Urine Clear (Clear); Glucose Urine UA Negative (Negative); Leukocyte Esterase Ur Negative LEU/UL (Negative); Nitrate Urine Negative (Negative); Specific Grav Ur 1.037 (1.001-1.035)
[2025-03-30 05:13] VITALS: BP 144/64; PULSE 85; RESP 16; TEMP 36.7; O2SAT 97
[2025-03-30] MEDS: BRIMONIDINE TARTRATE 0.2% OP SOLN 5 ML BTL 1 DROP EACH EYE ×3 (05:40→20:27)
[2025-03-30] MEDS: metroNIDAZOLE 500 MG/ISO 100ML 500 MG/100 ML BAG 100 MG IVPB ×2 (05:40→13:10)
[2025-03-30 06:54] LABS: Hematocrit 27.3 % (37.0-47.0); Hemoglobin 8.2 g/dL (12.0-15.0); Immature Granulocyte Percent A 0.5 % (0-0.5); Immature Reticulocyte Fraction 16.2 % (3.0-15.9); Lymphocytes Absolute Auto 1.12 K/mm3 (0.9-3.2); Mean Corpuscular HGB Conc 30.0 g/dl (32-36); Mean Corpuscular Hemoglobin 28.3 pg (26-34); Mean Corpuscular Volume 94.1 fl (80-100); Nucleated Red Blood Cells Absolute Auto 0.000 K/mm3 (0.0-0.012); Nucleated Red Blood Cells Perc 0.0 % (0.0-0.2); Platelet Count Result 169 k/mm3 (150-375); Red Blood Count 2.90 M/mm3 (4.2-5.4); Reticulocyte Hemoglobin Conten 29.3 pg (28.2-36.6); Reticulocytes Absolute 0.06 10^6/uL (0.02-0.10); White Blood Count 6.1 K/mm3 (4.5-10.0)
[2025-03-30 07:10] LABS: Iron 32 ug/dL (37-170)
[2025-03-30 07:16] LABS: Bilirubin,Total 0.2 mg/dL (0.2-1.3); Estimated CRCL calculation 41 ml/min; Estimated Glomerular Filt Rate 46
[2025-03-30 07:19] LABS: Percent Iron Saturation 20 % (20-50)
[2025-03-30 07:24] LABS: Transferrin 106 mg/dL (206-381)
[2025-03-30 07:30] LABS: Hemoglobin A1C 7.2 % (<5.7)
[2025-03-30 07:40] LABS: Thyroid Stimulating Hormone Reflex 1.520 uIU/mL (0.465-4.68)
[2025-03-30 07:45] LABS: Ferritin 441.00 ng/mL (11.1-264)
--- NOTE | 2025-03-30 08:11 | P.PNIM_ITS ---
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 Was not on abx at SNF. Afebrile, no leukocytosis. -the patient was getting wound care treatments at her facility. 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 Would like benefit from vascular surgery eval as outpatient. -arterial Dopplers with ABIs have been ordered -wound and blood cultures are pending. -the patient was started on cefepime, vancomycin, and Flagyl. Will continue for now pending cultures, but low threshold to de-escalate. - elevate extremities. Continue PO lasix. - pain control (2) Anemia: Code(s): D64.9 - Anemia, unspecified Status: Acute Assessment and Plan: -Hgb 8.3, and overall stable here. Previously around 10. Denies signs of bleeding. Normocytic. -check stool for occult blood - iron studies show likely AOCD - she is not on any anticoagulation only aspirin. - occult stool pending (3) Type 2 diabetes mellitus: Code(s): E11.9 - Type 2 diabetes mellitus without complications Status: Acute Assessment and Plan: - last HgbA1c - 7.2 - continue Lantus at reduced dose, low dose SSI - POCT glucose qACHS - hypoglycemia management protocol (4) Combined systolic and diastolic congestive heart failure: Code(s): I50.40 - Unspecified combined systolic (congestive) and diastolic (congestive) heart failure Status: Acute Assessment and Plan: - echo 11/2021 with EF 35-40%, G1DD -appears euvolemic - continue PO Lasix, Aldactone, Entresto, carvedilol Subjective Date/time seen: 03/30/25 08:11 Interval history: Patient and examined at bedside. Still having significant leg pain. Denied fevers. Review of Systems Review of Systems: All systems reviewed & are unremarkable except as noted in HPI and below Exam Narrative: General: NAD, obese Eyes: EOMI ENT: neck supple Cardiovascular: Regular rate and rhythm Respiratory: Clear to auscultation, respirations even and unlabored on RA Gastrointestinal: Soft, non tender Genitourinary: no suprapubic tenderness Musculoskeletal: Bilateral LEs with clean, dry wound dressings. Patient refused for dressings to be pulled back for exam. Skin: warm, dry Neuro: Alert. Psych: anxious Objective Data Vital Signs Vital Signs: Vital Signs - 24 hr 03/29/25 15:22 03/29/25 17:39 03/29/25 19:31 Temperature 98.2 F 98.8 F Pulse Rate 67 72 89 Respiratory Rate 16 20 18 Blood Pressure 151/76 H 163/77 H 143/71 H Pulse Oximetry 100 99 94 Oxygen Delivery Room Air 03/29/25 20:37 03/29/25 21:00 03/29/25 21:11 Temperature 97.7 F Pulse Rate 91 96 Respiratory Rate 18 18 Blood Pressure 135/89 146/68 H Pulse Oximetry 95 96 Oxygen Delivery Room Air 03/30/25 05:13 Temperature 98.1 F Pulse Rate 85 Respiratory Rate 16 Blood Pressure 144/64 H Pulse Oximetry 97 Oxygen Delivery Intake/Output Intake/Output: Intake & Output 03/27/25 03/28/25 03/29/25 03/30/25 23:59 23:59 23:59 23:59 Intake Total 150 Output Total 700 Balance 150 -700 Meds/Results Medications: Active Medications Generic Name Dose Route Start Last Admin Trade Name Freq PRN Reason Stop Dose Admin Acetaminophen 650 mg 03/30/25 00:27 Acetaminophen 325 Mg Tablet PO Q6H PRN Pain Aspirin 81 mg 03/30/25 09:00 Aspirin 81 Mg Chewable Tablet PO DAILY [facility] Atorvastatin Calcium 20 mg 03/30/25 21:00 Atorvastatin 20 Mg Tablet PO HS [facility] Baclofen 10 mg 03/30/25 00:27 Baclofen 10 Mg Tablet PO Q12H PRN muscle spasms Bisacodyl 10 mg 03/30/25 00:27 Bisacodyl 10 Mg Suppository RECTAL DAILY PRN Constipation Brimonidine Tartrate 1 drop 03/30/25 06:00 03/30/25 05:40 Brimonidine Tartrate 0.2% Op Soln 5 Ml Btl EACH EYE 1 drop Q8HR [facility] Administration Calcium Carbonate 500 mg 03/30/25 09:00 Calcium/Vitamin D 500 Mg/5 Mcg (200 I.U.) Tablet PO BID [facility] Carvedilol 25 mg 03/30/25 09:00 Carvedilol 25 Mg Tablet PO Q12HR [facility] Dextrose 12.5 gm 03/30/25 00:26 Dextrose 50% 25 Gm/50 Ml Syringe IV PUSH PRN PRN Hypoglycemia Protocol Diclofenac Sodium 1 applic 03/30/25 00:27 Diclofenac Sodium 1% 100 Gm Gel (*Bkc) TOPICAL Q12H PRN Pain Ferrous Sulfate 325 mg 03/30/25 09:00 Ferrous Sulfate 325 Mg Tablet PO BID [facility] Furosemide 20 mg 03/30/25 09:00 Furosemide 20 Mg Tablet PO DAILY [facility] Gabapentin 300 mg 03/30/25 09:00 Gabapentin 300 Mg Capsule PO BID [facility] Gentamicin Sulfate 1 applic 03/30/25 09:00 Gentamicin Sulfate 0.1% Cr 15 Gm Tube TOPICAL DAILY [facility] Glucagon 1 mg 03/30/25 00:26 Glucagon For Inj 1 Mg Vial IM PRN PRN Hypoglycemia Protocol Glucose 15 gm 03/30/25 00:26 Glucose Oral Gel 15 Gm Of Glucse In 37.5 Gm Tube PO PRN PRN Hypoglycemia Protocol Metronidazole 500 mg in 100 mls @ 100 mls/hr 03/30/25 06:00 03/30/25 05:40 Flagyl 500 Mg/Iso Soln 100 Ml IVPB 100 mls/hr Q8H TIA Administration Cefepime HCl 1 gm/ Sodium 50 mls @ 100 mls/hr 03/30/25 09:00 Chloride IVPB Q12H TIA Vancomycin HCl 1,500 mg in 500 mls @ 250 mls/hr 03/30/25 20:00 Vancomycin 1,500 Mg/Ns 500 Ml IVPB Q24H TIA Dextrose 1,000 mls @ 100 mls/hr 03/30/25 00:26 Dextrose 5% 1,000 Ml IVPB PRN PRN Hypoglycemia Protocol Insulin Aspart 2 - 5 units 03/30/25 08:00 Insulin Aspart (*Bkc) 100 Units/Ml SUB-Q TIDWM TIA Protocol Insulin Glargine 16 units 03/30/25 21:00 Insulin Glargine (*Bkc) 100 Units/Ml SUB-Q HS TIA Latanoprost 1 drop 03/30/25 18:00 Latanoprost 0.005% Op Soln 2.5 Ml Btl LEFT EYE QPM TIA Loperamide HCl 2 mg 03/30/25 00:27 Loperamide Hcl 2 Mg Capsule PO Q24H PRN Loose Stool Loratadine 10 mg 03/30/25 09:00 Loratadine 10 Mg Tablet PO DAILY [facility] Magnesium Citrate 300 ml 03/30/25 00:27 Magnesium Citrate 300 Ml Btl PO Q24H PRN Constipation Perflutren Lipid Microsphere 0 ml 03/30/25 00:30 Perflutren Lipid Microspheres 1.5 Ml Vial Diluted To 10 Ml Total Volume IV PUSH 04/02/25 00:30 ONCE PRN adequate visualization Protocol Polyethylene Glycol 17 gm 03/30/25 00:27 Polyethylene Glycol 3350 17 Gm Powd.Pack PO QAM PRN Constipation Sacubitril/Valsartan 1 tab 03/30/25 09:00 Sacubitril/Valsartan 24-26 Mg Tablet PO Q12HR TIA Senna 8.6 mg 03/30/25 00:27 Sennosides 8.6 Mg Tablet PO DAILY PRN Constipation Sodium Chloride 1 spray 03/30/25 00:27 Saline 0.65% David Soln 44 Ml Btl NASAL Q6H PRN Dry Nasal Passages Spironolactone 25 mg 03/30/25 09:00 Spironolactone 25 Mg Tablet PO QAM TIA Timolol Maleate 1 drop 03/30/25 09:00 Timolol Maleate 0.25% Op Soln 5 Ml Bottle LEFT EYE TID [facility] Radiology Results: ITS Impressions Venous Doppler Study 03/29/25 16:47 IMPRESSION: 1: No right lower extremity deep venous thrombosis. 2. Limited study as above. 3. There is a 3.6 x 1.0 x 2.5 cm heterogeneous masslike structure in the right groin possibly a lymph node. In addition, there is a 5.9 x 1.4 cm heterogeneous masslike structure in the right groin. A CT of the abdomen and pelvis with contrast is recommended for further assessment. If symptoms persist or worsen, consider a short-term follow-up study or additional imaging for further assessment. Abdomen/Pelvis CT 03/29/25 19:13 IMPRESSION: 1. Inguinal lymph nodes, unchanged from 2021 scan. These account for the findings on ultrasound today. 2. Mild gastritis not excluded. 3. No other acute abnormality within abdomen or pelvis. Labs Labs: Laboratory Results - last 24 hr 03/29/25 03/29/25 03/29/25 17:40 17:42 21:09 WBC 6.2 RBC 3.11 L Hgb 8.7 L Hct 28.5 L MCV 91.6 MCH 28.0 MCHC 30.5 L RDW 14.0 Plt Count 195 MPV 9.5 Immature Gran % (Auto) 0.3 Neut % (Auto) 60.3 Lymph % (Auto) 26.5 Vigo % (Auto) 7.4 Eos % (Auto) 5.0 H Baso % (Auto) 0.5 Lymph # (Auto) 1.65 [place] # (Auto) 0.5 Eos # (Auto) 0.3 Baso # (Auto) 0.0 Abs Immat Gran (auto) 0.02 Absolute Neuts (auto) 3.8 Absolute Nucleated RBC 0.000 Nucleated RBC % 0.0 Absolute Retic Percent Retic Immature Retic Fraction Retic Hgb Content PT 13.9 INR 1.1 APTT 31.4 Sodium 140 Potassium 4.8 Chloride 107 Carbon Dioxide 26 Anion Gap 7 BUN 24 H Creatinine 1.23 H Estim Creat Clear Calc 44 Estimated GFR 43 L Glucose 119 H POC Capillary Glucose 132 H Hemoglobin A1c Lactic Acid 0.8 Calcium 8.8 Iron TIBC % Saturation Transferrin Ferritin Total Bilirubin 0.2 Direct Bilirubin AST 17 ALT 12 Alkaline Phosphatase 101 Lactate Dehydrogenase Total Protein 8.0 Albumin 3.5 TSH (Reflex) Urine Color Urine Appearance Urine pH Ur Specific Grand Chain Urine Protein Urine Glucose (UA) Urine Ketones Ur Blood (Man) Urine Nitrate Urine Bilirubin Urine Urobilinogen Leukocyte Esterase Rfl Ur Random Creatinine U Random Total Protein Protein/Creatinin Ratio Urine Albumin U Tcusu-[id number] U Dyhwy-[id number] U Beta Globulin U Gamma Globulin U Abnormal Prot Band 1 U Abnormal Prot Band 2 U Abnormal Prot Band 3 Urine PEP Interpret Nasal MRSA (PCR) Not detected 03/30/25 03/30/25 03/30/25 00:30 02:12 04:33 WBC RBC Hgb 8.5 L Hct 28.1 L MCV MCH MCHC RDW Plt Count MPV Immature Gran % (Auto) Neut % (Auto) Lymph % (Auto) Vigo % (Auto) Eos % (Auto) Baso % (Auto) Lymph # (Auto) Vigo # (Auto) Eos # (Auto) Baso # (Auto) Abs Immat Gran (auto) Absolute Neuts (auto) Absolute Nucleated RBC Nucleated RBC % Absolute Retic Percent Retic Immature Retic Fraction Retic Hgb Content PT INR APTT Sodium Potassium Chloride Carbon Dioxide Anion Gap BUN Creatinine Estim Creat Clear Calc Estimated GFR Glucose POC Capillary Glucose 154 H Hemoglobin A1c Lactic Acid Calcium Iron TIBC % Saturation Transferrin Ferritin Total Bilirubin Direct Bilirubin AST ALT Alkaline Phosphatase Lactate Dehydrogenase Total Protein Albumin TSH (Reflex) Urine Color Yellow Urine Appearance Clear Urine pH 7.0 Ur Specific Grand Chain 1.037 H Urine Protein Negative Urine Glucose (UA) Negative Urine Ketones Negative Ur Blood (Man) Negative Urine Nitrate Negative Urine Bilirubin Negative Urine Urobilinogen 0.2 Leukocyte Esterase Rfl Negative Ur Random Creatinine Cancelled U Random Total Protein Cancelled Protein/Creatinin Ratio Cancelled Urine Albumin Cancelled U Pelrc-2-Bkubxuep Cancelled U Reqcl-0-Mtvntedd Cancelled U Beta Globulin Cancelled U Gamma Globulin Cancelled U Abnormal Prot Band 1 Cancelled U Abnormal Prot Band 2 Cancelled U Abnormal Prot Band 3 Cancelled Urine PEP Interpret Cancelled Nasal MRSA (PCR) 10/01/25 06:23 WBC 6.1 RBC 2.90 L Hgb 8.2 L Hct 27.3 L MCV 94.1 MCH 28.3 MCHC 30.0 L RDW 14.0 Plt Count 169 MPV 9.5 Immature Gran % (Auto) 0.5 Neut % (Auto) 72.2 Lymph % (Auto) 18.3 V[place] % (Auto) 6.1 Eos % (Auto) 2.6 Baso % (Auto) 0.3 Lymph # (Auto) 1.12 [place] # (Auto) 0.4 Eos # (Auto) 0.2 Baso # (Auto) 0.0 Abs Immat Gran (auto) 0.03 Absolute Neuts (auto) 4.4 Absolute Nucleated RBC 0.000 Nucleated RBC % 0.0 Absolute Retic 0.06 Percent Retic 2.22 Immature Retic Fraction 16.2 H Retic Hgb Content 29.3 PT INR APTT Sodium Potassium Chloride Carbon Dioxide Anion Gap BUN Creatinine 1.17 H Estim Creat Clear Calc 41 Estimated GFR 46 L Glucose POC Capillary Glucose Hemoglobin A1c 7.2 H Lactic Acid Calcium Iron 32 L TIBC 162 L % Saturation 20 Transferrin 106 L Ferritin 441.00 H Total Bilirubin 0.2 Direct Bilirubin 0.0 AST ALT Alkaline Phosphatase Lactate Dehydrogenase 163 Total Protein Albumin TSH (Reflex) 1.520 Urine Color Urine Appearance Urine pH Ur Specific Grand Chain Urine Protein Urine Glucose (UA) Urine Ketones Ur Blood (Man) Urine Nitrate Urine Bilirubin Urine Urobilinogen Leukocyte Esterase Rfl Ur Random Creatinine U Random Total Protein Protein/Creatinin Ratio Urine Albumin U Skjdx-0-Rvdnxsxd U Drcht-9-Visoyupg U Beta Globulin U Gamma Globulin U Abnormal Prot Band 1 U Abnormal Prot Band 2 U Abnormal Prot Band 3 Urine PEP Interpret Nasal MRSA (PCR) Quality VTE Prophylaxis VTE prophylaxis: pharmacologic ordered
[2025-03-30 08:28] LABS: Vitamin B12 946.0 pg/mL (239-931)
[2025-03-30] MEDS: BACLOFEN 10 MG TABLET PO (08:56)
[2025-03-30] MEDS: ACETAMINOPHEN 325 MG TABLET 650 MG PO (08:56)
[2025-03-30] MEDS: GENTAMICIN SULFATE 0.1% CR 15 GM TUBE 1 APPLIC TOPICAL (09:00)
[2025-03-30] MEDS: LORATADINE 10 MG TABLET PO (09:04)
[2025-03-30] MEDS: CALCIUM/VITAMIN D 500 MG/5 MCG (200 I.U.) TABLET PO ×2 (09:04→16:17)
[2025-03-30] MEDS: GABAPENTIN 300 MG CAPSULE PO ×2 (09:04→16:17)
[2025-03-30] MEDS: ASPIRIN 81 MG CHEWABLE TABLET PO (09:04)
[2025-03-30 09:05] VITALS: PULSE 85
[2025-03-30] MEDS: FUROSEMIDE 20 MG TABLET PO (09:05)
[2025-03-30] MEDS: FERROUS SULFATE 325 MG TABLET PO ×2 (09:05→16:17)
[2025-03-30] MEDS: SPIRONOLACTONE 25 MG TABLET PO (09:11)
[2025-03-30] MEDS: SACUBITRIL/VALSARTAN 24-26 MG TABLET 1 TAB PO ×2 (09:11→20:27)
[2025-03-30] MEDS: TIMOLOL MALEATE 0.25% OP SOLN 5 ML BOTTLE 1 DROP LEFT EYE ×3 (09:12→16:18)
[2025-03-30] MEDS: CEFEPIME 1 GM in SODIUM CHLORIDE 0.9% IV 50 ML 100 ML IVPB (09:36)
[2025-03-30 12:25] LABS: Hematocrit 27.2 % (37.0-47.0); Hemoglobin 8.3 g/dL (12.0-15.0)
[2025-03-30 14:00] VITALS: BP 129/72; PULSE 71; RESP 16; TEMP 36.4; O2SAT 97
[2025-03-30] MEDS: ENOXAPARIN 40 MG/0.4 ML SYRINGE SUB-Q (14:51)
[2025-03-30] MEDS: LATANOPROST 0.005% OP SOLN 2.5 ML BTL 1 DROP LEFT EYE (17:55)
[2025-03-30 18:36] LABS: Hematocrit 28.6 % (37.0-47.0); Hemoglobin 8.5 g/dL (12.0-15.0)
[2025-03-30] MEDS: LINEZOLID 600 MG TABLET PO (20:27)
[2025-03-30] MEDS: ATORVASTATIN 20 MG TABLET PO (20:27)
[2025-03-30] MEDS: INSULIN GLARGINE (*BKC) 100 UNITS/ML 16 UNITS SUB-Q (20:27)
[2025-03-30] MEDS: HYDROcodone/acetaminophen (*CRX) 5-325 MG TABLET 1 TAB PO (20:35)
[2025-03-30 20:51] LABS: CRP 7.0 mg/dL (<1.0)
[2025-03-30 21:50] VITALS: BP 157/70; PULSE 81; RESP 18; TEMP 37.4; O2SAT 96
[2025-03-31] VITALS (8 sets, daily range): BP systolic 152–169; BP diastolic 68–78; PULSE 54–104; RESP 16–20; TEMP 36.3–36.5; O2SAT 98
[2025-03-31] MEDS: BRIMONIDINE TARTRATE 0.2% OP SOLN 5 ML BTL 1 DROP EACH EYE ×3 (06:00→22:25)
[2025-03-31 06:08] LABS: Hematocrit 29.5 % (37.0-47.0); Hemoglobin 8.8 g/dL (12.0-15.0); Immature Granulocyte Percent A 0.3 % (0-0.5); Lymphocytes Absolute Auto 1.30 K/mm3 (0.9-3.2); Mean Corpuscular HGB Conc 29.8 g/dl (32-36); Mean Corpuscular Hemoglobin 27.5 pg (26-34); Mean Corpuscular Volume 92.2 fl (80-100); Nucleated Red Blood Cells Absolute Auto 0.000 K/mm3 (0.0-0.012); Nucleated Red Blood Cells Perc 0.0 % (0.0-0.2); Platelet Count Result 186 k/mm3 (150-375); Red Blood Count 3.20 M/mm3 (4.2-5.4); White Blood Count 5.8 K/mm3 (4.5-10.0)
[2025-03-31 06:32] LABS: Anion Gap 5 mmol/L (4-12); Blood Urea Nitrogen 20 mg/dL (7-17); Calcium 8.7 mg/dL (8.4-10.2); Carbon Dioxide 25 mmol/L (22-30); Chloride 104 mmol/L (98-107); Estimated CRCL calculation 42 ml/min; Estimated Glomerular Filt Rate 46; Glucose 178 mg/dL (65-110); Potassium 4.3 mmol/L (3.4-5.0); Sodium 134 mmol/L (137-145)
[2025-03-31 06:33] LABS: Hypochromasia 1+
[2025-03-31 06:34] LABS: Basophilic Stippling Occasional; Ovalocytes Occasional; Schistocytes None Seen
[2025-03-31 06:47] LABS: CRP 11.7 mg/dL (<1.0)
--- NOTE | 2025-03-31 08:01 | P.PNIM_ITS ---
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 Was not on abx at [facility]. Afebrile, no leukocytosis. -the patient was getting wound care treatments at her facility. 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 Would likely benefit from vascular surgery eval as outpatient. -arterial Dopplers with ABIs have been ordered -wound and blood cultures are pending. -the patient was started on cefepime, vancomycin, and Flagyl. Will continue for now pending cultures, but low threshold to de-escalate. - elevate extremities. Continue PO lasix. - pain control (2) Anemia: Code(s): D64.9 - Anemia, unspecified Status: Acute Assessment and Plan: -Hgb 8.3, and overall stable here. Previously around 10. Denies signs of bleeding. Normocytic. -check stool for occult blood - iron studies show likely AOCD - she is not on any anticoagulation only aspirin. - occult stool pending (3) Type 2 diabetes mellitus: Code(s): E11.9 - Type 2 diabetes mellitus without complications Status: Acute Assessment and Plan: - last HgbA1c - 7.2 - continue Lantus at reduced dose, low dose SSI - POCT glucose qACHS - hypoglycemia management protocol (4) Combined systolic and diastolic congestive heart failure: Code(s): I50.40 - Unspecified combined systolic (congestive) and diastolic (congestive) heart failure Status: Acute Assessment and Plan: - echo 11/2021 with EF 35-40%, G1DD -appears euvolemic - continue PO Lasix, Aldactone, Entresto, carvedilol (5) Leg wound, right: Code(s): S81.801A - Unspecified open wound, right lower leg, initial encounter Status: Acute Subjective Date/time seen: 03/31/25 08:01 Interval history: Patient and examined at bedside. Pain seems mildly be Review of Systems Review of Systems: All systems reviewed & are unremarkable except as noted in HPI and below Exam Narrative: General: NAD, obese Eyes: EOMI ENT: neck supple Cardiovascular: Regular rate and rhythm Respiratory: Clear to auscultation, respirations even and unlabored on RA Gastrointestinal: Soft, non tender Genitourinary: no suprapubic tenderness Musculoskeletal: Bilateral LEs with clean, dry wound dressings. Patient refused for dressings to be pulled back for exam. Skin: warm, dry Neuro: Alert. Psych: anxious Objective Data Vital Signs Vital Signs: Vital Signs - 24 hr 03/30/25 09:05 03/30/25 14:00 03/30/25 20:00 Temperature 97.5 F L Pulse Rate 85 71 Respiratory Rate 16 Blood Pressure 129/72 Pulse Oximetry 97 Oxygen Delivery Room Air 03/30/25 21:50 03/31/25 05:21 03/31/25 07:38 Temperature 99.3 F 97.4 F L Pulse Rate 81 67 Respiratory Rate 18 16 Blood Pressure 157/70 H 152/68 H Pulse Oximetry 96 98 Oxygen Delivery Room Air Intake/Output Intake/Output: Intake & Output 03/28/25 03/29/25 03/30/25 03/31/25 23:59 23:59 23:59 23:59 Intake Total 150 250 150 Output Total 1500 600 Balance 150 -1250 -450 Meds/Results Medications: Active Medications Generic Name Dose Route Start Last Admin Trade Name Freq PRN Reason Stop Dose Admin Acetaminophen 650 mg 03/30/25 00:27 03/30/25 08:56 Acetaminophen 325 Mg Tablet PO 650 mg Q6H PRN Administration Pain Hydrocodone Bitart/Acetaminophen 1 tab 03/30/25 13:51 03/30/25 20:35 Hydrocodone/Acetaminophen (*Crx) 5-325 Mg Tablet PO 1 tab Q6H PRN Administration Pain Rated 4-6 Aspirin 81 mg 03/30/25 09:00 03/30/25 09:04 Aspirin 81 Mg Chewable Tablet PO 81 mg DAILY TIA Administration Atorvastatin Calcium 20 mg 03/30/25 21:00 03/30/25 20:27 Atorvastatin 20 Mg Tablet PO 20 mg HS TIA Administration Baclofen 10 mg 03/30/25 00:27 03/30/25 08:56 Baclofen 10 Mg Tablet PO 10 mg Q12H PRN Administration muscle spasms Bisacodyl 10 mg 03/30/25 00:27 Bisacodyl 10 Mg Suppository RECTAL DAILY PRN Constipation Brimonidine Tartrate 1 drop 03/30/25 06:00 03/31/25 06:00 Brimonidine Tartrate 0.2% Op Soln 5 Ml Btl EACH EYE 1 drop Q8HR TIA Administration Calcium Carbonate 500 mg 03/30/25 09:00 03/30/25 16:17 Calcium/Vitamin D 500 Mg/5 Mcg (200 I.U.) Tablet PO 500 mg BID TIA Administration Carvedilol 25 mg 03/30/25 09:00 03/30/25 20:27 Carvedilol 25 Mg Tablet PO 25 mg Q12HR TIA Administration Dextrose 12.5 gm 03/30/25 00:26 Dextrose 50% 25 Gm/50 Ml Syringe IV PUSH PRN PRN Hypoglycemia Protocol Diclofenac Sodium 1 applic 03/30/25 00:27 Diclofenac Sodium 1% 100 Gm Gel (*Bkc) TOPICAL Q12H PRN Pain Enoxaparin Sodium 40 mg 03/30/25 14:10 03/30/25 14:51 Enoxaparin 40 Mg/0.4 Ml Syringe SUB-Q 40 mg DAILY TIA Administration Ferrous Sulfate 325 mg 03/30/25 09:00 03/30/25 16:17 Ferrous Sulfate 325 Mg Tablet PO 325 mg BID TIA Administration Furosemide 20 mg 03/30/25 09:00 03/30/25 09:05 Furosemide 20 Mg Tablet PO 20 mg DAILY TIA Administration Gabapentin 300 mg 03/30/25 09:00 03/30/25 16:17 Gabapentin 300 Mg Capsule PO 300 mg BID TIA Administration Gentamicin Sulfate 1 applic 03/30/25 09:00 03/30/25 09:00 Gentamicin Sulfate 0.1% Cr 15 Gm Tube TOPICAL 1 applic DAILY TIA Administration Glucagon 1 mg 03/30/25 00:26 Glucagon For Inj 1 Mg Vial IM PRN PRN Hypoglycemia Protocol Glucose 15 gm 03/30/25 00:26 Glucose Oral Gel 15 Gm Of Glucse In 37.5 Gm Tube PO PRN PRN Hypoglycemia Protocol Dextrose 1,000 mls @ 100 mls/hr 03/30/25 00:26 Dextrose 5% 1,000 Ml IVPB PRN PRN Hypoglycemia Protocol Insulin Aspart 2 - 5 units 03/30/25 08:00 03/30/25 17:52 Insulin Aspart (*Bkc) 100 Units/Ml SUB-Q Not Given [facility] Protocol Insulin Glargine 16 units 03/30/25 21:00 03/30/25 20:27 Insulin Glargine (*Bkc) 100 Units/Ml SUB-Q 16 units HS TIA Administration Latanoprost 1 drop 03/30/25 18:00 03/30/25 17:55 Latanoprost 0.005% Op Soln 2.5 Ml Btl LEFT EYE 1 drop QPM TIA Administration Linezolid 600 mg 03/30/25 21:00 03/30/25 20:27 Linezolid 600 Mg Tablet PO 600 mg Q12HR TIA Administration Loperamide HCl 2 mg 03/30/25 00:27 Loperamide Hcl 2 Mg Capsule PO Q24H PRN Loose Stool Loratadine 10 mg 03/30/25 09:00 03/30/25 09:04 Loratadine 10 Mg Tablet PO 10 mg DAILY TIA Administration Magnesium Citrate 300 ml 03/30/25 00:27 Magnesium Citrate 300 Ml Btl PO Q24H PRN Constipation Perflutren Lipid Microsphere 0 ml 03/30/25 00:30 Perflutren Lipid Microspheres 1.5 Ml Vial Diluted To 10 Ml Total Volume IV PUSH 04/02/25 00:30 ONCE PRN adequate visualization Protocol Polyethylene Glycol 17 gm 03/30/25 00:27 Polyethylene Glycol 3350 17 Gm Powd.Pack PO QAM PRN Constipation Sacubitril/Valsartan 1 tab 03/30/25 09:00 03/30/25 20:27 Sacubitril/Valsartan 24-26 Mg Tablet PO 1 tab Q12HR TIA Administration Senna 8.6 mg 03/30/25 00:27 Sennosides 8.6 Mg Tablet PO DAILY PRN Constipation Sodium Chloride 1 spray 03/30/25 00:27 Saline 0.65% David Soln 44 Ml Btl NASAL Q6H PRN Dry Nasal Passages Spironolactone 25 mg 03/30/25 09:00 03/30/25 09:11 Spironolactone 25 Mg Tablet PO 25 mg QAM TIA Administration Timolol Maleate 1 drop 03/30/25 09:00 03/30/25 16:18 Timolol Maleate 0.25% Op Soln 5 Ml Bottle LEFT EYE 1 drop TID TIA Administration Radiology Results: ITS Impressions Venous Doppler Study 03/29/25 16:47 IMPRESSION: 1: No right lower extremity deep venous thrombosis. 2. Limited study as above. 3. There is a 3.6 x 1.0 x 2.5 cm heterogeneous masslike structure in the right groin possibly a lymph node. In addition, there is a 5.9 x 1.4 cm heterogeneous masslike structure in the right groin. A CT of the abdomen and pelvis with contrast is recommended for further assessment. If symptoms persist or worsen, consider a short-term follow-up study or additional imaging for further assessment. Abdomen/Pelvis CT 03/29/25 19:13 IMPRESSION: 1. Inguinal lymph nodes, unchanged from 2021 scan. These account for the findings on ultrasound today. 2. Mild gastritis not excluded. 3. No other acute abnormality within abdomen or pelvis. Ankle Brachial Index 03/30/25 12:13 IMPRESSION: 1. Mild arterial occlusive disease to bilateral lower limbs with mildly decreased bilateral ABIs. Labs Labs: Laboratory Results - last 24 hr 03/30/25 03/30/25 03/30/25 02:12 06:23 11:55 WBC RBC Hgb Hct MCV MCH MCHC RDW Plt Count MPV Immature Gran % (Auto) Neut % (Auto) Lymph % (Auto) Hitchcock % (Auto) Eos % (Auto) Baso % (Auto) Lymph # (Auto) Hitchcock # (Auto) Eos # (Auto) Baso # (Auto) Abs Immat Gran (auto) Absolute Neuts (auto) Absolute Nucleated RBC Band Neutrophils % Nucleated RBC % Platelet Estimate Hypochromasia Basophilic Stippling Ovalocytes Schistocytes Sodium Potassium Chloride Carbon Dioxide Anion Gap BUN Creatinine Estim Creat Clear Calc Estimated GFR Glucose POC Capillary Glucose 193 H Lactic Acid Calcium C-Reactive Protein 7.0 H Vitamin B12 946.0 H Folate 5.6 Ur Random Creatinine Cancelled U Random Total Protein Cancelled Protein/Creatinin Ratio Cancelled Urine Albumin Cancelled U Fsosy-6-Hmnzormu Cancelled U Oidmc-8-Omxzyxrw Cancelled U Beta Globulin Cancelled U Gamma Globulin Cancelled U Abnormal Prot Band 1 Cancelled U Abnormal Prot Band 2 Cancelled U Abnormal Prot Band 3 Cancelled Urine PEP Interpret Cancelled CHELA, IgG Interpret 1+ CHELA, Poly Interpret 1+ CHELA, Complement Interp Not Performed Indirect Antiglob Test Negative 03/30/25 03/30/25 03/30/25 12:18 17:44 18:24 WBC RBC Hgb 8.3 L 8.5 L Hct 27.2 L 28.6 L MCV MCH MCHC RDW Plt Count MPV Immature Gran % (Auto) Neut % (Auto) Lymph % (Auto) Hitchcock % (Auto) Eos % (Auto) Baso % (Auto) Lymph # (Auto) Hitchcock # (Auto) Eos # (Auto) Baso # (Auto) Abs Immat Gran (auto) Absolute Neuts (auto) Absolute Nucleated RBC Band Neutrophils % Nucleated RBC % Platelet Estimate Hypochromasia Basophilic Stippling Ovalocytes Schistocytes Sodium Potassium Chloride Carbon Dioxide Anion Gap BUN Creatinine Estim Creat Clear Calc Estimated GFR Glucose POC Capillary Glucose 166 H Lactic Acid Calcium C-Reactive Protein Vitamin B12 Folate Ur Random Creatinine U Random Total Protein Protein/Creatinin Ratio Urine Albumin U Sxtzz-4-Rwhnmenl U Uutjx-2-Gynwgsyq U Beta Globulin U Gamma Globulin U Abnormal Prot Band 1 U Abnormal Prot Band 2 U Abnormal Prot Band 3 Urine PEP Interpret CHELA, IgG Interpret CHELA, Poly Interpret CHELA, Complement Interp Indirect Antiglob Test 03/30/25 03/31/25 20:33 05:54 WBC 5.8 RBC 3.20 L Hgb 8.8 L Hct 29.5 L MCV 92.2 MCH 27.5 MCHC 29.8 L RDW 13.7 Plt Count 186 MPV 9.5 Immature Gran % (Auto) 0.3 Neut % (Auto) 63.9 Lymph % (Auto) 22.6 Hitchcock % (Auto) 7.5 Eos % (Auto) 5.2 H Baso % (Auto) 0.5 Lymph # (Auto) 1.30 Hitchcock # (Auto) 0.4 Eos # (Auto) 0.3 Baso # (Auto) 0.0 Abs Immat Gran (auto) 0.02 Absolute Neuts (auto) 3.7 Absolute Nucleated RBC 0.000 Band Neutrophils % Not Reportable Nucleated RBC % 0.0 Platelet Estimate Adequate Hypochromasia 1+ Basophilic Stippling Occasional Ovalocytes Occasional Schistocytes None seen Sodium 134 L Potassium 4.3 Chloride 104 Carbon Dioxide 25 Anion Gap 5 BUN 20 H Creatinine 1.16 H Estim Creat Clear Calc 42 Estimated GFR 46 L Glucose 178 H POC Capillary Glucose 169 H Lactic Acid 1.0 Calcium 8.7 C-Reactive Protein 11.7 H Vitamin B12 Folate Ur Random Creatinine U Random Total Protein Protein/Creatinin Ratio Urine Albumin U Hprgq-4-Zaxgmqcf U Xcmvt-9-Twaystxz U Beta Globulin U Gamma Globulin U Abnormal Prot Band 1 U Abnormal Prot Band 2 U Abnormal Prot Band 3 Urine PEP Interpret CHELA, IgG Interpret CHELA, Poly Interpret CHELA, Complement Interp Indirect Antiglob Test Quality VTE Prophylaxis VTE prophylaxis: pharmacologic ordered
[2025-03-31] MEDS: ASPIRIN 81 MG CHEWABLE TABLET PO (08:39)
[2025-03-31] MEDS: ENOXAPARIN 40 MG/0.4 ML SYRINGE SUB-Q (08:39)
[2025-03-31] MEDS: LINEZOLID 600 MG TABLET PO (08:39)
[2025-03-31] MEDS: CALCIUM/VITAMIN D 500 MG/5 MCG (200 I.U.) TABLET PO ×2 (08:39→16:54)
[2025-03-31] MEDS: LORATADINE 10 MG TABLET PO (08:40)
[2025-03-31] MEDS: FERROUS SULFATE 325 MG TABLET PO (08:40)
[2025-03-31] MEDS: GABAPENTIN 300 MG CAPSULE PO ×2 (08:40→16:54)
[2025-03-31] MEDS: SACUBITRIL/VALSARTAN 24-26 MG TABLET 1 TAB PO ×2 (08:40→21:05)
[2025-03-31] MEDS: TIMOLOL MALEATE 0.25% OP SOLN 5 ML BOTTLE 1 DROP LEFT EYE ×3 (08:40→16:55)
[2025-03-31] MEDS: FUROSEMIDE 20 MG TABLET PO (08:40)
[2025-03-31] MEDS: GENTAMICIN SULFATE 0.1% CR 15 GM TUBE 1 APPLIC TOPICAL (09:00)
--- NOTE | 2025-03-31 09:44 | ECG_ITS ---
Test Date: 2025-03-31 10:10:56 Measurements Intervals [place] Rate: 74 P: 28 [place]: 181 QRS: -54 QRSD: 157 T: 77 QT: 463 QTc: 517 Interpretive Statements SINUS RHYTHM LEFT AXIS DEVIATION LEFT BUNDLE BRANCH BLOCK ABNORMAL ECG No previous ECG available for comparison Electronically Signed On 03-31-2025 10:35:33 CDT by Virgil Guzmán D.O.
--- NOTE | 2025-03-31 10:07 | P.CDI_ITS ---
CDI Query Clarification Request The record notes that the patient has a history of diabetes mellitus and is currently being treated for cellulitis. for accurate documentation and coding, can you please clarify whether the patient?s cellulitis is: 1.? Cellulitis due to/associated with diabetes mellitus 2.? Cellulitis not related to diabetes mellitus 3.? Clinically undetermined 4.? 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 Was not on abx at [facility]. Afebrile, no leukocytosis. -the patient was getting wound care treatments at her facility. 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 Would like benefit from vascular surgery eval as outpatient. -arterial Dopplers with ABIs have been ordered -wound and blood cultures are pending. -the patient was started on cefepime, vancomycin, and Flagyl. Will continue for now pending cultures, but low threshold to de-escalate. - elevate extremities. Continue PO lasix. - pain control (2) Anemia: Code(s): D64.9 - Anemia, unspecified Status: Acute Assessment and Plan: -Hgb 8.3, and overall stable here. Previously around 10. Denies signs of bleeding. Normocytic. -check stool for occult blood - iron studies show likely AOCD - she is not on any anticoagulation only aspirin. - occult stool pending (3) Type 2 diabetes mellitus: Code(s): E11.9 - Type 2 diabetes mellitus without complications Status: Acute Assessment and Plan: - last HgbA1c - 7.2 - continue Lantus at reduced dose, low dose SSI - POCT glucose qACHS - hypoglycemia management protocol (4) Combined systolic and diastolic congestive heart failure: Code(s): I50.40 - Unspecified combined systolic (congestive) and diastolic (congestive) heart failure Status: Acute Assessment and Plan: - echo 11/2021 with EF 35-40%, G1DD -appears euvolemic - continue PO Lasix, Aldactone, Entresto, carvedilol <Navya Peñaloza RN - Last Filed: 03/31/25 10:14> Clarified Diagnosis Clarified Diagnosis: clinically undetermined <RYAN Mendosa - Last Filed: 03/31/25 13:27>
--- NOTE | 2025-03-31 12:03 | PM.DS ---
DS: Admitting Diagnosis Discharge Date 03/31/25 Admitting Diagnosis - cellulitis - infected diabetic wound - T2DM DS: Discharge Diagnosis Discharge Diagnosis (1) Cellulitis: Code(s): L03.90 - Cellulitis, unspecified Status: Acute (2) Anemia: Code(s): D64.9 - Anemia, unspecified Status: Acute (3) Type 2 diabetes mellitus: Code(s): E11.9 - Type 2 diabetes mellitus without complications Status: Acute (4) Combined systolic and diastolic congestive heart failure: Code(s): I50.40 - Unspecified combined systolic (congestive) and diastolic (congestive) heart failure Status: Acute DS: Summary Hospital Course Reason for hospitalization: - cellulitis - infected diabetic wound - T2DM Hospital Course: Patient is a 62-year-old female with past medical history of insulin-dependent type 2 diabetes, combined systolic and diastolic CHF, anemia who presented with worsening RLE wound and concerns for cellulitis. Reported concern for MRSA. In ED, patient was afebrile with no leukocytosis. Bilateral venous Doppler negative for DVT. Patient was started on cefepime, vancomycin and Flagyl due to concerns for bilateral lower extremity cellulitis and worsening wounds. Patient admitted for further management. Patient evaluated by Wound Care and found to have multiple superficial venous stasis ulcers and chronic venous stasis dermatitis. Patient remained afebrile without leukocytosis. Patient's nursing facility faxed wound culture results which showed Pseudomonas aeruginosa sensitive to fluoroquinolones. Low concern for cellulitis so antibiotics were deescalated to Levaquin to complete a 7 day course of antibiotics. 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 She reports she has already been evaluated by vascular surgery as an outpatient. She will continue her aspirin statin. She will continue pain control, leg elevation and Lasix at [facility]. She will also continue wound care. She will resume her home insulin regimen. Patient discharged back to [facility] in stable condition. Time Spent with Patient Time attestation: Total time spent providing and/or coordinating discharge services: Time spent: Greater than 30 minutes Exam Narrative: General: NAD, obese Eyes: EOMI ENT: neck supple Cardiovascular: Regular rate and rhythm Respiratory: Clear to auscultation, respirations even and unlabored on RA Gastrointestinal: Soft, non tender Genitourinary: no suprapubic tenderness Musculoskeletal: Bilateral LE with chronic venous stasis dermatitis. No significant warmth or bright red erythema. Multiple superficial venous stasis ulcers in various stages of healing. Skin: warm, dry Neuro: Alert. Psych: anxious DS: Data Data Completed and Pending Completed studies during hospitalization: ITS Impressions Venous Doppler Study 03/29/25 16:47 IMPRESSION: 1: No right lower extremity deep venous thrombosis. 2. Limited study as above. 3. There is a 3.6 x 1.0 x 2.5 cm heterogeneous masslike structure in the right groin possibly a lymph node. In addition, there is a 5.9 x 1.4 cm heterogeneous masslike structure in the right groin. A CT of the abdomen and pelvis with contrast is recommended for further assessment. If symptoms persist or worsen, consider a short-term follow-up study or additional imaging for further assessment. Abdomen/Pelvis CT 03/29/25 19:13 IMPRESSION: 1. Inguinal lymph nodes, unchanged from 2021 scan. These account for the findings on ultrasound today. 2. Mild gastritis not excluded. 3. No other acute abnormality within abdomen or pelvis. Ankle Brachial Index 03/30/25 12:13 IMPRESSION: 1. Mild arterial occlusive disease to bilateral lower limbs with mildly decreased bilateral ABIs. Labs on day of discharge: Labs from last 24 hours 03/31/25 03/31/25 03/30/25 11:24 05:54 20:33 WBC 5.8 RBC 3.20 L Hgb 8.8 L Hct 29.5 L MCV 92.2 MCH 27.5 MCHC 29.8 L RDW 13.7 Plt Count 186 MPV 9.5 Immature Gran % (Auto) 0.3 Neut % (Auto) 63.9 Lymph % (Auto) 22.6 [place] % (Auto) 7.5 Eos % (Auto) 5.2 H Baso % (Auto) 0.5 Lymph # (Auto) 1.30 [place] # (Auto) 0.4 Eos # (Auto) 0.3 Baso # (Auto) 0.0 Abs Immat Gran (auto) 0.02 Absolute Neuts (auto) 3.7 Absolute Nucleated RBC 0.000 Band Neutrophils % Not Reportable Nucleated RBC % 0.0 Platelet Estimate Adequate Hypochromasia 1+ Basophilic Stippling Occasional Ovalocytes Occasional Schistocytes None seen Haptoglobin Sodium 134 L Potassium 4.3 Chloride 104 Carbon Dioxide 25 Anion Gap 5 BUN 20 H Creatinine 1.16 H Estim Creat Clear Calc 42 Estimated GFR 46 L Glucose 178 H POC Capillary Glucose 214 H 169 H Lactic Acid 1.0 Calcium 8.7 C-Reactive Protein 11.7 H 03/30/25 03/30/25 03/30/25 18:24 17:44 12:18 WBC RBC Hgb 8.5 L 8.3 L Hct 28.6 L 27.2 L MCV MCH MCHC RDW Plt Count MPV Immature Gran % (Auto) Neut % (Auto) Lymph % (Auto) [place] % (Auto) Eos % (Auto) Baso % (Auto) Lymph # (Auto) [place] # (Auto) Eos # (Auto) Baso # (Auto) Abs Immat Gran (auto) Absolute Neuts (auto) Absolute Nucleated RBC Band Neutrophils % Nucleated RBC % Platelet Estimate Hypochromasia Basophilic Stippling Ovalocytes Schistocytes Haptoglobin Sodium Potassium Chloride Carbon Dioxide Anion Gap BUN Creatinine Estim Creat Clear Calc Estimated GFR Glucose POC Capillary Glucose 166 H Lactic Acid Calcium C-Reactive Protein 03/30/25 03/30/25 11:55 06:23 WBC RBC Hgb Hct MCV MCH MCHC RDW Plt Count MPV Immature Gran % (Auto) Neut % (Auto) Lymph % (Auto) [place] % (Auto) Eos % (Auto) Baso % (Auto) Lymph # (Auto) [place] # (Auto) Eos # (Auto) Baso # (Auto) Abs Immat Gran (auto) Absolute Neuts (auto) Absolute Nucleated RBC Band Neutrophils % Nucleated RBC % Platelet Estimate Hypochromasia Basophilic Stippling Ovalocytes Schistocytes Haptoglobin 308 Sodium Potassium Chloride Carbon Dioxide Anion Gap BUN Creatinine Estim Creat Clear Calc Estimated GFR Glucose POC Capillary Glucose 193 H Lactic Acid Calcium C-Reactive Protein 7.0 H Preliminary micro results at discharge 03/29/25 16:43 Blood Culture - Preliminary Blood Discharge Plan Discharge Attending physician on discharge: Sidney Lopez Consulting providers: Rahel Bello; Annie Rosales Discharging Clinician: Annie Rosales Anticipated Discharge Date/Time: 03/31/25 11:27 Patient Disposition: [facility] Activity: as tolerated Diet: as tolerated Wound Care Instructions: other - see discharge instructions Discharge Instructions: Continue wound care per previous instructions. Patient was started on Levaquin for pseudomonas wound infection as per culture data received by Coreen Monsalve. Do not feel further antibiotics for cellulitis are warranted. Lower extremities appear to have chronic skin changes. Patient needs to elevate legs and continue Lasix to avoid swelling. Utilize Tylenol PRN for pain and [place] has been added as needed for severe pain. Take all medications as prescribed. Finish antibiotics if prescribed, even if you are feeling better. Follow-up with your primary care provider in one week. Return to the emergency department if you develop chest pain, shortness of breath, persistent fever >100.4, confusion, loss of consciousness. Patient Instructions: Antibiotic Form Patient Language: Salvadorean Stand Alone Forms: General Discharge Information Discharge Medications: New hydrocodone-acetaminophen 5-325 mg tablet 1 tablet PO Q6H PRN (Reason: pain) Qty: 10 0RF levofloxacin 750 mg tablet 750 mg PO Q48H Qty: 2 0RF Rx Instructions: Start 10/4. Give in the evening to avoid interaction with iron. Continued baclofen 10 mg tablet 10 mg PO Q12H PRN (Reason: muscle spasms) bisacodyl 10 mg Suppository 10 mg RECTAL DAILY PRN (Reason: Constipation) insulin glargine [Basaglar KwikPen U-100 Insulin] 100 unit/mL (3 mL) insulin pen 20 unit SUBCUT HS Rx Instructions: 7 units at bedtime Fiasp FlexTouch U-100 Insulin 100 unit/mL (3 mL) insulin pen 8 unit SUBCUT TIDWM Rx Instructions: 10 units before meals cyanocobalamin (vitamin B-12) 1,000 mcg Tablet 1,000 mcg PO DAILY furosemide 40 mg Tablet 20 mg PO DAILY carvedilol 25 mg Tablet 25 mg PO BID sennosides [senna] 8.6 mg Tablet 8.6 mg PO DAILY PRN (Reason: Constipation) gabapentin 600 mg Tablet 300 mg PO BID atorvastatin 20 mg Tablet 20 mg PO HS brimonidine 0.2 % Drops 1 drp OPHTHALMIC (EYE) Q8H Rx Instructions: Left eye timolol 0.25 % Drops 1 drp LEFTEYE TID aspirin 81 mg Tablet,Chewable 81 mg PO DAILY loratadine [Claritin] 10 mg Tablet 10 mg PO DAILY calcium carbonate-vitamin D3 [Oysco 500/D] 500 mg(1,250mg) -200 unit Tablet 1 tablet PO BID acetaminophen 325 mg Tablet 650 mg PO Q6H PRN (Reason: Pain) Qty: 10 0RF spironolactone [Aldactone] 25 mg tablet 25 mg PO QAM diclofenac sodium [Voltaren Arthritis Pain] 1 % gel 2 g topical .q12 PRN (Reason: pain) Rx Instructions: apply to single elbow, wrist or hand; for hand includes palm/fingers/back of hand magnesium hydroxide [Milk of Magnesia] 400 mg/5 mL suspension 30 ml PO DAILY PRN (Reason: constipation) ondansetron 4 mg tablet,disintegrating 4 mg PO Q8H PRN (Reason: nausea and vomiting) amino acids-protein hydrolys 11 gram-80 kcal/30 mL liquid 1 ea PO QAM Nasal [place] (sodium chloride) 0.65 % aerosol,spray 1 spray intranasal Q6H PRN (Reason: dry nasal passages) cholecalciferol (vitamin D3) 25 mcg (1,000 unit) tablet,chewable 75 mcg PO DAILY magnesium citrate [Citroma] Solution 296 ml PO .q24 PRN (Reason: constipation) sacubitril-valsartan [Entresto] 24-26 mg tablet 1 tablet PO BID gentamicin 0.1 % cream 1 applic TOPICAL DAILY Rx Instructions: apply to R foot loperamide [Anti-Diarrheal (loperamide)] 2 mg capsule 2 mg PO .q24 PRN (Reason: loose stool) latanoprost 0.005 % drops 1 drp LEFT EYE QPM polyethylene glycol 3350 [Miralax] 17 gram Powder In Packet 17 g PO QAM PRN (Reason: constipation) Changed ferrous sulfate 325 mg (65 mg iron) Tablet 325 mg PO DAILY 30 Days Qty: 30 0RF Discontinued calcium carbonate [Oyster Shell Calcium] 500 mg calcium (1,250 mg) tablet 500 mg PO BID Date of admission: 03/30/25 08:21 Primary Care Provider: Tati,Len Admitting Provider: Sidney Lopez Attending physician on admission: Sidney Lopez Condition: Stable
[2025-03-31] MEDS: INSULIN ASPART (*BKC) 100 UNITS/ML SUB-Q ×2 (12:13→18:16)
[2025-03-31] MEDS: ONDANSETRON INJ 4 MG/2 ML VIAL IV PUSH (14:17)
--- NOTE | 2025-03-31 15:23 | PCOTNOTE ---
Attempted to see pt for OT however pt had just worked with PT briefly and had increased BLE pain and declined further activity at this time.
[2025-03-31] MEDS: LATANOPROST 0.005% OP SOLN 2.5 ML BTL 1 DROP LEFT EYE (17:07)
[2025-03-31] MEDS: HYDROcodone/acetaminophen (*CRX) 5-325 MG TABLET 1 TAB PO (21:05)
[2025-03-31] MEDS: ATORVASTATIN 20 MG TABLET PO (21:05)
[2025-03-31] MEDS: INSULIN GLARGINE (*BKC) 100 UNITS/ML 18 UNITS SUB-Q (22:25)
[2025-04-01] VITALS: PULSE 80
[2025-04-01 04:00] VITALS: PULSE 72
[2025-04-01 05:47] LABS: Hematocrit 28.4 % (37.0-47.0); Hemoglobin 8.6 g/dL (12.0-15.0); Immature Granulocyte Percent A 0.3 % (0-0.5); Lymphocytes Absolute Auto 1.55 K/mm3 (0.9-3.2); Mean Corpuscular HGB Conc 30.3 g/dl (32-36); Mean Corpuscular Hemoglobin 27.5 pg (26-34); Mean Corpuscular Volume 90.7 fl (80-100); Nucleated Red Blood Cells Absolute Auto 0.000 K/mm3 (0.0-0.012); Nucleated Red Blood Cells Perc 0.0 % (0.0-0.2); Platelet Count Result 187 k/mm3 (150-375); Red Blood Count 3.13 M/mm3 (4.2-5.4); White Blood Count 6.0 K/mm3 (4.5-10.0)
[2025-04-01 06:00] VITALS: BP 144/74; PULSE 72; RESP 20; TEMP 36.3; O2SAT 96
[2025-04-01 06:01] LABS: Anion Gap 4 mmol/L (4-12); Blood Urea Nitrogen 18 mg/dL (7-17); CRP 4.7 mg/dL (<1.0); Calcium 8.8 mg/dL (8.4-10.2); Carbon Dioxide 28 mmol/L (22-30); Chloride 103 mmol/L (98-107); Estimated CRCL calculation 43 ml/min; Estimated Glomerular Filt Rate 47; Glucose 166 mg/dL (65-110); Potassium 4.2 mmol/L (3.4-5.0); Sodium 135 mmol/L (137-145)
[2025-04-01] MEDS: BRIMONIDINE TARTRATE 0.2% OP SOLN 5 ML BTL 1 DROP EACH EYE (06:25)
[2025-04-01 08:00] VITALS: PULSE 71
[2025-04-01] MEDS: ENOXAPARIN 40 MG/0.4 ML SYRINGE SUB-Q (08:21)
[2025-04-01] MEDS: FERROUS SULFATE 325 MG TABLET PO (08:24)
[2025-04-01] MEDS: ASPIRIN 81 MG CHEWABLE TABLET PO (08:24)
[2025-04-01] MEDS: FUROSEMIDE 20 MG TABLET PO (08:25)
[2025-04-01] MEDS: GABAPENTIN 300 MG CAPSULE PO (08:25)
[2025-04-01] MEDS: LORATADINE 10 MG TABLET PO (08:25)
[2025-04-01] MEDS: CALCIUM/VITAMIN D 500 MG/5 MCG (200 I.U.) TABLET PO (08:26)
[2025-04-01] MEDS: SACUBITRIL/VALSARTAN 24-26 MG TABLET 1 TAB PO (08:27)
[2025-04-01] MEDS: GENTAMICIN SULFATE 0.1% CR 15 GM TUBE 1 APPLIC TOPICAL (08:28)
[2025-04-01] MEDS: TIMOLOL MALEATE 0.25% OP SOLN 5 ML BOTTLE 1 DROP LEFT EYE (08:28)
--- NOTE | 2025-04-01 12:23 | PC.NURSE ---
This patient, Giovana Rush, to be discharged to [facility]. Report given to Jose Roberto at [phone] and faxed to [phone]. To transport via EMS.
--- NOTE | 2025-04-01 13:29 | PM.DS ---
DS: Admitting Diagnosis Discharge Date 04/01/25 Admitting Diagnosis - cellulitis - infected diabetic wound - T2DM DS: Discharge Diagnosis Discharge Diagnosis (1) Cellulitis: Code(s): L03.90 - Cellulitis, unspecified Status: Acute (2) Anemia: Code(s): D64.9 - Anemia, unspecified Status: Acute (3) Type 2 diabetes mellitus: Code(s): E11.9 - Type 2 diabetes mellitus without complications Status: Acute (4) Combined systolic and diastolic congestive heart failure: Code(s): I50.40 - Unspecified combined systolic (congestive) and diastolic (congestive) heart failure Status: Acute (5) Leg wound, right: Code(s): S81.801A - Unspecified open wound, right lower leg, initial encounter Status: Acute DS: Summary Hospital Course Reason for hospitalization: - cellulitis - infected diabetic wound - T2DM Hospital Course: Patient is a 62-year-old female with past medical history of insulin-dependent type 2 diabetes, combined systolic and diastolic CHF, anemia who presented with worsening RLE wound and concerns for cellulitis. Reported concern for MRSA. In ED, patient was afebrile with no leukocytosis. Bilateral venous Doppler negative for DVT. Patient was started on cefepime, vancomycin and Flagyl due to concerns for bilateral lower extremity cellulitis and worsening wounds. Patient admitted for further management. Patient evaluated by Wound Care and found to have multiple superficial venous stasis ulcers and chronic venous stasis dermatitis. Patient remained afebrile without leukocytosis. Patient's nursing facility faxed wound culture results which showed Pseudomonas aeruginosa sensitive to fluoroquinolones. Low concern for cellulitis so antibiotics were deescalated to Levaquin to complete a 7 day course of antibiotics. 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 She reports she has already been evaluated by vascular surgery as an outpatient. She will continue her aspirin statin. She will continue pain control, leg elevation and Lasix at [facility]. She will also continue wound care. She will resume her home insulin regimen. Patient originally planned to discharge 03/31 however discharge was held due to patient developing nausea/vomiting. Patient was tolerating a regular diet on discharge. Patient discharged back to [facility] in stable condition. Time Spent with Patient Time attestation: Total time spent providing and/or coordinating discharge services: Time spent: Greater than 30 minutes Exam Narrative: General: NAD, obese Eyes: EOMI ENT: neck supple Cardiovascular: Regular rate and rhythm Respiratory: Clear to auscultation, respirations even and unlabored on RA Gastrointestinal: Soft, non tender Genitourinary: no suprapubic tenderness Musculoskeletal: Bilateral LE with chronic venous stasis dermatitis. No significant warmth or bright red erythema. Multiple superficial venous stasis ulcers in various stages of healing. Skin: warm, dry Neuro: Alert. Psych: anxious DS: Data Data Completed and Pending Completed studies during hospitalization: ITS Impressions Venous Doppler Study 03/29/25 16:47 IMPRESSION: 1: No right lower extremity deep venous thrombosis. 2. Limited study as above. 3. There is a 3.6 x 1.0 x 2.5 cm heterogeneous masslike structure in the right groin possibly a lymph node. In addition, there is a 5.9 x 1.4 cm heterogeneous masslike structure in the right groin. A CT of the abdomen and pelvis with contrast is recommended for further assessment. If symptoms persist or worsen, consider a short-term follow-up study or additional imaging for further assessment. Abdomen/Pelvis CT 03/29/25 19:13 IMPRESSION: 1. Inguinal lymph nodes, unchanged from 2021 scan. These account for the findings on ultrasound today. 2. Mild gastritis not excluded. 3. No other acute abnormality within abdomen or pelvis. Ankle Brachial Index 03/30/25 12:13 IMPRESSION: 1. Mild arterial occlusive disease to bilateral lower limbs with mildly decreased bilateral ABIs. Labs on day of discharge: Labs from last 24 hours 04/01/25 04/01/25 04/01/25 12:10 07:59 05:26 WBC 6.0 RBC 3.13 L Hgb 8.6 L Hct 28.4 L MCV 90.7 MCH 27.5 MCHC 30.3 L RDW 13.6 Plt Count 187 MPV 9.2 Immature Gran % (Auto) 0.3 Neut % (Auto) 62.2 Lymph % (Auto) 25.8 [place] % (Auto) 7.5 Eos % (Auto) 3.7 Baso % (Auto) 0.5 Lymph # (Auto) 1.55 [place] # (Auto) 0.5 Eos # (Auto) 0.2 Baso # (Auto) 0.0 Abs Immat Gran (auto) 0.02 Absolute Neuts (auto) 3.7 Absolute Nucleated RBC 0.000 Nucleated RBC % 0.0 Sodium 135 L Potassium 4.2 Chloride 103 Carbon Dioxide 28 Anion Gap 4 BUN 18 H Creatinine 1.14 H Estim Creat Clear Calc 43 Estimated GFR 47 L Glucose 166 H POC Capillary Glucose 172 H 168 H Calcium 8.8 C-Reactive Protein 4.7 H CHELA, Complement Interp 03/31/25 03/31/25 03/30/25 22:20 18:12 06:23 WBC RBC Hgb Hct MCV MCH MCHC RDW Plt Count MPV Immature Gran % (Auto) Neut % (Auto) Lymph % (Auto) [place] % (Auto) Eos % (Auto) Baso % (Auto) Lymph # (Auto) [place] # (Auto) Eos # (Auto) Baso # (Auto) Abs Immat Gran (auto) Absolute Neuts (auto) Absolute Nucleated RBC Nucleated RBC % Sodium Potassium Chloride Carbon Dioxide Anion Gap BUN Creatinine Estim Creat Clear Calc Estimated GFR Glucose POC Capillary Glucose 208 H 205 H Calcium C-Reactive Protein CHELA, Complement Interp Negative Preliminary micro results at discharge 03/29/25 17:34 Blood Culture - Preliminary Blood 03/29/25 16:43 Blood Culture - Preliminary Blood Discharge Plan Discharge Attending physician on discharge: Sidney Lopez Consulting providers: Rahel Bello; Annie Rosales Discharging Clinician: Annie Rosales Anticipated Discharge Date/Time: 04/01/25 10:19 Patient Disposition: [facility] Activity: as tolerated Diet: as tolerated Wound Care Instructions: other - see discharge instructions Discharge Instructions: Continue wound care per previous instructions. Patient was started on Levaquin for pseudomonas wound infection as per culture data received by Coreen Monsalve. Do not feel further antibiotics for cellulitis are warranted. Lower extremities appear to have chronic skin changes. Patient needs to elevate legs and continue Lasix to avoid swelling. Utilize Tylenol PRN for pain and [place] has been added as needed for severe pain. Take all medications as prescribed. Finish antibiotics if prescribed, even if you are feeling better. Follow-up with your primary care provider in one week. Return to the emergency department if you develop chest pain, shortness of breath, persistent fever >100.4, confusion, loss of consciousness. Patient Instructions: Antibiotic Form Patient Language: Indian Stand Alone Forms: General Discharge Information Discharge Medications: New hydrocodone-acetaminophen 5-325 mg tablet 1 tablet PO Q6H PRN (Reason: pain) Qty: 10 0RF levofloxacin 750 mg tablet 750 mg PO Q48H Qty: 2 0RF Rx Instructions: Start 04/02. Give in the evening to avoid interaction with iron. Continued baclofen 10 mg tablet 10 mg PO Q12H PRN (Reason: muscle spasms) bisacodyl 10 mg Suppository 10 mg RECTAL DAILY PRN (Reason: Constipation) insulin glargine [Basaglar KwikPen U-100 Insulin] 100 unit/mL (3 mL) insulin pen 20 unit SUBCUT HS Rx Instructions: 7 units at bedtime Fiasp FlexTouch U-100 Insulin 100 unit/mL (3 mL) insulin pen 8 unit SUBCUT TIDWM Rx Instructions: 10 units before meals cyanocobalamin (vitamin B-12) 1,000 mcg Tablet 1,000 mcg PO DAILY furosemide 40 mg Tablet 20 mg PO DAILY carvedilol 25 mg Tablet 25 mg PO BID sennosides [senna] 8.6 mg Tablet 8.6 mg PO DAILY PRN (Reason: Constipation) gabapentin 600 mg Tablet 300 mg PO BID atorvastatin 20 mg Tablet 20 mg PO HS brimonidine 0.2 % Drops 1 drp OPHTHALMIC (EYE) Q8H Rx Instructions: Left eye timolol 0.25 % Drops 1 drp LEFTEYE TID aspirin 81 mg Tablet,Chewable 81 mg PO DAILY loratadine [Claritin] 10 mg Tablet 10 mg PO DAILY calcium carbonate-vitamin D3 [Oysco 500/D] 500 mg(1,250mg) -200 unit Tablet 1 tablet PO BID acetaminophen 325 mg Tablet 650 mg PO Q6H PRN (Reason: Pain) Qty: 10 0RF spironolactone [Aldactone] 25 mg tablet 25 mg PO QAM diclofenac sodium [Voltaren Arthritis Pain] 1 % gel 2 g topical .q12 PRN (Reason: pain) Rx Instructions: apply to single elbow, wrist or hand; for hand includes palm/fingers/back of hand magnesium hydroxide [Milk of Magnesia] 400 mg/5 mL suspension 30 ml PO DAILY PRN (Reason: constipation) ondansetron 4 mg tablet,disintegrating 4 mg PO Q8H PRN (Reason: nausea and vomiting) amino acids-protein hydrolys 11 gram-80 kcal/30 mL liquid 1 ea PO QAM Nasal [place] (sodium chloride) 0.65 % aerosol,spray 1 spray intranasal Q6H PRN (Reason: dry nasal passages) cholecalciferol (vitamin D3) 25 mcg (1,000 unit) tablet,chewable 75 mcg PO DAILY magnesium citrate [Citroma] Solution 296 ml PO .q24 PRN (Reason: constipation) sacubitril-valsartan [Entresto] 24-26 mg tablet 1 tablet PO BID gentamicin 0.1 % cream 1 applic TOPICAL DAILY Rx Instructions: apply to R foot loperamide [Anti-Diarrheal (loperamide)] 2 mg capsule 2 mg PO .q24 PRN (Reason: loose stool) latanoprost 0.005 % drops 1 drp LEFT EYE QPM polyethylene glycol 3350 [Miralax] 17 gram Powder In Packet 17 g PO QAM PRN (Reason: constipation) Changed ferrous sulfate 325 mg (65 mg iron) Tablet 325 mg PO DAILY 30 Days Qty: 30 0RF Discontinued calcium carbonate [Oyster Shell Calcium] 500 mg calcium (1,250 mg) tablet 500 mg PO BID Date of admission: 03/30/25 08:21 Primary Care Provider: Tati,Len Admitting Provider: Sidney Lopez Attending physician on admission: Sidney Lopez Condition: Stable
[2025-04-01 14:08] LABS: Albumin, U 28.5 % (.); Alpha-1-Globulin, U 4.1 % (.); Alpha-2-Globulin, U 12.6 % (.); Beta Globulin, U 22.7 % (.); Gamma Globulin, U 32.1 % (.)
--- NOTE | 2025-04-06 09:24 | PC.NURSE ---
Blood cx show no growth. Rt leg would shows normal skin moe. Left leg growing MRSA and pseudomonas. Both are susceptible to Levaquin which is what pt dc home on.
== END 2025-04-01 13:10 | DRG 603 ==
LOC: ANHED 18:44 → ANH3MEDSUR 19:31
PROVIDERS: Nurse Practitioner; Admitting Provider Internal Medicine; Emergency Provider Emergency Medicine; Visit Provider Physician Assistant
DX: L03.115 Cellulitis of right lower limb (principal); I50.42 Chronic combined systolic (congestive) and diastolic (congestive) heart failure; E11.622 Type 2 diabetes mellitus with other skin ulcer; I83.018 Varicose veins of right lower extremity with ulcer other part of lower leg; I83.028 Varicose veins of left lower extremity with ulcer other part of lower leg; D64.9 Anemia, unspecified; E78.5 Hyperlipidemia, unspecified; I25.10 Atherosclerotic heart disease of native coronary artery without angina pectoris; I10 Essential (primary) hypertension; I73.9 Peripheral vascular disease, unspecified; E11.319 Type 2 diabetes mellitus with unspecified diabetic retinopathy without macular edema; E66.9 Obesity, unspecified; Z68.39 Body mass index [BMI] 39.0-39.9, adult; Z86.73 Personal history of transient ischemic attack (TIA), and cerebral infarction without residual deficits; Z95.5 Presence of coronary angioplasty implant and graft
CPT/HCPCS: 36415; 74177; 80048; 80053; 81003; 82247; 82248; 82565; 82607; 82728; 82746; 82948; 83010; 83036; 83540; 83550; 83605; 83615; 84156; 84166; 84238; 84443; 84466; 85014; 85018; 85025; 85046; 85610; 85730; 86140; 86880; 87040; 87070; 87075; 87186; 87641; 93005; 93306; 93922; 93971; 96365; 96367; 96375; 96376; 97161; 99212; 99285; A9270; G0378; G0463; J0692; J1650; J1815; J1836; J2270; J2405; J3373; J7050; Q9967

== ENCOUNTER 2025-04-24 16:40 | Inpatient (IN) | payer MEDICARE, MEDICAID, SELFPAY ==
--- OUTSIDE RECORDS SUMMARY | 2002-02-03 06:00 | XMS_ITS | Continuity of Care Document ---
Author Organization [facility] Address [address] [place] [address] [address] [place] [address] Phone Care Team Providers Care Social Sciences Department Chair Name Role Phone Louis Larkin Unavailable Unavailable Advance Directives Directive Yes / No Effective Date File Name No Information Encounters Encounter Description Practice Location Reason(s) For Visit Diagnoses Date Provider Providers Copied on Encounter [facility], [id number] [place] [address] [address], [place], [place], [id number], [place] tel:[phone] [facility] (formerly [facility]3] No Information [address] , [address], [place], [address], [place]. tel:[phone] Family History Family Member Type Diagnosis Age [...]
[2025-04-24] VITALS (19 sets, daily range): BP systolic 143–183; BP diastolic 79–93; PULSE 0–108; RESP 10–22; TEMP 36.7–36.9; O2SAT 90–100; BMI 38.6
--- NOTE | ~2025-04-24 | US_ITS ---
EXAMINATION: US venous doppler [facility] DATE: 04/25/2025 21:46 INDICATION: Lower limb edema. TECHNIQUE: Grayscale ultrasound images without and with compression and Doppler ultrasound images of the bilateral lower extremity veins were obtained. COMPARISON: Ultrasound 03/29/25 FINDINGS: The visualized portions of right common femoral vein, profunda (deep) femoral vein, femoral vein, popliteal vein, peroneal veins, posterior tibial veins, and greater saphenous vein outflow are patent. The visualized portions of left common femoral vein, profunda femoral vein, femoral vein, popliteal vein, peroneal veins, posterior tibial veins, and greater saphenous vein outflow are patent. IMPRESSION: 1. No deep venous thrombosis. Reviewed, dictated and finalized at location E.
--- NOTE | ~2025-04-24 | CT_ITS ---
EXAMINATION: CT brain wo con, 04/24/2025 18:00 CDT HISTORY: weakness, ams COMPARISON: No comparisons available. Technique: Axial images obtained of the brain without contrast. One or more of the following dose reduction techniques were used: automated exposure control, adjustment of the mA and/or kV according to patient size, use of iterative reconstruction technique. Findings: Remote bilateral basal ganglia lacunar infarcts. No acute infarct or hemorrhage. No midline shift or mass effect. No extra-axial fluid collections. Mastoid air cells unremarkable. Sinuses and orbits unremarkable. No acute fracture. No significant facial or scalp soft tissue swelling evident. No radiopaque foreign body is seen. Impression: 1.No acute intracranial abnormality. Reviewed, dictated and finalized at location P. Impression: 1.No acute intracranial abnormality.
--- NOTE | ~2025-04-24 | XR_ITS ---
EXAMINATION: XR chest 2V, 04/24/2025 17:40 CDT HISTORY: body aches, weak COMPARISON: No comparisons available. Technique: 2 views obtained. Findings: Mild pulmonary venous congestion. Scattered bilateral small infiltrates. No pneumothorax. Mild cardiomegaly. Mediastinal and hilar contours are within normal limits. Bony thorax no acute abnormality. Impression: Probable viral pneumonitis Reviewed, dictated and finalized at location P. Impression: Probable viral pneumonitis
--- NOTE | 2025-04-24 16:52 | ECG_ITS ---
Test Date: 2025-04-24 17:15:02 Measurements Intervals [place] Rate: 99 P: 69 OK: 179 QRS: -67 QRSD: 165 T: 85 QT: 409 QTc: 526 Interpretive Statements SINUS RHYTHM LEFT AXIS DEVIATION LEFT BUNDLE BRANCH BLOCK ABNORMAL ECG Compared to ECG 03/31/2025 10:10:56 No significant changes Electronically Signed On 04-24-2025 19:23:45 CDT by Virgil Guzmán D.O.
--- OUTSIDE RECORDS SUMMARY | 2025-04-24 16:53 | XMS_ITS | Clinical Summary ---
Author Organization [facility] [place] [address] Address [address] [place] [address] Care Team Providers Care Production Specialist Name Role Phone Trevor John MD Primary Care Provider [phone] Allergies Active Allergy Reactions Criticality Noted Date [...] tabletIndicati ons:Coronary artery disease involving [place] coronary artery of [place] heart without angina pectoris Take 1 tablet [...] 06/27/2021 Assessment & Plan (06/27/2021 10:37 AM ICE [employer]AM [employer]KER): Assessment/plan: Charcot foot deformities to bilateral lower [...] 05/05/2018 Assessment & Plan (06/27/2021 10:35 AM ICE CREAM MAKER): Assessment/plan: Coreg Mixed hyperlipidemia 05/05/2018 Asthma in adult, unspecified asthma severity, un complicated 01/29/2018 Gastroesophageal reflux disease without esophagi tis 01/29/2018 Type 2 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, with long-term current use of insulin 01/29/2018 History of CVA (cerebrovascular accident) 2017 Exercise counseling 06/13/2017 Coronary artery disease invo lving [place] coronary artery of [place] heart without angina pectoris 02/17/2017 Assessment & Plan (06/27/2021 10:35 AM ICE CREAM MAKER): Assessment/plan: Continue ASA, Lipitor Ischemic cardiomyopathy 02/17/2017 [...] on file Legal Sex Female 3:20 AM [employer]AM [employer] Gender Identity Not on file Sexual Orientation Not on file Obstetrics History Last Filed Vital Signs Vital Sign Reading Time Taken Comments Blood Pressure 112/67 06/27/2021 10:10 AM [employer] Pulse 75 06/27/2021 10:10 AM [employer] Temperature - - Respiratory Rate - - Oxygen Saturation 98% 05/19/2019 10:49 AM [employer] Inhaled Oxygen Concentration - - Weight 96.2 kg (212 lb) 06/27/2021 10:10 AM [employer] Height 152.4 cm (5') 06/27/2021 10:10 AM [employer] Body Mass Index 41.4 06/27/2021 10:10 AM ICE CREAM [employer]ER Plan of Treatment Health Maintenance Due Date [...] Most Recently Relevant to Health Maintenance Insurance [place] [facility] Care Teams Production Specialist Relationship Specialty Start Date End Date Trevor John MD PCP - General Internal Medicine 06/27/21
--- OUTSIDE RECORDS SUMMARY | 2025-04-24 16:53 | XMS_ITS | Encounter Summary ---
Author Organization [facility] Address [address] [facility] [address] [place] [id number] Care Team Providers Care Apprise Counselor Name Role Phone Hasmukh Cooper MD Primary Care Provider [phone] Trevor John MD Primary Care Provider [phone] Encounter Details Date Type Department Care Team (Late st Contact Info) Description 09/06/2016 Orders Only [facility] ProviderAaron MD [address] [place] [id number] Social History Tobacco Use Types Packs/Day Years Used Date Smoking Tobacco: Never Assessed Comments Unknown Sex and Gender Information Value Date Recorded Sex Assigned at Not on file 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
--- OUTSIDE RECORDS SUMMARY | 2025-04-24 16:53 | XMS_ITS | Clinical Summary ---
Author Organization [facility] Address [address] [place] [address] Care Team Providers Care Braille Transcriber Name Role Phone None, Provider MD Primary Care Provider Unavaila ble Allergies Active Allergy Reactions Criticality Noted Date Comments Egg Protein-Containing Drug Products Anaphylaxis High 10/10/2021 Latex Anaphylaxis High 10/10/2021 Milk-Related Compounds Anaphylaxis High 10/10/2021 Penicillins Anaphylaxis,Hives,Rash High 10/10/2021 Tolerated cefepime without problem October 2021 Shellfish Protein-Containing Drug Products Anaphylaxis High 10/10/2021 Sulfa Antibiotics Anaphylaxis,Hives,Rash [...] daily with breakfast. Active vitamin D2, ergocalciferol, 13616 UNITS capsule Take 50,000 Units by mouth Bimonthly. On the 10 and 25 of each month Active fluticasone [...] within 12 hours or as directed by Active polyethylene glycol packet Take 17 g [...] Noted Date Diagnosed Date NSTEMI (non-ST elevated myocardial infarction) 0 10/25/2021 Sepsis 10/24/2021 AC (acute kidney injury) 10/18/2021 Cellulitis 10/13/2021 Type 2 diabetes mellitus 10/13/2021 HFrEF (heart failure with reduced ejection fract ion) 10/13/2021 HLD (hyperlipidemia) 10/13/2021 Charcot-Hannah disease 10/13/2021 HTN (hypertension) 10/13/2021 Anemia 10/13/2021 CVA (cerebral vascular accident) 10/13/2021 Venous stasis ulcers of both lower extremities 0 10/11/2021 Hyperkalemia 10/11/2021 Family History Medical History [...] Hemoglobin A1C 04/13/2022 10/12/2021, 05/01/2021 COVID-19 Vaccine (4 - 2024-2 6 season) 2025 05/03/2021, 08/05/2020, 07/15/2020 Influenza Adult (#1) 2025 Hepatitis A Vaccines Aged Out No long er eligible based on patient's age to complete this topic Meningococcal B Vaccine Aged Out No l [...] ADLs independently General No Maria A Banks, lithographic retoucher apprentice - family caregiver with be involved in care transitions and discharge planning General No Mitzi Cooley, INSEMINATION WORKER Procedures Procedure Name Priority Date/Time Associated Diagnosis Comments HEMOGLOBIN, GLYCOSYLATED Routine 10/12/2021 3:25 AM CDT from Last 3 Months or Most Recently Relevant to Health Maintenance Results * (ABNORMAL) HEMOGLOBIN, GLYCOSYLATED (10/12/2021 3:25 AM CDT) HGB A1C 6.9(H) <5.7 % 10/13/2021 12:49 AM CDT [facility] Comment: ADA GUIDELINES 2010 5.7 TO 6.4% INCREASED RISK OF DIABETES > OR = 6.5% CONSISTENT WITH DIABETES ESTIMATED AVG GLUCOSE 151 mg/dL 10/13/2021 12:49 AM CDT [facility] 10/12/2021 3:25 AM CDT Maida Craft MD LABORATORY Final Result [facility] [address] [place] [address], [place] [phone] from Last 3 Months or Most Recently Relevant to Health Maintenance Additional Health Concerns Infection Onset Date Last Indicated MRSA Comment:10/25/21 +MRSA Nasal 10/26/21 +MRSA Left foot 10/26/2021 10/26/2021 Insurance [place] Advance Directives Documents on File Type Date Recorded Patient Dish Carrier Expl anation Advance Directives and Living Will 11/16/2021 9:18 AM 06/09/2019 POLST * Full Code (Latest Code Status on File) Date Activated Date Inactivated Comments 10/24/2021 9:22 PM 11/08/2021 4:53 PM * Full Code Date Activated Date Inactivated Comments 10/18/2021 5:18 PM 10/19/2021 10:46 PM * Full Code Date Activated Date Inactivated Comments 10/11/2021 12:37 AM 10/13/2021 4:06 PM Care Teams Braille Transcriber Relationship Specialty Start Date End Date None, Provider, PCP - General 06/30/21
--- OUTSIDE RECORDS SUMMARY | 2025-04-24 16:53 | XMS_ITS | Encounter Summary ---
Author Organization [facility] Address [facility] [place] [address] Care Team Providers Care Pharmacy Messenger Name Role Phone None, Provider MD Primary Care Provider Unavaila ble Encounter Details Date Type Department Care Team (Late st Contact Info) Description 10/29/2021 Prep for Procedure [facility], [facility] [address] [place], [place] [id number] Heriberto Dixon MD [facility]. [facility] [address], [place] [id number] Social History Tobacco Use Types Packs/Day Years [...] and discharge planning General No Mitzi Cooley, CONTRACT NEGOTIATION SPECIALIST documented as of this encounter Visit Diagnoses Not on filedocumented in this encounter Additional Health Concerns Infection Onset Date Last Indicated Resolved Time MRSA Comment:10/25/21 +MRSA Nasal 10/26/21 +MRSA Left foot 10/26/2021 10/26/2021 COVID-19 Rule Out 11/07/2021 11/08/2021 11/08/2021 7:44 AM CDT documented as of this encounter Care Teams Pharmacy Messenger Relationship Specialty Start Date End Date None, Provider, PCP - General 06/30/21 documented as of this encounter
--- NOTE | 2025-04-24 16:59 | ED.WEAKNESS ---
HPI - Weakness General Chief complaint: Weakness <Shayla Torres PA-C - Last Filed: 04/24/25 19:00> Stated complaint: weakness <FREIDA Tomlin Last Filed: 04/24/25 19:00> Time Seen by Provider: 04/24/25 16:44 <FREIDA Tomlin Last Filed: 04/24/25 19:00> Source: patient and old records reviewed <Shayla Torres PA-C - Last Filed: 04/24/25 19:00> Mode of arrival: EMS <FREIDA Tomlin Last Filed: 04/24/25 19:00> Limitations: clinical condition <FREIDA Tomlin Last Filed: 04/24/25 19:00> History of Present Illness HPI Narrative: Patient is a 70 y/o female, with PMH of Charcot Hannah tooth disease, Charcot deformity BLE, CVA, HTN, HLD, CHF, who presents to the ED via EMS with report of weakness and diffuse pain. Patient is currently a resident at [facility]. Was admitted here 03/29-04/01 for chronic/worsening wounds to [facility]. Completed course of levaquin and has been receiving wound care at [facility]. Per [place] report, patient c/o weakness and pain all over. Patient unable to provide information. A&OX2, does not answer many questions. Consistently moaning, but unable to localize pain. <FREIDA Tomlin Last Filed: 04/24/25 19:00> Related Data Home medications: Home Medications ?Medication ?Instructions ?Recorded ?Confirmed ?Last Taken ?Type aspirin 81 mg chewable tablet 81 mg PO DAILY 01/19/20 03/29/25 Unknown History atorvastatin 20 mg tablet 20 mg PO HS 01/19/20 03/29/25 Unknown History brimonidine 0.2 % eye drops 1 drp ophthalmic (eye) Q8H 01/19/20 03/29/25 Unknown History calcium 500 mg (as 1 tablet PO BID 01/19/20 03/29/25 Unknown History carbonate)-vitamin D3 5 mcg (200 unit) tablet (Oysco 500/D) carvedilol 25 mg tablet 25 mg PO BID 01/19/20 03/29/25 Unknown History furosemide 40 mg tablet 20 mg PO DAILY 01/19/20 03/29/25 Unknown History gabapentin 600 mg tablet 300 mg PO BID 01/19/20 03/29/25 Unknown History loratadine 10 mg tablet (Claritin) 10 mg PO DAILY 01/19/20 03/29/25 Unknown History sennosides 8.6 mg tablet (senna) 8.6 mg PO DAILY PRN Constipation 01/19/20 03/29/25 Unknown History timolol 0.25 % eye drops 1 drp LEFT EYE TID 01/19/20 03/29/25 Unknown History baclofen 10 mg tablet 10 mg PO Q12H PRN muscle spasms 11/16/23 03/29/25 Unknown History bisacodyl 10 mg rectal suppository 10 mg RECTAL DAILY PRN Constipation 11/16/23 03/29/25 Unknown History cyanocobalamin (vitamin B-12) 1,000 mcg PO DAILY 11/16/23 03/29/25 Unknown History 1,000 mcg tablet insulin aspart 8 unit subcut TIDWM 11/16/23 03/29/25 Unknown History (niacinamide)(U-100) 100 unit/mL(3 mL) subcutaneous pen (Fiasp FlexTouch U-100 Insulin) insulin glargine 100 unit/mL (3 20 unit subcut HS 11/16/23 03/29/25 Unknown History mL) subcutaneous pen (Basaglar KwikPen U-100 Insulin) amino acids-protein hydrolysate 11 1 ea PO QAM 03/29/25 03/29/25 Unknown History gram-80 kcal/30 mL oral liquid cholecalciferol (vitamin D3) 25 75 mcg PO DAILY 03/29/25 03/29/25 Unknown History mcg (1,000 unit) chewable tablet diclofenac sodium 1 % topical gel 2 g topical .q12 PRN pain 03/29/25 03/29/25 Unknown History (Voltaren Arthritis Pain) gentamicin 0.1 % topical cream 1 applic topical DAILY 03/29/25 03/29/25 Unknown History latanoprost 0.005 % eye drops 1 drp LEFT EYE QPM 03/29/25 03/29/25 Unknown History loperamide 2 mg capsule 2 mg PO .q24 PRN loose stool 03/29/25 03/29/25 Unknown History (Anti-Diarrheal (loperamide)) magnesium citrate (Citroma oral 296 ml PO .q24 PRN constipation 03/29/25 03/29/25 Unknown History solution) magnesium hydroxide 400 mg/5 mL 30 ml PO DAILY PRN constipation 03/29/25 03/29/25 Unknown History oral suspension (Milk of Magnesia) ondansetron 4 mg disintegrating 4 mg PO Q8H PRN nausea and vomiting 03/29/25 03/29/25 Unknown History tablet polyethylene glycol 3350 17 gram 17 g PO QAM PRN constipation 03/29/25 03/29/25 Unknown History oral powder packet (Miralax) sacubitril 24 mg-valsartan 26 mg 1 tablet PO BID 03/29/25 03/29/25 Unknown History tablet (Entresto) sodium chloride 0.65 % nasal spray 1 spray intranasal Q6H PRN dry 03/29/25 03/29/25 Unknown History aerosol (Nasal [place] (sodium nasal passages chloride)) spironolactone 25 mg tablet 25 mg PO QAM 03/29/25 03/29/25 Unknown History (Aldactone) <Shayla Torres PA-C - Last Filed: 04/24/25 19:00> Allergies/Adverse reactions: Allergies Allergy/AdvReac Type Severity Reaction Status Date / Time egg Allergy Unknown Unknown Verified 04/24/25 17:31 latex Allergy Unknown Unknown Verified 04/24/25 17:31 milk Allergy Unknown Unknown Verified 04/24/25 17:31 Penicillins Allergy Unknown Skin Verified 04/24/25 17:31 Reaction shellfish derived Allergy Unknown Unknown Verified 04/24/25 17:31 Sulfa (Sulfonamide Allergy Unknown Unknown Verified 04/24/25 17:31 Antibiotics) sulfanilamide Allergy Unknown Unknown Verified 04/24/25 17:31 sulfamethizole AdvReac Unknown Nausea Verified 04/24/25 17:31 <FREIDA Tomlin Last Filed: 04/24/25 19:00> Review of Systems Review of Systems: All systems reviewed & are unremarkable except as noted in HPI. <Shayla Torres PA-C - Last Filed: 04/24/25 19:00> All systems reviewed & are unremarkable except as noted in HPI and below <Shayla Torres PA-C - Last Filed: 04/24/25 19:00> [facility] Past Medical History Medical History: Medical History Combined systolic and diastolic congestive heart failure Echocardiogram in August 2016 showed severe global left ventricular systolic dysfunction with an EF visually estimated 20 to 25% and diastolic dysfunction. MSSA bacteremia Cerebrovascular accident Dyslipidemia Hypertension Type 2 diabetes mellitus Coronary artery disease Osteomyelitis of fifth toe of right foot Charcot's joint of foot Anemia Lxfqgvt-Pamii-Dkaks disease Asthma Diabetic retinopathy <Shayla Torres PA-C - Last Filed: 04/24/25 19:00> Surgical History Surgical History: Surgical History Status post excisional debridement Bilateral heels for infected diabetic ulcers. Amputation of fifth toe of right foot Secondary to osteomyelitis. History of incision and drainage Back abscess. History of cardiac catheterization History of tonsillectomy and adenoidectomy History of open reduction and internal fixation (ORIF) procedure Repair of left arm fracture. History of coronary artery stent placement x2 <Shayla Torres PA-C - Last Filed: 04/24/25 19:00> Family History Family History: Family History Sibling Cerebrovascular accident Father Family history of diabetes mellitus in first degree relative Diabetes mellitus Family history of hypothyroidism Mother Family history of diabetes mellitus in first degree relative Family history of heart disease in male family member before age 55 Diabetes mellitus Other Family history of cardiovascular disease Hypertension <Shayla Torres PA-C - Last Filed: 04/24/25 19:00> Social History Social History: Social History 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 She has No children Surrogate decision maker: Shirley Rush, mother. Code status: Full code. 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 Spiritual care concerns: Yes Agree to blood products: Yes <Shayla Torres PA-C - Last Filed: 04/24/25 19:00> Exam Narrative: GENERAL: Chronically ill-appearing, morbidly obese with BMI of 40.7, non-toxic, in no acute distress. HEAD: Normocephalic, atraumatic. RESPIRATORY: Airway patent, respirations nonlabored. Clear to auscultation bilaterally, no rales, rhonchi, wheezing. CARDIOVASCULAR: Borderline tachycardic with regular rhythm without murmurs, rubs, or gallops. ABDOMINAL: Soft, no appreciable tenderness, nondistended. Normoactive BS. MUSCULOSKELETAL: Chronic Charcot deformity to bilateral feet. Chronic venous stasis changes. Wounds to right anterior samuel, shallow, with epithelialization, no significant drainage. Slight warmth throughout RLE. Some shallow ulcers to R lateral edge of foot with scant serous and purulent material, focal TTP SKIN: Warm, dry, normal color. NEURO: A&O X2, patient answering some questions. Persistently moaning in pain. Cranial nerves II-XII grossly intact. No ataxic movements. Moves all extremities. No gross focal deficits. PSYCHIATRIC: Moaning, tearful. Normal interaction. <Shayla Torres PA-C - Last Filed: 04/24/25 19:00> Course HOME ECONOMIST/PA Physician Supervision This visit was performed by both a physician and an APC. I performed all aspects of the MDM as documented. <Dario Iyer MD - Last Filed: 04/24/25 19:53> Vital Signs Vital signs: Vital Signs Temperature 36.9 C 04/24/25 16:40 Pulse Rate 101 H 04/24/25 16:40 Respiratory Rate 20 04/24/25 16:40 Blood Pressure 183/89 H 04/24/25 16:40 Pulse Oximetry 94 04/24/25 16:40 Oxygen Delivery Room Air 04/24/25 16:40 Temperature 36.9 C 04/24/25 16:40 Pulse Rate 94 04/24/25 19:03 Respiratory Rate 14 04/24/25 19:03 Blood Pressure 158/79 H 04/24/25 19:03 Pulse Oximetry 94 04/24/25 19:03 Oxygen Delivery Room Air 04/24/25 16:40 <RYAN Tomlin-Christopher - Last Filed: 04/24/25 19:00> Vital Signs Temperature 36.9 C 04/24/25 16:40 Pulse Rate 101 H 04/24/25 16:40 Respiratory Rate 20 04/24/25 16:40 Blood Pressure 183/89 H 04/24/25 16:40 Pulse Oximetry 94 04/24/25 16:40 Oxygen Delivery Room Air 04/24/25 16:40 Temperature 36.9 C 04/24/25 16:40 Pulse Rate 94 04/24/25 19:03 Respiratory Rate 14 04/24/25 19:03 Blood Pressure 158/79 H 04/24/25 19:03 Pulse Oximetry 94 04/24/25 19:03 Oxygen Delivery Room Air 04/24/25 16:40 <Dario Iyer MD - Last Filed: 04/24/25 19:53> MDM - Weakness MDM Narrative Medical decision making narrative: Patient presented to the ED with weakness, diffuse myalgias. From local retirement. Recent admission to hospital for chronic wounds to bilateral lower extremity. History of Charcot foot bilaterally. Patient borderline tachycardic upon arrival. Afebrile here. Consistently moaning out in pain, difficulty answering some of my questions. Wounds were re-bandaged and re-dressed. Most appear to be healing fairly well, some drainage noted from R lateral foot ulcerative wounds. Cbc with blood cell count of 17.8. This does appear new. Neutrophil predominance. No bandemia. Chronic mild anemia, consistent with previous records CMP with stable electrolytes. Stable kidney function. Blood glucose mildly elevated to 277. No evidence of DKA. Lactic acid within normal range at 1.2. Blood cx were obtained. CK within normal range UA with small amount of RBC, no significant signs of infection Patient tested positive for COVID-19 Chest x-ray with possible viral pneumonitis CT brain unremarkable Given new leukocytosis, concerning for recurrent infection of leg wounds / possible component of PNA. Patient does admit to productive cough but is also covid +. Discussed case with hospitalist, Mily STOUT, who came to ED to evaluate patient. Accepted patient for admission. Hospitalist to order abx regimen. Wound care consulted. <Shayla Torres PA-C - Last Filed: 04/24/25 19:00> Medical Records Attestation: I reviewed the patient's medical records. <Shayla Torres PA-C - Last Filed: 04/24/25 19:00> Lab Data Attestation: I reviewed the patient's lab results. <Shayla Torres PA-C - Last Filed: 04/24/25 19:00> Result diagrams: 04/24/25 16:54 04/24/25 16:54 <Shayla Torres PA-C - Last Filed: 04/24/25 19:00> Labs: Lab Results 04/24/25 04/24/25 04/24/25 Range/Units 16:53 16:54 17:01 WBC 17.8 H (4.5-10.0) K/mm3 RBC 3.48 L (4.2-5.4) M/mm3 Hgb 9.6 L (12.0-15.0) g/dL Hct 31.5 L (37.0-47.0) % MCV 90.5 (80-100) fl MCH 27.6 (26-34) pg MCHC 30.5 L (32-36) g/dl RDW 14.7 H (11.5-14.5) % Plt Count 127 L (150-375) k/mm3 MPV 10.0 (7.4-10.4) fl Immature Gran % (Auto) 0.7 H (0-0.5) % Neut % (Auto) 92.2 H (45.5-73.1) % Lymph % (Auto) 4.1 L (18.3-44.2) % [place] % (Auto) 2.8 (2.6-8.5) % Eos % (Auto) 0.0 (0-4.4) % Baso % (Auto) 0.2 (0.2-1.2) % Lymph # (Auto) 0.73 L (0.9-3.2) K/mm3 [place] # (Auto) 0.5 (0.1-0.6) K/mm3 Eos # (Auto) 0.0 (0-0.3) K/mm3 Baso # (Auto) 0.0 (0.0-0.1) K/mm3 Abs Immat Gran (auto) 0.12 H (0.00-0.031) K/mm3 Absolute Neuts (auto) 16.4 H (1.3-6.7) K/mm3 Absolute Nucleated RBC 0.000 (0.0-0.012) K/mm3 Nucleated RBC % 0.0 (0.0-0.2) % PT 14.7 (11.1-14.7) Seconds INR 1.1 APTT 28.6 (22.3-36.8) Seconds Sodium 136 L (137-145) mmol/L Potassium 4.8 (3.4-5.0) mmol/L Chloride 103 (98-107) mmol/L Carbon Dioxide 24 (22-30) mmol/L Anion Gap 9 (4-12) mmol/L BUN 21 H (7-17) mg/dL Creatinine 1.17 H (0.7-1.0) mg/dL Estim Creat Clear Calc 42 ml/min Estimated GFR 46 L (59 - ) Glucose 277 H (65-110) mg/dL Lactic Acid 1.2 (0.7-2.0) mmol/L Calcium 8.8 (8.4-10.2) mg/dL Magnesium 1.9 (1.6-2.3) mg/dL Total Bilirubin 0.7 (0.2-1.3) mg/dL AST 18 (14-36) U/L ALT 14 (6-35) U/L Alkaline Phosphatase 125 (38-126) U/L Total Creatine Kinase 35 (30-135) U/L C-Reactive Protein Cancelled NT-Pro-B Natriuret Pep 8830 H (19.9-100) pg/mL Total Protein 8.2 (6.3-8.2) g/dL Albumin 3.6 (3.5-5.1) g/dL Urine Color Yellow (Yellow) Urine Appearance Clear (Clear) Urine pH 6.0 (5.0-9.0) Ur Specific [place] 1.019 (1.001-1.035) Urine Protein 2+ H (Negative) mg/dL Urine Glucose (UA) 1+ H (Negative) mg/dL Urine Ketones Trace H (Negative) mg/dL Ur Blood (Man) 1+ H (Negative) Urine Nitrate Negative (Negative) Urine Bilirubin Negative (Negative) Urine Urobilinogen 0.2 (<2.0) mg/dL Leukocyte Esterase Rfl Negative (Negative) JULIANNA/UL Urine RBC 11-20 H (0-2) /hpf Urine WBC 0-5 (0-3) /hpf Ur Squamous Epith Cells None seen (Few) /hpf Urine Bacteria None seen /hpf Urine Casts 0-2 Influenza A (RT-PCR) Negative (Negative) Influenza B (RT-PCR) Negative (Negative) RSV (RT-PCR) Negative (Negative) SARS-CoV-2 RNA (RT-PCR) Positive A (Negative) <Shayla Torres PA-C - Last Filed: 04/24/25 19:00> Lab Results 04/24/25 04/24/25 04/24/25 Range/Units 16:53 16:54 17:01 WBC 17.8 H (4.5-10.0) K/mm3 RBC 3.48 L (4.2-5.4) M/mm3 Hgb 9.6 L (12.0-15.0) g/dL Hct 31.5 L (37.0-47.0) % MCV 90.5 (80-100) fl MCH 27.6 (26-34) pg MCHC 30.5 L (32-36) g/dl RDW 14.7 H (11.5-14.5) % Plt Count 127 L (150-375) k/mm3 MPV 10.0 (7.4-10.4) fl Immature Gran % (Auto) 0.7 H (0-0.5) % Neut % (Auto) 92.2 H (45.5-73.1) % Lymph % (Auto) 4.1 L (18.3-44.2) % [place] % (Auto) 2.8 (2.6-8.5) % Eos % (Auto) 0.0 (0-4.4) % Baso % (Auto) 0.2 (0.2-1.2) % Lymph # (Auto) 0.73 L (0.9-3.2) K/mm3 [place] # (Auto) 0.5 (0.1-0.6) K/mm3 Eos # (Auto) 0.0 (0-0.3) K/mm3 Baso # (Auto) 0.0 (0.0-0.1) K/mm3 Abs Immat Gran (auto) 0.12 H (0.00-0.031) K/mm3 Absolute Neuts (auto) 16.4 H (1.3-6.7) K/mm3 Absolute Nucleated RBC 0.000 (0.0-0.012) K/mm3 Nucleated RBC % 0.0 (0.0-0.2) % PT 14.7 (11.1-14.7) Seconds INR 1.1 APTT 28.6 (22.3-36.8) Seconds Sodium 136 L (137-145) mmol/L Potassium 4.8 (3.4-5.0) mmol/L Chloride 103 (98-107) mmol/L Carbon Dioxide 24 (22-30) mmol/L Anion Gap 9 (4-12) mmol/L BUN 21 H (7-17) mg/dL Creatinine 1.17 H (0.7-1.0) mg/dL Estim Creat Clear Calc 42 ml/min Estimated GFR 46 L (59 - ) Glucose 277 H (65-110) mg/dL Lactic Acid 1.2 (0.7-2.0) mmol/L Calcium 8.8 (8.4-10.2) mg/dL Magnesium 1.9 (1.6-2.3) mg/dL Total Bilirubin 0.7 (0.2-1.3) mg/dL AST 18 (14-36) U/L ALT 14 (6-35) U/L Alkaline Phosphatase 125 (38-126) U/L Total Creatine Kinase 35 (30-135) U/L C-Reactive Protein Cancelled NT-Pro-B Natriuret Pep 8830 H (19.9-100) pg/mL Total Protein 8.2 (6.3-8.2) g/dL Albumin 3.6 (3.5-5.1) g/dL Urine Color Yellow (Yellow) Urine Appearance Clear (Clear) Urine pH 6.0 (5.0-9.0) Ur Specific [place] 1.019 (1.001-1.035) Urine Protein 2+ H (Negative) mg/dL Urine Glucose (UA) 1+ H (Negative) mg/dL Urine Ketones Trace H (Negative) mg/dL Ur Blood (Man) 1+ H (Negative) Urine Nitrate Negative (Negative) Urine Bilirubin Negative (Negative) Urine Urobilinogen 0.2 (<2.0) mg/dL Leukocyte Esterase Rfl Negative (Negative) JULIANNA/UL Urine RBC 11-20 H (0-2) /hpf Urine WBC 0-5 (0-3) /hpf Ur Squamous Epith Cells None seen (Few) /hpf Urine Bacteria None seen /hpf Urine Casts 0-2 Influenza A (RT-PCR) Negative (Negative) Influenza B (RT-PCR) Negative (Negative) RSV (RT-PCR) Negative (Negative) SARS-CoV-2 RNA (RT-PCR) Positive A (Negative) <Dario Iyer MD - Last Filed: 04/24/25 19:53> Imaging Data Attestation: I personally reviewed and interpreted this imaging study as follows: <Shayla Torres PA-C - Last Filed: 04/24/25 19:00> Radiologist's impression: ITS Impressions Chest X-Ray 04/24/25 17:48 Impression: Probable viral pneumonitis Head CT 04/24/25 18:40 Impression: 1.No acute intracranial abnormality. <Shayla Torres PA-C - Last Filed: 04/24/25 19:00> ECG Data EKG #1: Attestation: I personally reviewed and interpreted this ECG as follows: <Shayla Torres PA-C - Last Filed: 04/24/25 19:00> ECG completion date: 04/24/25 <Shayla Torres PA-C - Last Filed: 04/24/25 19:00> ECG completion time: 17:15 <Shayla Torres PA-C - Last Filed: 04/24/25 19:00> EKG Interpretation: normal rate (99), sinus rhythm, LBBB (chronic) and left axis (chronic) <Shayla Torres PA-C - Last Filed: 04/24/25 19:00> Discharge Plan Discharge Clinical Impression: COVID-19, Chronic wound of extremity, Weakness, Umnfgbc-Hcxwk-Fktdm disease Leukocytosis Qualifiers: Leukocytosis type: unspecified Qualified Code(s): D72.829 - Elevated white blood cell count, unspecified <Shayla Torres PA-C - Last Filed: 04/24/25 19:00> Patient Disposition: Still a Patient <Shayla Torres PA-C - Last Filed: 04/24/25 19:00> Condition: Stable <Shayla Torres PA-C - Last Filed: 04/24/25 19:00>
[2025-04-24 17:08] LABS: Hematocrit 31.5 % (37.0-47.0); Hemoglobin 9.6 g/dL (12.0-15.0); Immature Granulocyte Percent A 0.7 % (0-0.5); Lymphocytes Absolute Auto 0.73 K/mm3 (0.9-3.2); Mean Corpuscular HGB Conc 30.5 g/dl (32-36); Mean Corpuscular Hemoglobin 27.6 pg (26-34); Mean Corpuscular Volume 90.5 fl (80-100); Nucleated Red Blood Cells Absolute Auto 0.000 K/mm3 (0.0-0.012); Nucleated Red Blood Cells Perc 0.0 % (0.0-0.2); Platelet Count Result 127 k/mm3 (150-375); Red Blood Count 3.48 M/mm3 (4.2-5.4); White Blood Count 17.8 K/mm3 (4.5-10.0)
[2025-04-24 17:24] LABS: Alanine Aminotransferase 14 U/L (6-35); Albumin Level 3.6 g/dL (3.5-5.1); Alkaline Phosphatase 125 U/L (38-126); Anion Gap 9 mmol/L (4-12); Aspartate Amino Transferase 18 U/L (14-36); Bilirubin,Total 0.7 mg/dL (0.2-1.3); Blood Urea Nitrogen 21 mg/dL (7-17); Calcium 8.8 mg/dL (8.4-10.2); Carbon Dioxide 24 mmol/L (22-30); Chloride 103 mmol/L (98-107); Estimated CRCL calculation 42 ml/min; Estimated Glomerular Filt Rate 46; Glucose 277 mg/dL (65-110); Potassium 4.8 mmol/L (3.4-5.0); Sodium 136 mmol/L (137-145); Total Protein 8.2 g/dL (6.3-8.2)
[2025-04-24 17:26] LABS: Add Urine Microscopic? YES; Appearance Urine Clear (Clear); Glucose Urine UA 1+ mg/dL (Negative); Leukocyte Esterase Ur Negative LEU/UL (Negative); Nitrate Urine Negative (Negative); Non Pathogenic Casts 0-2; Specific Grav Ur 1.019 (1.001-1.035)
[2025-04-24 17:27] LABS: INR 1.1; Prothrombin Time 14.7 Seconds (11.1-14.7)
[2025-04-24 17:28] LABS: Partial Thromboplastin Time 28.6 Seconds (22.3-36.8)
[2025-04-24 17:29] LABS: Creatine Kinase 35 U/L (30-135); Magnesium 1.9 mg/dL (1.6-2.3)
[2025-04-24] MEDS: SODIUM CHLORIDE 0.9% IV 500 ML 999 ML IV CONT (17:33)
[2025-04-24 17:38] LABS: NT Pro B Type Natriuretic Pept 8830 pg/mL (19.9-100)
[2025-04-24 17:52] LABS: Influenza A QL RT-PCR Negative (Negative); Influenza B QL RT-PCR Negative (Negative); RSV RNA, RT-PCR Negative (Negative); SARS-CoV-2 RNA PCR Positive (Negative)
[2025-04-24] MEDS: metroNIDAZOLE 500 MG/ISO 100ML 500 MG/100 ML BAG 100 MG IVPB (19:01)
--- NOTE | 2025-04-24 19:18 | PC.NURSE ---
Report received from JACQUES Bazan. Assumed care of patient at this time.
--- NOTE | 2025-04-24 19:51 | PM.IMHP ---
H&P: HPI History of Present Illness Date/Time: 04/24/25 19:51 Chief Complaint: Weakness Narrative: 70 y/o F with PMH of chronic wounds with Charcot's joint of the foot bilaterally, Dkuhdlf-Pcsxa-Gjukh disease, CHF, CVA, HLD, HTN, dm 2, CAD, anemia, and asthma presents here with weakness. The patient presents here with [facility] via EMS from further evaluation of generalized weakness and bilateral lower extremity pain. Patient is difficult historian and A/Ox2 at present making HPI limited. Per EMS, originally called for generalized weakness and diffuse pain. The patient is currently unable to specify where she is having pain. She does deny any chest pain, shortness a breath, cough, nausea, vomiting, or diarrhea. Significant tenderness in her bilateral lower extremities on exam. Has history of multiple chronic venous stasis ulcers and chronic venous stasis dermatitis. She was recently admitted here from 03/29/25-04/01/25 for these wounds. At that time she underwent a venous ultrasound which showed no DVT and ABIs which showed mild arterial occlusive disease. Wound culture from this admission grew MRSA Pseudomonas, and group G strep. Initial VS at presentation: 98.4? F, HR 101, R 20, 183/89, and 94% on RA. ED workup showed: WBC 17.8, hemoglobin 9.6 (8.6 on 04/01/2025), normal coags, creatinine 1.17 and GFR 46 (at baseline), glucose 277, lactic 1.2, BNP 8830. UA showed no markers of UTI. Patient tested positive for COVID on 04/24. CXR showed probable viral pneumonitis. Review of Systems Review of Systems: All systems reviewed & are unremarkable except as noted in HPI and below (limited, A/Ox2) FORMERLY [facility], [facility] Past Medical History Medical History Depression Anxiety Charcot's joint of foot Type 2 diabetes mellitus Dyslipidemia Coronary artery disease Combined systolic and diastolic congestive heart failure 03/2025: LV mildly enlarged, LV systolic function moderately reduced, EF 40-45%, grade 1 diastolic dysfunction Hypertension MSSA bacteremia Cerebrovascular accident Osteomyelitis of fifth toe of right foot Anemia Wmbhcpj-Ahxcr-Hmdwl disease Asthma Diabetic retinopathy Surgical History Surgical History Hx of tonsillectomy Status post excisional debridement Bilateral heels for infected diabetic ulcers. Amputation of fifth toe of right foot Secondary to osteomyelitis. History of incision and drainage Back abscess. History of cardiac catheterization History of open reduction and internal fixation (ORIF) procedure Repair of left arm fracture. 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 She has No children Surrogate decision maker: Shirley Elalok, mother. Code status: Full code. 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 Spiritual care concerns: Yes Agree to blood products: Yes Meds Home Medications and Allergies Home Medications ?Medication ?Instructions ?Recorded ?Confirmed ?Type aspirin 81 mg chewable tablet 81 mg PO DAILY 01/19/20 04/24/25 History atorvastatin 20 mg tablet 20 mg PO HS 01/19/20 04/24/25 History brimonidine 0.2 % eye drops 1 drp ophthalmic (eye) Q8H 01/19/20 04/24/25 History calcium 500 mg (as 1 tablet PO BID 01/19/20 04/24/25 History carbonate)-vitamin D3 5 mcg (200 unit) tablet (Oysco 500/D) carvedilol 25 mg tablet 25 mg PO BID 01/19/20 04/24/25 History furosemide 40 mg tablet 20 mg PO DAILY 01/19/20 04/24/25 History gabapentin 600 mg tablet 300 mg PO BID 01/19/20 04/24/25 History loratadine 10 mg tablet (Claritin) 10 mg PO DAILY 01/19/20 04/24/25 History sennosides 8.6 mg tablet (senna) 8.6 mg PO DAILY PRN Constipation 01/19/20 04/24/25 History timolol 0.25 % eye drops 1 drp LEFT EYE TID 01/19/20 04/24/25 History acetaminophen 325 mg tablet 650 mg (2 x 325 mg) PO Q6H PRN 12/16/21 04/24/25 Rx Pain #10 tabs baclofen 10 mg tablet 10 mg PO Q12H PRN muscle spasms 11/16/23 04/24/25 History bisacodyl 10 mg rectal suppository 10 mg RECTAL DAILY PRN Constipation 11/16/23 04/24/25 History cyanocobalamin (vitamin B-12) 1,000 mcg PO DAILY 11/16/23 04/24/25 History 1,000 mcg tablet insulin aspart 8 unit subcut TIDWM 11/16/23 04/24/25 History (niacinamide)(U-100) 100 unit/mL(3 mL) subcutaneous pen (Fiasp FlexTouch U-100 Insulin) insulin glargine 100 unit/mL (3 20 unit subcut HS 11/16/23 04/24/25 History mL) subcutaneous pen (Basaglar KwikPen U-100 Insulin) amino acids-protein hydrolysate 11 1 ea PO QAM 03/29/25 04/24/25 History gram-80 kcal/30 mL oral liquid cholecalciferol (vitamin D3) 25 75 mcg PO DAILY 03/29/25 04/24/25 History mcg (1,000 unit) chewable tablet diclofenac sodium 1 % topical gel 2 g topical .q12 PRN pain 03/29/25 04/24/25 History (Voltaren Arthritis Pain) gentamicin 0.1 % topical cream 1 applic topical DAILY 03/29/25 04/24/25 History latanoprost 0.005 % eye drops 1 drp LEFT EYE QPM 03/29/25 04/24/25 History loperamide 2 mg capsule 2 mg PO .q24 PRN loose stool 03/29/25 04/24/25 History (Anti-Diarrheal (loperamide)) magnesium citrate (Citroma oral 296 ml PO .q24 PRN constipation 03/29/25 04/24/25 History solution) magnesium hydroxide 400 mg/5 mL 30 ml PO DAILY PRN constipation 03/29/25 04/24/25 History oral suspension (Milk of Magnesia) ondansetron 4 mg disintegrating 4 mg PO Q8H PRN nausea and vomiting 03/29/25 04/24/25 History tablet polyethylene glycol 3350 17 gram 17 g PO QAM PRN constipation 03/29/25 04/24/25 History oral powder packet (Miralax) sacubitril 24 mg-valsartan 26 mg 1 tablet PO BID 03/29/25 04/24/25 History tablet (Entresto) sodium chloride 0.65 % nasal spray 1 spray intranasal Q6H PRN dry 03/29/25 04/24/25 History aerosol (Nasal [place] (sodium nasal passages chloride)) spironolactone 25 mg tablet 25 mg PO QAM 03/29/25 04/24/25 History (Aldactone) ferrous sulfate 325 mg (65 mg 325 mg PO DAILY 30 days #30 tabs 03/31/25 04/24/25 Rx iron) tablet hydrocodone 5 mg-acetaminophen 325 1 tablet PO Q6H PRN pain #10 tabs 03/31/25 04/24/25 Rx mg tablet levofloxacin 750 mg tablet 750 mg PO Q48H #2 tabs 03/31/25 04/24/25 Rx Allergies Allergy/AdvReac Type Severity Reaction Status Date / Time egg Allergy Unknown Unknown Verified 04/24/25 17:31 latex Allergy Unknown Unknown Verified 04/24/25 17:31 milk Allergy Unknown Unknown Verified 04/24/25 17:31 Penicillins Allergy Unknown Skin Verified 04/24/25 17:31 Reaction shellfish derived Allergy Unknown Unknown Verified 04/24/25 17:31 Sulfa (Sulfonamide Allergy Unknown Unknown Verified 04/24/25 17:31 Antibiotics) sulfanilamide Allergy Unknown Unknown Verified 04/24/25 17:31 sulfamethizole AdvReac Unknown Nausea Verified 04/24/25 17:31 Vital Signs Vital Signs - 24 hr 04/24/25 16:40 04/24/25 16:44 04/24/25 16:45 Temperature 98.4 F Pulse Rate 101 H 106 H 101 H Respiratory Rate 20 19 17 Blood Pressure 183/89 H Pulse Oximetry 94 94 93 Oxygen Delivery Room Air 04/24/25 16:46 04/24/25 17:00 04/24/25 17:01 Temperature Pulse Rate 103 H 108 H 104 H Respiratory Rate 21 H 20 22 H Blood Pressure 183/89 H 176/89 H Pulse Oximetry 94 91 Oxygen Delivery 04/24/25 17:15 04/24/25 17:27 04/24/25 17:30 Temperature Pulse Rate 97 97 Respiratory Rate 10 L 19 19 Blood Pressure 149/93 H Pulse Oximetry 93 92 94 Oxygen Delivery 04/24/25 17:32 04/24/25 17:45 04/24/25 18:00 Temperature Pulse Rate 97 0 L 97 Respiratory Rate 18 22 H Blood Pressure 143/92 H Pulse Oximetry 90 Oxygen Delivery 04/24/25 18:13 04/24/25 18:15 04/24/25 18:16 Temperature Pulse Rate 97 96 97 Respiratory Rate 19 20 17 Blood Pressure 169/86 H 166/89 H Pulse Oximetry 93 93 93 Oxygen Delivery 04/24/25 19:03 Temperature Pulse Rate 94 Respiratory Rate 14 Blood Pressure 158/79 H Pulse Oximetry 94 Oxygen Delivery Exam Const: General: no acute distress Other: , female, older than stated age, uncomfortable/restless HENMT: Face/Nose/Sinus: Normal nares present Mouth: Yes moist mucous membranes Eyes: General: appearance normal, both eyes and all related structures Sclera: sclerae normal Pupils: Equal, round and reactive pupils present EOM: EOMs intact bilaterally Resp: Effort & Inspection: normal respiratory effort Auscultation: clear to auscultation bilaterally Cardio: Rate: regular rate Rhythm: regular rhythm Other: S1-S2 present without murmur, rub, ectopy GI: Other: Abdomen soft, nondistended, nontender. Normoactive bowel sounds in all quadrants. Skin: Other: Chronic Charcot deformity to bilateral feet. Chronic venous stasis ulcerations to bilateral lower extremities. Shallow wounds to right anterior samuel, pink wound bed, epithelialization noted, no significant drainage. Similar wound to the right lateral edge of the foot. Left dorsal foot with small shallow open wound, pink wound bed, epithelialization. + heat to bilateral lower extremities compared to upper thighs. Neuro: Other: A&O x2, moving all extremities, generalized weakness Extrem: General: normal exam except as noted Other: 1+ edema to bilateral lower extremities, symmetric. Skin hardened making assessment for pitting difficult. Psych: Other: Poor insight and judgment at present H&P: Results Labs Labs: Short CBC 04/24/25 Range/Units 16:54 WBC 17.8 H (4.5-10.0) K/mm3 Hgb 9.6 L (12.0-15.0) g/dL Hct 31.5 L (37.0-47.0) % Plt Count 127 L (150-375) k/mm3 BMP 04/24/25 16:54 Sodium 136 L Potassium 4.8 Chloride 103 Carbon Dioxide 24 BUN 21 H Creatinine 1.17 H Glucose 277 H Calcium 8.8 Cardiac Enzymes 04/24/25 Range/Units 17:01 Total Creatine Kinase 35 (30-135) U/L Liver Function 04/24/25 Range/Units 16:54 Total Bilirubin 0.7 (0.2-1.3) mg/dL AST 18 (14-36) U/L ALT 14 (6-35) U/L Alkaline Phosphatase 125 (38-126) U/L Albumin 3.6 (3.5-5.1) g/dL Urine 04/24/25 Range/Units 17:01 Urine Color Yellow (Yellow) Urine Appearance Clear (Clear) Urine pH 6.0 (5.0-9.0) Ur Specific [place] 1.019 (1.001-1.035) Urine Protein 2+ H (Negative) mg/dL Urine Glucose (UA) 1+ H (Negative) mg/dL Assessment and Plan Assessment and plan (1) Cellulitis: Qualifiers: Laterality: unspecified laterality Site of cellulitis: extremity Site of cellulitis of extremity: lower extremity Qualified Code(s): L03.119 - Cellulitis of unspecified part of limb Code(s): L03.90 - Cellulitis, unspecified Status: Acute Assessment and Plan: Clinical exam concerning for bilateral lower extremity cellulitis, patient also has a leukocytosis of 17.8, and complaining of worsening pain in her lower extremities. Recently admitted here for same from 03/29/25-04/01/25 for these wounds. At that time she underwent a venous ultrasound which showed no DVT and ABIs which showed mild arterial occlusive disease. Wound culture from this admission grew MRSA Pseudomonas, and group G strep. - started on cefepime, vancomycin, and Flagyl on 04/24 - reviewed imaging from most recent admission, bilateral venous ultrasounds and ABIs. MARYANN showed mild arterial occlusive disease, has seen vascular outpatient. - wound consult for re-evaluation - repeat wound culture - elevate extremities as tolerated, continue Lasix p.o. - pain control (2) COVID-19: Code(s): U07.1 - COVID-19 Status: Acute Assessment and Plan: Patient reporting generalized weakness. Unclear onset. Denies shortness of breath, cough, congestion, nausea, vomiting, or diarrhea. Patient tested positive for COVID in the emergency department on 04/24. CXR was completed and showed probable viral pneumonitis. Image personally reviewed, agree with impression. - symptom onset unclear - tested positive for COVID on: 03/2625 - complicating comorbidities: Bilateral lower extremity cellulitis - started on Remdesivir on 04/24 - reviewed vital signs, no hypoxia noted. No indication for steroid use at this time. - supportive care: Mucinex p.r.n., Tessalon Perles p.r.n., Tylenol p.r.n., DuoNebs p.r.n. - monitor VS/O2 and daily labs (3) Anemia: Qualifiers: Anemia type: unspecified type Qualified Code(s): D64.9 - Anemia, unspecified Code(s): D64.9 - Anemia, unspecified Status: Chronic Assessment and Plan: Hemoglobin 9.6 upon admission on 04/24. Previously 8.6 upon discharge on 04/01/2025. Baseline appears to be 8-9. - underwent anemia workup during her most recent admission at the end of February/early March. Lab work in favor of AOCD. - transfuse if <7 - trend (4) Type 2 diabetes mellitus: Qualifiers: Diabetes mellitus watermelon inspector insulin use: with fdc use Diabetes mellitus complication status: with hyperglycemia Qualified Code(s): E11.65 - Type 2 diabetes mellitus with hyperglycemia; Z79.4 - watermelon inspector (current) use of insulin Code(s): E11.9 - Type 2 diabetes mellitus without complications Status: Chronic Assessment and Plan: - hypoglycemia protocol - POC blood glucose ACHS - home medication: Continue Lantus, pharmacy to adjust. - correct regimen ordered - high dose TIDWM, based off BMI - A1C 7.2% on 03/30/2025 (5) CHF (congestive heart failure): Qualifiers: Heart failure chronicity: chronic Heart failure type: combined systolic and diastolic Qualified Code(s): I50.42 - Chronic combined systolic (congestive) and diastolic (congestive) heart failure Code(s): I50.9 - Heart failure, unspecified Status: Chronic Assessment and Plan: Patient has peripheral edema, symmetric on exam. Chronic for patient. Otherwise appears euvolemic and no CHF appreciated on CXR. - echo 04/23: LV chamber mildly enlarged, LV systolic function moderately reduced with an EF of 40-45%, LV septal wall motion abnormal related to bundle branch block, grade 1 diastolic dysfunction, LA mildly enlarged, mild to trace valvular disease. - continue PO Lasix, Aldactone, Entresto, carvedilol (6) HTN (hypertension): Qualifiers: Hypertension type: unspecified Qualified Code(s): I10 - Essential (primary) hypertension Code(s): I10 - Essential (primary) hypertension Status: Chronic Assessment and Plan: - chronic, currently 163/86, stable. - continue home medications: Coreg, Entresto, Spironolactone - monitor (7) HLD (hyperlipidemia): Qualifiers: Hyperlipidemia type: unspecified Qualified Code(s): E78.5 - Hyperlipidemia, unspecified Code(s): E78.5 - Hyperlipidemia, unspecified Status: Chronic Assessment and Plan: - continue atorvastatin Plan Diet: diabetic GI Prophylaxis: n/a DVT Prophylaxis: Lovenox IV fluids: 1L bolus Lines/Tubes: Peripheral IV Code Status: Full code Quality VTE Prophylaxis VTE prophylaxis: pharmacologic ordered Hospitalist [facility] Advance Care Plan I have confirmed that the patient's Advanced Care Plan is present, code status is documented, or surrogate decision maker is listed in patient medical record.: Yes Medication Reconciliation I have utilized all available resources to obtain, update and review the patients current medications (includes all prescriptions, OTC, herbals, cannabis, and nutritional supplements).: Yes
--- NOTE | 2025-04-24 20:45 | WNDPHOTO ---
PHOTO ONLY - See Nursing Notes and/ or assessments for documentation.
--- NOTE | 2025-04-24 20:46 | WNDPHOTO ---
PHOTO ONLY - See Nursing Notes and/ or assessments for documentation.
--- NOTE | 2025-04-24 20:47 | WNDPHOTO ---
PHOTO ONLY - See Nursing Notes and/ or assessments for documentation.
[2025-04-24] MEDS: CEFEPIME 2 GM in SODIUM CHLORIDE 0.9% IV 50 ML 100 ML IVPB (20:53)
[2025-04-24] MEDS: ONDANSETRON INJ 4 MG/2 ML VIAL IV PUSH (20:53)
[2025-04-24] MEDS: MORPHINE SULFATE (*CRX) 4 MG/ML INJ 2 MG IV PUSH (20:54)
[2025-04-24] MEDS: REMDESIVIR 200 MG/NS 250 ML 200 MG/250 ML BAG 250 MG IVPB (22:06)
[2025-04-24] MEDS: VANCOMYCIN 1,250 MG/NS 250 ML 1,250 MG/250 ML BAG 166.67 MG IVPB (22:07)
[2025-04-24] MEDS: SACUBITRIL/VALSARTAN 24-26 MG TABLET 1 TAB PO (23:51)
[2025-04-24] MEDS: ATORVASTATIN 20 MG TABLET PO (23:51)
[2025-04-24] MEDS: GABAPENTIN 300 MG CAPSULE PO (23:52)
[2025-04-24] MEDS: VANCOMYCIN HCL 1,000 MG in SODIUM CHLORIDE 0.9% IV 250 ML 250 MG IVPB (23:52)
[2025-04-24] MEDS: HYDROcodone/acetaminophen (*CRX) 5-325 MG TABLET 1 TAB PO (23:52)
[2025-04-24] MEDS: INSULIN GLARGINE (*BKC) 100 UNITS/ML 16 UNITS SUB-Q (23:53)
[2025-04-24] MEDS: DICLOFENAC SODIUM 1% 100 GM GEL (*BKC) 1 APPLIC TOPICAL (23:55)
[2025-04-24] MEDS: LATANOPROST 0.005% OP SOLN 2.5 ML BTL 1 DROP LEFT EYE (23:55)
[2025-04-24] MEDS: BRIMONIDINE TARTRATE 0.2% OP SOLN 5 ML BTL 1 DROP EACH EYE (23:55)
[2025-04-24] MEDS: TIMOLOL MALEATE 0.25% OP SOLN 5 ML BOTTLE 1 DROP LEFT EYE (23:56)
[2025-04-25] VITALS (7 sets, daily range): BP systolic 122–149; BP diastolic 50–80; PULSE 67–78; RESP 16–18; TEMP 36.6–37.1; O2SAT 94–97; BMI 38.6
[2025-04-25] MEDS: metroNIDAZOLE 500 MG/ISO 100ML 500 MG/100 ML BAG 100 MG IVPB ×3 (03:25→20:30)
[2025-04-25 04:39] LABS: Hematocrit 27.0 % (37.0-47.0); Hemoglobin 8.1 g/dL (12.0-15.0); Immature Granulocyte Percent A 0.4 % (0-0.5); Lymphocytes Absolute Auto 1.10 K/mm3 (0.9-3.2); Mean Corpuscular HGB Conc 30.0 g/dl (32-36); Mean Corpuscular Hemoglobin 28.0 pg (26-34); Mean Corpuscular Volume 93.4 fl (80-100); Nucleated Red Blood Cells Absolute Auto 0.000 K/mm3 (0.0-0.012); Nucleated Red Blood Cells Perc 0.0 % (0.0-0.2); Platelet Count Result 120 k/mm3 (150-375); Red Blood Count 2.89 M/mm3 (4.2-5.4); White Blood Count 10.2 K/mm3 (4.5-10.0)
[2025-04-25] MEDS: BRIMONIDINE TARTRATE 0.2% OP SOLN 5 ML BTL 1 DROP EACH EYE ×2 (04:54→21:18)
--- NOTE | 2025-04-25 05:00 | WNDPHOTO ---
PHOTO ONLY - See Nursing Notes and/ or assessments for documentation.
[2025-04-25 05:19] LABS: Anion Gap 4 mmol/L (4-12); Blood Urea Nitrogen 24 mg/dL (7-17); Calcium 8.0 mg/dL (8.4-10.2); Carbon Dioxide 24 mmol/L (22-30); Chloride 107 mmol/L (98-107); Estimated CRCL calculation 39 ml/min; Estimated Glomerular Filt Rate 44; Glucose 235 mg/dL (65-110); Potassium 4.3 mmol/L (3.4-5.0); Sodium 135 mmol/L (137-145)
[2025-04-25 06:06] LABS: MRSA (PCR) NOT DETECTED (NOT DETECTE)
[2025-04-25] MEDS: INSULIN ASPART (*BKC) 100 UNITS/ML 8 UNITS SUB-Q ×2 (10:32→12:48)
[2025-04-25] MEDS: ASPIRIN 81 MG CHEWABLE TABLET PO (10:34)
[2025-04-25] MEDS: CALCIUM/VITAMIN D 500 MG/5 MCG (200 I.U.) TABLET PO (10:34)
[2025-04-25] MEDS: FERROUS SULFATE 325 MG TABLET PO (10:34)
[2025-04-25] MEDS: ENOXAPARIN 40 MG/0.4 ML SYRINGE SUB-Q (10:34)
[2025-04-25] MEDS: GABAPENTIN 300 MG CAPSULE PO ×2 (10:35→21:14)
[2025-04-25] MEDS: CYANOCOBALAMIN 1,000 MCG TABLET 1000 MCG PO (10:35)
[2025-04-25] MEDS: LORATADINE 10 MG TABLET PO (10:35)
[2025-04-25] MEDS: CHOLECALCIFEROL (VITAMIN D3) 25 MCG (1,000 UNITS) TABLET 75 MCG PO (10:35)
[2025-04-25] MEDS: TIMOLOL MALEATE 0.25% OP SOLN 5 ML BOTTLE 1 DROP LEFT EYE ×2 (11:10→21:19)
[2025-04-25] MEDS: GENTAMICIN SULFATE 0.1% CR 15 GM TUBE 1 APPLIC TOPICAL (11:12)
[2025-04-25] MEDS: SACUBITRIL/VALSARTAN 24-26 MG TABLET 1 TAB PO ×2 (11:13→21:17)
[2025-04-25] MEDS: CEFEPIME 2 GM in SODIUM CHLORIDE 0.9% IV 50 ML 100 ML IVPB ×2 (11:23→20:33)
--- NOTE | 2025-04-25 12:31 | P.PNIM_ITS ---
Progress Note: A&P Assessment and Plan (1) Cellulitis: Qualifiers: Laterality: unspecified laterality Site of cellulitis: extremity Site of cellulitis of extremity: lower extremity Qualified Code(s): L03.119 - Cellulitis of unspecified part of limb Code(s): L03.90 - Cellulitis, unspecified Status: Acute Assessment and Plan: Clinical exam concerning for bilateral lower extremity cellulitis WBC 17.8K. Recently admitted 03/29-04/01/25 for similar presentation: * ABIs showed mild arterial occlusive disease. * Wound Cx grew MRSA, Pseudomonas, and group G strep. Cefepime, vancomycin, and Flagyl on 04/24 Repeat wound culture BCx collected Elevate extremities as tolerated, continue Lasix p.o. Wound consult for re- evaluation. Pain control. Check dopplers (2) COVID-19: Code(s): U07.1 - COVID-19 Status: Acute Assessment and Plan: Patient reporting generalized weakness. Unclear onset. Denies SOB, cough, congestion, n/v, or diarrhea. COVID positive in the emergency department on 04/24. CXR showed probable viral pneumonitis. Symptom onset unclear. No hypoxia. Complicating comorbidities: CHF, DM, cellulitis Started on Remdesivir on 04/24 Continue supportive care: Mucinex p.r.n., Tessalon Perles p.r.n., Tylenol p.r.n., DuoNebs p.r.n. (3) Anemia: Qualifiers: Anemia type: unspecified type Qualified Code(s): D64.9 - Anemia, unspecified Code(s): D64.9 - Anemia, unspecified Status: Chronic Assessment and Plan: Hemoglobin 9.6 on admission on 04/24. Hgb normally runs in the 8 range. B12/folate normal earlier this month. Iron 32, TIBC 162, Iron Sat 20% consistent with anemia of chronic dz. Monitor Hgb and transfuse if <7 to a stable Hgb (4) Type 2 diabetes mellitus: Qualifiers: Diabetes mellitus complication status: with hyperglycemia Diabetes mellitus roasterman insulin use: with roasterman use Qualified Code(s): E11.65 - Type 2 diabetes mellitus with hyperglycemia; Z79.4 - superintendent terminal (current) use of insulin Code(s): E11.9 - Type 2 diabetes mellitus without complications Status: Chronic Assessment and Plan: A1c 7.2% on 03/30/2025. The patient's blood glucose was reviewed on 04/25 Glucose with wide flucuations. Continue AccuCheks covering with sliding scale. Hypoglycemia protocol available as needed. Lantus dose decreased. Back down on meal time insulin amount Continue to monitor (5) CHF (congestive heart failure): Qualifiers: Heart failure chronicity: chronic Heart failure type: combined systolic and diastolic Qualified Code(s): I50.42 - Chronic combined systolic (congestive) and diastolic (congestive) heart failure Code(s): I50.9 - Heart failure, unspecified Status: Chronic Assessment and Plan: Patient has peripheral edema, symmetric on exam. Chronic for patient. Otherwise appears euvolemic and no CHF appreciated on CXR. Echo 04/23: LV chamber mildly enlarged, LV systolic function moderately reduced with an EF of 40-45%, LV septal wall motion abnormal related to bundle branch block, grade 1 diastolic dysfunction, LA mildly enlarged, mild to trace valvular disease. Continue PO Lasix, Aldactone, Entresto, carvedilol (6) HTN (hypertension): Qualifiers: Hypertension type: unspecified Qualified Code(s): I10 - Essential (primary) hypertension Code(s): I10 - Essential (primary) hypertension Status: Chronic Assessment and Plan: Patient's blood pressure was reviewed on 04/25 Blood pressure remains reasnably well controlled. Will continue to monitor Plan DVT Prophylaxis: Lovenox Code Status: Full code Subjective Date/time seen: 04/25/25 12:31 Interval history: 70yo female with PMH of chronic wounds with Charcot's joint of the foot bilaterally, Rrrluqg-Pyzxp-Oufgm disease, CHF, CVA, HLD, HTN, dm 2, CAD, anemia, and asthma presents here with weakness. No CP or SOB. No orthopnea. No change in the right leg pain. Exam Narrative: AF 97.8 122/80 77 18 94% ra Gen - NARD Chest - bibasilar crackles. nml RR CV - RRR S1/S2 Abd - Soft, NT/ND, Positive BS Ext - bilateral feet/ankle deformity c/w charcot joints Psych - Nml mood and affect Skin - Warm and dry. Right distal LE, ankle and foot dressed with serous staining. Left LE with chronic venous stasis skin changes. Objective Data Vital Signs Vital Signs: Vital Signs - 24 hr 04/24/25 16:40 04/24/25 16:44 04/24/25 16:45 Temperature 98.4 F Pulse Rate 101 H 106 H 101 H Respiratory Rate 20 19 17 Blood Pressure 183/89 H Pulse Oximetry 94 94 93 Oxygen Delivery Room Air 04/24/25 16:46 04/24/25 17:00 04/24/25 17:01 Temperature Pulse Rate 103 H 108 H 104 H Respiratory Rate 21 H 20 22 H Blood Pressure 183/89 H 176/89 H Pulse Oximetry 94 91 Oxygen Delivery 04/24/25 17:15 04/24/25 17:27 04/24/25 17:30 Temperature Pulse Rate 97 97 Respiratory Rate 10 L 19 19 Blood Pressure 149/93 H Pulse Oximetry 93 92 94 Oxygen Delivery 04/24/25 17:32 04/24/25 17:45 04/24/25 18:00 Temperature Pulse Rate 97 0 L 97 Respiratory Rate 18 22 H Blood Pressure 143/92 H Pulse Oximetry 90 Oxygen Delivery 04/24/25 18:13 04/24/25 18:15 04/24/25 18:16 Temperature Pulse Rate 97 96 97 Respiratory Rate 19 20 17 Blood Pressure 169/86 H 166/89 H Pulse Oximetry 93 93 93 Oxygen Delivery 04/24/25 18:17 04/24/25 19:03 04/24/25 19:54 Temperature Pulse Rate 97 94 96 Respiratory Rate 21 H 14 18 Blood Pressure 158/79 H 163/86 H Pulse Oximetry 94 94 95 Oxygen Delivery 04/24/25 23:38 04/25/25 05:59 04/25/25 11:11 Temperature 98.1 F 97.8 F Pulse Rate 95 74 77 Respiratory Rate 18 18 Blood Pressure 145/79 H 149/72 H Pulse Oximetry 100 97 Oxygen Delivery 04/25/25 11:12 Temperature 97.8 F Pulse Rate 77 Respiratory Rate 18 Blood Pressure 122/80 Pulse Oximetry 94 Oxygen Delivery Intake/Output Intake/Output: Intake & Output 04/22/25 04/23/25 04/24/25 04/25/25 23:59 23:59 23:59 23:59 Intake Total 650 240 Output Total 150 100 Balance 500 140 Meds/Results Medications: Active Medications Generic Name Dose Route Start Last Admin Trade Name Freq PRN Reason Stop Dose Admin Acetaminophen 650 mg 04/24/25 18:49 Acetaminophen 325 Mg Tablet PO Q4H PRN Mild Pain (1-3) or Fever Hydrocodone Bitart/Acetaminophen 1 tab 04/24/25 22:04 04/24/25 23:52 Hydrocodone/Acetaminophen (*Crx) 5-325 Mg Tablet PO 1 tab Q6H PRN Administration Pain 4-10 Albuterol/Ipratropium 3 ml 04/24/25 20:34 Ipratropium 0.5 Mg/Albuterol Sulfate 2.5 Mg (Base) Ampul.Neb 3 Ml INHALATION Q6HRT PRN Shortness Of Breath Or Wheezing Aspirin 81 mg 04/25/25 08:00 04/25/25 10:34 Aspirin 81 Mg Chewable Tablet PO 81 mg DAILY@0800 TIA Administration Atorvastatin Calcium 20 mg 04/24/25 22:15 04/24/25 23:51 Atorvastatin 20 Mg Tablet PO 20 mg HS TIA Administration Baclofen 10 mg 04/24/25 22:04 Baclofen 10 Mg Tablet PO Q12H PRN muscle spasms Benzonatate 100 mg 04/24/25 20:32 Benzonatate 100 Mg Capsule PO TID PRN Cough Bisacodyl 10 mg 04/24/25 22:04 Bisacodyl 10 Mg Suppository RECTAL DAILY PRN Constipation Brimonidine Tartrate 1 drop 04/24/25 22:20 04/25/25 04:54 Brimonidine Tartrate 0.2% Op Soln 5 Ml Btl EACH EYE 1 drop Q8HR TIA Administration Calcium Carbonate 500 mg 04/25/25 09:00 04/25/25 10:34 Calcium/Vitamin D 500 Mg/5 Mcg (200 I.U.) Tablet PO 500 mg BID TIA Administration Carvedilol 25 mg 04/24/25 22:20 04/25/25 11:11 Carvedilol 25 Mg Tablet PO 25 mg Q12HR TIA Administration Cyanocobalamin 1,000 mcg 04/25/25 09:00 04/25/25 10:35 Cyanocobalamin 1,000 Mcg Tablet PO 1,000 mcg DAILY TIA Administration Dextrose 12.5 gm 04/24/25 18:49 Dextrose 50% 25 Gm/50 Ml Syringe IV PUSH PRN PRN Hypoglycemia Protocol Diclofenac Sodium 1 applic 04/24/25 22:04 04/24/25 23:55 Diclofenac Sodium 1% 100 Gm Gel (*Bkc) TOPICAL 1 applic Q12H PRN Administration Pain Enoxaparin Sodium 40 mg 04/25/25 09:00 04/25/25 10:34 Enoxaparin 40 Mg/0.4 Ml Syringe SUB-Q 40 mg DAILY TIA Administration Ferrous Sulfate 325 mg 04/25/25 09:00 04/25/25 10:34 Ferrous Sulfate 325 Mg Tablet PO 325 mg DAILY TIA Administration Furosemide 20 mg 04/26/25 07:00 Furosemide 20 Mg Tablet PO DAILY@0700 TIA Gabapentin 300 mg 04/24/25 22:20 04/25/25 10:35 Gabapentin 300 Mg Capsule PO 300 mg Q12HR TIA Administration Gentamicin Sulfate 1 applic 04/25/25 09:00 04/25/25 11:12 Gentamicin Sulfate 0.1% Cr 15 Gm Tube TOPICAL 1 applic DAILY TIA Administration Glucagon 1 mg 04/24/25 18:49 Glucagon For Inj 1 Mg Vial IM PRN PRN Hypoglycemia Protocol Glucose 15 gm 04/24/25 18:49 Glucose Oral Gel 15 Gm Of Glucse In 37.5 Gm Tube PO PRN PRN Hypoglycemia Protocol Guaifenesin 600 mg 04/24/25 20:32 Guaifenesin 12 Hr 600 Mg Tabcr PO Q12HR PRN Congestion Cefepime HCl 2 gm/ Sodium 50 mls @ 100 mls/hr 04/24/25 20:00 04/25/25 11:23 Chloride IVPB 100 mls/hr Q12H TIA Administration Metronidazole 500 mg in 100 mls @ 100 mls/hr 04/24/25 20:00 04/25/25 03:25 Flagyl 500 Mg/Iso Soln 100 Ml IVPB 100 mls/hr Q8H TIA Administration Remdesivir 100 mg in 250 mls @ 250 mls/hr 04/25/25 22:00 IVPB 04/28/25 22:59 Q24H TIA Dextrose 1,000 mls @ 100 mls/hr 04/24/25 18:49 Dextrose 5% 1,000 Ml IVPB PRN PRN Hypoglycemia Protocol Vancomycin HCl 1,500 mg in 500 mls @ 250 mls/hr 04/25/25 22:00 Vancomycin 1,500 Mg/Ns 500 Ml IVPB Q24H [facility] Insulin Aspart 4 - 8 units 04/25/25 08:00 04/25/25 09:53 Insulin Aspart (*Bkc) 100 Units/Ml SUB-Q Not Given TIDWM [facility] Protocol Insulin Aspart 8 units 04/25/25 08:00 04/25/25 10:32 Insulin Aspart (*Bkc) 100 Units/Ml SUB-Q 8 units TIDWM TIA Administration Insulin Glargine 16 units 04/24/25 22:35 04/24/25 23:53 Insulin Glargine (*Bkc) 100 Units/Ml SUB-Q 16 units HS TIA Administration Latanoprost 1 drop 04/24/25 22:25 04/24/25 23:55 Latanoprost 0.005% Op Soln 2.5 Ml Btl LEFT EYE 1 drop QHS TIA Administration Loperamide HCl 2 mg 04/24/25 22:04 Loperamide Hcl 2 Mg Capsule PO DAILY PRN Loose Stool Loratadine 10 mg 04/25/25 09:00 04/25/25 10:35 Loratadine 10 Mg Tablet PO 10 mg DAILY TIA Administration Magnesium Citrate 296 ml 04/24/25 22:04 Magnesium Citrate 300 Ml Btl PO DAILY PRN Constipation Magnesium Hydroxide 30 ml 04/24/25 22:04 Magnesium Hydroxide Susp 30 Ml Udc PO DAILY PRN Constipation Morphine Sulfate 2 mg 04/24/25 18:49 04/24/25 20:54 Morphine Sulfate (*Crx) 4 Mg/Ml Inj IV PUSH 2 mg Q2H PRN Administration Pain Rated 7-10 Ondansetron HCl 4 mg 04/24/25 18:49 04/24/25 20:53 Ondansetron Inj 4 Mg/2 Ml Vial IV PUSH 4 mg Q4H PRN Administration Nausea Polyethylene Glycol 17 gm 04/24/25 22:04 Polyethylene Glycol 3350 17 Gm Powd.Pack PO QAM PRN Constipation Sacubitril/Valsartan 1 tab 04/24/25 22:20 04/25/25 11:13 Sacubitril/Valsartan 24-26 Mg Tablet PO 1 tab Q12HR TIA Administration Senna 8.6 mg 04/24/25 22:04 Sennosides 8.6 Mg Tablet PO DAILY PRN Constipation Sodium Chloride 1 spray 04/24/25 22:04 Saline 0.65% David Soln 44 Ml Btl NASAL Q6H PRN Dry Nasal Passages Spironolactone 25 mg 04/25/25 09:00 04/25/25 11:11 Spironolactone 25 Mg Tablet PO Not Given QAM TIA Timolol Maleate 1 drop 04/24/25 22:25 04/25/25 11:10 Timolol Maleate 0.25% Op Soln 5 Ml Bottle LEFT EYE 1 drop Q8HR TIA Administration Vitamin D 75 mcg 04/25/25 09:00 04/25/25 10:35 Cholecalciferol (Vitamin D3) 25 Mcg (1,000 Units) Tablet PO 75 mcg DAILY TIA Administration Radiology Results: ITS Impressions Chest X-Ray 04/24/25 17:48 Impression: Probable viral pneumonitis Head CT 04/24/25 18:40 Impression: 1.No acute intracranial abnormality. Labs Labs: Laboratory Results - last 24 hr 04/24/25 04/24/25 04/24/25 16:53 16:54 17:01 WBC 17.8 H RBC 3.48 L Hgb 9.6 L Hct 31.5 L MCV 90.5 MCH 27.6 MCHC 30.5 L RDW 14.7 H Plt Count 127 L MPV 10.0 Immature Gran % (Auto) 0.7 H Neut % (Auto) 92.2 H Lymph % (Auto) 4.1 L [place] % (Auto) 2.8 Eos % (Auto) 0.0 Baso % (Auto) 0.2 Lymph # (Auto) 0.73 L [place] # (Auto) 0.5 Eos # (Auto) 0.0 Baso # (Auto) 0.0 Abs Immat Gran (auto) 0.12 H Absolute Neuts (auto) 16.4 H Absolute Nucleated RBC 0.000 Nucleated RBC % 0.0 PT 14.7 INR 1.1 APTT 28.6 Sodium 136 L Potassium 4.8 Chloride 103 Carbon Dioxide 24 Anion Gap 9 BUN 21 H Creatinine 1.17 H Estim Creat Clear Calc 42 Estimated GFR 46 L Glucose 277 H POC Capillary Glucose Lactic Acid 1.2 Calcium 8.8 Magnesium 1.9 Total Bilirubin 0.7 AST 18 ALT 14 Alkaline Phosphatase 125 Total Creatine Kinase 35 C-Reactive Protein Cancelled NT-Pro-B Natriuret Pep 8830 H Total Protein 8.2 Albumin 3.6 Urine Color Yellow Urine Appearance Clear Urine pH 6.0 Ur Specific [place] 1.019 Urine Protein 2+ H Urine Glucose (UA) 1+ H Urine Ketones Trace H Ur Blood (Man) 1+ H Urine Nitrate Negative Urine Bilirubin Negative Urine Urobilinogen 0.2 Leukocyte Esterase Rfl Negative Urine RBC 11-20 H Urine WBC 0-5 Ur Squamous Epith Cells None seen Urine Bacteria None seen Urine Casts 0-2 Nasal MRSA (PCR) Influenza A (RT-PCR) Negative Influenza B (RT-PCR) Negative RSV (RT-PCR) Negative SARS-CoV-2 RNA (RT-PCR) Positive A 04/24/25 04/25/25 04/25/25 21:02 03:42 04:12 WBC 10.2 H RBC 2.89 L Hgb 8.1 L Hct 27.0 L MCV 93.4 MCH 28.0 MCHC 30.0 L RDW 14.9 H Plt Count 120 L MPV 10.4 Immature Gran % (Auto) 0.4 Neut % (Auto) 85.1 H Lymph % (Auto) 10.8 L [place] % (Auto) 3.6 Eos % (Auto) 0.0 Baso % (Auto) 0.1 L Lymph # (Auto) 1.10 [place] # (Auto) 0.4 Eos # (Auto) 0.0 Baso # (Auto) 0.0 Abs Immat Gran (auto) 0.04 H Absolute Neuts (auto) 8.7 H Absolute Nucleated RBC 0.000 Nucleated RBC % 0.0 PT INR APTT Sodium 135 L Potassium 4.3 Chloride 107 Carbon Dioxide 24 Anion Gap 4 BUN 24 H Creatinine 1.22 H Estim Creat Clear Calc 39 Estimated GFR 44 L Glucose 235 H POC Capillary Glucose 265 H Lactic Acid Calcium 8.0 L Magnesium Total Bilirubin AST ALT Alkaline Phosphatase Total Creatine Kinase C-Reactive Protein NT-Pro-B Natriuret Pep Total Protein Albumin Urine Color Urine Appearance Urine pH Ur Specific [place] Urine Protein Urine Glucose (UA) Urine Ketones Ur Blood (Man) Urine Nitrate Urine Bilirubin Urine Urobilinogen Leukocyte Esterase Rfl Urine RBC Urine WBC Ur Squamous Epith Cells Urine Bacteria Urine Casts Nasal MRSA (PCR) Not detected Influenza A (RT-PCR) Influenza B (RT-PCR) RSV (RT-PCR) SARS-CoV-2 RNA (RT-PCR) 04/25/25 04/25/25 07:54 11:43 WBC RBC Hgb Hct MCV MCH MCHC RDW Plt Count MPV Immature Gran % (Auto) Neut % (Auto) Lymph % (Auto) [place] % (Auto) Eos % (Auto) Baso % (Auto) Lymph # (Auto) [place] # (Auto) Eos # (Auto) Baso # (Auto) Abs Immat Gran (auto) Absolute Neuts (auto) Absolute Nucleated RBC Nucleated RBC % PT INR APTT Sodium Potassium Chloride Carbon Dioxide Anion Gap BUN Creatinine Estim Creat Clear Calc Estimated GFR Glucose POC Capillary Glucose 162 H 221 H Lactic Acid Calcium Magnesium Total Bilirubin AST ALT Alkaline Phosphatase Total Creatine Kinase C-Reactive Protein NT-Pro-B Natriuret Pep Total Protein Albumin Urine Color Urine Appearance Urine pH Ur Specific [place] Urine Protein Urine Glucose (UA) Urine Ketones Ur Blood (Man) Urine Nitrate Urine Bilirubin Urine Urobilinogen Leukocyte Esterase Rfl Urine RBC Urine WBC Ur Squamous Epith Cells Urine Bacteria Urine Casts Nasal MRSA (PCR) Influenza A (RT-PCR) Influenza B (RT-PCR) RSV (RT-PCR) SARS-CoV-2 RNA (RT-PCR)
[2025-04-25] MEDS: INSULIN ASPART (*BKC) 100 UNITS/ML SUB-Q (12:48)
--- NOTE | 2025-04-25 13:13 | PC.NURSE ---
On 04/25/25, the student, Jaimee Kong, provided care and completed [facility] documentation on this patient. I have reviewed the student's documentation and agree with the findings.
[2025-04-25 15:12] LABS: Alanine Aminotransferase 10 U/L (6-35)
[2025-04-25] MEDS: GLUCOSE ORAL GEL 15 GM OF GLUCSE IN 37.5 GM TUBE PO (16:46)
[2025-04-25] MEDS: HYDROcodone/acetaminophen (*CRX) 5-325 MG TABLET 1 TAB PO (21:13)
[2025-04-25] MEDS: INSULIN GLARGINE (*BKC) 100 UNITS/ML 16 UNITS SUB-Q (21:14)
[2025-04-25] MEDS: ATORVASTATIN 20 MG TABLET PO (21:14)
[2025-04-25] MEDS: LATANOPROST 0.005% OP SOLN 2.5 ML BTL 1 DROP LEFT EYE (21:18)
[2025-04-25] MEDS: REMDESIVIR 100 MG/NS 250 ML 100 MG/250 ML BAG 250 MG IVPB (21:20)
[2025-04-25] MEDS: VANCOMYCIN 1,500 MG/NS 500 ML 1,500 MG/500 ML BAG 250 MG IVPB (22:34)
[2025-04-26] MEDS: metroNIDAZOLE 500 MG/ISO 100ML 500 MG/100 ML BAG 100 MG IVPB (04:12)
[2025-04-26 04:16] VITALS: BP 139/75; PULSE 66; RESP 16; TEMP 36.3; O2SAT 99
[2025-04-26 04:57] LABS: Albumin Level 2.5 g/dL (3.5-5.1); Anion Gap 4 mmol/L (4-12); Blood Urea Nitrogen 29 mg/dL (7-17); Calcium 8.0 mg/dL (8.4-10.2); Carbon Dioxide 23 mmol/L (22-30); Chloride 109 mmol/L (98-107); Estimated CRCL calculation 45 ml/min; Estimated Glomerular Filt Rate 52; Glucose 129 mg/dL (65-110); Magnesium 2.0 mg/dL (1.6-2.3); Potassium 4.4 mmol/L (3.4-5.0); Sodium 136 mmol/L (137-145)
[2025-04-26 05:12] LABS: Alanine Aminotransferase 8 U/L (6-35)
[2025-04-26] MEDS: TIMOLOL MALEATE 0.25% OP SOLN 5 ML BOTTLE 1 DROP LEFT EYE ×3 (06:05→21:25)
[2025-04-26] MEDS: BRIMONIDINE TARTRATE 0.2% OP SOLN 5 ML BTL 1 DROP EACH EYE ×3 (06:06→21:25)
[2025-04-26] MEDS: FUROSEMIDE 20 MG TABLET PO (06:06)
[2025-04-26 06:21] LABS: Hematocrit 29.1 % (37.0-47.0); Hemoglobin 8.7 g/dL (12.0-15.0); Immature Granulocyte Percent A 0.7 % (0-0.5); Lymphocytes Absolute Auto 1.13 K/mm3 (0.9-3.2); Mean Corpuscular HGB Conc 29.9 g/dl (32-36); Mean Corpuscular Hemoglobin 28.2 pg (26-34); Mean Corpuscular Volume 94.2 fl (80-100); Nucleated Red Blood Cells Absolute Auto 0.000 K/mm3 (0.0-0.012); Nucleated Red Blood Cells Perc 0.0 % (0.0-0.2); Platelet Count Result 121 k/mm3 (150-375); Red Blood Count 3.09 M/mm3 (4.2-5.4); White Blood Count 7.0 K/mm3 (4.5-10.0)
--- NOTE | 2025-04-26 06:38 | P.CDI_ITS ---
CDI Query Clarification Request BMI: 38.7 Nutritional Diagnostic Statement: Please refer to the comprehensive nutrition assessment for further information. If you agree with diagnosis of Moderate protein calorie malnutrition related to increased protein energy needs from chronic wounds, inadequate intake as evidenced by intakes <75% needs >1 month; weight loss 6%/1 month; moderate muscle wasting and fat loss. Please specify severity if known: * Mild * Moderate * Severe * Other/Unknown
[2025-04-26 06:42] LABS: Hypochromasia 1+; Schistocytes None Seen
[2025-04-26 08:19] VITALS: O2SAT 98
[2025-04-26 08:22] VITALS: PULSE 70
[2025-04-26] MEDS: SACUBITRIL/VALSARTAN 24-26 MG TABLET 1 TAB PO ×2 (08:22→21:20)
[2025-04-26] MEDS: CALCIUM/VITAMIN D 500 MG/5 MCG (200 I.U.) TABLET PO ×2 (08:22→17:11)
[2025-04-26] MEDS: CYANOCOBALAMIN 1,000 MCG TABLET 1000 MCG PO (08:22)
[2025-04-26] MEDS: FERROUS SULFATE 325 MG TABLET PO (08:22)
[2025-04-26] MEDS: ASPIRIN 81 MG CHEWABLE TABLET PO (08:22)
[2025-04-26] MEDS: GABAPENTIN 300 MG CAPSULE PO ×2 (08:23→21:20)
[2025-04-26] MEDS: LORATADINE 10 MG TABLET PO (08:23)
[2025-04-26] MEDS: CEFEPIME 2 GM in SODIUM CHLORIDE 0.9% IV 50 ML 100 ML IVPB (08:24)
[2025-04-26] MEDS: ENOXAPARIN 40 MG/0.4 ML SYRINGE SUB-Q (08:24)
[2025-04-26] MEDS: CHOLECALCIFEROL (VITAMIN D3) 25 MCG (1,000 UNITS) TABLET 75 MCG PO (08:24)
[2025-04-26] MEDS: GENTAMICIN SULFATE 0.1% CR 15 GM TUBE 1 APPLIC TOPICAL (08:32)
--- NOTE | 2025-04-26 09:08 | PCDIET ---
Spoke with patient today. She is refusing diet supplements. Orders have been discontinued at this time. Patient is tolerating [facility] diet. Agree with diet orders.
[2025-04-26] MEDS: INSULIN ASPART (*BKC) 100 UNITS/ML 6 UNITS SUB-Q ×2 (13:55→18:05)
[2025-04-26 14:00] VITALS: BP 140/60; PULSE 69; RESP 16; TEMP 36.6; O2SAT 99
--- NOTE | 2025-04-26 16:35 | PM.IMPN ---
Progress Note: A&P Assessment and Plan (1) Cellulitis: Qualifiers: Laterality: unspecified laterality Site of cellulitis: extremity Site of cellulitis of extremity: lower extremity Qualified Code(s): L03.119 - Cellulitis of unspecified part of limb Code(s): L03.90 - Cellulitis, unspecified Status: Acute Assessment and Plan: Clinical exam concerning for bilateral lower extremity cellulitis WBC 17.8K. Recently admitted 03/29-04/01/25 for similar presentation: ABIs showed mild arterial occlusive disease. Wound Cx grew MRSA, Pseudomonas, and group G strep. Cefepime, vancomycin, and Flagyl started on 04/24 LE venous doppler negative for DVT BCx pending Wound care did not feel these wounds were infected. Agree that wounds do not appear infected at this time. Elevate extremities as tolerated. Continue Lasix p.o. Pain control. Continue dressing changes. Stop abx for now (2) COVID-19: Code(s): U07.1 - COVID-19 Status: Acute Assessment and Plan: Patient reporting generalized weakness probably related to COVID. COVID positive in the emergency department on 04/24. CXR showed probable viral pneumonitis. Symptom onset unclear. No hypoxia. Complicating comorbidities: CHF, DM, cellulitis Started on Remdesivir on 04/24 Continue supportive care. (3) Anemia: Qualifiers: Anemia type: unspecified type Qualified Code(s): D64.9 - Anemia, unspecified Code(s): D64.9 - Anemia, unspecified Status: Chronic Assessment and Plan: Hemoglobin 9.6 on admission on 04/24. Hgb normally runs in the 8 range. B12/folate normal earlier this month. Iron 32, TIBC 162, Iron Sat 20% consistent with anemia of chronic dz. Monitor Hgb and transfuse if <7 to a stable Hgb (4) Type 2 diabetes mellitus: Qualifiers: Diabetes mellitus complication status: with hyperglycemia Diabetes mellitus roasterman insulin use: with longterm use Qualified Code(s): E11.65 - Type 2 diabetes mellitus with hyperglycemia; Z79.4 - long term care administrator (current) use of insulin Code(s): E11.9 - Type 2 diabetes mellitus without complications Status: Chronic Assessment and Plan: A1c 7.2% on 03/30/25. The patient's blood glucose was reviewed on 04/26 Glucose stable. Continue AccuCheks covering with sliding scale. Hypoglycemia protocol available as needed. Continue to monitor (5) CHF (congestive heart failure): Qualifiers: Heart failure chronicity: chronic Heart failure type: combined systolic and diastolic Qualified Code(s): I50.42 - Chronic combined systolic (congestive) and diastolic (congestive) heart failure Code(s): I50.9 - Heart failure, unspecified Status: Chronic Assessment and Plan: Patient has peripheral edema but chronic for patient. Otherwise appears euvolemic and no pulmonary edema appreciated on CXR. Echo 04/23: LV chamber mildly enlarged, LV systolic function moderately reduced with an EF of 40-45%, LV septal wall motion abnormal related to bundle branch block, grade 1 diastolic dysfunction, LA mildly enlarged, mild to trace valvular disease. Continue PO Lasix, Aldactone, Entresto, carvedilol (6) HTN (hypertension): Qualifiers: Hypertension type: unspecified Qualified Code(s): I10 - Essential (primary) hypertension Code(s): I10 - Essential (primary) hypertension Status: Chronic Assessment and Plan: Patient's blood pressure was reviewed on 04/26 Blood pressure remains reasonably well controlled. Will continue to monitor (7) Moderate protein-calorie malnutrition: Code(s): E44.0 - Moderate protein-calorie malnutrition Status: Acute Assessment and Plan: Patient with moderate protein calorie malnutrition related to increased protein energy needs from chronic wounds, inadequate intake as evidenced by a intakes<75% of needs greater than 1 month and weight loss of 6% over 1 month as well as moderate muscle wasting and fat loss. Supplements ordered but patient refusing. Plan DVT Prophylaxis: Lovenox Code Status: Full code Subjective Date/time seen: 04/26/25 16:35 Interval history: 70yo female with PMH of chronic wounds with Charcot's joint of the foot bilaterally, Iigxkdi-Dkaix-Gpxom disease, CHF, CVA, HLD, HTN, dm 2, CAD, anemia, and asthma presents here with weakness. Feelin better today. Leg pain improved. No CP or SOB. No n/v/d. Exam Narrative: AF 97.8 140/60 69 16 99% ra Gen - NARD Chest - lungs clear anteriorly and in flanks CV - RRR S1/S2 Abd - Soft, NT/ND, Positive BS Ext - bilateral feet/ankle deformity c/w charcot joints Psych - Nml mood and affect Skin - Warm and dry. Right LE dressing clean and dry. Re-exam with dressing down: no erythema. multiple shallow ulcers with clean bases and small amount of exudate. No evidence of acute infection. Objective Data Vital Signs Vital Signs: Vital Signs - 24 hr 04/25/25 20:00 04/25/25 20:57 04/25/25 21:14 Temperature 98.0 F Pulse Rate 78 78 Respiratory Rate 16 Blood Pressure 145/66 H Pulse Oximetry 95 Oxygen Delivery Room Air 04/26/25 04:16 04/26/25 08:19 04/26/25 08:20 Temperature 97.4 F L Pulse Rate 66 Respiratory Rate 16 Blood Pressure 139/75 Pulse Oximetry 99 98 Oxygen Delivery Room Air Room Air 04/26/25 08:22 04/26/25 14:00 Temperature 97.8 F Pulse Rate 70 69 Respiratory Rate 16 Blood Pressure 140/60 Pulse Oximetry 99 Oxygen Delivery Intake/Output Intake/Output: Intake & Output 04/23/25 04/24/25 04/25/25 04/26/25 23:59 23:59 23:59 23:59 Intake Total 650 1250 1190 Output Total 150 150 Balance 500 1100 1190 Meds/Results Medications: Active Medications Generic Name Dose Route Start Last Admin Trade Name Freq PRN Reason Stop Dose Admin Acetaminophen 650 mg 04/24/25 18:49 Acetaminophen 325 Mg Tablet PO Q4H PRN Mild Pain (1-3) or Fever Hydrocodone Bitart/Acetaminophen 1 tab 04/24/25 22:04 04/25/25 21:13 Hydrocodone/Acetaminophen (*Crx) 5-325 Mg Tablet PO 1 tab Q6H PRN Administration Pain 4-10 Albuterol/Ipratropium 3 ml 04/24/25 20:34 Ipratropium 0.5 Mg/Albuterol Sulfate 2.5 Mg (Base) Ampul.Neb 3 Ml INHALATION Q6HRT PRN Shortness Of Breath Or Wheezing Aspirin 81 mg 04/25/25 08:00 04/26/25 08:22 Aspirin 81 Mg Chewable Tablet PO 81 mg DAILY@0800 TIA Administration Atorvastatin Calcium 20 mg 04/24/25 22:15 04/25/25 21:14 Atorvastatin 20 Mg Tablet PO 20 mg HS TIA Administration Baclofen 10 mg 04/24/25 22:04 Baclofen 10 Mg Tablet PO Q12H PRN muscle spasms Benzonatate 100 mg 04/24/25 20:32 Benzonatate 100 Mg Capsule PO TID PRN Cough Bisacodyl 10 mg 04/24/25 22:04 Bisacodyl 10 Mg Suppository RECTAL DAILY PRN Constipation Brimonidine Tartrate 1 drop 04/24/25 22:20 04/26/25 13:55 Brimonidine Tartrate 0.2% Op Soln 5 Ml Btl EACH EYE 1 drop Q8HR TIA Administration Calcium Carbonate 500 mg 04/25/25 09:00 04/26/25 08:22 Calcium/Vitamin D 500 Mg/5 Mcg (200 I.U.) Tablet PO 500 mg BID TIA Administration Carvedilol 25 mg 04/24/25 22:20 04/26/25 08:22 Carvedilol 25 Mg Tablet PO 25 mg Q12HR TIA Administration Cyanocobalamin 1,000 mcg 04/25/25 09:00 04/26/25 08:22 Cyanocobalamin 1,000 Mcg Tablet PO 1,000 mcg DAILY TIA Administration Dextrose 12.5 gm 04/24/25 18:49 Dextrose 50% 25 Gm/50 Ml Syringe IV PUSH PRN PRN Hypoglycemia Protocol Diclofenac Sodium 1 applic 04/24/25 22:04 04/24/25 23:55 Diclofenac Sodium 1% 100 Gm Gel (*Bkc) TOPICAL 1 applic Q12H PRN Administration Pain Enoxaparin Sodium 40 mg 04/25/25 09:00 04/26/25 08:24 Enoxaparin 40 Mg/0.4 Ml Syringe SUB-Q 40 mg DAILY TIA Administration Ferrous Sulfate 325 mg 04/25/25 09:00 04/26/25 08:22 Ferrous Sulfate 325 Mg Tablet PO 325 mg DAILY TIA Administration Furosemide 20 mg 04/26/25 07:00 04/26/25 06:06 Furosemide 20 Mg Tablet PO 20 mg DAILY@0700 TIA Administration Gabapentin 300 mg 04/24/25 22:20 04/26/25 08:23 Gabapentin 300 Mg Capsule PO 300 mg Q12HR TIA Administration Gentamicin Sulfate 1 applic 04/25/25 09:00 04/26/25 08:32 Gentamicin Sulfate 0.1% Cr 15 Gm Tube TOPICAL 1 applic DAILY TIA Administration Glucagon 1 mg 04/24/25 18:49 Glucagon For Inj 1 Mg Vial IM PRN PRN Hypoglycemia Protocol Glucose 15 gm 04/24/25 18:49 04/25/25 16:46 Glucose Oral Gel 15 Gm Of Glucse In 37.5 Gm Tube PO 15 gm PRN PRN Administration Hypoglycemia Protocol Guaifenesin 600 mg 04/24/25 20:32 Guaifenesin 12 Hr 600 Mg Tabcr PO Q12HR PRN Congestion Cefepime HCl 2 gm/ Sodium 50 mls @ 100 mls/hr 04/24/25 20:00 04/26/25 08:54 Chloride IVPB Infused Q12H TIA Infusion Remdesivir 100 mg in 250 mls @ 250 mls/hr 04/25/25 22:00 04/25/25 22:20 IVPB 04/28/25 22:59 Infused Q24H TIA Infusion Dextrose 1,000 mls @ 100 mls/hr 04/24/25 18:49 Dextrose 5% 1,000 Ml IVPB PRN PRN Hypoglycemia Protocol Vancomycin HCl 1,500 mg in 500 mls @ 250 mls/hr 04/25/25 22:00 04/26/25 00:38 Vancomycin 1,500 Mg/Ns 500 Ml IVPB Infused Q24H TIA Infusion Insulin Aspart 6 units 04/26/25 08:00 04/26/25 13:55 Insulin Aspart (*Bkc) 100 Units/Ml SUB-Q 6 units TIDWM TIA Administration Insulin Aspart 3 - 6 units 04/26/25 08:00 04/26/25 12:32 Insulin Aspart (*Bkc) 100 Units/Ml SUB-Q Not Given TIDWM [facility] Protocol Insulin Glargine 16 units 04/24/25 22:35 04/25/25 21:14 Insulin Glargine (*Bkc) 100 Units/Ml SUB-Q 16 units HS TIA Administration Latanoprost 1 drop 04/24/25 22:25 04/25/25 21:18 Latanoprost 0.005% Op Soln 2.5 Ml Btl LEFT EYE 1 drop QHS TIA Administration Loperamide HCl 2 mg 04/24/25 22:04 Loperamide Hcl 2 Mg Capsule PO DAILY PRN Loose Stool Loratadine 10 mg 04/25/25 09:00 04/26/25 08:23 Loratadine 10 Mg Tablet PO 10 mg DAILY TIA Administration Magnesium Citrate 296 ml 04/24/25 22:04 Magnesium Citrate 300 Ml Btl PO DAILY PRN Constipation Magnesium Hydroxide 30 ml 04/24/25 22:04 Magnesium Hydroxide Susp 30 Ml Udc PO DAILY PRN Constipation Metronidazole 500 mg 04/26/25 14:00 04/26/25 13:54 Metronidazole 500 Mg Tablet PO 500 mg Q8HR TIA Administration Morphine Sulfate 2 mg 04/24/25 18:49 04/24/25 20:54 Morphine Sulfate (*Crx) 4 Mg/Ml Inj IV PUSH 2 mg Q2H PRN Administration Pain Rated 7-10 Ondansetron HCl 4 mg 04/24/25 18:49 04/24/25 20:53 Ondansetron Inj 4 Mg/2 Ml Vial IV PUSH 4 mg Q4H PRN Administration Nausea Polyethylene Glycol 17 gm 04/24/25 22:04 Polyethylene Glycol 3350 17 Gm Powd.Pack PO QAM PRN Constipation Sacubitril/Valsartan 1 tab 04/24/25 22:20 04/26/25 08:22 Sacubitril/Valsartan 24-26 Mg Tablet PO 1 tab Q12HR TIA Administration Senna 8.6 mg 04/24/25 22:04 Sennosides 8.6 Mg Tablet PO DAILY PRN Constipation Sodium Chloride 1 spray 04/24/25 22:04 Saline 0.65% David Soln 44 Ml Btl NASAL Q6H PRN Dry Nasal Passages Spironolactone 25 mg 04/25/25 09:00 04/26/25 08:24 Spironolactone 25 Mg Tablet PO Not Given QAM TIA Timolol Maleate 1 drop 04/24/25 22:25 04/26/25 13:55 Timolol Maleate 0.25% Op Soln 5 Ml Bottle LEFT EYE 1 drop Q8HR TIA Administration Vitamin D 75 mcg 04/25/25 09:00 04/26/25 08:24 Cholecalciferol (Vitamin D3) 25 Mcg (1,000 Units) Tablet PO 75 mcg DAILY TIA Administration Radiology Results: ITS Impressions Chest X-Ray 04/24/25 17:48 Impression: Probable viral pneumonitis Head CT 04/24/25 18:40 Impression: 1.No acute intracranial abnormality. Venous Doppler Study 04/26/25 06:55 IMPRESSION: 1. No deep venous thrombosis. Labs Labs: Laboratory Results - last 24 hr 04/25/25 04/25/25 04/25/25 16:36 17:13 17:48 WBC RBC Hgb Hct MCV MCH MCHC RDW Plt Count MPV Immature Gran % (Auto) Neut % (Auto) Lymph % (Auto) [place] % (Auto) Eos % (Auto) Baso % (Auto) Lymph # (Auto) [place] # (Auto) Eos # (Auto) Baso # (Auto) Abs Immat Gran (auto) Absolute Neuts (auto) Absolute Nucleated RBC Band Neutrophils % Nucleated RBC % Platelet Estimate Hypochromasia Schistocytes Sodium Potassium Chloride Carbon Dioxide Anion Gap BUN Creatinine Estim Creat Clear Calc Estimated GFR Glucose POC Capillary Glucose 61 L 66 91 Calcium Phosphorus Magnesium ALT Albumin 04/25/25 04/26/25 04/26/25 20:56 04:20 06:17 WBC 7.0 RBC 3.09 L Hgb 8.7 L Hct 29.1 L MCV 94.2 MCH 28.2 MCHC 29.9 L RDW 14.8 H Plt Count 121 L MPV 9.8 Immature Gran % (Auto) 0.7 H Neut % (Auto) 71.7 Lymph % (Auto) 16.2 L [place] % (Auto) 5.6 Eos % (Auto) 5.5 H Baso % (Auto) 0.3 Lymph # (Auto) 1.13 [place] # (Auto) 0.4 Eos # (Auto) 0.4 H Baso # (Auto) 0.0 Abs Immat Gran (auto) 0.05 H Absolute Neuts (auto) 5.0 Absolute Nucleated RBC 0.000 Band Neutrophils % Not Reportable Nucleated RBC % 0.0 Platelet Estimate Slightly decreased Hypochromasia 1+ Schistocytes None seen Sodium 136 L Potassium 4.4 Chloride 109 H Carbon Dioxide 23 Anion Gap 4 BUN 29 H Creatinine 1.06 H Estim Creat Clear Calc 45 Estimated GFR 52 L Glucose 129 H POC Capillary Glucose 150 H Calcium 8.0 L Phosphorus 2.7 Magnesium 2.0 ALT 8 Albumin 2.5 L 04/26/25 04/26/25 07:52 12:21 WBC RBC Hgb Hct MCV MCH MCHC RDW Plt Count MPV Immature Gran % (Auto) Neut % (Auto) Lymph % (Auto) [place] % (Auto) Eos % (Auto) Baso % (Auto) Lymph # (Auto) [place] # (Auto) Eos # (Auto) Baso # (Auto) Abs Immat Gran (auto) Absolute Neuts (auto) Absolute Nucleated RBC Band Neutrophils % Nucleated RBC % Platelet Estimate Hypochromasia Schistocytes Sodium Potassium Chloride Carbon Dioxide Anion Gap BUN Creatinine Estim Creat Clear Calc Estimated GFR Glucose POC Capillary Glucose 154 H 180 H Calcium Phosphorus Magnesium ALT Albumin
[2025-04-26 20:00] VITALS: PULSE 69; RESP 16; O2SAT 99
[2025-04-26 21:01] VITALS: BP 160/75; PULSE 74; RESP 16; TEMP 36.7; O2SAT 96
[2025-04-26] MEDS: ATORVASTATIN 20 MG TABLET PO (21:21)
[2025-04-26] MEDS: REMDESIVIR 100 MG/NS 250 ML 100 MG/250 ML BAG 250 MG IVPB (21:21)
[2025-04-26] MEDS: LATANOPROST 0.005% OP SOLN 2.5 ML BTL 1 DROP LEFT EYE (21:25)
[2025-04-26] MEDS: INSULIN GLARGINE (*BKC) 100 UNITS/ML 16 UNITS SUB-Q (21:32)
[2025-04-27 05:19] LABS: Alanine Aminotransferase 8 U/L (6-35); Albumin Level 3.0 g/dL (3.5-5.1); Alkaline Phosphatase 113 U/L (38-126); Aspartate Amino Transferase 20 U/L (14-36); Bilirubin,Total 0.4 mg/dL (0.2-1.3); Total Protein 6.8 g/dL (6.3-8.2)
[2025-04-27 05:24] LABS: INR 1.1; Prothrombin Time 13.8 Seconds (11.1-14.7)
[2025-04-27] MEDS: FUROSEMIDE 20 MG TABLET PO (05:28)
[2025-04-27] MEDS: BRIMONIDINE TARTRATE 0.2% OP SOLN 5 ML BTL 1 DROP EACH EYE ×3 (05:28→21:39)
[2025-04-27] MEDS: TIMOLOL MALEATE 0.25% OP SOLN 5 ML BOTTLE 1 DROP LEFT EYE ×3 (05:28→21:39)
[2025-04-27 05:32] VITALS: BP 190/96; PULSE 74; RESP 16; TEMP 36.4; O2SAT 97
[2025-04-27] MEDS: ONDANSETRON INJ 4 MG/2 ML VIAL IV PUSH (09:17)
[2025-04-27] MEDS: LORATADINE 10 MG TABLET PO (09:18)
[2025-04-27] MEDS: FERROUS SULFATE 325 MG TABLET PO (09:18)
[2025-04-27] MEDS: GABAPENTIN 300 MG CAPSULE PO ×2 (09:18→21:41)
[2025-04-27 09:19] VITALS: PULSE 74
[2025-04-27] MEDS: CHOLECALCIFEROL (VITAMIN D3) 25 MCG (1,000 UNITS) TABLET 75 MCG PO (09:19)
[2025-04-27] MEDS: SACUBITRIL/VALSARTAN 24-26 MG TABLET 1 TAB PO ×2 (09:19→21:41)
[2025-04-27] MEDS: CALCIUM/VITAMIN D 500 MG/5 MCG (200 I.U.) TABLET PO ×2 (09:19→17:43)
[2025-04-27] MEDS: ASPIRIN 81 MG CHEWABLE TABLET PO (09:19)
[2025-04-27] MEDS: CYANOCOBALAMIN 1,000 MCG TABLET 1000 MCG PO (09:19)
[2025-04-27] MEDS: ENOXAPARIN 40 MG/0.4 ML SYRINGE SUB-Q (09:20)
[2025-04-27] MEDS: GENTAMICIN SULFATE 0.1% CR 15 GM TUBE 1 APPLIC TOPICAL (09:21)
[2025-04-27] MEDS: INSULIN ASPART (*BKC) 100 UNITS/ML 6 UNITS SUB-Q ×2 (12:27→17:44)
--- NOTE | 2025-04-27 13:03 | PM.IMPN ---
Progress Note: A&P Assessment and Plan (1) Cellulitis: Qualifiers: Laterality: unspecified laterality Site of cellulitis: extremity Site of cellulitis of extremity: lower extremity Qualified Code(s): L03.119 - Cellulitis of unspecified part of limb Code(s): L03.90 - Cellulitis, unspecified Status: Acute Assessment and Plan: Clinical exam concerning for bilateral lower extremity cellulitis WBC 17.8K. Recently admitted 03/29-04/01/25 for similar presentation: ABIs showed mild arterial occlusive disease. Wound Cx grew MRSA, Pseudomonas, and group G strep. Cefepime, vancomycin, and Flagyl started on 04/24 LE venous doppler negative for DVT BCx pending Wound care did not feel these wounds were infected. Agree that wounds do not appear infected at this time. Elevate extremities as tolerated. Continue Lasix p.o. Pain control. Continue dressing changes. Stop abx for now 04/27: -Denies pain with her legs today except with palpation. Continue dressing changes. (2) COVID-19: Code(s): U07.1 - COVID-19 Status: Acute Assessment and Plan: Patient reporting generalized weakness probably related to COVID. COVID positive in the emergency department on 04/24. CXR showed probable viral pneumonitis. Symptom onset unclear. No hypoxia. Complicating comorbidities: CHF, DM, cellulitis Started on Remdesivir on 04/24 Continue supportive care. 04/27: VSS, continues to report mild weakness. -Continue Remdesivir until discharge (3) Anemia: Qualifiers: Anemia type: unspecified type Qualified Code(s): D64.9 - Anemia, unspecified Code(s): D64.9 - Anemia, unspecified Status: Chronic Assessment and Plan: Hemoglobin 9.6 on admission on 04/24. Hgb normally runs in the 8 range. B12/folate normal earlier this month. Iron 32, TIBC 162, Iron Sat 20% consistent with anemia of chronic dz. Monitor Hgb and transfuse if <7 to a stable Hgb (4) Type 2 diabetes mellitus: Qualifiers: Diabetes mellitus complication status: with hyperglycemia Diabetes mellitus terminal make up operator insulin use: with terminal make up operator use Qualified Code(s): E11.65 - Type 2 diabetes mellitus with hyperglycemia; Z79.4 - adjunct faculty for medical terminology (current) use of insulin Code(s): E11.9 - Type 2 diabetes mellitus without complications Status: Chronic Assessment and Plan: A1c 7.2% on 03/30/25. The patient's blood glucose was reviewed on 04/26 Glucose stable. Continue AccuCheks covering with sliding scale. Hypoglycemia protocol available as needed. Continue to monitor (5) CHF (congestive heart failure): Qualifiers: Heart failure chronicity: chronic Heart failure type: combined systolic and diastolic Qualified Code(s): I50.42 - Chronic combined systolic (congestive) and diastolic (congestive) heart failure Code(s): I50.9 - Heart failure, unspecified Status: Chronic Assessment and Plan: Patient has peripheral edema but chronic for patient. Otherwise appears euvolemic and no pulmonary edema appreciated on CXR. Echo 04/23: LV chamber mildly enlarged, LV systolic function moderately reduced with an EF of 40-45%, LV septal wall motion abnormal related to bundle branch block, grade 1 diastolic dysfunction, LA mildly enlarged, mild to trace valvular disease. Continue PO Lasix, Aldactone, Entresto, carvedilol (6) HTN (hypertension): Qualifiers: Hypertension type: unspecified Qualified Code(s): I10 - Essential (primary) hypertension Code(s): I10 - Essential (primary) hypertension Status: Chronic Assessment and Plan: Patient's blood pressure was reviewed on 146 Blood pressure remains reasonably well controlled. Will continue to monitor (7) Moderate protein-calorie malnutrition: Code(s): E44.0 - Moderate protein-calorie malnutrition Status: Acute Assessment and Plan: Patient with moderate protein calorie malnutrition related to increased protein energy needs from chronic wounds, inadequate intake as evidenced by a intakes<75% of needs greater than 1 month and weight loss of 6% over 1 month as well as moderate muscle wasting and fat loss. Supplements ordered but patient continues to refuse. Plan DVT Prophylaxis: Lovenox Code Status: Full code Hopeful discharge back to [facility] tomorrow pending PO trial Time Spent With Patient Time: 35 Subjective Date/time seen: 04/27/25 1025 Interval history: 70yo female with PMH of chronic wounds with Charcot's joint of the foot bilaterally, Uscesjo-Xbcft-Oilwt disease, CHF, CVA, HLD, HTN, dm 2, CAD, anemia, and asthma presents here with weakness. Pt reporting having a rough night overnight with no sleep and moderate nausea, she has not been able to eat breakfast or lunch today. Pt denies relief or bettering of nausea with Zofran. Pt reports that she does not feel safe being discharged to her facility ([facility]) today due to her nausea. Pt denies pain. Review of Systems Review of Systems: All systems reviewed & are unremarkable except as noted in HPI and below (limited, A/Ox2) Exam Const: General: no acute distress Other: , female, older than stated age, uncomfortable/restless/nauseated HENMT: Face/Nose/Sinus: Normal nares present Mouth: Yes moist mucous membranes Eyes: General: appearance normal, both eyes and all related structures Sclera: sclerae normal Pupils: Equal, round and reactive pupils present EOM: EOMs intact bilaterally Resp: Effort & Inspection: normal respiratory effort Auscultation: clear to auscultation bilaterally Cardio: Rate: regular rate Rhythm: regular rhythm Other: S1-S2 present without murmur, rub, ectopy GI: Other: Abdomen soft, nondistended, nontender. Normoactive bowel sounds in all quadrants. Skin: Other: Chronic Charcot deformity to bilateral feet. Chronic venous stasis ulcerations to bilateral lower extremities. Shallow wounds to right anterior samuel, pink wound bed, epithelialization noted, no significant drainage. Similar wound to the right lateral edge of the foot. Left dorsal foot with small shallow open wound, pink wound bed, epithelialization. + heat to bilateral lower extremities compared to upper thighs. Neuro: Cranial nerves: Yes Equal, round and reactive pupils present Other: A&O x4, moving all extremities, generalized weakness Extrem: General: normal exam except as noted Other: 1+ edema to bilateral lower extremities, symmetric. Skin hardened making assessment for pitting difficult. Psych: Mental Status: mental status grossly normal Affect: normal affect Objective Data Vital Signs Vital Signs: Vital Signs - 24 hr 04/26/25 14:00 04/26/25 20:00 04/26/25 21:01 Temperature 97.8 F 98.1 F Pulse Rate 69 69 74 Respiratory Rate 16 16 16 Blood Pressure 140/60 160/75 H Pulse Oximetry 99 99 96 Oxygen Delivery Room Air 04/27/25 05:32 04/27/25 09:19 04/27/25 09:20 Temperature 97.5 F L Pulse Rate 74 74 Respiratory Rate 16 Blood Pressure 190/96 H Pulse Oximetry 97 Oxygen Delivery Room Air Intake/Output Intake/Output: Intake & Output 04/24/25 04/25/25 04/26/25 04/27/25 23:59 23:59 23:59 23:59 Intake Total 650 1250 1580 500 Output Total 707 859 3064 1975 Balance 500 1100 -098 -8356 Meds/Results Medications: Active Medications Generic Name Dose Route Start Last Admin Trade Name Freq PRN Reason Stop Dose Admin Acetaminophen 650 mg 04/24/25 18:49 Acetaminophen 325 Mg Tablet PO Q4H PRN Mild Pain (1-3) or Fever Hydrocodone Bitart/Acetaminophen 1 tab 04/24/25 22:04 04/25/25 21:13 Hydrocodone/Acetaminophen (*Crx) 5-325 Mg Tablet PO 1 tab Q6H PRN Administration Pain 4-10 Albuterol/Ipratropium 3 ml 04/24/25 20:34 Ipratropium 0.5 Mg/Albuterol Sulfate 2.5 Mg (Base) Ampul.Neb 3 Ml INHALATION Q6HRT PRN Shortness Of Breath Or Wheezing Aspirin 81 mg 04/25/25 08:00 04/27/25 09:19 Aspirin 81 Mg Chewable Tablet PO 81 mg DAILY@0800 TIA Administration Atorvastatin Calcium 20 mg 04/24/25 22:15 04/26/25 21:21 Atorvastatin 20 Mg Tablet PO 20 mg HS TIA Administration Baclofen 10 mg 04/24/25 22:04 Baclofen 10 Mg Tablet PO Q12H PRN muscle spasms Benzonatate 100 mg 04/24/25 20:32 Benzonatate 100 Mg Capsule PO TID PRN Cough Bisacodyl 10 mg 04/24/25 22:04 Bisacodyl 10 Mg Suppository RECTAL DAILY PRN Constipation Brimonidine Tartrate 1 drop 04/24/25 22:20 04/27/25 05:28 Brimonidine Tartrate 0.2% Op Soln 5 Ml Btl EACH EYE 1 drop Q8HR TIA Administration Calcium Carbonate 500 mg 04/25/25 09:00 04/27/25 09:19 Calcium/Vitamin D 500 Mg/5 Mcg (200 I.U.) Tablet PO 500 mg BID TIA Administration Carvedilol 25 mg 04/24/25 22:20 04/27/25 09:19 Carvedilol 25 Mg Tablet PO 25 mg Q12HR TIA Administration Cyanocobalamin 1,000 mcg 04/25/25 09:00 04/27/25 09:19 Cyanocobalamin 1,000 Mcg Tablet PO 1,000 mcg DAILY TIA Administration Dextrose 12.5 gm 04/24/25 18:49 Dextrose 50% 25 Gm/50 Ml Syringe IV PUSH PRN PRN Hypoglycemia Protocol Diclofenac Sodium 1 applic 04/24/25 22:04 04/24/25 23:55 Diclofenac Sodium 1% 100 Gm Gel (*[facility]) TOPICAL 1 applic Q12H PRN Administration Pain Enoxaparin Sodium 40 mg 04/25/25 09:00 04/27/25 09:20 Enoxaparin 40 Mg/0.4 Ml Syringe SUB-Q 40 mg DAILY TAI Administration Ferrous Sulfate 325 mg 04/25/25 09:00 04/27/25 09:18 Ferrous Sulfate 325 Mg Tablet PO 325 mg DAILY TIA Administration Furosemide 20 mg 04/26/25 07:00 04/27/25 05:28 Furosemide 20 Mg Tablet PO 20 mg DAILY@0700 TIA Administration Gabapentin 300 mg 04/24/25 22:20 04/27/25 09:18 Gabapentin 300 Mg Capsule PO 300 mg Q12HR TIA Administration Gentamicin Sulfate 1 applic 04/25/25 09:00 04/27/25 09:21 Gentamicin Sulfate 0.1% Cr 15 Gm Tube TOPICAL 1 applic DAILY TIA Administration Glucagon 1 mg 04/24/25 18:49 Glucagon For Inj 1 Mg Vial IM PRN PRN Hypoglycemia Protocol Glucose 15 gm 04/24/25 18:49 04/25/25 16:46 Glucose Oral Gel 15 Gm Of Glucse In 37.5 Gm Tube PO 15 gm PRN PRN Administration Hypoglycemia Protocol Guaifenesin 600 mg 04/24/25 20:32 Guaifenesin 12 Hr 600 Mg Tabcr PO Q12HR PRN Congestion Remdesivir 100 mg in 250 mls @ 250 mls/hr 04/25/25 22:00 04/26/25 21:21 IVPB 04/28/25 22:59 250 mls/hr Q24H TIA Administration Dextrose 1,000 mls @ 100 mls/hr 04/24/25 18:49 Dextrose 5% 1,000 Ml IVPB PRN PRN Hypoglycemia Protocol Insulin Aspart 6 units 04/26/25 08:00 04/27/25 12:27 Insulin Aspart (*Bkc) 100 Units/Ml SUB-Q 6 units TIDWM TIA Administration Insulin Aspart 3 - 6 units 04/26/25 08:00 04/27/25 12:23 Insulin Aspart (*Bkc) 100 Units/Ml SUB-Q Not Given TIDWM [facility] Protocol Insulin Glargine 16 units 04/24/25 22:35 04/26/25 21:32 Insulin Glargine (*Bkc) 100 Units/Ml SUB-Q 16 units HS TIA Administration Latanoprost 1 drop 04/24/25 22:25 04/26/25 21:25 Latanoprost 0.005% Op Soln 2.5 Ml Btl LEFT EYE 1 drop QHS TIA Administration Loperamide HCl 2 mg 04/24/25 22:04 Loperamide Hcl 2 Mg Capsule PO DAILY PRN Loose Stool Loratadine 10 mg 04/25/25 09:00 04/27/25 09:18 Loratadine 10 Mg Tablet PO 10 mg DAILY TIA Administration Magnesium Citrate 296 ml 04/24/25 22:04 Magnesium Citrate 300 Ml Btl PO DAILY PRN Constipation Magnesium Hydroxide 30 ml 04/24/25 22:04 Magnesium Hydroxide Susp 30 Ml Udc PO DAILY PRN Constipation Morphine Sulfate 2 mg 04/24/25 18:49 04/24/25 20:54 Morphine Sulfate (*Crx) 4 Mg/Ml Inj IV PUSH 2 mg Q2H PRN Administration Pain Rated 7-10 Ondansetron HCl 4 mg 04/24/25 18:49 04/27/25 09:17 Ondansetron Inj 4 Mg/2 Ml Vial IV PUSH 4 mg Q4H PRN Administration Nausea Polyethylene Glycol 17 gm 04/24/25 22:04 Polyethylene Glycol 3350 17 Gm Powd.Pack PO QAM PRN Constipation Sacubitril/Valsartan 1 tab 04/24/25 22:20 04/27/25 09:19 Sacubitril/Valsartan 24-26 Mg Tablet PO 1 tab Q12HR TIA Administration Senna 8.6 mg 04/24/25 22:04 Sennosides 8.6 Mg Tablet PO DAILY PRN Constipation Sodium Chloride 1 spray 04/24/25 22:04 Saline 0.65% David Soln 44 Ml Btl NASAL Q6H PRN Dry Nasal Passages Spironolactone 25 mg 04/25/25 09:00 04/27/25 09:07 Spironolactone 25 Mg Tablet PO Not Given QAM TIA Timolol Maleate 1 drop 04/24/25 22:25 04/27/25 05:28 Timolol Maleate 0.25% Op Soln 5 Ml Bottle LEFT EYE 1 drop Q8HR TIA Administration Vitamin D 75 mcg 04/25/25 09:00 04/27/25 09:19 Cholecalciferol (Vitamin D3) 25 Mcg (1,000 Units) Tablet PO 75 mcg DAILY TIA Administration Radiology Results: ITS Impressions Chest X-Ray 04/24/25 17:48 Impression: Probable viral pneumonitis Head CT 04/24/25 18:40 Impression: 1.No acute intracranial abnormality. Venous Doppler Study 04/26/25 06:55 IMPRESSION: 1. No deep venous thrombosis. Labs Labs: Laboratory Results - last 24 hr 04/26/25 04/26/25 04/27/25 17:16 21:00 04:25 PT 13.8 INR 1.1 POC Capillary Glucose 176 H 116 H Total Bilirubin 0.4 Direct Bilirubin 0.0 AST 20 ALT 8 Alkaline Phosphatase 113 Total Protein 6.8 Albumin 3.0 L 04/27/25 04/27/25 08:13 12:08 PT INR POC Capillary Glucose 178 H 219 H Total Bilirubin Direct Bilirubin AST ALT Alkaline Phosphatase Total Protein Albumin Quality VTE Prophylaxis VTE prophylaxis: pharmacologic ordered
[2025-04-27 13:26] VITALS: BP 146/74; PULSE 73; RESP 16; TEMP 36.2; O2SAT 99
[2025-04-27] MEDS: LATANOPROST 0.005% OP SOLN 2.5 ML BTL 1 DROP LEFT EYE (21:38)
[2025-04-27] MEDS: REMDESIVIR 100 MG/NS 250 ML 100 MG/250 ML BAG 250 MG IVPB (21:38)
[2025-04-27 21:40] VITALS: PULSE 72
[2025-04-27] MEDS: INSULIN GLARGINE (*BKC) 100 UNITS/ML 16 UNITS SUB-Q (21:40)
[2025-04-27] MEDS: ATORVASTATIN 20 MG TABLET PO (21:41)
[2025-04-27 22:00] VITALS: BP 127/58; PULSE 72; RESP 18; TEMP 36.4; O2SAT 90
[2025-04-28 04:47] LABS: Hematocrit 31.4 % (37.0-47.0); Hemoglobin 9.6 g/dL (12.0-15.0); Immature Granulocyte Percent A 0.4 % (0-0.5); Lymphocytes Absolute Auto 1.42 K/mm3 (0.9-3.2); Mean Corpuscular HGB Conc 30.6 g/dl (32-36); Mean Corpuscular Hemoglobin 27.7 pg (26-34); Mean Corpuscular Volume 90.5 fl (80-100); Nucleated Red Blood Cells Absolute Auto 0.000 K/mm3 (0.0-0.012); Nucleated Red Blood Cells Perc 0.0 % (0.0-0.2); Platelet Count Result 144 k/mm3 (150-375); Red Blood Count 3.47 M/mm3 (4.2-5.4); White Blood Count 4.5 K/mm3 (4.5-10.0)
[2025-04-28 05:17] LABS: Alanine Aminotransferase 10 U/L (6-35); Albumin Level 3.0 g/dL (3.5-5.1); Alkaline Phosphatase 90 U/L (38-126); Anion Gap 5 mmol/L (4-12); Aspartate Amino Transferase 18 U/L (14-36); Bilirubin,Total 0.3 mg/dL (0.2-1.3); Blood Urea Nitrogen 22 mg/dL (7-17); Calcium 8.4 mg/dL (8.4-10.2); Carbon Dioxide 28 mmol/L (22-30); Chloride 102 mmol/L (98-107); Estimated CRCL calculation 46 ml/min; Estimated Glomerular Filt Rate 53; Glucose 210 mg/dL (65-110); Potassium 3.8 mmol/L (3.4-5.0); Sodium 135 mmol/L (137-145); Total Protein 6.8 g/dL (6.3-8.2)
[2025-04-28 06:00] VITALS: BP 177/78; PULSE 63; RESP 18; TEMP 36.4; O2SAT 98
[2025-04-28] MEDS: TIMOLOL MALEATE 0.25% OP SOLN 5 ML BOTTLE 1 DROP LEFT EYE (06:16)
[2025-04-28] MEDS: BRIMONIDINE TARTRATE 0.2% OP SOLN 5 ML BTL 1 DROP EACH EYE (06:16)
[2025-04-28] MEDS: FUROSEMIDE 20 MG TABLET PO (06:17)
[2025-04-28] MEDS: INSULIN ASPART (*BKC) 100 UNITS/ML SUB-Q ×2 (09:29→12:13)
[2025-04-28] MEDS: INSULIN ASPART (*BKC) 100 UNITS/ML 6 UNITS SUB-Q ×3 (09:29→16:59)
[2025-04-28] MEDS: ENOXAPARIN 40 MG/0.4 ML SYRINGE SUB-Q (09:30)
[2025-04-28] MEDS: CHOLECALCIFEROL (VITAMIN D3) 25 MCG (1,000 UNITS) TABLET 75 MCG PO (09:31)
[2025-04-28] MEDS: CYANOCOBALAMIN 1,000 MCG TABLET 1000 MCG PO (09:31)
[2025-04-28] MEDS: ASPIRIN 81 MG CHEWABLE TABLET PO (09:31)
[2025-04-28] MEDS: SACUBITRIL/VALSARTAN 24-26 MG TABLET 1 TAB PO (09:31)
[2025-04-28 09:32] VITALS: PULSE 63
[2025-04-28] MEDS: GABAPENTIN 300 MG CAPSULE PO (09:32)
[2025-04-28] MEDS: LORATADINE 10 MG TABLET PO (09:32)
[2025-04-28] MEDS: CALCIUM/VITAMIN D 500 MG/5 MCG (200 I.U.) TABLET PO ×2 (09:32→16:59)
[2025-04-28] MEDS: FERROUS SULFATE 325 MG TABLET PO (09:33)
[2025-04-28] MEDS: GENTAMICIN SULFATE 0.1% CR 15 GM TUBE 1 APPLIC TOPICAL (09:33)
--- NOTE | 2025-04-28 10:22 | PC.NURSE ---
Upon provider rounds this AM, discharge plans were discussed. Patient then called RN into room and stated she needed to get up and walk to the bathroom prior to going back to her facility today. RN clarified patient's ability to ambulate, d/t patient stating she used a wheelchair at baseline on initial assessment. Patient then stated she is capable of ambulation with a rollator, RN noted she has not been out of bed for the duration of this admission and PT/OT are not following. RN also noted patient had not had a bowel movement during the duration of her stay and has been on a Purewick. During med pass RN suggested she take her prn medications for constipation, the patient adamantly refused these medications. RN and aide will attempt ambulation with patient to assess ability and see if the patient can have a BM. Provider notified of situation.
[2025-04-28 14:00] VITALS: BP 150/76; PULSE 67; RESP 18; TEMP 36.9; O2SAT 100
--- NOTE | 2025-04-28 14:25 | PM.DS ---
DS: Admitting Diagnosis Discharge Date 04/28/2025 Admitting Diagnosis Cellulitis, COVID 19 DS: Discharge Diagnosis Discharge Diagnosis (1) Cellulitis: Qualifiers: Laterality: unspecified laterality Site of cellulitis: extremity Site of cellulitis of extremity: lower extremity Qualified Code(s): L03.119 - Cellulitis of unspecified part of limb Code(s): L03.90 - Cellulitis, unspecified Status: Acute Assessment and Plan: Clinical exam concerning for bilateral lower extremity cellulitis WBC 17.8K. Recently admitted 03/29-04/01/25 for similar presentation: ABIs showed mild arterial occlusive disease. Wound Cx grew MRSA, Pseudomonas, and group G strep. Cefepime, vancomycin, and Flagyl started on 04/24 LE venous doppler negative for DVT BCx pending Wound care did not feel these wounds were infected. Agree that wounds do not appear infected at this time. Elevate extremities as tolerated. Continue Lasix p.o. Pain control. Continue dressing changes. Stop abx for now 04/27: -Denies pain with her legs today except with palpation. Continue dressing changes. (2) COVID-19: Code(s): U07.1 - COVID-19 Status: Acute Assessment and Plan: Patient reporting generalized weakness probably related to COVID. COVID positive in the emergency department on 04/24. CXR showed probable viral pneumonitis. Symptom onset unclear. No hypoxia. Complicating comorbidities: CHF, DM, cellulitis Started on Remdesivir on 04/24 Continue supportive care. 04/27: VSS, continues to report mild weakness. -Continue Remdesivir until discharge (3) Anemia: Qualifiers: Anemia type: unspecified type Qualified Code(s): D64.9 - Anemia, unspecified Code(s): D64.9 - Anemia, unspecified Status: Chronic Assessment and Plan: Hemoglobin 9.6 on admission on 04/24. Hgb normally runs in the 8 range. B12/folate normal earlier this month. Iron 32, TIBC 162, Iron Sat 20% consistent with anemia of chronic dz. Monitor Hgb and transfuse if <7 to a stable Hgb (4) Type 2 diabetes mellitus: Qualifiers: Diabetes mellitus complication status: with hyperglycemia Diabetes mellitus mcc insulin use: with mcc use Qualified Code(s): E11.65 - Type 2 diabetes mellitus with hyperglycemia; Z79.4 - custodial (current) use of insulin Code(s): E11.9 - Type 2 diabetes mellitus without complications Status: Chronic Assessment and Plan: A1c 7.2% on 03/30/25. The patient's blood glucose was reviewed on 04/26 Glucose stable. Continue AccuCheks covering with sliding scale. Hypoglycemia protocol available as needed. Continue to monitor (5) CHF (congestive heart failure): Qualifiers: Heart failure chronicity: chronic Heart failure type: combined systolic and diastolic Qualified Code(s): I50.42 - Chronic combined systolic (congestive) and diastolic (congestive) heart failure Code(s): I50.9 - Heart failure, unspecified Status: Chronic Assessment and Plan: Patient has peripheral edema but chronic for patient. Otherwise appears euvolemic and no pulmonary edema appreciated on CXR. Echo 04/23: LV chamber mildly enlarged, LV systolic function moderately reduced with an EF of 40-45%, LV septal wall motion abnormal related to bundle branch block, grade 1 diastolic dysfunction, LA mildly enlarged, mild to trace valvular disease. Continue PO Lasix, Aldactone, Entresto, carvedilol (6) HTN (hypertension): Qualifiers: Hypertension type: unspecified Qualified Code(s): I10 - Essential (primary) hypertension Code(s): I10 - Essential (primary) hypertension Status: Chronic Assessment and Plan: Patient's blood pressure was reviewed on Blood pressure remains reasonably well controlled. Will continue to monitor (7) Moderate protein-calorie malnutrition: Code(s): E44.0 - Moderate protein-calorie malnutrition Status: Acute Assessment and Plan: Patient with moderate protein calorie malnutrition related to increased protein energy needs from chronic wounds, inadequate intake as evidenced by a intakes<75% of needs greater than 1 month and weight loss of 6% over 1 month as well as moderate muscle wasting and fat loss. Supplements ordered but patient continues to refuse. Plan DVT Prophylaxis: Lovenox Code Status: Full code Hopeful discharge back to [facility] tomorrow pending PO trial DS: Summary Hospital Course Reason for hospitalization: Weakness Hospital Course: Per HPI: 70 y/o F with PMH of chronic wounds with Charcot's joint of the foot bilaterally, Kvzmmso-Aaeau-Lmqjt disease, CHF, CVA, HLD, HTN, dm 2, CAD, anemia, and asthma presents here with weakness. [facility] [place] from further evaluation of generalized weakness and bilateral lower extremity pain. Patient is difficult historian and A/Ox2 at present making HPI limited. Per EMS, originally called for generalized weakness and diffuse pain. The patient is currently unable to specify where she is having pain. She does deny any chest pain, shortness a breath, cough, nausea, vomiting, or diarrhea. Significant tenderness in her bilateral lower extremities on exam. Has history of multiple chronic venous stasis ulcers and chronic venous stasis dermatitis. She was recently admitted here from 03/29/25-04/01/25 for these wounds. At that time she underwent a venous ultrasound which showed no DVT and ABIs which showed mild arterial occlusive disease. Wound culture from this admission grew MRSA Pseudomonas, and group G strep. Initial VS at presentation: 98.4? F, HR 101, R 20, 183/89, and 94% on RA. ED workup showed: WBC 17.8, hemoglobin 9.6 (8.6 on 04/01/2025), normal coags, creatinine 1.17 and GFR 46 (at baseline), glucose 277, lactic 1.2, BNP 8830. UA showed no markers of UTI. Patient tested positive for COVID on 04/24. CXR showed probable viral pneumonitis. Hospital course: Wound care was consulted regarding possible lower extremity cellulitis. Wound Care did not feel is of these wounds were infected, this is in agreement with the hospitalist. Recommend elevating extremities is tolerated, continuing Lasix p.o. and continuing p.r.n. pain control. Continue daily dressing changes and stop antibiotics at this time. There does not appear to be any evidence of acute infection of the lower extremities on exam. There are multiple shallow ulcers with clean bases and some exudate but no purulence drainage. She has remained without hypoxia and has not required any O2 supplementation. H&H unchanged. No major electrolyte abnormalities. Venous Doppler ultrasound obtained which showed no DVT. She is from [facility] and they can accept her to their nursing rehab unit for further physical therapy. Patient is otherwise hemodynamically stable for discharge at this time. Remains afebrile without leukocytosis or acute infection. She did have some issue with constipation but this is chronic and can be managed at her facility. Plan for discharge to [facility] at this time. Status at Discharge Functional status at discharge: uses cane/walker Time Spent with Patient Time attestation: Total time spent providing and/or coordinating discharge services: 35 Time spent: Greater than 30 minutes Exam Const: General: no acute distress Other: , female, older than stated age, uncomfortable/restless/nauseated HENMT: Face/Nose/Sinus: Normal nares present Mouth: Yes moist mucous membranes Eyes: General: appearance normal, both eyes and all related structures Sclera: sclerae normal Pupils: Equal, round and reactive pupils present EOM: EOMs intact bilaterally Resp: Effort & Inspection: normal respiratory effort Auscultation: clear to auscultation bilaterally Cardio: Rate: regular rate Rhythm: regular rhythm Other: S1-S2 present without murmur, rub, ectopy GI: Other: Abdomen soft, nondistended, nontender. Normoactive bowel sounds in all quadrants. Skin: Other: Chronic Charcot deformity to bilateral feet. Chronic venous stasis ulcerations to bilateral lower extremities. Shallow wounds to right anterior samuel, pink wound bed, epithelialization noted, no significant drainage. Similar wound to the right lateral edge of the foot. Left dorsal foot with small shallow open wound, pink wound bed, epithelialization. + heat to bilateral lower extremities compared to upper thighs. Neuro: Cranial nerves: Yes Equal, round and reactive pupils present Other: A&O x4, moving all extremities, generalized weakness Extrem: General: normal exam except as noted Other: 1+ edema to bilateral lower extremities, symmetric. Skin hardened making assessment for pitting difficult. Psych: Mental Status: mental status grossly normal Affect: normal affect DS: Data Data Completed and Pending Labs on day of discharge: Labs from last 24 hours 04/28/25 04/28/25 04/28/25 11:46 07:56 04:05 WBC 4.5 RBC 3.47 L Hgb 9.6 L Hct 31.4 L MCV 90.5 MCH 27.7 MCHC 30.6 L RDW 14.5 Plt Count 144 L MPV 9.9 Immature Gran % (Auto) 0.4 Neut % (Auto) 51.9 Lymph % (Auto) 31.8 [place] % (Auto) 8.5 Eos % (Auto) 7.2 H Baso % (Auto) 0.2 Lymph # (Auto) 1.42 [place] # (Auto) 0.4 Eos # (Auto) 0.3 Baso # (Auto) 0.0 Abs Immat Gran (auto) 0.02 Absolute Neuts (auto) 2.3 Absolute Nucleated RBC 0.000 Nucleated RBC % 0.0 Sodium 135 L Potassium 3.8 Chloride 102 Carbon Dioxide 28 Anion Gap 5 BUN 22 H Creatinine 1.03 H Estim Creat Clear Calc 46 Estimated GFR 53 L Glucose 210 H POC Capillary Glucose 211 H 226 H Calcium 8.4 Total Bilirubin 0.3 AST 18 ALT 10 Alkaline Phosphatase 90 Total Protein 6.8 Albumin 3.0 L 04/27/25 04/27/25 20:19 17:28 WBC RBC Hgb Hct MCV MCH MCHC RDW Plt Count MPV Immature Gran % (Auto) Neut % (Auto) Lymph % (Auto) [place] % (Auto) Eos % (Auto) Baso % (Auto) Lymph # (Auto) [place] # (Auto) Eos # (Auto) Baso # (Auto) Abs Immat Gran (auto) Absolute Neuts (auto) Absolute Nucleated RBC Nucleated RBC % Sodium Potassium Chloride Carbon Dioxide Anion Gap BUN Creatinine Estim Creat Clear Calc Estimated GFR Glucose POC Capillary Glucose 228 H 151 H Calcium Total Bilirubin AST ALT Alkaline Phosphatase Total Protein Albumin Preliminary micro results at discharge 04/24/25 17:01 Blood Culture - Preliminary Blood 04/24/25 18:37 Blood Culture - Preliminary Blood Discharge Plan Discharge Attending physician on discharge: Sidney Lopez Consulting providers: Lorraine Huggins; Faheem Oropeza Discharging Clinician: Faheem Oropeza Anticipated Discharge Date/Time: 04/28/25 10:48 Patient Disposition: SNF Activity: as tolerated Diet: regular Discharge Instructions: Discharge disposition: [facility] Take medications as prescribed Monitor blood pressures Take caution while standing, rising, or moving Change positions slowly taking a break between each position change If you standing feel dizzy sit back down and take a break Encouraged to continue with yearly vaccinations Return to the emergency department if you develop sudden shortness of breath, chest pain, nausea, vomiting, upset stomach or intractable diarrhea Return to the emergency department if you develop fever greater than 101.5 Follow-up with the primary care physician within 1-2 weeks Thank you for choosing [facility] for your healthcare needs Patient Language: Citizen Of [place] Stand Alone Forms: General Discharge Information Follow-up/Referrals: Tati,Len [Other] Discharge Medications: Continued baclofen 10 mg tablet 10 mg PO Q12H PRN (Reason: muscle spasms) bisacodyl 10 mg Suppository 10 mg RECTAL DAILY PRN (Reason: Constipation) insulin glargine [Basaglar KwikPen U-100 Insulin] 100 unit/mL (3 mL) insulin pen 20 unit SUBCUT HS Rx Instructions: 7 units at bedtime Fiasp FlexTouch U-100 Insulin 100 unit/mL (3 mL) insulin pen 8 unit SUBCUT TIDWM Rx Instructions: 10 units before meals cyanocobalamin (vitamin B-12) 1,000 mcg Tablet 1,000 mcg PO DAILY furosemide 40 mg Tablet 20 mg PO DAILY carvedilol 25 mg Tablet 25 mg PO BID sennosides [senna] 8.6 mg Tablet 8.6 mg PO DAILY PRN (Reason: Constipation) gabapentin 600 mg Tablet 300 mg PO BID atorvastatin 20 mg Tablet 20 mg PO HS brimonidine 0.2 % Drops 1 drp OPHTHALMIC (EYE) Q8H Rx Instructions: Left eye aspirin 81 mg Tablet,Chewable 81 mg PO DAILY loratadine [Claritin] 10 mg Tablet 10 mg PO DAILY calcium carbonate-vitamin D3 [Oysco 500/D] 500 mg(1,250mg) -200 unit Tablet 1 tablet PO BID acetaminophen 325 mg Tablet 650 mg PO Q6H PRN (Reason: Pain) Qty: 10 0RF spironolactone [Aldactone] 25 mg tablet 25 mg PO QAM diclofenac sodium [Voltaren Arthritis Pain] 1 % gel 2 g topical .q12 PRN (Reason: pain) Rx Instructions: apply to single elbow, wrist or hand; for hand includes palm/fingers/back of hand magnesium hydroxide [Milk of Magnesia] 400 mg/5 mL suspension 30 ml PO DAILY PRN (Reason: constipation) ondansetron 4 mg tablet,disintegrating 4 mg PO Q8H PRN (Reason: nausea and vomiting) amino acids-protein hydrolys 11 gram-80 kcal/30 mL liquid 1 ea PO QAM Nasal [place] (sodium chloride) 0.65 % aerosol,spray 1 spray intranasal Q6H PRN (Reason: dry nasal passages) cholecalciferol (vitamin D3) 25 mcg (1,000 unit) tablet,chewable 75 mcg PO DAILY magnesium citrate [Citroma] Solution 296 ml PO .q24 PRN (Reason: constipation) sacubitril-valsartan [Entresto] 24-26 mg tablet 1 tablet PO BID gentamicin 0.1 % cream 1 applic TOPICAL DAILY Rx Instructions: apply to R foot loperamide [Anti-Diarrheal (loperamide)] 2 mg capsule 2 mg PO .q24 PRN (Reason: loose stool) latanoprost 0.005 % drops 1 drp LEFT EYE QPM polyethylene glycol 3350 [Miralax] 17 gram Powder In Packet 17 g PO QAM PRN (Reason: constipation) hydrocodone-acetaminophen 5-325 mg tablet 1 tablet PO Q6H PRN (Reason: pain) Qty: 10 0RF ferrous sulfate 325 mg (65 mg iron) Tablet 325 mg PO DAILY 30 Days Qty: 30 0RF Discontinued timolol 0.25 % Drops 1 drp LEFTEYE TID levofloxacin 750 mg tablet 750 mg PO Q48H Qty: 2 0RF Rx Instructions: Start 10/. Give in the evening to avoid interaction with iron. Date of admission: 04/25/25 08:55 Primary Care Provider: Tati,Len Admitting Provider: Grey Valenzuela Attending physician on admission: Grey Valenzuela Condition: Stable Quality VTE Prophylaxis VTE prophylaxis: pharmacologic ordered
== END 2025-04-28 19:20 | DRG 177 ==
LOC: ANHED 19:00 → ANH2MED 19:47
PROVIDERS: Internal Medicine; Student in an Organized Health Care Education/Training Program; Admitting Provider General Practice; Emergency Provider Physician Assistant; Visit Provider Physician Assistant
DX: U07.1 COVID-19 (principal); J12.82 Pneumonia due to coronavirus disease 2019; L03.115 Cellulitis of right lower limb; Z68.41 Body mass index [BMI] 40.0-44.9, adult; I50.42 Chronic combined systolic (congestive) and diastolic (congestive) heart failure; E44.0 Moderate protein-calorie malnutrition; I11.0 Hypertensive heart disease with heart failure; I83.018 Varicose veins of right lower extremity with ulcer other part of lower leg; I83.028 Varicose veins of left lower extremity with ulcer other part of lower leg; I70.213 Atherosclerosis of native arteries of extremities with intermittent claudication, bilateral legs; D64.89 Other specified anemias; G60.0 Hereditary motor and sensory neuropathy; E78.5 Hyperlipidemia, unspecified; K59.09 Other constipation; E11.319 Type 2 diabetes mellitus with unspecified diabetic retinopathy without macular edema; E11.610 Type 2 diabetes mellitus with diabetic neuropathic arthropathy; I25.10 Atherosclerotic heart disease of native coronary artery without angina pectoris; E66.01 Morbid (severe) obesity due to excess calories; I87.8 Other specified disorders of veins; I44.7 Left bundle-branch block, unspecified; B95.1 Streptococcus, group B, as the cause of diseases classified elsewhere; B96.5 Pseudomonas (aeruginosa) (mallei) (pseudomallei) as the cause of diseases classified elsewhere; B95.61 Methicillin susceptible Staphylococcus aureus infection as the cause of diseases classified elsewhere; Z79.891 Long term (current) use of opiate analgesic; Z79.82 Long term (current) use of aspirin; Z79.4 Long term (current) use of insulin; Z86.73 Personal history of transient ischemic attack (TIA), and cerebral infarction without residual deficits; Z86.19 Personal history of other infectious and parasitic diseases; Z89.421 Acquired absence of other right toe(s); Z95.5 Presence of coronary angioplasty implant and graft; Z68.38 Body mass index [BMI] 38.0-38.9, adult
CPT/HCPCS: 36415; 70450; 71046; 80048; 80053; 80069; 80076; 81001; 82550; 82948; 83605; 83735; 83880; 84460; 85025; 85610; 85730; 87040; 87637; 87641; 93005; 93970; 96366; 96374; 96375; 96376; 99285; A9270; G0378; J0248; J0692; J1650; J1815; J1836; J2270; J2405; J3373; J7040; J7050

== ENCOUNTER 2025-05-11 06:47 | Inpatient (IN) | payer MEDICARE, SELFPAY ==
--- OUTSIDE RECORDS SUMMARY | 2002-02-03 05:00 | XMS_ITS | Continuity of Care Document ---
Author Organization [facility] Address [address] [place] [address] [address] [place] [address] Phone Care Team Providers Care Quality Assurance Lead Name Role Phone Louis Larkin Unavailable Unavailable Advance Directives Directive Yes / No Effective Date File Name No Information Encounters Encounter Description Practice Location Reason(s) For Visit Diagnoses Date Provider Providers Copied on Encounter Located within [facility], [id number] [place] [address] [address], [place], [place], [id number], [place] tel:[phone] [facility] (formerly [facility]) No Information [address] , [address], [place], [address], [place]. tel:[phone] Family History Family Member Type Diagnosis Age At Onset No Information Payers Payer name Insurance type Covered alliance party ID Authoriza tion(s) No Information Social History Type Description Quantity Date Captured Comments Sex Female Smoking Status No Information Chief Complaint And Reason For Visit No Information Reason For Referral Reason For Referral No Information History Of Present Illness Encounter Date Complaint History Of Prese nt Illness No Information Functional Status Date Functional Assessmen t No Information Instructions Date Instruction Additional Infor mation No Information Assessments Type Assessment Date No Information Patient Care Teams Name Effective Dates (start - stop) Status Members No Information
[2025-05-11] VITALS (12 sets, daily range): BP systolic 106–164; BP diastolic 47–84; PULSE 74–110; RESP 15–23; TEMP 36.7–38.6; O2SAT 94–98; BMI 39.3
--- NOTE | ~2025-05-11 | CT_ITS ---
EXAMINATION: CT brain wo con DATE: 05/11/2025 07:55 INDICATION: Altered mental status TECHNIQUE: Computed tomography (CT) of the head was performed without intravenous contrast. The dose-length product was 605.33 mGy-cm. COMPARISON: April 24, 2025 FINDINGS: No gross intracranial mass effect or hemorrhage. No large acute ischemic event. Mild periventricular hypoattenuating white matter changes. Catheter structures appear intact. IMPRESSION: 1. No intracranial hemorrhage or large acute ischemic event. Reviewed, dictated and finalized at location A. COMMUNICATIONS FIELD ENGINEER
--- NOTE | ~2025-05-11 | XR_ITS ---
EXAMINATION: XR chest 2V DATE: 05/11/2025 08:08 INDICATION: Possible pneumonia TECHNIQUE: Frontal and lateral views of the chest were obtained. COMPARISON: April 24, 2025 FINDINGS: Mild atelectatic or infiltrative changes in the anterior right lung base. Remaining lung castañeda are clear. Heart shadow upper limits normal. IMPRESSION: 1. Possible small developing consolidation or atelectatic process in the anterior right lung base. Reviewed, dictated and finalized at location A. R OPTICS TECHNICIAN IMPRESSION: 1. Possible small developing consolidation or atelectatic process in the anteri or right lung base.
--- NOTE | 2025-05-11 07:01 | ECG_ITS ---
Test Date: 2025-05-11 08:08:50 Measurements Intervals Rogers Rate: 96 P: 48 AR: 189 QRS: -62 QRSD: 155 T: 98 QT: 406 QTc: 514 Interpretive Statements SINUS RHYTHM LEFT AXIS DEVIATION [QRS AXIS < -30] LEFT BUNDLE BRANCH BLOCK [120+ ms QRS DURATION, 80+ ms Q/S IN V1/V2, 85+ ms R IN I/aVL/V5/V6] Compared to ECG 04/24/2025 17:15:02 No significant changes Electronically Signed On 05-11-2025 13:18:47 PRODUCTION GRIP by Josiah Burleson M.D.
[2025-05-11 07:32] LABS: Hematocrit 30.3 % (37.0-47.0); Hemoglobin 9.2 g/dL (12.0-15.0); Immature Granulocyte Percent A 1.1 % (0-0.5); Lymphocytes Absolute Auto 0.62 K/mm3 (0.9-3.2); Mean Corpuscular HGB Conc 30.4 g/dl (32-36); Mean Corpuscular Hemoglobin 28.1 pg (26-34); Mean Corpuscular Volume 92.7 fl (80-100); Nucleated Red Blood Cells Absolute Auto 0.000 K/mm3 (0.0-0.012); Nucleated Red Blood Cells Perc 0.0 % (0.0-0.2); Platelet Count Result 159 k/mm3 (150-375); Red Blood Count 3.27 M/mm3 (4.2-5.4); White Blood Count 9.2 K/mm3 (4.5-10.0)
[2025-05-11 07:45] LABS: INR 1.2; Prothrombin Time 15.0 Seconds (11.1-14.7)
[2025-05-11 07:46] LABS: Partial Thromboplastin Time 28.0 Seconds (22.3-36.8)
--- OUTSIDE RECORDS SUMMARY | 2025-05-11 07:47 | XMS_ITS | Clinical Summary ---
Author Organization [facility] [address] Address [address] [place] [address] Care Team Providers Care Men'S Leather Dress Belt Maker Name Role Phone Trevor John MD Primary Care Provider [phone] Allergies Active Allergy Reactions Criticality Noted Date [...] 60 mg tabletIndicati ons:Coronary artery disease involving pokagon coronary artery of pokagon heart without angina pectoris Take 1 tablet [...] 06/27/2021 Assessment & Plan (06/27/2021 10:37 AM DAIRY FARMWORKER): Assessment/plan: Charcot foot deformities to bilateral lower [...] 05/05/2018 Assessment & Plan (06/27/2021 10:35 AM DAIRY FARMWORKER): Assessment/plan: Coreg Mixed hyperlipidemia 05/05/2018 Asthma in adult, unspecified asthma severity, un complicated 01/29/2018 Gastroesophageal reflux disease without esophagi tis 01/29/2018 Type 2 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, with long-term current use of insulin 01/29/2018 History of CVA (cerebrovascular accident) 2017 Exercise counseling 06/13/2017 Coronary artery disease invo lving pokagon coronary artery of pokagon heart without angina pectoris 02/17/2017 Assessment & Plan (06/27/2021 10:35 AM DAIRY FARMWORKER): Assessment/plan: Continue ASA, Lipitor Ischemic cardiomyopathy 02/17/2017 [...] on file Legal Sex Female 3:20 AM DAIRY FARMWORKER Gender Identity Not on file Sexual Orientation Not on file Last Filed Vital Signs Vital Sign Reading Time Taken Comments Blood Pressure 112/67 06/27/2021 10:10 AM DAIRY FARMWORKER Pulse 75 06/27/2021 10:10 AM DAIRY FARMWORKER Temperature - - Respiratory Rate - - Oxygen Saturation 98% 05/19/2019 10:49 AM DAIRY FARMWORKER Inhaled Oxygen Concentration - - Weight 96.2 kg (212 lb) 06/27/2021 10:10 AM DAIRY FARMWORKER Height 152.4 cm (5') 06/27/2021 10:10 AM DAIRY FARMWORKER Body Mass Index 41.4 06/27/2021 10:10 AM DAIRY FARMWORKER Plan of Treatment Not on file Insurance Team Apart [facility] [place] [address] Care Teams Men'S Leather Dress Belt Maker Relationship Specialty Start Date End Date Trevor John MD PCP - General Internal Medicine 06/27/21
--- OUTSIDE RECORDS SUMMARY | 2025-05-11 07:47 | XMS_ITS | Encounter Summary ---
Author Organization [facility] Address [address] [place] [address] Care Team Providers Care Flight Communications Operator Name Role Phone Hasmukh Cooper MD Primary Care Provider [phone] Trevor John MD Primary Care Provider [phone] Encounter Details Date Type Department Care Team (Late st Contact Info) Description 09/06/2016 Orders Only [facility] ProviderAaron MD [address] [place] [address] Social History Tobacco Use Types Packs/Day Years Used Date Smoking Tobacco: Never Assessed Comments Unknown Sex and Gender Information Value Date Recorded Sex Assigned at Not on file Legal Sex Female 3:20 AM INTERNAL SALES ENGINEER Gender Identity Not on file Sexual Orientation [...] documented as of this encounter Care Teams Flight Communications Operator Relationship Specialty Start Date End Date Hasmukh Cooper MD [address] [place] [address] PCP - General 09/27/16 06/26/21 Trevor John MD [address] [place] [address] PCP - General Internal Medicine 06/27/21 documented as of this encounter
--- OUTSIDE RECORDS SUMMARY | 2025-05-11 07:48 | XMS_ITS | Encounter Summary ---
Author Organization [facility] Address [facility] [place] [address] Care Team Providers Care Water Mechanic Name Role Phone None, Provider MD Primary Care Provider Unavaila ble Encounter Details Date Type Department Care Team (Late st Contact Info) Description 10/29/2021 Prep for Procedure [facility] [address] [place], [place] [id number] Heriberto Dixon MD [facility]. [facility] [address] [place], [place] [id number] Social History Tobacco Use Types Packs/Day Years [...] able to perform ADLs independently General No aMria A Banks RN Family - family caregiver with be involved in care transitions and discharge planning General No Mitzi Cooley, SHAPE BRICK MOLDER documented as of this encounter Visit Diagnoses Not on filedocumented in this encounter Additional Health Concerns Infection Onset Date Last Indicated Resolved Time MRSA Comment:10/25/21 +MRSA Nasal 10/26/21 +MRSA Left foot 10/26/2021 10/26/2021 COVID-19 Rule Out 11/07/2021 11/08/2021 11/08/2021 7:44 AM CDT documented as of this encounter Care Teams Water Mechanic Relationship Specialty Start Date End Date None, Provider, PCP - General 06/30/21 documented as of this encounter
--- OUTSIDE RECORDS SUMMARY | 2025-05-11 07:48 | XMS_ITS | Clinical Summary ---
Author Organization [facility] Address [address] [place] [address] Care Team Providers Care Geophysical Support Specialist Name Role Phone None, Provider MD Primary [...] daily with breakfast. Active vitamin D2, ergocalciferol, 57389 UNITS capsule Take 50,000 Units by mouth [...] ADLs independently General No Maria A Banks, sales support advisor - family caregiver with be involved in care transitions and discharge planning General No Mitiz Cooley, FURNACE OPERATOR AND TENDER Procedures Procedure Name Priority Date/Time Associated Diagnosis Comments HEMOGLOBIN, GLYCOSYLATED Routine 10/12/2021 3:25 AM CDT from Last 3 Months or Most Recently Relevant to Health Maintenance Results * (ABNORMAL) HEMOGLOBIN, GLYCOSYLATED (10/12/2021 3:25 AM CDT) HGB A1C 6.9(H) <5.7 % 10/13/2021 12:49 AM CDT [facility] Comment: ADA GUIDELINES 2010 5.7 TO 6.4% INCREASED RISK OF DIABETES > OR = 6.5% CONSISTENT WITH DIABETES ESTIMATED AVG GLUCOSE 151 mg/dL 10/13/2021 12:49 AM CDT [facility] 10/12/2021 3:25 AM CDT Maida Craft MD LABORATORY Final Result [facility] [address] [place] [address], [place] [phone] from Last 3 Months or Most Recently Relevant to Health Maintenance Additional Health Concerns Infection Onset Date Last Indicated MRSA Comment:10/25/21 +MRSA Nasal 10/26/21 +MRSA Left foot 10/26/2021 10/26/2021 Insurance [employer] Advance Directives Documents on File Type Date Recorded Patient Senior Communications Specialist Expl anation Advance Directives and Living Will 11/16/2021 9:18 AM 06/09/2019 POLST * Full Code (Latest Code Status on File) Date Activated Date Inactivated Comments 10/24/2021 9:22 PM 11/08/2021 4:53 PM * Full Code Date Activated Date Inactivated Comments 10/18/2021 5:18 PM 10/19/2021 10:46 PM * Full Code Date Activated Date Inactivated Comments 10/11/2021 12:37 AM 10/13/2021 4:06 PM Care Teams Geophysical Support Specialist Relationship Specialty Start Date End Date None, Provider, PCP - General 06/30/21
[2025-05-11 07:49] LABS: Alanine Aminotransferase 16 U/L (6-35); Albumin Level 3.7 g/dL (3.5-5.1); Alkaline Phosphatase 120 U/L (38-126); Anion Gap 11 mmol/L (4-12); Aspartate Amino Transferase 24 U/L (14-36); Bilirubin,Total 0.4 mg/dL (0.2-1.3); Blood Urea Nitrogen 39 mg/dL (7-17); CRP 4.9 mg/dL (<1.0); Calcium 8.7 mg/dL (8.4-10.2); Carbon Dioxide 17 mmol/L (22-30); Chloride 109 mmol/L (98-107); Estimated CRCL calculation 31 ml/min; Estimated Glomerular Filt Rate 31; Glucose 291 mg/dL (65-110); Potassium 5.9 mmol/L (3.4-5.0); Sodium 137 mmol/L (137-145); Total Protein 8.0 g/dL (6.3-8.2)
[2025-05-11 08:12] LABS: Troponin I < 0.012 ng/mL (0.000-0.034)
[2025-05-11 09:41] LABS: Add Urine Microscopic? YES; Appearance Urine Clear (Clear); Glucose Urine UA Negative (Negative); Leukocyte Esterase Ur Negative LEU/UL (Negative); Nitrate Urine Negative (Negative); Non Pathogenic Casts 0-2; Specific Grav Ur 1.017 (1.001-1.035)
--- NOTE | 2025-05-11 10:09 | ED.AMS ---
HPI - Altered Mental Status General Chief Complaint: Altered Mental Status Stated Complaint: lethargic, weak Time Seen by Provider: 05/11/25 07:20 History of Present Illness HPI narrative: Pt presents from local [place] with altered mental status this morning. Pt has Charcot Hannah tooth and DM and HTn and CHF among other chronic illnesses. Pt has chronic erythema and swelling to both legs. Pt is unable to answer questions. Related Data Home Medications ?Medication ?Instructions ?Recorded ?Confirmed ?Last Taken ?Type aspirin 81 mg chewable tablet 81 mg PO DAILY 01/19/20 05/11/25 Unknown History atorvastatin 20 mg tablet 20 mg PO HS 01/19/20 05/11/25 Unknown History brimonidine 0.2 % eye drops 1 drp ophthalmic (eye) DAILY 01/19/20 05/11/25 Unknown History calcium 500 mg (as 1 tablet PO BID 01/19/20 05/11/25 Unknown History carbonate)-vitamin D3 5 mcg (200 unit) tablet (Oysco 500/D) carvedilol 25 mg tablet 25 mg PO BID 01/19/20 05/11/25 Unknown History furosemide 40 mg tablet 20 mg PO DAILY 01/19/20 05/11/25 Unknown History gabapentin 600 mg tablet 600 mg PO BID 01/19/20 05/11/25 Unknown History loratadine 10 mg tablet (Claritin) 10 mg PO DAILY 01/19/20 05/11/25 Unknown History sennosides 8.6 mg tablet (senna) 8.6 mg PO DAILY PRN Constipation 01/19/20 05/11/25 Unknown History baclofen 10 mg tablet 10 mg PO Q12H PRN muscle spasms 11/16/23 05/11/25 Unknown History bisacodyl 10 mg rectal suppository 10 mg RECTAL DAILY PRN Constipation 11/16/23 05/11/25 Unknown History cyanocobalamin (vitamin B-12) 500 mcg PO DAILY 11/16/23 05/11/25 Unknown History 1,000 mcg tablet insulin aspart 8 unit subcut TIDWM 11/16/23 05/11/25 Unknown History (niacinamide)(U-100) 100 unit/mL(3 mL) subcutaneous pen (Fiasp FlexTouch U-100 Insulin) insulin glargine 100 unit/mL (3 20 unit subcut HS 11/16/23 05/11/25 Unknown History mL) subcutaneous pen (Basaglar KwikPen U-100 Insulin) cholecalciferol (vitamin D3) 25 4,000 unit PO DAILY 03/29/25 05/11/25 Unknown History mcg (1,000 unit) chewable tablet diclofenac sodium 1 % topical gel 2 g topical .q12 PRN pain 03/29/25 05/11/25 Unknown History (Voltaren Arthritis Pain) latanoprost 0.005 % eye drops 1 drp LEFT EYE QHS 03/29/25 05/11/25 Unknown History loperamide 2 mg capsule 2 mg PO .q24 PRN loose stool 03/29/25 05/11/25 Unknown History (Anti-Diarrheal (loperamide)) magnesium citrate (Citroma oral 296 ml PO .q24 PRN constipation 03/29/25 05/11/25 Unknown History solution) magnesium hydroxide 400 mg/5 mL 30 ml PO .Q8HR PRN constipation 03/29/25 05/11/25 Unknown History oral suspension (Milk of Magnesia) ondansetron 4 mg disintegrating 4 mg PO Q8H PRN nausea and vomiting 03/29/25 05/11/25 Unknown History tablet polyethylene glycol 3350 17 gram 17 g PO QAM PRN constipation 03/29/25 05/11/25 Unknown History oral powder packet (Miralax) sacubitril 24 mg-valsartan 26 mg 1 tablet PO BID 03/29/25 05/11/25 Unknown History tablet (Entresto) sodium chloride 0.65 % nasal spray 1 spray intranasal Q6H PRN dry 03/29/25 05/11/25 Unknown History aerosol (Nasal [place] (sodium nasal passages chloride)) sodium phosphates 19 gram-7 118 ml RECTAL DAILY PRN 05/11/25 05/11/25 Unknown History gram/118 mL enema (Fleet Enema) constipation timolol maleate 0.25 % eye drops 1 drp EACH EYE TID 05/11/25 05/11/25 Unknown History Allergies Allergy/AdvReac Type Severity Reaction Status Date / Time egg Allergy Unknown Unknown Verified 05/11/25 13:39 latex Allergy Unknown Unknown Verified 05/11/25 13:39 milk Allergy Unknown Unknown Verified 05/11/25 13:39 Penicillins Allergy Unknown Skin Verified 05/11/25 13:39 Reaction shellfish derived Allergy Unknown Unknown Verified 05/11/25 13:39 Sulfa (Sulfonamide Allergy Unknown Unknown Verified 05/11/25 13:39 Antibiotics) sulfanilamide Allergy Unknown Unknown Verified 04/24/25 23:31 nirmatrelvir (From Paxlovid) Allergy Unknown Verified 05/11/25 13:39 ritonavir (From Paxlovid) Allergy Unknown Verified 05/11/25 13:39 sulfamethizole AdvReac Unknown Nausea Verified 05/11/25 13:39 Review of Systems Review of Systems: ROS unobtainable: Yes unobtainable due to medical condition [facility] Past Medical History Medical History Depression Anxiety Charcot's joint of foot Type 2 diabetes mellitus Dyslipidemia Coronary artery disease Combined systolic and diastolic congestive heart failure 03/2025: LV mildly enlarged, LV systolic function moderately reduced, EF 40-45%, grade 1 diastolic dysfunction Hypertension MSSA bacteremia Cerebrovascular accident Osteomyelitis of fifth toe of right foot Anemia Ytnleub-Mdehl-Qeqsx disease Asthma Diabetic retinopathy Surgical History Surgical History Hx of tonsillectomy Status post excisional debridement Bilateral heels for infected diabetic ulcers. Amputation of fifth toe of right foot Secondary to osteomyelitis. History of incision and drainage Back abscess. History of cardiac catheterization History of open reduction and internal fixation (ORIF) procedure Repair of left arm fracture. 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 She has No children Surrogate decision maker: Shirley Rush, mother. Code status: Full code. 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 Spiritual care concerns: No Agree to blood products: Yes Exam Const: General: no acute distress Limitations: altered mental status (unresponsive) Resp: Effort & Inspection: normal respiratory effort Auscultation: clear to auscultation bilaterally Cardio: Rate: regular rate Rhythm: regular rhythm GI: GI Palp: Yes Soft to palpation and No Tenderness to palpation present (GI) Auscultation: normal bowel sounds Skin: Rashes: no rashes Other: erythema to both legs Neuro: Other: unresponsive Extrem: Other: erythema and chronicx edema to both legs Psych: Other: unresponsive Course Vital Signs Vital signs: Vital Signs Temperature 100 F H 05/11/25 07:03 Pulse Rate 97 05/11/25 07:03 Respiratory Rate 15 05/11/25 07:03 Blood Pressure 118/55 L 05/11/25 07:03 Pulse Oximetry 95 05/11/25 07:03 Oxygen Delivery Room Air 05/11/25 07:03 Temperature 99.4 F 05/11/25 14:00 Pulse Rate 91 05/11/25 16:00 Respiratory Rate 20 05/11/25 14:00 Blood Pressure 151/72 H 05/11/25 14:00 Pulse Oximetry 96 05/11/25 14:00 Oxygen Delivery Room Air 05/11/25 12:30 MDM - Altered Mental Status MDM Narrative Medical decision making narrative: Pt hyperkalemic in mild insufficiency. Pt likely has cellulitis of legs. Discussedw with Dr Roberts will start on antibiotics. Pt has pcn allergy so will have pharmacy dose vanc. treated potassium with bicarb, calcium gluconate, insulin and d50. will admit. Differential Diagnosis Differential diagnosis: Likely altered mental status, hypoglycemia, hyponatremia, subarachnoid hemorrhage and sepsis Lab Data Attestation: I reviewed the patient's lab results. 05/11/25 07:15 05/11/25 14:52 Labs: Lab Results 05/11/25 05/11/25 Range/Units 07:15 09:29 WBC 9.2 (4.5-10.0) K/mm3 RBC 3.27 L (4.2-5.4) M/mm3 Hgb 9.2 L (12.0-15.0) g/dL Hct 30.3 L (37.0-47.0) % MCV 92.7 (80-100) fl MCH 28.1 (26-34) pg MCHC 30.4 L (32-36) g/dl RDW 14.9 H (11.5-14.5) % Plt Count 159 (150-375) k/mm3 MPV 10.2 (7.4-10.4) fl Immature Gran % (Auto) 1.1 H (0-0.5) % Neut % (Auto) 88.6 H (45.5-73.1) % Lymph % (Auto) 6.8 L (18.3-44.2) % [place] % (Auto) 3.2 (2.6-8.5) % Eos % (Auto) 0.1 (0-4.4) % Baso % (Auto) 0.2 (0.2-1.2) % Lymph # (Auto) 0.62 L (0.9-3.2) K/mm3 [place] # (Auto) 0.3 (0.1-0.6) K/mm3 Eos # (Auto) 0.0 (0-0.3) K/mm3 Baso # (Auto) 0.0 (0.0-0.1) K/mm3 Abs Immat Gran (auto) 0.10 H (0.00-0.031) K/mm3 Absolute Neuts (auto) 8.1 H (1.3-6.7) K/mm3 Absolute Nucleated RBC 0.000 (0.0-0.012) K/mm3 Nucleated RBC % 0.0 (0.0-0.2) % PT 15.0 H (11.1-14.7) Seconds INR 1.2 APTT 28.0 (22.3-36.8) Seconds Sodium 137 (137-145) mmol/L Potassium 5.9 H (3.4-5.0) mmol/L Chloride 109 H (98-107) mmol/L Carbon Dioxide 17 L (22-30) mmol/L Anion Gap 11 (4-12) mmol/L BUN 39 H D (7-17) mg/dL Creatinine 1.65 H (0.7-1.0) mg/dL Estim Creat Clear Calc 31 ml/min Estimated GFR 31 L (59 - ) Glucose 291 H (65-110) mg/dL Lactic Acid 1.1 (0.7-2.0) mmol/L Calcium 8.7 (8.4-10.2) mg/dL Total Bilirubin 0.4 (0.2-1.3) mg/dL AST 24 (14-36) U/L ALT 16 (6-35) U/L Alkaline Phosphatase 120 (38-126) U/L Troponin I < 0.012 (0.000-0.034) ng/mL C-Reactive Protein 4.9 H (<1.0) mg/dL Total Protein 8.0 (6.3-8.2) g/dL Albumin 3.7 (3.5-5.1) g/dL Urine Color Yellow (Yellow) Urine Appearance Clear (Clear) Urine pH 5.0 (5.0-9.0) Ur Specific [place] 1.017 (1.001-1.035) Urine Protein Trace (Negative) mg/dL Urine Glucose (UA) Negative (Negative) mg/dL Urine Ketones Trace H (Negative) mg/dL Ur Blood (Man) 1+ H (Negative) Urine Nitrate Negative (Negative) Urine Bilirubin Negative (Negative) Urine Urobilinogen 0.2 (<2.0) mg/dL Leukocyte Esterase Rfl Negative (Negative) JULIANNA/UL Urine RBC 0-2 (0-2) /hpf Urine WBC 0-5 (0-3) /hpf Ur Squamous Epith Cells None seen (Few) /hpf Urine Bacteria None seen /hpf Urine Casts 0-2 ECG Data EKG #1: Attestation: I personally reviewed and interpreted this ECG as follows: Interpretation: nsr rate 96 LAD, LBBB, similar to prior Critical Care Time Critical Care Time Critical Care Time: Yes Total Critical Care Time: 30 Discharge Plan Discharge Clinical Impression: Acute renal failure, Acute hyperkalemia, Dehydration Altered mental status Qualifiers: Altered mental status type: somnolence Qualified Code(s): R40.0 - Somnolence Patient Disposition: Still a Patient Condition: Serious
[2025-05-11] MEDS: SODIUM BICARBONATE 8.4% 50 MEQ/50 ML SYRINGE IV PUSH (10:25)
[2025-05-11] MEDS: CALCIUM GLUCONATE 1,000 MG/10 ML VIAL 1000 MG IV PUSH (10:25)
[2025-05-11] MEDS: DEXTROSE 50% 25 GM/50 ML SYRINGE IV PUSH (10:26)
[2025-05-11] MEDS: INSULIN HUMAN REGULAR (*BKC) 100 UNITS/ML 8 UNITS IV PUSH (10:26)
[2025-05-11] MEDS: VANCOMYCIN 1,500 MG/NS 500 ML 1,500 MG/500 ML BAG 250 MG IVPB (11:04)
--- NOTE | 2025-05-11 11:43 | WPCEDHO ---
ED Hand Off Checklist All vitals saved:Y IV Site documented:Y All med administrations documented:Y Triage Note Triage Note Pt arrive to ED via EMS from 05/11/25 07:03 [facility] with c/o lethargy and weakness. Facility states that pt is usually A&Ox3 at baseline but this morning she was A&OX2 and not really making sense of her words, pt answers questions but doses frequently. Pt has wound to bilateral feet that the facility states might be infected. Pt has hx CHF, TIA. Allergies egg Allergy (Unknown, Verified 04/24/25 23:31) Unknown latex Allergy (Unknown, Verified 04/24/25 23:31) Unknown milk Allergy (Unknown, Verified 04/24/25 23:31) Unknown Penicillins Allergy (Unknown, Verified 04/24/25 23:31) Skin Reaction Patient received cefepime in October 2023 shellfish derived Allergy (Unknown, Verified 04/24/25 23:31) Unknown Sulfa (Sulfonamide Antibiotics) Allergy (Unknown, Verified 04/24/25 23:31) Unknown PER UNCODED ALLERGIES 05/11/12 sulfanilamide Allergy (Unknown, Verified 04/24/25 23:31) Unknown sulfamethizole Adverse Reaction (Unknown, Verified 04/24/25 23:31) Nausea Family History (Last Reviewed 04/24/25 @ 20:27 by Mily Glover APRN) Sibling Cerebrovascular accident Father Family history of diabetes mellitus in first degree relative Diabetes mellitus Family history of hypothyroidism Mother Family history of diabetes mellitus in first degree relative Family history of heart disease in male family member before age 55 Diabetes mellitus Other Family history of cardiovascular disease Hypertension Active Medications including assessments/comments Vancomycin HCl (Vancomycin 1,500 Mg/Ns 500 Ml) 1,500 mg in 500 mls @ 250 mls/hr IVPB ONCE ONE Stop: 05/11/25 12:59 Last Admin: 05/11/25 11:04 Dose: 250 mls/hr Documented By: [facility] Infusion/Titration Document 05/11/25 11:04 [facility] (Rec: 05/11/25 11:04 [facility] [id number]) Intake IV Site Peripheral Access Left Hand Container Volume 500 Waste Amount 0 Dosing Infusion Rate 250 Increase/Decrease Started Elapsed Time Elapsed Time ( 0m minutes) Administered/Completed Medications Discontinued Medications Calcium Gluconate (Calcium Gluconate 1,000 Mg/10 Ml Vial) 1,000 mg IV PUSH ONCE ONE Stop: 05/11/25 10:18 Last Admin: 05/11/25 10:25 Dose: 1,000 mg Documented By: RADHA Dextrose (Dextrose 50% 25 Gm/50 Ml Syringe) 25 gm IV PUSH ONCE ONE Stop: 05/11/25 10:18 Last Admin: 05/11/25 10:26 Dose: 25 gm Documented By: RADHA Insulin Human Regular (Insulin Human Regular (*Bkc) 100 Units/Ml) 8 units IV PUSH ONCE ONE Stop: 05/11/25 10:18 Last Admin: 05/11/25 10:26 Dose: 8 units Documented By: RADHA Co-signed By: MICHELLE Sodium Bicarbonate (Sodium Bicarbonate 8.4% 50 Meq/50 Ml Syringe) 50 meq IV PUSH ONCE STA Stop: 05/11/25 10:18 Last Admin: 05/11/25 10:25 Dose: 50 meq Documented By: RADHA Interventions/Assessments IV / Saline Lock, Insert Start: 05/11/25 07:00 Freq: Status: Active Protocol: Document 05/11/25 07:03 RADHA (Rec: 05/11/25 10:29 RADHA [id number]) IV Assessment Peripheral Access Left Hand IV Catheter Access Initiated IV Insertion Date 05/11/25 IV Insertion Time 10:29 Catheter Gauge 18 IV Insertion 1 Attempts Ultrasound Used for No Placement IV Site Assessment WNL PA: Cardiovascular Assessment Start: 05/11/25 07:00 Freq: Status: Complete Protocol: Document 05/11/25 07:30 CFG (Rec: 05/11/25 08:42 CFG [id number]) Cardiovascular Assessment Cardiovascular None Symptoms Skin Description Pallor PA: Neurological Assessment Start: 05/11/25 07:00 Freq: Status: Complete Protocol: Document 05/11/25 07:30 CFG (Rec: 05/11/25 08:42 CFG [id number]) Neurological Assessment Level of Drowsy Consciousness Arousable to Verbal Neurological Confusion,Weakness, General Symptoms Behavior Fatigued Patient Unable to Comprehend Comprehension Memory Description Unable to Assess Ability to Maintain Unable to Assess Balance Facial Symmetry Unable to Assess Speech Pattern Unable to Assess Ability to Swallow Unable to Assess Tongue Position Unable to Assess Finger to Nose Test Activity Impossible Heel to [place]son Test Activity Impossible Bilateral All Extremities Extremity Movement Unable to Assess Description All Extremities Sensation Unable to Assess Description PA: Respiratory Assessment Start: 05/11/25 07:00 Freq: Status: Complete Protocol: Document 05/11/25 07:30 CFG (Rec: 05/11/25 08:42 CFG [id number]) Respiratory Assessment Symptoms None Effort Normal Pattern Regular Depth Normal Chest Expansion Symmetrical Anterior Bilateral Throughout Phase Inspiratory & Expiratory Lung Sounds Clear Oxygen Delivery Oxygen Delivery Room Air Last Vital Signs Temperature 99.1 F 05/11/25 11:06 Pulse Rate 110 H 05/11/25 11:06 Respiratory Rate 23 H 05/11/25 11:06 Pulse Oximetry 96 05/11/25 11:06 Blood Pressure 164/73 H 05/11/25 11:06 Blood Pressure Mean 103 05/11/25 11:06 Blood Pressure Position Supine 05/11/25 10:29 Oxygen Delivery Room Air 05/11/25 07:30 Weight 95.6 kg 05/11/25 07:03 Last Result - Abnormals Only RBC 3.27 M/mm3 (4.2-5.4) L 05/11/25 07:15 Hgb 9.2 g/dL (12.0-15.0) L 05/11/25 07:15 Hct 30.3 % (37.0-47.0) L 05/11/25 07:15 MCHC 30.4 g/dl (32-36) L 05/11/25 07:15 RDW 14.9 % (11.5-14.5) H 05/11/25 07:15 Immature Gran % (Auto) 1.1 % (0-0.5) H 05/11/25 07:15 Neut % (Auto) 88.6 % (45.5-73.1) H 05/11/25 07:15 Lymph % (Auto) 6.8 % (18.3-44.2) L 05/11/25 07:15 Lymph # (Auto) 0.62 K/mm3 (0.9-3.2) L 05/11/25 07:15 Abs Immat Gran (auto) 0.10 K/mm3 (0.00-0.031) H 05/11/25 07:15 Absolute Neuts (auto) 8.1 K/mm3 (1.3-6.7) H 05/11/25 07:15 PT 15.0 Seconds (11.1-14.7) H 05/11/25 07:15 Potassium 5.9 mmol/L (3.4-5.0) H 05/11/25 07:15 Chloride 109 mmol/L (98-107) H 05/11/25 07:15 Carbon Dioxide 17 mmol/L (22-30) L 05/11/25 07:15 BUN 39 mg/dL (7-17) H D 05/11/25 07:15 Creatinine 1.65 mg/dL (0.7-1.0) H 05/11/25 07:15 Estimated GFR 31 (59-) L 05/11/25 07:15 Glucose 291 mg/dL (65-110) H 05/11/25 07:15 C-Reactive Protein 4.9 mg/dL (<1.0) H 05/11/25 07:15 Urine Ketones Trace mg/dL (Negative) H 05/11/25 09:29 Ur Blood (Man) 1+ (Negative) H 05/11/25 09:29
[2025-05-11] MEDS: LACTATED RINGERS 1,000 ML 125 ML IV CONT ×2 (11:56→23:42)
--- NOTE | 2025-05-11 12:28 | ADMGEN ---
This patient, Giovana Rush, was admitted to Medical Room 245-. Patient/family oriented to hospital policies and general routines including ID bracelet, bed and alarms, visiting hours, pain management, procedures, bathroom and other care routines, personal items, smoking policy, room service/diet, and visiting hours. Information on how to activate the Rapid Response Team has been discussed. Patient/Family are encouraged to report perceived risks to care and to ask questions if they do not understand what they are told or what they should do.
--- NOTE | 2025-05-11 12:56 | WNDPHOTO ---
PHOTO ONLY - See Nursing Notes and/ or assessments for documentation.
--- NOTE | 2025-05-11 13:51 | PM.IMHP ---
H&P: HPI History of Present Illness Date/Time: 05/11/25 13:51 Chief Complaint: Lethargy, Weakness Narrative: 70 y/o F with PMH of chronic wounds with Charcot's joint of the foot bilaterally, Gtdtfim-Noftb-Wteuu disease, CHF, CVA, HLD, HTN, dm 2, CAD, anemia, and asthma presents here with generalized weakness and lethargy. The patient presents here with [facility] via EMS from further evaluation of generalized weakness and lethargy on 05/11. Sent here due to concerns as the patient is typically A&O x3 baseline, however A&O x2 this morning. They reported she will was not really making sense and was falling asleep frequently. Also concerned her bilateral chronic lower extremity wounds were infected. No further history available as the patient is somnolent and A&Ox0. Has history of multiple chronic venous stasis ulcers and chronic venous stasis dermatitis. She was recently admitted here from 03/29/25-04/01/25 for these wounds. At that time she underwent a venous ultrasound which showed no DVT and ABIs which showed mild arterial occlusive disease. Wound culture from this admission grew MRSA Pseudomonas, and group G strep. She was additionally admitted from 04/24/2025 to 04/28/2025 for generalized weakness and bilateral lower extremity pain related to COVID and cellulitis of the bilateral lower extremities. Wound was consulted and felt her lower extremities were chronic versus cellulitic. Treated with remdesivir. Discharge back to her facility ([facility]) but it to their nursing rehab unit for further physical therapy. Initial VS at presentation: 100? F, HR 97, RR 15, 118/55, and 95% on RA. ED workup showed: No leukocytosis, hemoglobin 9.2 (9.6 on 04/28, baseline), INR 1.2, potassium 5.9, creatinine 1.65 and GFR 31 (1.03 and GFR 53 on 04/28), glucose 291, lactic 1.1, CRP 4.9. UA showed trace ketones and 1+ blood otherwise unremarkable. Head CT showed no acute intracranial hemorrhage or large acute ischemic event. CXR showed possible small developing consolidation or atelectatic process in the anterior right lung base. Review of Systems Review of Systems: ROS unobtainable: Yes unobtainable due to mental status PMFSH Past Medical History Medical History Depression Anxiety Charcot's joint of foot Type 2 diabetes mellitus Dyslipidemia Coronary artery disease Combined systolic and diastolic congestive heart failure 03/2025: LV mildly enlarged, LV systolic function moderately reduced, EF 40-45%, grade 1 diastolic dysfunction Hypertension MSSA bacteremia Cerebrovascular accident Osteomyelitis of fifth toe of right foot Anemia Edjwiua-Opsvz-Ripis disease Asthma Diabetic retinopathy Surgical History Surgical History Hx of tonsillectomy Status post excisional debridement Bilateral heels for infected diabetic ulcers. Amputation of fifth toe of right foot Secondary to osteomyelitis. History of incision and drainage Back abscess. History of cardiac catheterization History of open reduction and internal fixation (ORIF) procedure Repair of left arm fracture. 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 She has No children Surrogate decision maker: Shirley Rush, mother. Code status: Full code. 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 Spiritual care concerns: No Agree to blood products: Yes Meds Home Medications and Allergies Home Medications ?Medication ?Instructions ?Recorded ?Confirmed ?Type aspirin 81 mg chewable tablet 81 mg PO DAILY 01/19/20 05/11/25 History atorvastatin 20 mg tablet 20 mg PO HS 01/19/20 05/11/25 History brimonidine 0.2 % eye drops 1 drp ophthalmic (eye) DAILY 01/19/20 05/11/25 History calcium 500 mg (as 1 tablet PO BID 01/19/20 05/11/25 History carbonate)-vitamin D3 5 mcg (200 unit) tablet (Oysco 500/D) carvedilol 25 mg tablet 25 mg PO BID 01/19/20 05/11/25 History furosemide 40 mg tablet 20 mg PO DAILY 01/19/20 05/11/25 History gabapentin 600 mg tablet 600 mg PO BID 01/19/20 05/11/25 History loratadine 10 mg tablet (Claritin) 10 mg PO DAILY 01/19/20 05/11/25 History sennosides 8.6 mg tablet (senna) 8.6 mg PO DAILY PRN Constipation 01/19/20 05/11/25 History acetaminophen 325 mg tablet 650 mg (2 x 325 mg) PO Q6H PRN 12/16/21 05/11/25 Rx Pain #10 tabs baclofen 10 mg tablet 10 mg PO Q12H PRN muscle spasms 11/16/23 05/11/25 History bisacodyl 10 mg rectal suppository 10 mg RECTAL DAILY PRN Constipation 11/16/23 05/11/25 History cyanocobalamin (vitamin B-12) 500 mcg PO DAILY 11/16/23 05/11/25 History 1,000 mcg tablet insulin aspart 8 unit subcut TIDWM 11/16/23 05/11/25 History (niacinamide)(U-100) 100 unit/mL(3 mL) subcutaneous pen (Fiasp FlexTouch U-100 Insulin) insulin glargine 100 unit/mL (3 20 unit subcut HS 11/16/23 05/11/25 History mL) subcutaneous pen (Basaglar KwikPen U-100 Insulin) cholecalciferol (vitamin D3) 25 1,000 unit PO DAILY 03/29/25 05/11/25 History mcg (1,000 unit) chewable tablet diclofenac sodium 1 % topical gel 2 g topical .q12 PRN pain 03/29/25 05/11/25 History (Voltaren Arthritis Pain) latanoprost 0.005 % eye drops 1 drp LEFT EYE QHS 03/29/25 05/11/25 History loperamide 2 mg capsule 2 mg PO .q24 PRN loose stool 03/29/25 05/11/25 History (Anti-Diarrheal (loperamide)) magnesium citrate (Citroma oral 296 ml PO .q24 PRN constipation 03/29/25 05/11/25 History solution) magnesium hydroxide 400 mg/5 mL 30 ml PO .Q8HR PRN constipation 03/29/25 05/11/25 History oral suspension (Milk of Magnesia) ondansetron 4 mg disintegrating 4 mg PO Q8H PRN nausea and vomiting 03/29/25 05/11/25 History tablet polyethylene glycol 3350 17 gram 17 g PO QAM PRN constipation 03/29/25 05/11/25 History oral powder packet (Miralax) sacubitril 24 mg-valsartan 26 mg 1 tablet PO BID 03/29/25 05/11/25 History tablet (Entresto) sodium chloride 0.65 % nasal spray 1 spray intranasal Q6H PRN dry 03/29/25 05/11/25 History aerosol (Nasal [place] (sodium nasal passages chloride)) ferrous sulfate 325 mg (65 mg 325 mg PO DAILY 30 days #30 tabs 03/31/25 05/11/25 Rx iron) tablet hydrocodone 5 mg-acetaminophen 325 1 tablet PO Q6H PRN pain #10 tabs 03/31/25 05/11/25 Rx mg tablet sodium phosphates 19 gram-7 118 ml RECTAL DAILY PRN 05/11/25 05/11/25 History gram/118 mL enema (Fleet Enema) constipation timolol maleate 0.25 % eye drops 1 drp EACH EYE TID 05/11/25 05/11/25 History Allergies Allergy/AdvReac Type Severity Reaction Status Date / Time egg Allergy Unknown Unknown Verified 05/11/25 13:39 latex Allergy Unknown Unknown Verified 05/11/25 13:39 milk Allergy Unknown Unknown Verified 05/11/25 13:39 Penicillins Allergy Unknown Skin Verified 05/11/25 13:39 Reaction shellfish derived Allergy Unknown Unknown Verified 05/11/25 13:39 Sulfa (Sulfonamide Allergy Unknown Unknown Verified 05/11/25 13:39 Antibiotics) sulfanilamide Allergy Unknown Unknown Verified 04/24/25 23:31 nirmatrelvir (From Paxlovid) Allergy Unknown Verified 05/11/25 13:39 ritonavir (From Paxlovid) Allergy Unknown Verified 05/11/25 13:39 sulfamethizole AdvReac Unknown Nausea Verified 05/11/25 13:39 Vital Signs Vital Signs - 24 hr 05/11/25 07:03 05/11/25 07:30 05/11/25 07:31 Temperature 100 F H Pulse Rate 97 95 Respiratory Rate 15 16 Blood Pressure 118/55 L 116/54 L Pulse Oximetry 95 96 Oxygen Delivery Room Air Room Air 05/11/25 07:46 05/11/25 08:07 05/11/25 09:17 Temperature Pulse Rate 97 97 100 Respiratory Rate 20 16 15 Blood Pressure 106/47 L 119/65 109/51 L Pulse Oximetry 98 97 96 Oxygen Delivery 05/11/25 10:29 05/11/25 11:06 Temperature 101.5 F H 99.1 F Pulse Rate 107 H 110 H Respiratory Rate 20 23 H Blood Pressure 120/84 164/73 H Pulse Oximetry 98 96 Oxygen Delivery Exam Const: General: comfortable and no acute distress Other: , female, elderly, older appearing than stated age HENMT: Face/Nose/Sinus: Normal nares present Mouth: Yes dry mucous membranes Eyes: General: appearance normal, both eyes and all related structures Sclera: sclerae normal Pupils: Equal, round and reactive pupils present (2 mm bilaterally) EOM: EOMs intact bilaterally Resp: Effort & Inspection: normal respiratory effort Other: Diminished in the right base, no wheezing or crackles on exam Cardio: Other: S1-S2 present without murmur, rub, ectopy GI: Other: Abdomen soft, nondistended, nontender. Normoactive bowel sounds in all quadrants. Skin: Other: Chronic Charcot deformity to bilateral feet. Chronic venous stasis ulcerations to bilateral lower extremities. Shallow wounds to right anterior samuel, pink wound bed, epithelialization noted, no drainage/dry. Similar wound to the right lateral edge of the foot, no drainage dry. Left dorsal foot with small shallow open wound, pink wound bed, epithelialization, no drainage and dry. Erythema improves with elevation. No significant changes in heat when compared to thighs. Neuro: Other: A&O times 0. Awakens to voice and pain. No attempts to converse. Moving all extremities. Extrem: General: normal exam except as noted (See skin) Psych: Other: Unable to assess H&P: Results Labs Labs: Short CBC 05/11/25 Range/Units 07:15 WBC 9.2 (4.5-10.0) K/mm3 Hgb 9.2 L (12.0-15.0) g/dL Hct 30.3 L (37.0-47.0) % Plt Count 159 (150-375) k/mm3 BMP 05/11/25 07:15 Sodium 137 Potassium 5.9 H Chloride 109 H Carbon Dioxide 17 L BUN 39 H D Creatinine 1.65 H Glucose 291 H Calcium 8.7 Cardiac Enzymes 05/11/25 Range/Units 07:15 Troponin I < 0.012 (0.000-0.034) ng/mL Liver Function 05/11/25 Range/Units 07:15 Total Bilirubin 0.4 (0.2-1.3) mg/dL AST 24 (14-36) U/L ALT 16 (6-35) U/L Alkaline Phosphatase 120 (38-126) U/L Albumin 3.7 (3.5-5.1) g/dL Urine 05/11/25 Range/Units 09:29 Urine Color Yellow (Yellow) Urine Appearance Clear (Clear) Urine pH 5.0 (5.0-9.0) Ur Specific [place] 1.017 (1.001-1.035) Urine Protein Trace (Negative) mg/dL Urine Glucose (UA) Negative (Negative) mg/dL Assessment and Plan Assessment and plan (1) Altered mental status: Qualifiers: Altered mental status type: somnolence Qualified Code(s): R40.0 - Somnolence Code(s): R41.82 - Altered mental status, unspecified Status: Acute Assessment and Plan: Patient arrives somnolent in A&O times 0. At baseline A&Ox2-3. Per facility not making sense this morning and has been sleeping more frequently. Workup concerning for pneumonia. Low suspicion for bilateral lower extremity cellulitis, see section. Likely metabolic encephalopathy. Currently awakens easily to voice/painful stimuli. No attempt at conversation. Head CT in the ED on 05/11 showed no acute findings. - monitor neuro status - started on antibiotics for community-acquired pneumonia - reviewed home medications. will hold baclofen, gabapentin, hydrocodone/Tylenol until AMS improved. (2) Pneumonia: Qualifiers: Laterality: right Lung location: lower lobe of lung Pneumonia type: due to unspecified organism Qualified Code(s): J18.9 - Pneumonia, unspecified organism Code(s): J18.9 - Pneumonia, unspecified organism Status: Acute Assessment and Plan: Patient was recently admitted at [facility] from [id number] for generalized weakness. Tested positive for COVID on 04/24. Now presenting back today for altered mental status, generalized weakness, lethargy. CXR concerning for developing consolidation in the anterior right lung base. Right lung base diminished on exam. Personally reviewed CXR, compared to CXR from 04/24. In favor of right lower lung pneumonia. - started on ceftriaxone and azithromycin on 05/11 - supportive care: Mucinex, Tessalon Perles, Tylenol - MRSA PCR negative on 04/25/2025 - reviewed vital signs, no significant tachypnea and no hypoxia (3) Acute kidney injury: Code(s): N17.9 - Acute kidney failure, unspecified Status: Acute Assessment and Plan: Creatinine 1.65, BUN 39, GFR 31 upon admission on 05/11. Previously 1.03, BUN 22, GFR 53 upon discharge on 04/28. Patient appears dry on exam. Does have peripheral edema to her bilateral lower extremities, however has history of chronic venous stasis. - check CK, urine lytes, protein/creatinine, urea - monitor I&Os - will continue diuretics for now to avoid volume overload, started on gentle IV fluids as she appears dry on exam. High suspicion for dehydration as patient is etiology. If no improvement with IV fluids, consider further workup and nephrology consultation. - trend renal function and electrolytes, correct electrolytes as needed. - Mild hyperkalemia noted, see below. (4) Acute hyperkalemia: Code(s): E87.5 - Hyperkalemia Status: Acute Assessment and Plan: Mild hyperkalemia noted upon admission, K 5.9. Concurrent AC, likely source of patient's hyperkalemia. Initially given sodium bicarb, insulin/dextrose, and calcium. Repeat now. - IV fluids - monitor electrolytes - telemetry monitoring (5) Chronic wound of extremity: Status: Acute Assessment and Plan: Clinical exam improved compared to prior on 04/24. Wounds now dry with no drainage. Chronic erythema, chronic wounds to bilateral lower extremity secondary to mild arterial occlusive disease/chronic venous stasis. Wound RN consulted, examined at the bedside together. Agree with assessment that bilateral lower extremities are at their baseline, no current concern for infection. Erythema currently improves with elevation. - wound consult for re-evaluation, no current concern for infection - elevate extremities as tolerated, continue Lasix p.o. - pain control (6) Type 2 diabetes mellitus: Qualifiers: Diabetes mellitus complication status: with hyperglycemia Diabetes mellitus [facility] insulin use: with labeling strategist use Qualified Code(s): E11.65 - Type 2 diabetes mellitus with hyperglycemia; Z79.4 - cleat blanker (current) use of insulin Code(s): E11.9 - Type 2 diabetes mellitus without complications Status: Chronic Assessment and Plan: - hypoglycemia protocol - POC blood glucose Q6H with sliding scale also Q6H (based off BMI) until no longer NPO/mental status improved - home medication: Continue Lantus, pharmacy to adjust. Hold aspart 8 units t.i.d. with meals as she is currently NPO. - A1C 7.2% on 03/30/2025 (7) Anemia: Qualifiers: Anemia type: unspecified type Qualified Code(s): D64.9 - Anemia, unspecified Code(s): D64.9 - Anemia, unspecified Status: Chronic Assessment and Plan: Hemoglobin 9.2 upon admission on 05/11. Previously 9.6 upon discharge on 04/28/2025. Baseline appears to be 8-9. - underwent anemia workup during her most recent admission at the end of February/early March. Lab work in favor of AOCD. - transfuse if <7 - trend (8) CHF (congestive heart failure): Qualifiers: Heart failure chronicity: chronic Heart failure type: combined systolic and diastolic Qualified Code(s): I50.42 - Chronic combined systolic (congestive) and diastolic (congestive) heart failure Code(s): I50.9 - Heart failure, unspecified Status: Chronic Assessment and Plan: Patient has peripheral edema, symmetric on exam, and has history of chronic venous stasis. Otherwise appears euvolemic and no CHF appreciated on CXR. Receiving IV fluids for AC, will need close monitoring. - echo 04/23: LV chamber mildly enlarged, LV systolic function moderately reduced with an EF of 40-45%, LV septal wall motion abnormal related to bundle branch block, grade 1 diastolic dysfunction, LA mildly enlarged, mild to trace valvular disease. - continue PO Lasix, Aldactone, Entresto, carvedilol (9) HTN (hypertension): Qualifiers: Hypertension type: unspecified Qualified Code(s): I10 - Essential (primary) hypertension Code(s): I10 - Essential (primary) hypertension Status: Chronic Assessment and Plan: - chronic, currently 151/72, stable. - continue home medications: Coreg, Entresto, Spironolactone - hydralazine p.r.n. for hypertension if unable to take p.o. medications due to altered mental status - monitor (10) HLD (hyperlipidemia): Qualifiers: Hyperlipidemia type: unspecified Qualified Code(s): E78.5 - Hyperlipidemia, unspecified Code(s): E78.5 - Hyperlipidemia, unspecified Status: Chronic Assessment and Plan: - continue atorvastatin Plan Diet: NPO due to somnolence, once improved transition to diabetic diet GI Prophylaxis: n/a DVT Prophylaxis: Lovenox IV fluids: 1L bolus Lines/Tubes: Peripheral IV Code Status: Full code Quality VTE Prophylaxis VTE prophylaxis: pharmacologic ordered Hospitalist MIPS Advance Care Plan I have confirmed that the patient's Advanced Care Plan is present, code status is documented, or surrogate decision maker is listed in patient medical record.: Yes Medication Reconciliation I have utilized all available resources to obtain, update and review the patients current medications (includes all prescriptions, OTC, herbals, cannabis, and nutritional supplements).: Yes
[2025-05-11 15:25] LABS: Anion Gap 7 mmol/L (4-12); Blood Urea Nitrogen 32 mg/dL (7-17); Calcium 8.6 mg/dL (8.4-10.2); Carbon Dioxide 20 mmol/L (22-30); Chloride 111 mmol/L (98-107); Estimated CRCL calculation 33 ml/min; Estimated Glomerular Filt Rate 35; Glucose 266 mg/dL (65-110); Potassium 4.9 mmol/L (3.4-5.0); Sodium 138 mmol/L (137-145)
[2025-05-11 16:11] LABS: Creatine Kinase 1076 U/L (30-135)
[2025-05-11] MEDS: cefTRIAXone 1 GM in SODIUM CHLORIDE 0.9% IV 50 ML 100 ML IVPB (17:58)
[2025-05-11] MEDS: TIMOLOL MALEATE 0.25% OP SOLN 5 ML BOTTLE 1 DROP EACH EYE (18:02)
[2025-05-11] MEDS: INSULIN ASPART (*BKC) 100 UNITS/ML SUB-Q ×2 (18:03→23:57)
[2025-05-11] MEDS: AZITHROMYCIN IV 500 MG in SODIUM CHLORIDE 0.9% IV 250 ML IVPB (18:28)
[2025-05-11] MEDS: LATANOPROST 0.005% OP SOLN 2.5 ML BTL 1 DROP LEFT EYE (20:56)
[2025-05-11] MEDS: INSULIN GLARGINE (*BKC) 100 UNITS/ML 8 UNITS SUB-Q (21:59)
[2025-05-11 22:01] LABS: Urea Random Urine 731 MG/DL
[2025-05-11 22:06] LABS: Total Protein Urine Random 26 mg/dL; Ur Ttl Prot Creatinine Ratio 0.25 mg/mg (0-0.20)
[2025-05-12] VITALS (10 sets, daily range): BP systolic 146–178; BP diastolic 50–68; PULSE 83–93; RESP 18–20; TEMP 36.3–36.7; O2SAT 96–100
--- NOTE | 2025-05-12 03:29 | PC.NURSE ---
PT HAS NOT VOIDED SINCE STRAIGHT CATHED, 270CC BLADDER SCANNED, WILL MONITOR
[2025-05-12 04:23] LABS: Hematocrit 26.7 % (37.0-47.0); Hemoglobin 7.8 g/dL (12.0-15.0); Immature Granulocyte Percent A 0.3 % (0-0.5); Lymphocytes Absolute Auto 1.43 K/mm3 (0.9-3.2); Mean Corpuscular HGB Conc 29.2 g/dl (32-36); Mean Corpuscular Hemoglobin 28.0 pg (26-34); Mean Corpuscular Volume 95.7 fl (80-100); Nucleated Red Blood Cells Absolute Auto 0.000 K/mm3 (0.0-0.012); Nucleated Red Blood Cells Perc 0.0 % (0.0-0.2); Platelet Count Result 148 k/mm3 (150-375); Red Blood Count 2.79 M/mm3 (4.2-5.4); White Blood Count 7.0 K/mm3 (4.5-10.0)
[2025-05-12 04:32] LABS: Alanine Aminotransferase 14 U/L (6-35); Albumin Level 2.9 g/dL (3.5-5.1); Alkaline Phosphatase 89 U/L (38-126); Anion Gap 5 mmol/L (4-12); Aspartate Amino Transferase 38 U/L (14-36); Bilirubin,Total 0.3 mg/dL (0.2-1.3); Blood Urea Nitrogen 25 mg/dL (7-17); Calcium 8.4 mg/dL (8.4-10.2); Carbon Dioxide 21 mmol/L (22-30); Chloride 114 mmol/L (98-107); Creatine Kinase 862 U/L (30-135); Estimated CRCL calculation 41 ml/min; Estimated Glomerular Filt Rate 46; Glucose 172 mg/dL (65-110); Magnesium 1.9 mg/dL (1.6-2.3); Potassium 4.5 mmol/L (3.4-5.0); Sodium 140 mmol/L (137-145); Total Protein 6.6 g/dL (6.3-8.2)
--- NOTE | 2025-05-12 06:15 | PC.NURSE ---
PT HAS NOT VOIDED SINCE LAST STRAIGHT CATH, BLADDER SCANNED OF 371CC, WILL CONTINUE TO MONITOR
--- NOTE | 2025-05-12 07:15 | P.PNIM_ITS ---
Progress Note: A&P Assessment and Plan (1) Sepsis: Code(s): A41.9 - Sepsis, unspecified organism Status: Acute Assessment and Plan: - criteria met on admission with T max 101.5, HR 107, RR 20s. - WBC WNL, BP stable, LA WNL - likely secondary to pneumonia, less likely cellulitis - continue Rocephin and azithromycin. Add vancomycin due to + MRSA DNA and multiple recent hospitlizations. - follow-up blood cultures (2) Pneumonia: Qualifiers: Laterality: right Lung location: lower lobe of lung Pneumonia type: due to unspecified organism Qualified Code(s): J18.9 - Pneumonia, unspecified organism Code(s): J18.9 - Pneumonia, unspecified organism Status: Acute Assessment and Plan: Patient was recently admitted at [facility] from [id number] for generalized weakness. Tested positive for COVID on 04/24. Now presenting back today for altered mental status, generalized weakness, lethargy. CXR concerning for developing consolidation in the anterior right lung base. Right lung base diminished on exam. Personally reviewed CXR, compared to CXR from 04/24. In favor of right lower lung pneumonia. - started on ceftriaxone and azithromycin on 05/11. Start vanc due to MRSA PCR. - supportive care: Mucinex, Tessalon Perles, Tylenol - reviewed vital signs, no significant tachypnea and no hypoxia - follow-up blood cultures (3) Altered mental status: Qualifiers: Altered mental status type: somnolence Qualified Code(s): R40.0 - Somnolence Code(s): R41.82 - Altered mental status, unspecified Status: Acute Assessment and Plan: -Patient arrived somnolent in A&O times 0. At baseline A&Ox2-3. - Head CT in the ED on 05/11 showed no acute findings. - likely metabolic encephalopathy in setting of sepsis - monitor neuro status - started on antibiotics for community-acquired pneumonia - reviewed home medications. will hold baclofen, gabapentin, hydrocodone/Tylenol until AMS improved. - mentation significantly improved this AM (4) Acute kidney injury: Code(s): N17.9 - Acute kidney failure, unspecified Status: Acute Assessment and Plan: - admit Creatinine 1.65, BUN 39, GFR 31 upon admission on 05/11. Previously 1.03, BUN 22, GFR 53 upon discharge on 04/28. Patient appears dry on exam. Does have peripheral edema to her bilateral lower extremities, however has history of chronic venous stasis. - admit CK 1076 trended down to 862. Hold statin and Lasix. - Cr improved to 1.17 with IV fluids - monitor I&Os - started on gentle IV fluids as she appears dry on exam. Cr improved. - trend renal function and electrolytes, correct electrolytes as needed. - Mild hyperkalemia noted, see below. (5) Acute hyperkalemia: Code(s): E87.5 - Hyperkalemia Status: Acute Assessment and Plan: Mild hyperkalemia noted upon admission, K 5.9. Concurrent AC, likely source of patient's hyperkalemia. Initially given sodium bicarb, insulin/dextrose, and calcium. - IV fluids - monitor electrolytes - telemetry monitoring - K+ improved (6) Chronic wound of extremity: Status: Acute Assessment and Plan: Clinical exam improved compared to prior on 04/24. Wounds now dry with no drainage. Chronic erythema, chronic wounds to bilateral lower extremity secondary to mild arterial occlusive disease/chronic venous stasis. Wound RN consulted, examined at the bedside together. Agree with assessment that bilateral lower extremities are at their baseline, no current concern for infection. Erythema currently improves with elevation. - wound consult for re-evaluation, no current concern for infection - elevate extremities as tolerated, continue Lasix p.o. - pain control (7) Type 2 diabetes mellitus: Qualifiers: Diabetes mellitus complication status: with hyperglycemia Diabetes mellitus jail insulin use: with buttermaker use Qualified Code(s): E11.65 - Type 2 diabetes mellitus with hyperglycemia; Z79.4 - long-term (current) use of insulin Code(s): E11.9 - Type 2 diabetes mellitus without complications Status: Chronic Assessment and Plan: - hypoglycemia protocol - POC blood glucose Q6H with sliding scale also Q6H (based off BMI) until no longer NPO/mental status improved - home medication: Continue Jamaal, pharmacy to adjust. Hold aspart 8 units t.i.d. with meals as she is currently NPO. - A1C 7.2% on 03/30/2025 (8) Anemia: Qualifiers: Anemia type: unspecified type Qualified Code(s): D64.9 - Anemia, unspecified Code(s): D64.9 - Anemia, unspecified Status: Chronic Assessment and Plan: - Hemoglobin 9.2 upon admission on 05/11. Previously 9.6 upon discharge on 04/28/2025. Baseline appears to be 8-9. - Hgb trended down to 7.8 this AM, likely hemodilutional - underwent anemia workup during her most recent admission at the end of February/early March. Lab work in favor of AOCD. - transfuse if <7 - trend (9) CHF (congestive heart failure): Qualifiers: Heart failure chronicity: chronic Heart failure type: combined systolic and diastolic Qualified Code(s): I50.42 - Chronic combined systolic (congestive) and diastolic (congestive) heart failure Code(s): I50.9 - Heart failure, unspecified Status: Chronic Assessment and Plan: Patient has peripheral edema, symmetric on exam, and has history of chronic venous stasis. Otherwise appears euvolemic and no CHF appreciated on CXR. Receiving IV fluids for AC, will need close monitoring. - echo 04/23: LV chamber mildly enlarged, LV systolic function moderately reduced with an EF of 40-45%, LV septal wall motion abnormal related to bundle branch block, grade 1 diastolic dysfunction, LA mildly enlarged, mild to trace valvular disease. - continue PO Entresto, carvedilol. Holding PO Lasix/Aldactone due to AC and dehydration. (10) HTN (hypertension): Qualifiers: Hypertension type: unspecified Qualified Code(s): I10 - Essential (primary) hypertension Code(s): I10 - Essential (primary) hypertension Status: Chronic Assessment and Plan: - chronic, currently 151/72, stable. - continue home medications: Coreg, Entresto - hydralazine p.r.n. for hypertension if unable to take p.o. medications due to altered mental status - monitor (11) HLD (hyperlipidemia): Qualifiers: Hyperlipidemia type: unspecified Qualified Code(s): E78.5 - Hyperlipidemia, unspecified Code(s): E78.5 - Hyperlipidemia, unspecified Status: Chronic Assessment and Plan: - hold statin given elevated CK Plan DVT Prophylaxis: Lovenox Code Status: Full code [facility]po: [facility] Subjective Date/time seen: 05/12/25 07:15 Interval history: Patient seen and examined at bedside. Mentation improved this morning. Alert and oriented x3-4 per nursing. Patients moans in discomfort, but unable to localize pain which is her baseline per past encounters. Denies significant cough, SOB. Review of Systems Review of Systems: All systems reviewed & are unremarkable except as noted in HPI and below Exam Narrative: General: NAD Eyes: EOMI ENT: neck supple Cardiovascular: Regular rate and rhythm Respiratory: Clear to auscultation, respirations even and unlabored on RA Gastrointestinal: Soft, non tender Genitourinary: no suprapubic tenderness Musculoskeletal: No edema Skin: warm, dry, BLE venous skin changes with healing venous stasis ulcers. No purulent drainage. No warmth or significant tenderness to suggest cellulitis. Neuro: Alert and oriented x3. Psych: Mood appropriate Objective Data Vital Signs Vital Signs: Vital Signs - 24 hr 05/11/25 07:30 05/11/25 07:31 05/11/25 07:46 Temperature Pulse Rate 95 97 Respiratory Rate 16 20 Blood Pressure 116/54 L 106/47 L Pulse Oximetry 96 98 Oxygen Delivery Room Air 05/11/25 08:07 05/11/25 09:17 05/11/25 10:29 Temperature 101.5 F H Pulse Rate 97 100 107 H Respiratory Rate 16 15 20 Blood Pressure 119/65 109/51 L 120/84 Pulse Oximetry 97 96 98 Oxygen Delivery 05/11/25 11:06 05/11/25 12:30 05/11/25 14:00 Temperature 99.1 F 99.4 F Pulse Rate 110 H 107 H Respiratory Rate 23 H 20 Blood Pressure 164/73 H 151/72 H Pulse Oximetry 96 96 96 Oxygen Delivery Room Air 05/11/25 16:00 05/11/25 20:00 05/11/25 21:34 Temperature 98.1 F Pulse Rate 91 86 74 Respiratory Rate 20 Blood Pressure 136/68 Pulse Oximetry 94 Oxygen Delivery 05/12/25 00:00 05/12/25 04:00 05/12/25 06:00 Temperature 97.9 F Pulse Rate 93 87 90 Respiratory Rate 18 Blood Pressure 146/50 H Pulse Oximetry 100 Oxygen Delivery Intake/Output Intake/Output: Intake & Output 05/09/25 05/10/25 05/11/25 05/12/25 23:59 23:59 23:59 23:59 Intake Total 1550 0 Output Total 750 Balance 800 0 Meds/Results Medications: Active Medications Generic Name Dose Route Start Last Admin Trade Name Freq PRN Reason Stop Dose Admin Acetaminophen 650 mg 05/11/25 14:26 Acetaminophen 650 Mg Suppository RECTAL Q6H PRN Mild Pain (1-3) or Fever Acetaminophen 650 mg 05/11/25 14:26 Acetaminophen 325 Mg Tablet PO Q6H PRN Mild Pain (1-3) or Fever Acetaminophen 650 mg 05/11/25 14:36 Acetaminophen 325 Mg Tablet PO On Hold: 05/11/25 15:07 Q6H PRN Pain Aspirin 81 mg 05/12/25 09:00 Aspirin 81 Mg Chewable Tablet PO DAILY [facility] Atorvastatin Calcium 20 mg 05/11/25 21:00 05/11/25 20:57 Atorvastatin 20 Mg Tablet PO Not Given HS TIA Benzonatate 100 mg 05/11/25 14:26 Benzonatate 100 Mg Capsule PO TID PRN Cough Bisacodyl 10 mg 05/11/25 14:36 Bisacodyl 10 Mg Suppository RECTAL DAILY PRN Constipation Brimonidine Tartrate 1 drop 05/12/25 09:00 Brimonidine Tartrate 0.2% Op Soln 5 Ml Btl EACH EYE DAILY [facility] Calcium Carbonate 500 mg 05/11/25 17:00 05/11/25 16:53 Calcium/Vitamin D 500 Mg/5 Mcg (200 I.U.) Tablet PO Not Given BID [facility] Carvedilol 25 mg 05/11/25 21:00 05/11/25 20:57 Carvedilol 25 Mg Tablet PO Not Given Q12HR [facility] Cyanocobalamin 500 mcg 05/12/25 09:00 Cyanocobalamin 500 Mcg Tablet PO DAILY [facility] Dextrose 12.5 gm 05/11/25 14:33 Dextrose 50% 25 Gm/50 Ml Syringe IV PUSH PRN PRN Hypoglycemia Protocol Diclofenac Sodium 0 applic 05/11/25 14:36 Diclofenac Sodium 1% 100 Gm Gel (*Bkc) TOPICAL Q12H PRN ARTHRITIS PAIN Enoxaparin Sodium 30 mg 05/12/25 09:00 Enoxaparin 30 Mg/0.3 Ml Syringe SUB-Q DAILY [facility] Ferrous Sulfate 325 mg 05/12/25 09:00 Ferrous Sulfate 325 Mg Tablet PO DAILY [facility] Furosemide 20 mg 05/12/25 09:00 Furosemide 20 Mg Tablet PO DAILY [facility] Glucagon 1 mg 05/11/25 14:33 Glucagon For Inj 1 Mg Vial IM PRN PRN Hypoglycemia Protocol Glucose 15 gm 05/11/25 14:33 Glucose Oral Gel 15 Gm Of Glucse In 37.5 Gm Tube PO PRN PRN Hypoglycemia Protocol Guaifenesin 600 mg 05/11/25 21:00 05/11/25 20:57 Guaifenesin 12 Hr 600 Mg Tabcr PO Not Given Q12HR [facility] Hydralazine HCl 10 mg 05/11/25 14:33 Hydralazine Hcl 20 Mg/Ml Vial IV PUSH Q8H PRN Blood Pressure - High, >170/80 Lactated Ringer's 1,000 mls @ 125 mls/hr 05/11/25 11:10 05/11/25 23:42 Lr - Lactated Ringers Iv IV CONT 125 mls/hr .Q8H TIA Administration Ceftriaxone Sodium 1 gm/ 50 mls @ 100 mls/hr 05/11/25 16:00 05/11/25 18:28 Sodium Chloride IVPB Infused Q24H TIA Infusion Azithromycin 500 mg/ Sodium 250 mls @ 250 mls/hr 05/11/25 17:00 05/11/25 18:28 Chloride IVPB 05/15/25 17:59 250 mls/hr Q24H TIA Administration Dextrose 1,000 mls @ 100 mls/hr 05/11/25 14:33 Dextrose 5% 1,000 Ml IVPB PRN PRN Hypoglycemia Protocol Insulin Aspart 4 - 8 units 05/11/25 18:00 05/12/25 06:15 Insulin Aspart (*Bkc) 100 Units/Ml SUB-Q Not Given Q6HR [facility] Protocol Insulin Glargine 16 units 05/11/25 21:00 05/11/25 21:58 Insulin Glargine (*Bkc) 100 Units/Ml SUB-Q Not Given HS TIA Latanoprost 1 drop 05/11/25 21:00 05/11/25 20:56 Latanoprost 0.005% Op Soln 2.5 Ml Btl LEFT EYE 1 drop QHS TIA Administration Loperamide HCl 2 mg 05/11/25 14:36 Loperamide Hcl 2 Mg Capsule PO Q24H PRN Loose Stool Loratadine 10 mg 05/12/25 09:00 Loratadine 10 Mg Tablet PO DAILY TIA Magnesium Hydroxide 30 ml 05/11/25 14:36 Magnesium Hydroxide Susp 30 Ml Udc PO Q8H PRN Constipation Miscellaneous Information 1 each 05/12/25 00:01 Clarify Vitamin D Dose--Is It 1000 Units Or 4000 Units? XX 06/11/25 00:00 CLARIFY TIA Polyethylene Glycol 17 gm 05/11/25 14:36 Polyethylene Glycol 3350 17 Gm Powd.Pack PO QAM PRN Constipation Sacubitril/Valsartan 1 tab 05/11/25 21:00 05/11/25 20:57 Sacubitril/Valsartan 24-26 Mg Tablet PO Not Given Q12HR [facility] Senna 8.6 mg 05/11/25 14:36 Sennosides 8.6 Mg Tablet PO DAILY PRN Constipation Sodium Chloride 1 spray 05/11/25 14:36 Saline 0.65% David Soln 44 Ml Btl NASAL Q6H PRN Dry Nasal Passages Timolol Maleate 1 drop 05/11/25 17:00 05/11/25 18:02 Timolol Maleate 0.25% Op Soln 5 Ml Bottle EACH EYE 1 drop TID [facility] Administration Vitamin D 100 mcg 05/12/25 09:00 Cholecalciferol (Vitamin D3) 25 Mcg (1,000 Units) Tablet PO DAILY [facility] Radiology Results: ITS Impressions Head CT 05/11/25 08:06 IMPRESSION: 1. No intracranial hemorrhage or large acute ischemic event. Chest X-Ray 05/11/25 08:09 IMPRESSION: 1. Possible small developing consolidation or atelectatic process in the anterior right lung base. Labs Labs: Laboratory Results - last 24 hr 05/11/25 05/11/25 05/11/25 07:15 09:29 14:52 WBC 9.2 RBC 3.27 L Hgb 9.2 L Hct 30.3 L MCV 92.7 MCH 28.1 MCHC 30.4 L RDW 14.9 H Plt Count 159 MPV 10.2 Immature Gran % (Auto) 1.1 H Neut % (Auto) 88.6 H Lymph % (Auto) 6.8 L [place] % (Auto) 3.2 Eos % (Auto) 0.1 Baso % (Auto) 0.2 Lymph # (Auto) 0.62 L [place] # (Auto) 0.3 Eos # (Auto) 0.0 Baso # (Auto) 0.0 Abs Immat Gran (auto) 0.10 H Absolute Neuts (auto) 8.1 H Absolute Nucleated RBC 0.000 Nucleated RBC % 0.0 PT 15.0 H INR 1.2 APTT 28.0 Sodium 137 138 Potassium 5.9 H 4.9 Chloride 109 H 111 H Carbon Dioxide 17 L 20 L Anion Gap 11 7 BUN 39 H D 32 H Creatinine 1.65 H 1.48 H Estim Creat Clear Calc 31 33 Estimated GFR 31 L 35 L Glucose 291 H 266 H POC Capillary Glucose Lactic Acid 1.1 Calcium 8.7 8.6 Phosphorus Magnesium Total Bilirubin 0.4 AST 24 ALT 16 Alkaline Phosphatase 120 Total Creatine Kinase 1076 H Troponin I < 0.012 C-Reactive Protein 4.9 H Total Protein 8.0 Albumin 3.7 Urine Color Yellow Urine Appearance Clear Urine pH 5.0 Ur Specific [place] 1.017 Urine Protein Trace Urine Glucose (UA) Negative Urine Ketones Trace H Ur Blood (Man) 1+ H Urine Nitrate Negative Urine Bilirubin Negative Urine Urobilinogen 0.2 Leukocyte Esterase Rfl Negative Urine RBC 0-2 Urine WBC 0-5 Ur Squamous Epith Cells None seen Urine Bacteria None seen Urine Casts 0-2 U Random Total Protein Ur Random Sodium Ur Random Potassium Ur Random Urea Urine Creatinine Protein/Creat Ratio 2 05/11/25 05/11/25 05/11/25 17:57 21:00 21:47 WBC RBC Hgb Hct MCV MCH MCHC RDW Plt Count MPV Immature Gran % (Auto) Neut % (Auto) Lymph % (Auto) [place] % (Auto) Eos % (Auto) Baso % (Auto) Lymph # (Auto) [place] # (Auto) Eos # (Auto) Baso # (Auto) Abs Immat Gran (auto) Absolute Neuts (auto) Absolute Nucleated RBC Nucleated RBC % PT INR APTT Sodium Potassium Chloride Carbon Dioxide Anion Gap BUN Creatinine Estim Creat Clear Calc Estimated GFR Glucose POC Capillary Glucose 238 H 184 H Lactic Acid Calcium Phosphorus Magnesium Total Bilirubin AST ALT Alkaline Phosphatase Total Creatine Kinase Troponin I C-Reactive Protein Total Protein Albumin Urine Color Urine Appearance Urine pH Ur Specific [place] Urine Protein Urine Glucose (UA) Urine Ketones Ur Blood (Man) Urine Nitrate Urine Bilirubin Urine Urobilinogen Leukocyte Esterase Rfl Urine RBC Urine WBC Ur Squamous Epith Cells Urine Bacteria Urine Casts U Random Total Protein 26 Ur Random Sodium 65 Ur Random Potassium 63.0 Ur Random Urea 731 Urine Creatinine 102.6 Protein/Creat Ratio 2 05/11/25 05/11/25 05/12/25 21:47 23:49 04:03 WBC 7.0 RBC 2.79 L Hgb 7.8 L Hct 26.7 L MCV 95.7 MCH 28.0 MCHC 29.2 L RDW 15.2 H Plt Count 148 L MPV 10.4 Immature Gran % (Auto) 0.3 Neut % (Auto) 70.9 Lymph % (Auto) 20.4 [place] % (Auto) 6.9 Eos % (Auto) 1.1 Baso % (Auto) 0.4 Lymph # (Auto) 1.43 [place] # (Auto) 0.5 Eos # (Auto) 0.1 Baso # (Auto) 0.0 Abs Immat Gran (auto) 0.02 Absolute Neuts (auto) 5.0 Absolute Nucleated RBC 0.000 Nucleated RBC % 0.0 PT INR APTT Sodium 140 Potassium 4.5 Chloride 114 H Carbon Dioxide 21 L Anion Gap 5 BUN 25 H Creatinine 1.17 H Estim Creat Clear Calc 41 Estimated GFR 46 L Glucose 172 H POC Capillary Glucose 203 H Lactic Acid Calcium 8.4 Phosphorus 3.0 Magnesium 1.9 Total Bilirubin 0.3 AST 38 H ALT 14 Alkaline Phosphatase 89 Total Creatine Kinase 862 H Troponin I C-Reactive Protein Total Protein 6.6 Albumin 2.9 L Urine Color Urine Appearance Urine pH Ur Specific [place] Urine Protein Urine Glucose (UA) Urine Ketones Ur Blood (Man) Urine Nitrate Urine Bilirubin Urine Urobilinogen Leukocyte Esterase Rfl Urine RBC Urine WBC Ur Squamous Epith Cells Urine Bacteria Urine Casts U Random Total Protein Ur Random Sodium Ur Random Potassium Ur Random Urea Urine Creatinine 102.2 Protein/Creat Ratio 2 0.25 H 05/12/25 06:11 WBC RBC Hgb Hct MCV MCH MCHC RDW Plt Count MPV Immature Gran % (Auto) Neut % (Auto) Lymph % (Auto) [place] % (Auto) Eos % (Auto) Baso % (Auto) Lymph # (Auto) [place] # (Auto) Eos # (Auto) Baso # (Auto) Abs Immat Gran (auto) Absolute Neuts (auto) Absolute Nucleated RBC Nucleated RBC % PT INR APTT Sodium Potassium Chloride Carbon Dioxide Anion Gap BUN Creatinine Estim Creat Clear Calc Estimated GFR Glucose POC Capillary Glucose 174 H Lactic Acid Calcium Phosphorus Magnesium Total Bilirubin AST ALT Alkaline Phosphatase Total Creatine Kinase Troponin I C-Reactive Protein Total Protein Albumin Urine Color Urine Appearance Urine pH Ur Specific [place] Urine Protein Urine Glucose (UA) Urine Ketones Ur Blood (Man) Urine Nitrate Urine Bilirubin Urine Urobilinogen Leukocyte Esterase Rfl Urine RBC Urine WBC Ur Squamous Epith Cells Urine Bacteria Urine Casts U Random Total Protein Ur Random Sodium Ur Random Potassium Ur Random Urea Urine Creatinine Protein/Creat Ratio 2
[2025-05-12] MEDS: LACTATED RINGERS 1,000 ML 125 ML IV CONT (08:37)
[2025-05-12 08:39] LABS: CRP 15.6 mg/dL (<1.0)
[2025-05-12] MEDS: TIMOLOL MALEATE 0.25% OP SOLN 5 ML BOTTLE 1 DROP EACH EYE ×3 (08:39→16:59)
[2025-05-12] MEDS: ENOXAPARIN 40 MG/0.4 ML SYRINGE SUB-Q (08:39)
[2025-05-12] MEDS: BRIMONIDINE TARTRATE 0.2% OP SOLN 5 ML BTL 1 DROP EACH EYE (08:39)
[2025-05-12 11:00] LABS: Procalcitonin 1.2 ng/mL
[2025-05-12 11:45] LABS: MRSA (PCR) DETECTED (NOT DETECTE)
[2025-05-12] MEDS: INSULIN ASPART (*BKC) 100 UNITS/ML SUB-Q (12:01)
[2025-05-12] MEDS: VANCOMYCIN 1,500 MG/NS 500 ML 1,500 MG/500 ML BAG 250 MG IVPB (15:03)
[2025-05-12] MEDS: GABAPENTIN 300 MG CAPSULE 600 MG PO (16:58)
[2025-05-12] MEDS: CALCIUM/VITAMIN D 500 MG/5 MCG (200 I.U.) TABLET PO (16:58)
[2025-05-12] MEDS: cefTRIAXone 1 GM in SODIUM CHLORIDE 0.9% IV 50 ML 100 ML IVPB (16:59)
[2025-05-12] MEDS: AZITHROMYCIN IV 500 MG in SODIUM CHLORIDE 0.9% IV 250 ML IVPB (17:39)
[2025-05-12] MEDS: guaiFENesin 12 HR 600 MG TABCR PO (21:49)
[2025-05-12] MEDS: INSULIN GLARGINE (*BKC) 100 UNITS/ML 16 UNITS SUB-Q (21:49)
[2025-05-12] MEDS: SACUBITRIL/VALSARTAN 24-26 MG TABLET 1 TAB PO (21:49)
[2025-05-12] MEDS: LATANOPROST 0.005% OP SOLN 2.5 ML BTL 1 DROP LEFT EYE (21:49)
[2025-05-13] VITALS (12 sets, daily range): BP systolic 143–156; BP diastolic 63–69; PULSE 67–81; RESP 16–20; TEMP 36.2–36.6; O2SAT 93–100
[2025-05-13] MEDS: ACETAMINOPHEN 325 MG TABLET 650 MG PO (01:08)
[2025-05-13] MEDS: LACTATED RINGERS 1,000 ML 75 ML IV CONT ×2 (01:14→13:28)
[2025-05-13 05:05] LABS: Hematocrit 26.9 % (37.0-47.0); Hemoglobin 7.8 g/dL (12.0-15.0); Immature Granulocyte Percent A 0.3 % (0-0.5); Lymphocytes Absolute Auto 1.34 K/mm3 (0.9-3.2); Mean Corpuscular HGB Conc 29.0 g/dl (32-36); Mean Corpuscular Hemoglobin 27.4 pg (26-34); Mean Corpuscular Volume 94.4 fl (80-100); Nucleated Red Blood Cells Absolute Auto 0.000 K/mm3 (0.0-0.012); Nucleated Red Blood Cells Perc 0.0 % (0.0-0.2); Platelet Count Result 145 k/mm3 (150-375); Red Blood Count 2.85 M/mm3 (4.2-5.4); White Blood Count 6.0 K/mm3 (4.5-10.0)
[2025-05-13 05:16] LABS: Alanine Aminotransferase 14 U/L (6-35); Albumin Level 2.8 g/dL (3.5-5.1); Alkaline Phosphatase 82 U/L (38-126); Anion Gap 3 mmol/L (4-12); Aspartate Amino Transferase 31 U/L (14-36); Bilirubin,Total 0.4 mg/dL (0.2-1.3); Blood Urea Nitrogen 18 mg/dL (7-17); Calcium 8.2 mg/dL (8.4-10.2); Carbon Dioxide 25 mmol/L (22-30); Chloride 109 mmol/L (98-107); Creatine Kinase 356 U/L (30-135); Estimated CRCL calculation 47 ml/min; Estimated Glomerular Filt Rate 53; Glucose 137 mg/dL (65-110); Potassium 4.2 mmol/L (3.4-5.0); Sodium 137 mmol/L (137-145); Total Protein 6.4 g/dL (6.3-8.2)
[2025-05-13 05:29] LABS: CRP 11.6 mg/dL (<1.0)
--- NOTE | 2025-05-13 07:57 | P.PNIM_ITS ---
Progress Note: A&P Assessment and Plan (1) Sepsis: Code(s): A41.9 - Sepsis, unspecified organism Status: Acute Assessment and Plan: - criteria met on admission with T max 101.5, HR 107, RR 20s. - WBC WNL, BP stable, LA WNL - s/p IV fluids - likely secondary to pneumonia, less likely cellulitis - continue Rocephin and azithromycin. Add vancomycin due to + MRSA DNA and multiple recent hospitalizations. - follow-up blood cultures - sepsis resolved (2) Pneumonia: Qualifiers: Laterality: right Lung location: lower lobe of lung Pneumonia type: due to unspecified organism Qualified Code(s): J18.9 - Pneumonia, unspecified organism Code(s): J18.9 - Pneumonia, unspecified organism Status: Acute Assessment and Plan: Patient was recently admitted at [facility] from [id number] for generalized weakness. Tested positive for COVID on 04/24. Now presenting back today for altered mental status, generalized weakness, lethargy. CXR concerning for developing consolidation in the anterior right lung base. Right lung base diminished on exam. Personally reviewed CXR, compared to CXR from 04/24. In favor of right lower lung pneumonia. - started on ceftriaxone and azithromycin on 05/11. Continue vanc due to +MRSA PCR. - supportive care: Mucinex, Tessalon Perles, Tylenol - reviewed vital signs, no significant tachypnea and no hypoxia - follow-up blood cultures (3) Altered mental status: Qualifiers: Altered mental status type: somnolence Qualified Code(s): R40.0 - Somnolence Code(s): R41.82 - Altered mental status, unspecified Status: Acute Assessment and Plan: -Patient arrived somnolent and A&O times 0. At baseline A&Ox2-3. - Head CT in the ED on 05/11 showed no acute findings. - likely metabolic encephalopathy in setting of sepsis - monitor neuro status - started on antibiotics for community-acquired pneumonia - reviewed home medications. will hold baclofen, gabapentin, hydrocodone/Tylenol until AMS improved. - mentation significantly improved (4) Acute kidney injury: Code(s): N17.9 - Acute kidney failure, unspecified Status: Acute Assessment and Plan: - admit Creatinine 1.65, BUN 39, GFR 31 upon admission on 05/11. Previously 1.03, BUN 22, GFR 53 upon discharge on 04/28. Patient appears dry on exam. Does have peripheral edema to her bilateral lower extremities, however has history of chronic venous stasis. - admit CK 1076. Downtrended with IV fluids. Statin held. - Cr improved to 1.03 with IV fluids - monitor I&Os - trend renal function and electrolytes, correct electrolytes as needed. - Mild hyperkalemia noted, see below. (5) Acute hyperkalemia: Code(s): E87.5 - Hyperkalemia Status: Acute Assessment and Plan: Mild hyperkalemia noted upon admission, K 5.9. Concurrent AC, likely source of patient's hyperkalemia. Initially given sodium bicarb, insulin/dextrose, and calcium. - IV fluids - monitor electrolytes - telemetry monitoring - K+ improved (6) Chronic wound of extremity: Status: Acute Assessment and Plan: Clinical exam improved compared to prior on 04/24. Wounds now dry with no drainage. Chronic erythema, chronic wounds to bilateral lower extremity secondary to mild arterial occlusive disease/chronic venous stasis. Wound RN consulted, examined at the bedside together. Agree with assessment that bilateral lower extremities are at their baseline, no current concern for infection. Erythema currently improves with elevation. - wound consult for re-evaluation, no current concern for infection - elevate extremities as tolerated, continue Lasix p.o. - pain control (7) Type 2 diabetes mellitus: Qualifiers: Diabetes mellitus complication status: with hyperglycemia Diabetes mellitus penitentiary insulin use: with penitentiary use Qualified Code(s): E11.65 - Type 2 diabetes mellitus with hyperglycemia; Z79.4 - MCC (current) use of insulin Code(s): E11.9 - Type 2 diabetes mellitus without complications Status: Chronic Assessment and Plan: - hypoglycemia protocol - POC blood glucose Q6H with sliding scale also Q6H (based off BMI) until no longer NPO/mental status improved - home medication: Continue Jamaal, pharmacy to adjust. Hold aspart 8 units t.i.d. with meals as she is currently NPO. - A1C 7.2% on 03/30/2025 (8) Anemia: Qualifiers: Anemia type: unspecified type Qualified Code(s): D64.9 - Anemia, unspecified Code(s): D64.9 - Anemia, unspecified Status: Chronic Assessment and Plan: - Hemoglobin 9.2 upon admission on 05/11. Previously 9.6 upon discharge on 04/28/2025. Baseline appears to be 8-9. - Hgb trended down to 7.8 this AM, likely hemodilutional. Stable on repeat. - underwent anemia workup during her most recent admission at the end of February/early March. Lab work in favor of AOCD. - transfuse if <7 - trend (9) CHF (congestive heart failure): Qualifiers: Heart failure chronicity: chronic Heart failure type: combined systolic and diastolic Qualified Code(s): I50.42 - Chronic combined systolic (congestive) and diastolic (congestive) heart failure Code(s): I50.9 - Heart failure, unspecified Status: Chronic Assessment and Plan: Patient has peripheral edema, symmetric on exam, and has history of chronic venous stasis. Otherwise appears euvolemic and no CHF appreciated on CXR. Receiving IV fluids for AC, will need close monitoring. - echo 04/23: LV chamber mildly enlarged, LV systolic function moderately reduced with an EF of 40-45%, LV septal wall motion abnormal related to bundle branch block, grade 1 diastolic dysfunction, LA mildly enlarged, mild to trace valvular disease. - continue PO Entresto, carvedilol. Resume Lasix in AM. (10) HTN (hypertension): Qualifiers: Hypertension type: unspecified Qualified Code(s): I10 - Essential (primary) hypertension Code(s): I10 - Essential (primary) hypertension Status: Chronic Assessment and Plan: - chronic, currently 151/72, stable. - continue home medications: Coreg, Entresto (11) HLD (hyperlipidemia): Qualifiers: Hyperlipidemia type: unspecified Qualified Code(s): E78.5 - Hyperlipidemia, unspecified Code(s): E78.5 - Hyperlipidemia, unspecified Status: Chronic Assessment and Plan: - hold statin given elevated CK Plan DVT Prophylaxis: Lovenox Code Status: Full code Dispo: back to [facility] Subjective Date/time seen: 05/13/25 07:57 Interval history: Patient seen and examined at bedside. Patient in better spirits today. Patient reports being unable to urinate unless she sits on the toilet. Denies significant pain this AM. Review of Systems Review of Systems: All systems reviewed & are unremarkable except as noted in HPI and below Exam Narrative: General: NAD Eyes: EOMI ENT: neck supple Cardiovascular: Regular rate and rhythm Respiratory: Clear to auscultation, respirations even and unlabored on RA Gastrointestinal: Soft, non tender Genitourinary: no suprapubic tenderness Musculoskeletal: No edema Skin: warm, dry, BLE venous skin changes with healing venous stasis ulcers. No purulent drainage. No warmth or significant tenderness to suggest cellulitis. Neuro: Alert and oriented x3. Psych: Mood appropriate Objective Data Vital Signs Vital Signs: Vital Signs - 24 hr 11/13/25 08:00 05/12/25 08:35 05/12/25 12:00 Temperature Pulse Rate 83 86 Respiratory Rate Blood Pressure Pulse Oximetry Oxygen Delivery Room Air 05/12/25 14:00 05/12/25 16:00 05/12/25 20:00 Temperature 98.0 F Pulse Rate 89 91 85 Respiratory Rate 20 Blood Pressure 160/68 H Pulse Oximetry 96 Oxygen Delivery 05/12/25 21:18 05/12/25 21:38 05/12/25 21:48 Temperature 97.3 F L Pulse Rate 83 83 Respiratory Rate 20 Blood Pressure 178/67 H Pulse Oximetry 97 Oxygen Delivery Room Air 05/13/25 00:00 05/13/25 00:27 05/13/25 04:00 Temperature 97.4 F L Pulse Rate 74 72 73 Respiratory Rate 16 Blood Pressure 156/63 H Pulse Oximetry 98 Oxygen Delivery 05/13/25 05:29 Temperature 97.1 F L Pulse Rate 67 Respiratory Rate 20 Blood Pressure 153/63 H Pulse Oximetry 100 Oxygen Delivery Intake/Output Intake/Output: Intake & Output 05/10/25 05/11/25 05/12/25 05/13/25 23:59 23:59 23:59 23:59 Intake Total 1800 3440.0 300 Output Total 963 819 4708 Balance 1050 2820.0 -975 Meds/Results Medications: Active Medications Generic Name Dose Route Start Last Admin Trade Name Freq PRN Reason Stop Dose Admin Acetaminophen 650 mg 05/11/25 14:26 05/13/25 01:08 Acetaminophen 325 Mg Tablet PO 650 mg Q6H PRN Administration Mild Pain (1-3) or Fever Hydrocodone Bitart/Acetaminophen 1 tab 05/12/25 12:53 Hydrocodone/Acetaminophen (*Crx) 5-325 Mg Tablet PO Q6H PRN Pain 4-6 Aspirin 81 mg 05/12/25 09:00 05/12/25 08:34 Aspirin 81 Mg Chewable Tablet PO Not Given DAILY TIA Benzonatate 100 mg 05/11/25 14:26 Benzonatate 100 Mg Capsule PO TID PRN Cough Bisacodyl 10 mg 05/11/25 14:36 Bisacodyl 10 Mg Suppository RECTAL DAILY PRN Constipation Brimonidine Tartrate 1 drop 05/12/25 09:00 05/12/25 08:39 Brimonidine Tartrate 0.2% Op Soln 5 Ml Btl EACH EYE 1 drop DAILY TIA Administration Calcium Carbonate 500 mg 05/11/25 17:00 05/12/25 16:58 Calcium/Vitamin D 500 Mg/5 Mcg (200 I.U.) Tablet PO 500 mg BID TIA Administration Carvedilol 25 mg 05/11/25 21:00 05/12/25 21:48 Carvedilol 25 Mg Tablet PO 25 mg Q12HR TIA Administration Cyanocobalamin 500 mcg 05/12/25 09:00 05/12/25 08:34 Cyanocobalamin 500 Mcg Tablet PO Not Given DAILY TIA Dextrose 12.5 gm 05/11/25 14:33 Dextrose 50% 25 Gm/50 Ml Syringe IV PUSH PRN PRN Hypoglycemia Protocol Diclofenac Sodium 0 applic 05/11/25 14:36 Diclofenac Sodium 1% 100 Gm Gel (*Bkc) TOPICAL Q12H PRN ARTHRITIS PAIN Enoxaparin Sodium 40 mg 05/12/25 09:00 05/12/25 08:39 Enoxaparin 40 Mg/0.4 Ml Syringe SUB-Q 40 mg DAILY TIA Administration Ferrous Sulfate 325 mg 05/12/25 09:00 05/12/25 08:34 Ferrous Sulfate 325 Mg Tablet PO Not Given DAILY [facility] Gabapentin 600 mg 05/12/25 17:00 05/12/25 16:58 Gabapentin 300 Mg Capsule PO 600 mg BID TIA Administration Glucagon 1 mg 05/11/25 14:33 Glucagon For Inj 1 Mg Vial IM PRN PRN Hypoglycemia Protocol Glucose 15 gm 05/11/25 14:33 Glucose Oral Gel 15 Gm Of Glucse In 37.5 Gm Tube PO PRN PRN Hypoglycemia Protocol Guaifenesin 600 mg 05/11/25 21:00 05/12/25 21:49 Guaifenesin 12 Hr 600 Mg Tabcr PO 600 mg Q12HR TIA Administration Hydralazine HCl 10 mg 05/11/25 14:33 Hydralazine Hcl 20 Mg/Ml Vial IV PUSH Q8H PRN Blood Pressure - High, >170/80 Lactated Ringer's 1,000 mls @ 75 mls/hr 05/11/25 11:10 05/13/25 01:14 Lr - Lactated Ringers Iv IV CONT 75 mls/hr .[id number] TIA Administration Ceftriaxone Sodium 1 gm/ 50 mls @ 100 mls/hr 05/11/25 16:00 05/12/25 17:39 Sodium Chloride IVPB Infused Q24H TIA Infusion Azithromycin 500 mg/ Sodium 250 mls @ 250 mls/hr 05/11/25 17:00 05/12/25 18:53 Chloride IVPB 05/15/25 17:59 Infused Q24H TIA Infusion Dextrose 1,000 mls @ 100 mls/hr 05/11/25 14:33 Dextrose 5% 1,000 Ml IVPB PRN PRN Hypoglycemia Protocol Vancomycin HCl 1,500 mg in 500 mls @ 250 mls/hr 05/12/25 15:00 05/12/25 17:03 Vancomycin 1,500 Mg/Ns 500 Ml IVPB Infused Q24H TIA Infusion Insulin Aspart 2 - 5 units 05/12/25 13:50 05/12/25 17:12 Insulin Aspart (*Bkc) 100 Units/Ml SUB-Q Not Given TIDWM [facility] Protocol Insulin Glargine 16 units 05/11/25 21:00 05/12/25 21:49 Insulin Glargine (*Bkc) 100 Units/Ml SUB-Q 16 units HS TIA Administration Latanoprost 1 drop 05/11/25 21:00 05/12/25 21:49 Latanoprost 0.005% Op Soln 2.5 Ml Btl LEFT EYE 1 drop QHS TIA Administration Loperamide HCl 2 mg 05/11/25 14:36 Loperamide Hcl 2 Mg Capsule PO Q24H PRN Loose Stool Loratadine 10 mg 05/12/25 09:00 05/12/25 08:34 Loratadine 10 Mg Tablet PO Not Given DAILY TIA Magnesium Hydroxide 30 ml 05/11/25 14:36 Magnesium Hydroxide Susp 30 Ml Udc PO Q8H PRN Constipation Polyethylene Glycol 17 gm 05/11/25 14:36 Polyethylene Glycol 3350 17 Gm Powd.Pack PO QAM PRN Constipation Sacubitril/Valsartan 1 tab 05/11/25 21:00 05/12/25 21:49 Sacubitril/Valsartan 24-26 Mg Tablet PO 1 tab Q12HR TIA Administration Senna 8.6 mg 05/11/25 14:36 Sennosides 8.6 Mg Tablet PO DAILY PRN Constipation Sodium Chloride 1 spray 05/11/25 14:36 Saline 0.65% David Soln 44 Ml Btl NASAL Q6H PRN Dry Nasal Passages Timolol Maleate 1 drop 05/11/25 17:00 05/12/25 16:59 Timolol Maleate 0.25% Op Soln 5 Ml Bottle EACH EYE 1 drop TID TIA Administration Vitamin D 100 mcg 05/12/25 09:00 05/12/25 08:34 Cholecalciferol (Vitamin D3) 25 Mcg (1,000 Units) Tablet PO Not Given DAILY TIA Radiology Results: ITS Impressions Head CT 05/11/25 08:06 IMPRESSION: 1. No intracranial hemorrhage or large acute ischemic event. Chest X-Ray 05/11/25 08:09 IMPRESSION: 1. Possible small developing consolidation or atelectatic process in the anterior right lung base. Labs Labs: Laboratory Results - last 24 hr 05/12/25 05/12/25 05/12/25 04:03 10:20 11:28 WBC RBC Hgb Hct MCV MCH MCHC RDW Plt Count MPV Immature Gran % (Auto) Neut % (Auto) Lymph % (Auto) Bollinger % (Auto) Eos % (Auto) Baso % (Auto) Lymph # (Auto) Bollinger # (Auto) Eos # (Auto) Baso # (Auto) Abs Immat Gran (auto) Absolute Neuts (auto) Absolute Nucleated RBC Nucleated RBC % Sodium Potassium Chloride Carbon Dioxide Anion Gap BUN Creatinine Estim Creat Clear Calc Estimated GFR Glucose POC Capillary Glucose 209 H Calcium Total Bilirubin AST ALT Alkaline Phosphatase Total Creatine Kinase C-Reactive Protein 15.6 H Total Protein Albumin Procalcitonin 1.2 Nasal MRSA (PCR) Detected A* Random Vancomycin 05/12/25 05/12/25 05/12/25 12:58 17:12 21:17 WBC RBC Hgb Hct MCV MCH MCHC RDW Plt Count MPV Immature Gran % (Auto) Neut % (Auto) Lymph % (Auto) Bollinger % (Auto) Eos % (Auto) Baso % (Auto) Lymph # (Auto) Bollinger # (Auto) Eos # (Auto) Baso # (Auto) Abs Immat Gran (auto) Absolute Neuts (auto) Absolute Nucleated RBC Nucleated RBC % Sodium Potassium Chloride Carbon Dioxide Anion Gap BUN Creatinine Estim Creat Clear Calc Estimated GFR Glucose POC Capillary Glucose 160 H 164 H Calcium Total Bilirubin AST ALT Alkaline Phosphatase Total Creatine Kinase C-Reactive Protein Total Protein Albumin Procalcitonin Nasal MRSA (PCR) Random Vancomycin 8.9 L 05/13/25 05/13/25 04:36 07:50 WBC 6.0 RBC 2.85 L Hgb 7.8 L Hct 26.9 L MCV 94.4 MCH 27.4 MCHC 29.0 L RDW 15.0 H Plt Count 145 L MPV 10.1 Immature Gran % (Auto) 0.3 Neut % (Auto) 64.4 Lymph % (Auto) 22.4 Bollinger % (Auto) 7.0 Eos % (Auto) 5.7 H Baso % (Auto) 0.2 Lymph # (Auto) 1.34 Bollinger # (Auto) 0.4 Eos # (Auto) 0.3 Baso # (Auto) 0.0 Abs Immat Gran (auto) 0.02 Absolute Neuts (auto) 3.9 Absolute Nucleated RBC 0.000 Nucleated RBC % 0.0 Sodium 137 Potassium 4.2 Chloride 109 H Carbon Dioxide 25 Anion Gap 3 L BUN 18 H Creatinine 1.03 H Estim Creat Clear Calc 47 Estimated GFR 53 L Glucose 137 H POC Capillary Glucose 140 H Calcium 8.2 L Total Bilirubin 0.4 AST 31 ALT 14 Alkaline Phosphatase 82 Total Creatine Kinase 356 H C-Reactive Protein 11.6 H Total Protein 6.4 Albumin 2.8 L Procalcitonin Nasal MRSA (PCR) Random Vancomycin
[2025-05-13] MEDS: ASPIRIN 81 MG CHEWABLE TABLET PO (09:06)
[2025-05-13] MEDS: CHOLECALCIFEROL (VITAMIN D3) 25 MCG (1,000 UNITS) TABLET 100 MCG PO (09:06)
[2025-05-13] MEDS: CALCIUM/VITAMIN D 500 MG/5 MCG (200 I.U.) TABLET PO ×2 (09:07→17:15)
[2025-05-13] MEDS: FERROUS SULFATE 325 MG TABLET PO (09:07)
[2025-05-13] MEDS: guaiFENesin 12 HR 600 MG TABCR PO ×2 (09:07→20:41)
[2025-05-13] MEDS: BRIMONIDINE TARTRATE 0.2% OP SOLN 5 ML BTL 1 DROP EACH EYE (09:07)
[2025-05-13] MEDS: SACUBITRIL/VALSARTAN 24-26 MG TABLET 1 TAB PO ×2 (09:07→20:41)
[2025-05-13] MEDS: LORATADINE 10 MG TABLET PO (09:07)
[2025-05-13] MEDS: CYANOCOBALAMIN 500 MCG TABLET PO (09:07)
[2025-05-13] MEDS: GABAPENTIN 300 MG CAPSULE 600 MG PO ×2 (09:07→17:15)
[2025-05-13] MEDS: TIMOLOL MALEATE 0.25% OP SOLN 5 ML BOTTLE 1 DROP EACH EYE ×3 (09:08→17:19)
[2025-05-13] MEDS: VANCOMYCIN 1,500 MG/NS 500 ML 1,500 MG/500 ML BAG 250 MG IVPB (14:51)
--- NOTE | 2025-05-13 16:49 | PC.NURSE ---
Spoke with pharmacy regarding vancomycin that was due this evening at 1500. Vanc was in fridge in med room and was timed and dated 05/13/25 for 1500. Trough was due and was drawn late. Medication was already scanned but had to be paused shortly after starting due to need for new IV. Pharmacist called and asked about status of vanc trough. Once trough was drawn and pending, pharmacy said that I can finish bag that was already primed and they will re-draw trough tomorrow
[2025-05-13] MEDS: cefTRIAXone 1 GM in SODIUM CHLORIDE 0.9% IV 50 ML 100 ML IVPB (18:31)
[2025-05-13] MEDS: AZITHROMYCIN IV 500 MG in SODIUM CHLORIDE 0.9% IV 250 ML IVPB (19:29)
[2025-05-13] MEDS: INSULIN GLARGINE (*BKC) 100 UNITS/ML 16 UNITS SUB-Q (20:40)
[2025-05-13] MEDS: LATANOPROST 0.005% OP SOLN 2.5 ML BTL 1 DROP LEFT EYE (22:10)
[2025-05-14] VITALS (9 sets, daily range): BP systolic 145–160; BP diastolic 66–70; PULSE 68–78; RESP 18–20; TEMP 36.4–36.7; O2SAT 96–97
[2025-05-14 05:11] LABS: Hematocrit 25.7 % (37.0-47.0); Hemoglobin 7.7 g/dL (12.0-15.0); Immature Granulocyte Percent A 0.4 % (0-0.5); Lymphocytes Absolute Auto 1.34 K/mm3 (0.9-3.2); Mean Corpuscular HGB Conc 30.0 g/dl (32-36); Mean Corpuscular Hemoglobin 27.7 pg (26-34); Mean Corpuscular Volume 92.4 fl (80-100); Nucleated Red Blood Cells Absolute Auto 0.000 K/mm3 (0.0-0.012); Nucleated Red Blood Cells Perc 0.0 % (0.0-0.2); Platelet Count Result 152 k/mm3 (150-375); Red Blood Count 2.78 M/mm3 (4.2-5.4); White Blood Count 4.8 K/mm3 (4.5-10.0)
[2025-05-14 05:34] LABS: Alanine Aminotransferase 13 U/L (6-35); Albumin Level 2.6 g/dL (3.5-5.1); Alkaline Phosphatase 75 U/L (38-126); Anion Gap 2 mmol/L (4-12); Aspartate Amino Transferase 28 U/L (14-36); Bilirubin,Total 0.3 mg/dL (0.2-1.3); Blood Urea Nitrogen 12 mg/dL (7-17); CRP 6.0 mg/dL (<1.0); Calcium 8.2 mg/dL (8.4-10.2); Carbon Dioxide 26 mmol/L (22-30); Chloride 109 mmol/L (98-107); Estimated CRCL calculation 53 ml/min; Estimated Glomerular Filt Rate > 60; Glucose 145 mg/dL (65-110); Potassium 4.0 mmol/L (3.4-5.0); Sodium 137 mmol/L (137-145); Total Protein 6.1 g/dL (6.3-8.2)
--- NOTE | 2025-05-14 07:11 | P.PNIM_ITS ---
Progress Note: A&P Assessment and Plan (1) Sepsis: Code(s): A41.9 - Sepsis, unspecified organism Status: Acute Assessment and Plan: - criteria met on admission with T max 101.5, HR 107, RR 20s. - WBC WNL, BP stable, LA WNL - s/p IV fluids - likely secondary to pneumonia, less likely cellulitis - continue Rocephin and azithromycin. Add vancomycin due to + MRSA DNA and multiple recent hospitalizations. - blood cultures NGTD - sepsis resolved (2) Pneumonia: Qualifiers: Laterality: right Lung location: lower lobe of lung Pneumonia type: due to unspecified organism Qualified Code(s): J18.9 - Pneumonia, unspecified organism Code(s): J18.9 - Pneumonia, unspecified organism Status: Acute Assessment and Plan: Patient was recently admitted at [facility] from [id number] for generalized weakness. Tested positive for COVID on 04/24. Now presenting back today for altered mental status, generalized weakness, lethargy. CXR concerning for developing consolidation in the anterior right lung base. Right lung base diminished on exam. Personally reviewed CXR, compared to CXR from 04/24. In favor of right lower lung pneumonia. - started on ceftriaxone and azithromycin on 05/11. Continue vanc due to +MRSA PCR. - supportive care: Mucinex, Tessalon Perles, Tylenol - reviewed vital signs, no significant tachypnea and no hypoxia - follow-up blood cultures (3) Altered mental status: Qualifiers: Altered mental status type: somnolence Qualified Code(s): R40.0 - Somnolence Code(s): R41.82 - Altered mental status, unspecified Status: Acute Assessment and Plan: -Patient arrived somnolent and A&O times 0. At baseline A&Ox2-3. - Head CT in the ED on 05/11 showed no acute findings. - likely metabolic encephalopathy in setting of sepsis - monitor neuro status - started on antibiotics for community-acquired pneumonia - mentation significantly improved (4) Acute kidney injury: Code(s): N17.9 - Acute kidney failure, unspecified Status: Acute Assessment and Plan: - admit Creatinine 1.65, BUN 39, GFR 31 upon admission on 05/11. Previously 1.03, BUN 22, GFR 53 upon discharge on 04/28. Patient appears dry on exam. Does have peripheral edema to her bilateral lower extremities, however has history of chronic venous stasis. - admit CK 1076. Downtrended with IV fluids. Statin held. - Cr improved to 1.03 with IV fluids - monitor I&Os - trend renal function and electrolytes, correct electrolytes as needed. - Mild hyperkalemia noted, see below. (5) Chronic wound of extremity: Status: Acute Assessment and Plan: Clinical exam improved compared to prior on 04/24. Wounds now dry with no drainage. Chronic erythema, chronic wounds to bilateral lower extremity secondary to mild arterial occlusive disease/chronic venous stasis. Wound RN consulted, examined at the bedside together. Agree with assessment that bilateral lower extremities are at their baseline, no current concern for infection. Erythema currently improves with elevation. - wound consult for re-evaluation, no current concern for infection - elevate extremities as tolerated, continue Lasix p.o. - pain control (6) Type 2 diabetes mellitus: Qualifiers: Diabetes mellitus complication status: with hyperglycemia Diabetes mellitus alf insulin use: with alf use Qualified Code(s): E11.65 - Type 2 diabetes mellitus with hyperglycemia; Z79.4 - long-term (current) use of insulin Code(s): E11.9 - Type 2 diabetes mellitus without complications Status: Chronic Assessment and Plan: - hypoglycemia protocol - POC blood glucose Q6H with sliding scale also Q6H (based off BMI) until no longer NPO/mental status improved - home medication: Continue Jamaal, pharmacy to adjust. Hold aspart 8 units t.i.d. with meals as she is currently NPO. - A1C 7.2% on 03/30/2025 (7) Anemia: Qualifiers: Anemia type: unspecified type Qualified Code(s): D64.9 - Anemia, unspecified Code(s): D64.9 - Anemia, unspecified Status: Chronic Assessment and Plan: - Hemoglobin 9.2 upon admission on 05/11. Previously 9.6 upon discharge on 04/28/2025. Baseline appears to be 8-9. - Hgb trended down to 7.8 this AM, likely hemodilutional. Stable on repeat. - underwent anemia workup during her most recent admission at the end of February/early March. Lab work in favor of AOCD. - transfuse if <7 - trend (8) CHF (congestive heart failure): Qualifiers: Heart failure chronicity: chronic Heart failure type: combined systolic and diastolic Qualified Code(s): I50.42 - Chronic combined systolic (congestive) and diastolic (congestive) heart failure Code(s): I50.9 - Heart failure, unspecified Status: Chronic Assessment and Plan: Patient has peripheral edema, symmetric on exam, and has history of chronic venous stasis. Otherwise appears euvolemic and no CHF appreciated on CXR. Receiving IV fluids for AC, will need close monitoring. - echo 04/23: LV chamber mildly enlarged, LV systolic function moderately redu kristen with an EF of 40-45%, LV septal wall motion abnormal related to bundle branch block, grade 1 diastolic dysfunction, LA mildly enlarged, mild to trace valvular disease. - continue PO Entresto, carvedilol. Resumed Lasix. (9) HTN (hypertension): Qualifiers: Hypertension type: unspecified Qualified Code(s): I10 - Essential (primary) hypertension Code(s): I10 - Essential (primary) hypertension Status: Chronic Assessment and Plan: - chronic, currently 151/72, stable. - continue home medications: Coreg, Entresto (10) HLD (hyperlipidemia): Qualifiers: Hyperlipidemia type: unspecified Qualified Code(s): E78.5 - Hyperlipidemia, unspecified Code(s): E78.5 - Hyperlipidemia, unspecified Status: Chronic Assessment and Plan: - hold statin given elevated CK Plan DVT Prophylaxis: Lovenox Code Status: Full code Dispo: back to [facility] Subjective Date/time seen: 05/14/25 07:11 Interval history: Patient seen and examined at bedside. In good spirits today. Denies chest pain, SOB. Has been able to urinate when getting up to the bathroom. Discussed likely discharge tomorrow if cultures remain negative. Review of Systems Review of Systems: All systems reviewed & are unremarkable except as noted in HPI and below Exam Narrative: General: NAD Eyes: EOMI ENT: neck supple Cardiovascular: Regular rate and rhythm Respiratory: Clear to auscultation, respirations even and unlabored on RA Gastrointestinal: Soft, non tender Genitourinary: no suprapubic tenderness Musculoskeletal: No edema Skin: warm, dry, BLE venous skin changes with healing venous stasis ulcers. No purulent drainage. No warmth or significant tenderness to suggest cellulitis. Neuro: Alert and oriented x3. Psych: Mood appropriate Objective Data Vital Signs Vital Signs: Vital Signs - 24 hr 05/13/25 08:00 05/13/25 08:19 05/13/25 09:07 Temperature Pulse Rate 74 70 Respiratory Rate Blood Pressure Pulse Oximetry 93 Oxygen Delivery Room Air 05/13/25 09:10 05/13/25 12:00 05/13/25 13:40 Temperature 97.1 F L Pulse Rate 74 77 Respiratory Rate 18 Blood Pressure 156/69 H Pulse Oximetry 99 Oxygen Delivery Room Air 05/13/25 16:00 05/13/25 20:00 05/13/25 20:20 Temperature 97.8 F Pulse Rate 81 78 79 Respiratory Rate 18 Blood Pressure 143/67 H Pulse Oximetry 97 Oxygen Delivery 05/14/25 00:00 05/14/25 04:00 05/14/25 04:49 Temperature 97.6 F Pulse Rate 74 72 70 Respiratory Rate 20 Blood Pressure 145/69 H Pulse Oximetry 96 Oxygen Delivery Intake/Output Intake/Output: Intake & Output 05/11/25 05/12/25 05/13/25 05/14/25 23:59 23:59 23:59 23:59 Intake Total 1800 3440.0 2497.5 290 Output Total 952 982 4491 Balance 1050 2820.0 -577.5 290 Meds/Results Medications: Active Medications Generic Name Dose Route Start Last Admin Trade Name Freq PRN Reason Stop Dose Admin Acetaminophen 650 mg 05/11/25 14:26 05/13/25 01:08 Acetaminophen 325 Mg Tablet PO 650 mg Q6H PRN Administration Mild Pain (1-3) or Fever Hydrocodone Bitart/Acetaminophen 1 tab 05/12/25 12:53 Hydrocodone/Acetaminophen (*Crx) 5-325 Mg Tablet PO Q6H PRN Pain 4-6 Aspirin 81 mg 05/12/25 09:00 05/13/25 09:06 Aspirin 81 Mg Chewable Tablet PO 81 mg DAILY TIA Administration Baclofen 10 mg 05/13/25 13:37 Baclofen 10 Mg Tablet PO Q12H PRN muscle spasms Benzonatate 100 mg 05/11/25 14:26 Benzonatate 100 Mg Capsule PO TID PRN Cough Bisacodyl 10 mg 05/11/25 14:36 Bisacodyl 10 Mg Suppository RECTAL DAILY PRN Constipation Brimonidine Tartrate 1 drop 05/12/25 09:00 05/13/25 09:07 Brimonidine Tartrate 0.2% Op Soln 5 Ml Btl EACH EYE 1 drop DAILY TIA Administration Calcium Carbonate 500 mg 05/11/25 17:00 05/13/25 17:15 Calcium/Vitamin D 500 Mg/5 Mcg (200 I.U.) Tablet PO 500 mg BID TIA Administration Carvedilol 25 mg 05/11/25 21:00 05/13/25 20:41 Carvedilol 25 Mg Tablet PO 25 mg Q12HR TIA Administration Cyanocobalamin 500 mcg 05/12/25 09:00 05/13/25 09:07 Cyanocobalamin 500 Mcg Tablet PO 500 mcg DAILY TIA Administration Dextrose 12.5 gm 05/11/25 14:33 Dextrose 50% 25 Gm/50 Ml Syringe IV PUSH PRN PRN Hypoglycemia Protocol Diclofenac Sodium 0 applic 05/11/25 14:36 Diclofenac Sodium 1% 100 Gm Gel (*Bkc) TOPICAL Q12H PRN ARTHRITIS PAIN Enoxaparin Sodium 40 mg 05/12/25 09:00 05/13/25 13:28 Enoxaparin 40 Mg/0.4 Ml Syringe SUB-Q Not Given DAILY [facility] Ferrous Sulfate 325 mg 05/12/25 09:00 05/13/25 09:07 Ferrous Sulfate 325 Mg Tablet PO 325 mg DAILY TIA Administration Furosemide 20 mg 05/14/25 09:00 Furosemide 20 Mg Tablet PO QAM TIA Gabapentin 600 mg 05/12/25 17:00 05/13/25 17:15 Gabapentin 300 Mg Capsule PO 600 mg BID TIA Administration Glucagon 1 mg 05/11/25 14:33 Glucagon For Inj 1 Mg Vial IM PRN PRN Hypoglycemia Protocol Glucose 15 gm 05/11/25 14:33 Glucose Oral Gel 15 Gm Of Glucse In 37.5 Gm Tube PO PRN PRN Hypoglycemia Protocol Guaifenesin 600 mg 05/11/25 21:00 05/13/25 20:41 Guaifenesin 12 Hr 600 Mg Tabcr PO 600 mg Q12HR TIA Administration Hydralazine HCl 10 mg 05/11/25 14:33 Hydralazine Hcl 20 Mg/Ml Vial IV PUSH Q8H PRN Blood Pressure - High, >170/80 Dextrose 1,000 mls @ 100 mls/hr 05/11/25 14:33 Dextrose 5% 1,000 Ml IVPB PRN PRN Hypoglycemia Protocol Vancomycin HCl 1,500 mg in 500 mls @ 250 mls/hr 05/12/25 15:00 05/13/25 16:51 Vancomycin 1,500 Mg/Ns 500 Ml IVPB Infused Q24H TIA Infusion Ceftriaxone Sodium 1 gm/ 50 mls @ 100 mls/hr 05/13/25 17:00 05/13/25 19:01 Sodium Chloride IVPB Infused Q24H TIA Infusion Azithromycin 500 mg/ Sodium 250 mls @ 250 mls/hr 05/13/25 18:00 05/13/25 19:29 Chloride IVPB 05/15/25 18:59 250 mls/hr Q24H TIA Administration Insulin Aspart 2 - 5 units 05/12/25 13:50 05/13/25 17:19 Insulin Aspart (*Bkc) 100 Units/Ml SUB-Q Not Given TIDWM TIA Protocol Insulin Glargine 16 units 05/11/25 21:00 05/13/25 20:40 Insulin Glargine (*Bkc) 100 Units/Ml SUB-Q 16 units HS TIA Administration Latanoprost 1 drop 05/11/25 21:00 05/13/25 22:10 Latanoprost 0.005% Op Soln 2.5 Ml Btl LEFT EYE 1 drop QHS TIA Administration Loperamide HCl 2 mg 05/11/25 14:36 Loperamide Hcl 2 Mg Capsule PO Q24H PRN Loose Stool Loratadine 10 mg 05/12/25 09:00 05/13/25 09:07 Loratadine 10 Mg Tablet PO 10 mg DAILY TIA Administration Magnesium Hydroxide 30 ml 05/11/25 14:36 Magnesium Hydroxide Susp 30 Ml Udc PO Q8H PRN Constipation Polyethylene Glycol 17 gm 05/11/25 14:36 Polyethylene Glycol 3350 17 Gm Powd.Pack PO QAM PRN Constipation Sacubitril/Valsartan 1 tab 05/11/25 21:00 05/13/25 20:41 Sacubitril/Valsartan 24-26 Mg Tablet PO 1 tab Q12HR TIA Administration Senna 8.6 mg 05/11/25 14:36 Sennosides 8.6 Mg Tablet PO DAILY PRN Constipation Sodium Chloride 1 spray 05/11/25 14:36 Saline 0.65% David Soln 44 Ml Btl NASAL Q6H PRN Dry Nasal Passages Timolol Maleate 1 drop 05/11/25 17:00 05/13/25 17:19 Timolol Maleate 0.25% Op Soln 5 Ml Bottle EACH EYE 1 drop TID TIA Administration Vitamin D 100 mcg 05/12/25 09:00 05/13/25 09:06 Cholecalciferol (Vitamin D3) 25 Mcg (1,000 Units) Tablet PO 100 mcg DAILY TIA Administration Radiology Results: ITS Impressions Head CT 05/11/25 08:06 IMPRESSION: 1. No intracranial hemorrhage or large acute ischemic event. Chest X-Ray 05/11/25 08:09 IMPRESSION: 1. Possible small developing consolidation or atelectatic process in the ant erior right lung base. Labs Labs: Laboratory Results - last 24 hr 05/13/25 05/13/25 05/13/25 07:50 12:01 15:56 WBC RBC Hgb Hct MCV MCH MCHC RDW Plt Count MPV Immature Gran % (Auto) Neut % (Auto) Lymph % (Auto) [place] % (Auto) Eos % (Auto) Baso % (Auto) Lymph # (Auto) [place] # (Auto) Eos # (Auto) Baso # (Auto) Abs Immat Gran (auto) Absolute Neuts (auto) Absolute Nucleated RBC Nucleated RBC % Sodium Potassium Chloride Carbon Dioxide Anion Gap BUN Creatinine Estim Creat Clear Calc Estimated GFR Glucose POC Capillary Glucose 140 H 162 H Calcium Total Bilirubin AST ALT Alkaline Phosphatase C-Reactive Protein Total Protein Albumin Vancomycin Trough 21.3 H 05/13/25 05/13/25 05/14/25 17:14 20:26 04:28 WBC 4.8 RBC 2.78 L Hgb 7.7 L Hct 25.7 L MCV 92.4 MCH 27.7 MCHC 30.0 L RDW 14.6 H Plt Count 152 MPV 10.4 Immature Gran % (Auto) 0.4 Neut % (Auto) 56.8 Lymph % (Auto) 27.7 [place] % (Auto) 7.9 Eos % (Auto) 6.8 H Baso % (Auto) 0.4 Lymph # (Auto) 1.34 [place] # (Auto) 0.4 Eos # (Auto) 0.3 Baso # (Auto) 0.0 Abs Immat Gran (auto) 0.02 Absolute Neuts (auto) 2.8 Absolute Nucleated RBC 0.000 Nucleated RBC % 0.0 Sodium 137 Potassium 4.0 Chloride 109 H Carbon Dioxide 26 Anion Gap 2 L BUN 12 D Creatinine 0.90 Estim Creat Clear Calc 53 Estimated GFR > 60 Glucose 145 H POC Capillary Glucose 200 H 235 H Calcium 8.2 L Total Bilirubin 0.3 AST 28 ALT 13 Alkaline Phosphatase 75 C-Reactive Protein 6.0 H Total Protein 6.1 L Albumin 2.6 L Vancomycin Trough
[2025-05-14] MEDS: ASPIRIN 81 MG CHEWABLE TABLET PO (11:30)
[2025-05-14] MEDS: CALCIUM/VITAMIN D 500 MG/5 MCG (200 I.U.) TABLET PO ×2 (11:33→17:21)
[2025-05-14] MEDS: BRIMONIDINE TARTRATE 0.2% OP SOLN 5 ML BTL 1 DROP EACH EYE (11:33)
[2025-05-14] MEDS: CHOLECALCIFEROL (VITAMIN D3) 25 MCG (1,000 UNITS) TABLET 100 MCG PO (11:36)
[2025-05-14] MEDS: FUROSEMIDE 20 MG TABLET PO (11:36)
[2025-05-14] MEDS: FERROUS SULFATE 325 MG TABLET PO (11:36)
[2025-05-14] MEDS: CYANOCOBALAMIN 500 MCG TABLET PO (11:36)
[2025-05-14] MEDS: GABAPENTIN 300 MG CAPSULE 600 MG PO ×2 (11:36→17:21)
[2025-05-14] MEDS: guaiFENesin 12 HR 600 MG TABCR PO ×2 (11:37→21:44)
[2025-05-14] MEDS: SACUBITRIL/VALSARTAN 24-26 MG TABLET 1 TAB PO ×2 (11:37→21:44)
[2025-05-14] MEDS: TIMOLOL MALEATE 0.25% OP SOLN 5 ML BOTTLE 1 DROP EACH EYE ×2 (11:37→18:31)
[2025-05-14] MEDS: LORATADINE 10 MG TABLET PO (11:37)
[2025-05-14] MEDS: VANCOMYCIN 1,500 MG/NS 500 ML 1,500 MG/500 ML BAG 250 MG IVPB (15:40)
[2025-05-14] MEDS: INSULIN ASPART (*BKC) 100 UNITS/ML SUB-Q (17:20)
[2025-05-14] MEDS: cefTRIAXone 1 GM in SODIUM CHLORIDE 0.9% IV 50 ML 100 ML IVPB (18:32)
[2025-05-14] MEDS: ACETAMINOPHEN 325 MG TABLET 650 MG PO (18:38)
[2025-05-14] MEDS: AZITHROMYCIN IV 500 MG in SODIUM CHLORIDE 0.9% IV 250 ML IVPB (21:43)
[2025-05-14] MEDS: INSULIN GLARGINE (*BKC) 100 UNITS/ML 16 UNITS SUB-Q (21:43)
[2025-05-14] MEDS: HYDROcodone/acetaminophen (*CRX) 5-325 MG TABLET 1 TAB PO (22:17)
[2025-05-14] MEDS: LATANOPROST 0.005% OP SOLN 2.5 ML BTL 1 DROP LEFT EYE (22:25)
[2025-05-15] VITALS (7 sets, daily range): BP systolic 150–170; BP diastolic 65–68; PULSE 61–71; RESP 16–18; TEMP 36.7–36.8; O2SAT 97
[2025-05-15 05:30] LABS: Hematocrit 27.4 % (37.0-47.0); Hemoglobin 8.2 g/dL (12.0-15.0); Immature Granulocyte Percent A 0.5 % (0-0.5); Lymphocytes Absolute Auto 1.22 K/mm3 (0.9-3.2); Mean Corpuscular HGB Conc 29.9 g/dl (32-36); Mean Corpuscular Hemoglobin 27.5 pg (26-34); Mean Corpuscular Volume 91.9 fl (80-100); Nucleated Red Blood Cells Absolute Auto 0.000 K/mm3 (0.0-0.012); Nucleated Red Blood Cells Perc 0.0 % (0.0-0.2); Platelet Count Result 161 k/mm3 (150-375); Red Blood Count 2.98 M/mm3 (4.2-5.4); White Blood Count 3.8 K/mm3 (4.5-10.0)
[2025-05-15 05:56] LABS: Alanine Aminotransferase 14 U/L (6-35); Albumin Level 2.6 g/dL (3.5-5.1); Alkaline Phosphatase 75 U/L (38-126); Anion Gap 2 mmol/L (4-12); Aspartate Amino Transferase 29 U/L (14-36); Bilirubin,Total 0.2 mg/dL (0.2-1.3); Blood Urea Nitrogen 10 mg/dL (7-17); CRP 3.9 mg/dL (<1.0); Calcium 8.2 mg/dL (8.4-10.2); Carbon Dioxide 29 mmol/L (22-30); Chloride 108 mmol/L (98-107); Estimated CRCL calculation 48 ml/min; Estimated Glomerular Filt Rate 55; Glucose 192 mg/dL (65-110); Potassium 4.1 mmol/L (3.4-5.0); Sodium 139 mmol/L (137-145); Total Protein 6.2 g/dL (6.3-8.2)
[2025-05-15 06:00] LABS: Anisocytosis 1+; Hypochromasia 1+; Ovalocytes 1+; Schistocytes None Seen
[2025-05-15] MEDS: HYDROcodone/acetaminophen (*CRX) 5-325 MG TABLET 1 TAB PO (06:30)
[2025-05-15] MEDS: SACUBITRIL/VALSARTAN 24-26 MG TABLET 1 TAB PO (08:06)
[2025-05-15] MEDS: LORATADINE 10 MG TABLET PO (08:06)
[2025-05-15] MEDS: FERROUS SULFATE 325 MG TABLET PO (08:07)
[2025-05-15] MEDS: CALCIUM/VITAMIN D 500 MG/5 MCG (200 I.U.) TABLET PO (08:07)
[2025-05-15] MEDS: CYANOCOBALAMIN 500 MCG TABLET PO (08:07)
[2025-05-15] MEDS: ASPIRIN 81 MG CHEWABLE TABLET PO (08:07)
[2025-05-15] MEDS: guaiFENesin 12 HR 600 MG TABCR PO (08:07)
[2025-05-15] MEDS: GABAPENTIN 300 MG CAPSULE 600 MG PO (08:07)
[2025-05-15] MEDS: CHOLECALCIFEROL (VITAMIN D3) 25 MCG (1,000 UNITS) TABLET 100 MCG PO (08:07)
[2025-05-15] MEDS: TIMOLOL MALEATE 0.25% OP SOLN 5 ML BOTTLE 1 DROP EACH EYE ×2 (08:08→12:16)
[2025-05-15] MEDS: FUROSEMIDE 20 MG TABLET PO (08:08)
[2025-05-15] MEDS: ENOXAPARIN 40 MG/0.4 ML SYRINGE SUB-Q (08:08)
[2025-05-15] MEDS: VANCOMYCIN 1,500 MG/NS 500 ML 1,500 MG/500 ML BAG 250 MG IVPB (08:09)
--- NOTE | 2025-05-15 10:32 | P.DS_ITS ---
DS: Admitting Diagnosis Discharge Date 05/15/25 Admitting Diagnosis - sepsis - pneumonia - AMS - AC DS: Discharge Diagnosis Discharge Diagnosis (1) Sepsis: Code(s): A41.9 - Sepsis, unspecified organism Status: Acute (2) Pneumonia: Qualifiers: Laterality: right Lung location: lower lobe of lung Pneumonia type: due to unspecified organism Qualified Code(s): J18.9 - Pneumonia, unspecified organism Code(s): J18.9 - Pneumonia, unspecified organism Status: Acute (3) Altered mental status: Qualifiers: Altered mental status type: somnolence Qualified Code(s): R40.0 - Somnolence Code(s): R41.82 - Altered mental status, unspecified Status: Acute (4) Acute kidney injury: Code(s): N17.9 - Acute kidney failure, unspecified Status: Acute (5) Chronic wound of extremity: Status: Acute (6) Type 2 diabetes mellitus: Qualifiers: Diabetes mellitus complication status: with hyperglycemia Diabetes mellitus residential insulin use: with residential use Qualified Code(s): E11.65 - Type 2 diabetes mellitus with hyperglycemia; Z79.4 - half-way (current) use of insulin Code(s): E11.9 - Type 2 diabetes mellitus without complications Status: Chronic (7) Anemia: Qualifiers: Anemia type: unspecified type Qualified Code(s): D64.9 - Anemia, u nspecified Code(s): D64.9 - Anemia, unspecified Status: Chronic (8) CHF (congestive heart failure): Qualifiers: Heart failure chronicity: chronic Heart failure type: combined systolic and diastolic Qualified Code(s): I50.42 - Chronic combined systolic (congestive) and diastolic (congestive) heart failure Code(s): I50.9 - Heart failure, unspecified Status: Chronic (9) HTN (hypertension): Qualifiers: Hypertension type: unspecified Qualified Code(s): I10 - Essential (primary) hypertension Code(s): I10 - Essential (primary) hypertension Status: Chronic (10) HLD (hyperlipidemia): Qualifiers: Hyperlipidemia type: unspecified Qualified Code(s): E78.5 - Hyperlipidemia, unspecified Code(s): E78.5 - Hyperlipidemia, unspecified Status: Chronic DS: Summary Hospital Course Reason for hospitalization: - sepsis - pneumonia - AMS - AC Hospital Course: The patient is a 70-year-old female with a history of Gqgsxvq-Pazyc-Maaxs disease, chronic wounds, type 2 diabetes mellitus, combined systolic and diastolic heart failure, chronic kidney disease, prior CVA, and multiple other comorbidities, who was admitted from a [facility] facility for acute altered mental status, generalized weakness, and lethargy. On admission, she met criteria for sepsis with T max 101.5?F, HR 107, and RR in the 20s, likely secondary to right lower lobe pneumonia as suggested by chest X-ray and clinical exam. She was initially started on ceftriaxone and azithromycin, with vancomycin added due to a positive MRSA PCR and multiple recent hospitalizations. Blood cultures remained negative, and sepsis resolved with appropriate therapy and supportive care. Her mental status was significantly altered on arrival (A&O x0), likely due to metabolic encephalopathy in the setting of sepsis. Head CT was negative for acute findings. With treatment, her mentation improved and she returned to her cognitive baseline. She developed an acute kidney injury on admission (creatinine 1.65, BUN 39, GFR 31), likely multifactorial from dehydration and rhabdomyolysis (CK 1076). Statin therapy was held, and she was managed with gentle IV fluids and close monitoring of electrolytes and renal function. Her creatinine improved to 1.03 with treatment, and CK downtrended. Mild hyperkalemia resolved with supportive care. Her chronic bilateral lower extremity wounds were stable and non-infected on this admission, with no evidence of acute cellulitis. Wound care was consulted and agreed with this assessment. The wounds remained dry, with chronic erythema and venous stasis changes, and improved with elevation. Her anemia, chronic and previously worked up as anemia of chronic disease, trended down to 7.7?7.8 during admission, likely hemodilutional, but remained stable without need for transfusion. Her chronic heart failure was managed with oral diuretics and guideline-directed medical therapy (sacubitril/valsartan, carvedilol), with careful fluid balance given her recent AC. Blood pressure remained stable on her home antihypertensives. Statin therapy was held due to elevated CK. Throughout her stay, she remained hemodynamically stable, afebrile, and without hypoxia. She completed a 7-day course of antibiotics, transitioned to linezolid to complete therapy for pneumonia. She was started on mupirocin ointment of the nares for MRSA colonization. Sepsis resolved, mental status returned to baseline, and renal function normalized. She was discharged in stable condition, at her cognitive baseline, with follow-up arranged for her primary care and wound care teams, and returned to her extended care facility. Status at Discharge Overall status at discharge: patient is back to baseline Time Spent with Patient Time attestation: Total time spent providing and/or coordinating discharge services: Time spent: Greater than 30 minutes Exam Narrative: General: NAD Eyes: EOMI ENT: neck supple Cardiovascular: Regular rate and rhythm Respiratory: Clear to auscultation, respirations even and unlabored on RA Gastrointestinal: Soft, non tender Genitourinary: no suprapubic tenderness Musculoskeletal: No edema Skin: warm, dry, BLE venous skin changes with healing venous stasis ulcers. No purulent drainage. No warmth or significant tenderness to suggest cellulitis. Neuro: Alert and oriented x3. Psych: Mood appropriate DS: Data Data Completed and Pending Completed studies during hospitalization: ITS Impressions Head CT 05/11/25 08:06 IMPRESSION: 1. No intracranial hemorrhage or large acute ischemic event. Chest X-Ray 05/11/25 08:09 IMPRESSION: 1. Possible small developing consolidation or atelectatic process in the anterior right lung base. Labs on day of discharge: Labs from last 24 hours 05/15/25 05/15/25 05/14/25 08:03 05:08 19:43 WBC 3.8 L RBC 2.98 L Hgb 8.2 L Hct 27.4 L MCV 91.9 MCH 27.5 MCHC 29.9 L RDW 14.6 H Plt Count 161 MPV 10.1 Immature Gran % (Auto) 0.5 Neut % (Auto) 47.6 Lymph % (Auto) 32.0 [place] % (Auto) 8.1 Eos % (Auto) 11.3 H Baso % (Auto) 0.5 Lymph # (Auto) 1.22 [place] # (Auto) 0.3 Eos # (Auto) 0.4 H Baso # (Auto) 0.0 Abs Immat Gran (auto) 0.02 Absolute Neuts (auto) 1.8 Absolute Nucleated RBC 0.000 Band Neutrophils % Not Reportable Nucleated RBC % 0.0 Platelet Estimate Adequate Hypochromasia 1+ Anisocytosis 1+ Ovalocytes 1+ Schistocytes None seen Sodium 139 Potassium 4.1 Chloride 108 H Carbon Dioxide 29 Anion Gap 2 L BUN 10 Creatinine 1.00 Estim Creat Clear Calc 48 Estimated GFR 55 L Glucose 192 H POC Capillary Glucose 200 H 190 H Calcium 8.2 L Total Bilirubin 0.2 AST 29 ALT 14 Alkaline Phosphatase 75 C-Reactive Protein 3.9 H Total Protein 6.2 L Albumin 2.6 L Vancomycin Trough 05/14/25 05/14/25 05/14/25 16:39 14:12 11:36 WBC RBC Hgb Hct MCV MCH MCHC RDW Plt Count MPV Immature Gran % (Auto) Neut % (Auto) Lymph % (Auto) [place] % (Auto) Eos % (Auto) Baso % (Auto) Lymph # (Auto) [place] # (Auto) Eos # (Auto) Baso # (Auto) Abs Immat Gran (auto) Absolute Neuts (auto) Absolute Nucleated RBC Band Neutrophils % Nucleated RBC % Platelet Estimate Hypochromasia Anisocytosis Ovalocytes Schistocytes Sodium Potassium Chloride Carbon Dioxide Anion Gap BUN Creatinine Estim Creat Clear Calc Estimated GFR Glucose POC Capillary Glucose 215 H 163 H Calcium Total Bilirubin AST ALT Alkaline Phosphatase C-Reactive Protein Total Protein Albumin Vancomycin Trough 11.4 Preliminary micro results at discharge 05/11/25 07:15 Blood Culture - Preliminary Blood 05/11/25 07:43 Blood Culture - Preliminary Blood Discharge Plan Discharge Attending physician on discharge: Luciano Hinojosa Consulting providers: Annie Rosales Discharging Clinician: Annie Rosales Anticipated Discharge Date/Time: 05/15/25 10:29 Patient Disposition: Home Activity: may shower Diet: regular Discharge Instructions: Discharge Instructions: Pneumonia ? Intermediate Return Diagnosis:?Pneumonia, possibly due to MRSA Discharge Medications: * Linezolid?(for MRSA pneumonia) * Mupirocin nasal ointment?(for MRSA nares colonization) 1.?Medications Linezolid * Dose:?[Insert dose, frequency, and route] * Duration:?[Insert total days of therapy] * Purpose:?Treats MRSA pneumonia. * Administration:?Give at the same times each day. * Monitor for Side Effects: * Thrombocytopenia (monitor CBC weekly if therapy >7 days) * Peripheral or optic neuropathy (report new vision changes, numbness, or tingling) * Serotonin syndrome (watch for confusion, fever, muscle stiffness, especially if on serotonergic drugs) * GI upset (nausea, diarrhea) * Drug Interactions:?Avoid concurrent serotonergic agents (SSRIs, SNRIs, MAOIs) if possible. Mupirocin Nasal Ointment * Dose:?Apply a small amount to each nostril twice daily. * Duration: 5 days * Purpose:?Eradicate MRSA colonization in the nares. * Instructions: * Apply using a cotton swab or gloved finger. * Press sides of nose together and gently massage to spread ointment. * Do not use in eyes or on broken skin. * Monitor for Side Effects:?Local irritation, itching, or rash. 2.?Infection Control * Contact Precautions:?Continue MRSA precautions per facility protocol (gown/gloves for direct care). * Hand Hygiene:?Strict handwashing before and after patient contact. * Environmental Cleaning:?Routine cleaning of high-touch surfaces. 3.?Monitoring and Follow-Up * Monitor for Signs of Infection: * Fever, increased cough, shortness of breath, chest pain, or change in sputum. * Monitor for Adverse Drug Effects:?As above. * Notify Provider If: * New or worsening respiratory symptoms. * Rash, severe diarrhea, or other concerning side effects. * Signs of serotonin syndrome or neuropathy. 4.?Supportive Care * Hydration:?Encourage adequate fluid intake unless contraindicated. * Pulmonary Hygiene:?Encourage coughing, deep breathing, and repositioning as tolerated. * Nutrition:?Maintain adequate nutrition to support recovery. 5.?Additional Orders * Vital Signs:?Monitor per facility protocol. * Laboratory Monitoring:?CBC weekly if on linezolid >7 days. * Isolation:?Continue until cleared per facility infection control. 6.?Education for Intermediate Staff * Medication Adherence:?Ensure all doses of linezolid and mupirocin are administered as prescribed. * Infection Prevention:?Reinforce hand hygiene and contact precautions. * Report:?Any new or worsening symptoms, or adverse medication effects, to the provider promptly. Patient Instructions: Antibiotic Form, Heart Failure (GEN) Patient Language: Estonian Stand Alone Forms: General Discharge Information Follow-up/Referrals: Tati,Len [Other] Discharge Medications: New linezolid 600 mg tablet 600 mg PO Q12H 4 Days Qty: 8 0RF mupirocin [Centany] 2 % ointment 1 applic topical BID 5 Days Qty: 15 0RF Continued baclofen 10 mg tablet 10 mg PO Q12H PRN (Reason: muscle spasms) bisacodyl 10 mg Suppository 10 mg RECTAL DAILY PRN (Reason: Constipation) insulin glargine [Basaglar KwikPen U-100 Insulin] 100 unit/mL (3 mL) insulin pen 20 unit SUBCUT HS Fiasp FlexTouch U-100 Insulin 100 unit/mL (3 mL) insulin pen 8 unit SUBCUT TIDWM cyanocobalamin (vitamin B-12) 1,000 mcg Tablet 500 mcg PO DAILY timolol maleate 0.25 % drops 1 drp EACH EYE TID Fleet Enema 19-7 gram/118 mL enema 118 ml RECTAL DAILY PRN (Reason: constipation) hydrocodone-acetaminophen 5-325 mg tablet 1 tablet PO Q6H PRN (Reason: pain) Qty: 10 0RF furosemide 40 mg Tablet 20 mg PO DAILY carvedilol 25 mg Tablet 25 mg PO BID sennosides [senna] 8.6 mg Tablet 8.6 mg PO DAILY PRN (Reason: Constipation) gabapentin 600 mg Tablet 600 mg PO BID atorvastatin 20 mg Tablet 20 mg PO HS brimonidine 0.2 % Drops 1 drp OPHTHALMIC (EYE) DAILY Rx Instructions: Left eye aspirin 81 mg Tablet,Chewable 81 mg PO DAILY loratadine [Claritin] 10 mg Tablet 10 mg PO DAILY calcium carbonate-vitamin D3 [Oysco 500/D] 500 mg(1,250mg) -200 unit Tablet 1 tablet PO BID acetaminophen 325 mg Tablet 650 mg PO Q6H PRN (Reason: Pain) Qty: 10 0RF diclofenac sodium [Voltaren Arthritis Pain] 1 % gel 2 g topical .q12 PRN (Reason: pain) Rx Instructions: apply to single elbow, wrist or hand; for hand includes palm/fingers/back of hand magnesium hydroxide [Milk of Magnesia] 400 mg/5 mL suspension 30 ml PO .Q8HR PRN (Reason: constipation) ondansetron 4 mg tablet,disintegrating 4 mg PO Q8H PRN (Reason: nausea and vomiting) Nasal [place] (sodium chloride) 0.65 % aerosol,spray 1 spray intranasal Q6H PRN (Reason: dry nasal passages) cholecalciferol (vitamin D3) 25 mcg (1,000 unit) tablet,chewable 4,000 unit PO DAILY Rx Instructions: Give 4 tablets magnesium citrate [Citroma] Solution 296 ml PO .q24 PRN (Reason: constipation) sacubitril-valsartan [Entresto] 24-26 mg tablet 1 tablet PO BID loperamide [Anti-Diarrheal (loperamide)] 2 mg capsule 2 mg PO .q24 PRN (Reason: loose stool) latanoprost 0.005 % drops 1 drp LEFT EYE QHS polyethylene glycol 3350 [Miralax] 17 gram Powder In Packet 17 g PO QAM PRN (Reason: constipation) ferrous sulfate 325 mg (65 mg iron) Tablet 325 mg PO DAILY 30 Days Qty: 30 0RF Date of admission: 05/11/25 11:07 Primary Care Provider: Tati,Len Admitting Provider: Edmond Chase Attending physician on admission: Edmond Chase Condition: Stable
[2025-05-15] MEDS: INSULIN ASPART (*BKC) 100 UNITS/ML SUB-Q (12:15)
== END 2025-05-15 12:47 | DRG 871 ==
LOC: ANHED 10:17 → ANH2MED 11:41
PROVIDERS: Student in an Organized Health Care Education/Training Program; Admitting Provider Student in an Organized Health Care Education/Training Program; Emergency Provider Emergency Medicine; Visit Provider Physician Assistant
DX: A41.9 Sepsis, unspecified organism (principal); G93.41 Metabolic encephalopathy; J18.9 Pneumonia, unspecified organism; N17.9 Acute kidney failure, unspecified; M62.82 Rhabdomyolysis; I13.0 Hypertensive heart and chronic kidney disease with heart failure and stage 1 through stage 4 chronic kidney disease, or unspecified chronic kidney disease; I50.42 Chronic combined systolic (congestive) and diastolic (congestive) heart failure; D63.1 Anemia in chronic kidney disease; E11.319 Type 2 diabetes mellitus with unspecified diabetic retinopathy without macular edema; E11.65 Type 2 diabetes mellitus with hyperglycemia; E87.5 Hyperkalemia; E78.5 Hyperlipidemia, unspecified; E86.0 Dehydration; E11.22 Type 2 diabetes mellitus with diabetic chronic kidney disease; G60.0 Hereditary motor and sensory neuropathy; I87.8 Other specified disorders of veins; I25.10 Atherosclerotic heart disease of native coronary artery without angina pectoris; L53.9 Erythematous condition, unspecified; N18.9 Chronic kidney disease, unspecified; Z86.73 Personal history of transient ischemic attack (TIA), and cerebral infarction without residual deficits; Z22.322 Carrier or suspected carrier of Methicillin resistant Staphylococcus aureus; Z79.82 Long term (current) use of aspirin; Z79.4 Long term (current) use of insulin; Z95.5 Presence of coronary angioplasty implant and graft
CPT/HCPCS: 36415; 70450; 71046; 80048; 80053; 80202; 81001; 82550; 82570; 82948; 83605; 83735; 84100; 84133; 84145; 84156; 84300; 84484; 84540; 85025; 85610; 85730; 86140; 87040; 87641; 93005; 96374; 96375; 99291; A9270; J0456; J0612; J0696; J1650; J1815; J3373; J7050; J7120